=== PATIENT | female | born 1965 | race Caucasian/White ===

== ENCOUNTER 2018-01-04 16:03 | Inpatient (IN) ==
[2018-01-04 16:37] LABS: ABG Base Excess -26.1 mmol/L (-2-2); ABG PCO2 21 mmHg (38-42); ABG PO2 275 mmHg (61-120)
[2018-01-04] MEDS ORDERED: Piperacil/Tazo 3.375 GM Premix 50 ML IV.SIG ONE (16:45)
[2018-01-04] MEDS ORDERED: Potassium Chlor 20 mEq Premix 20 MEQ/100 ML PIGGYBACK IV.SIG PRN ×7 (16:58→17:28)
[2018-01-04] MEDS ORDERED: Magnesium Sulfate Inj 4 GM in Sodium Chlor 0.9% Inj 92 ML IV.SIG PRN (16:58)
[2018-01-04] MEDS ORDERED: Potassium Chlor 40 mEq Premix 40 MEQ/100 ML PIGGYBACK IV.SIG PRN ×2 (16:58)
[2018-01-04] MEDS ORDERED: Potassium Phosphate 500 MG Soluble Tablet PO PRN ×2 (16:58)
[2018-01-04] MEDS ORDERED: Magnesium Oxide 400 MG Tablet PO PRN (16:58)
[2018-01-04] MEDS ORDERED: Potassium Phosphate Inj 30 MMOL in Sodium Chlor 0.9% Inj 250 ML IV.SIG PRN (16:58)
[2018-01-04] MEDS ORDERED: Potassium Chloride 25 MEQ Effervescent Tablet PO PRN (16:58)
[2018-01-04] MEDS ORDERED: Magnesium Sulfate Inj 2 GM in Sodium Chlor 0.9% Inj 96 ML IV.SIG PRN (16:58)
[2018-01-04] MEDS ORDERED: Sodium Phosphate Inj 30 MMOL in Sodium Chlor 0.9% Inj 250 ML IV.SIG PRN (16:58)
[2018-01-04] MEDS ORDERED: Norepinephrine Inj 4 MG/4 ML Ampul ONE (17:13)
--- NOTE | 2018-01-04 17:17 | P.HPCC ---
History of Present Illness Service: Critical Care Medicine Primary Care Physician: UNKNOWN Chief Complaint: unresponsive History of Present Illness: This is a 52yF with a completely unknown past medical history who was found by EMS unresponsive in her home. per report, her friends called EMS to check on her. she was intubated in the field with 6.5 ett. she arrives to the ER hypotensive in shock. abg demonstrates pH 6.9/21/275/-26. wbc 30, hct 50, plt 253, 87% neutrophil. sodium 129, potassium 5.3, co2 5.9, AG 34, cr 4.25, glucose 1191. lactate 6.2, ammonia 70. Because nothing was known about the patient and she was in profound shock, we went emergently to CT: CT brain without acute abnormality. CT chest demonstrates patchy infiltrates concerning for infectious etiology. CT abd/pelvis without acute abnormality. she is taken to ICU in critical condition, unresponsive. no additional information is available. ROS unobtainable. Inpatient Certification: I certify that the inpatient services were ordered in accordance with Medicare regulations governing the order. This includes certification that hospital inpatient services are reasonable and necessary and in the case of services not specified as inpatient-only under 42 CFR 419.22(n), that they are appropriately provided as inpatient services in accordance to with the 2-midnight benchmark under 43 CFR 412.3(e) Estimated Total Length of Stay (Days): 7 Plans for Post Hospital Care: Not yet determined Review of Systems unobtainable due to endotracheal tube, unobtainable due to mental condition, unobtainable due to mental status PMFSH - History History Provided By: Director Women / EMT - Medical / Surgical Hx Neg / Unobtainable Medical Problems Denied: Unable to Obtain Surgical History: Unable to Obtain - Medical History Medical History: Medical History (Last Reviewed 01/04/18 @ 17:37 by Hannah Israel MD) Diabetes - Tobacco History Smoking Status: Unknown if ever smoked - Alcohol History How Often Do You Have a Drink Containing Alcohol: Unable to Obtain - Substance Use History Substance History: Unable to Obtain - Travel History Recent Travel in the [place] Within the Last 8 Weeks: No Recent Travel Out of the Country Within the Last 8 Weeks: No - Immunization History Tetanus Immunization: Unable to Assess Hx Influenza Vaccine This Season: Unable to Assess Medications and Allergies Active Medications: Active Medications Albuterol (Duoneb Neb (Prn)) 1 ampul NEB Q2HR NEB PRN PRN Reason: WHEEZING Albuterol (Duoneb Neb (Prn)) 1 ampul NEB Q6HR NEB MATTEO Chlorhexidine Gluconate (Peridex 0.12% Oral Kit) 15 ml OROPHARYNG BID@0800, 2000 MATTEO Chlorhexidine Gluconate (Chlorhexidine 2% Cloth) 3 pack TOPICAL DAILY@0400 MATTEO Stop: 01/10/18 03:59 Chlorhexidine Gluconate (Chlorhexidine 2% Cloth) 3 pack TOPICAL DAILY@0400 PRN PRN Reason: Extra cloth needed Stop: 01/10/18 03:59 Famotidine (Pepcid Pf Inj) 20 mg IV.PUSH Q12HR MATTEO Piperacillin/Tazobactam/Dextrose (Zosyn 3.375 Gm Premix) 50 mls @ 100 mls/hr IV.SIG ONCE ONE Stop: 01/04/18 17:14 Magnesium Sulfate Inj 4 gm/ (Sodium Chloride) 100 mls @ 50 mls/hr IV.SIG UNSCH PRN PRN Reason: For Magnesium 0.9 - 1.1 mg/dL Potassium Chloride (Kcl 40 Meq Premix Inj) 40 meq in 100 mls @ 25 mls/hr IV.SIG Q2H PRN PRN Reason: For Potassium 2.8 - 3.2 mEq/L Potassium Chloride (Kcl 40 Meq Premix Inj) 40 meq in 100 mls @ 25 mls/hr IV.SIG UNSCH PRN PRN Reason: For Potassium 3.3 - 3.5 mEq/L Potassium Chloride (Kcl 20 Meq Premix Inj) 20 meq in 100 mls @ 50 mls/hr IV.SIG Q2H PRN PRN Reason: For Potassium 2.8 - 3.2 mEq/L Potassium Phosphate 30 mmol/ (Sodium Chloride) 260 mls @ 42 mls/hr IV.SIG UNSCH PRN PRN Reason: SEE LABEL COMMENTS Magnesium Sulfate Inj 2 gm/ (Sodium Chloride) 100 mls @ 50 mls/hr IV.SIG UNSCH PRN PRN Reason: For Magnesium 1.2 - 1.6 mg/dL Potassium Chloride (Kcl 20 Meq Premix Inj) 20 meq in 100 mls @ 50 mls/hr IV.SIG Q2H PRN PRN Reason: For Potassium 3.3 - 3.5 mEq/L Sodium Phosphate 30 mmol/ (Sodium Chloride) 260 mls @ 42 mls/hr IV.SIG UNSCH PRN PRN Reason: For Phosphorus < 2.5 mg/dL Magnesium Oxide (Mag-Ox) 800 mg PO UNSCH PRN PRN Reason: For Magnesium 1.2 - 1.6 mg/dL Ondansetron HCl (Zofran Inj) 4 mg IV.PUSH Q6H PRN PRN Reason: NAUSEA OR VOMITING Potassium Bicarb/Potassium Chloride (K-Lyte Cl Eff) 50 meq PO UNSCH PRN PRN Reason: For Potassium 3.3 - 3.5 mEq/L Potassium Phosphate (K-Phos Original) 2,000 mg PO Q4H PRN PRN Reason: Phosphorus Less Than 2.5 mg/dL Potassium Phosphate (K-Phos Original) 2,000 mg PO UNSCH PRN PRN Reason: SEE LABEL COMMENTS Sodium Chloride (Ns Flush) 2 ml IV.FLUSH PRN PRN PRN Reason: FLUSH AFTER USING IV ACCESS Sodium Chloride (Ns Flush) 2 ml IV.FLUSH BID MATTEO Sodium Chloride (Ns Flush) 2 ml IV.FLUSH PRN PRN PRN Reason: FLUSH AFTER USING IV ACCESS Allergies Allergy/AdvReac Type Severity Reaction Status Date / Time No Known Allergies Allergy Unverified 01/04/18 16:11 Home Medications Medication Instructions Recorded Confirmed Type Unable to Obtain Home Meds 01/04/18 01/04/18 History Results - Labs CBC & Chem 7: 01/04/18 16:20 01/04/18 16:20 Exam Vital signs: Vital Signs 01/04/18 16:18 01/04/18 16:26 01/04/18 16:43 Temperature 37.1 C Pulse Rate 111 H 106 H 115 H Respiratory Rate 34 H 32 H 45 H Blood Pressure 78/48 L 97/54 L 97/40 L Pulse Oximetry 96 92 L 01/04/18 16:47 Temperature Pulse Rate 113 H Respiratory Rate 45 H Blood Pressure 95/47 L Pulse Oximetry Intake & Output 01/03/18 01/04/18 01/04/18 18:59 06:59 18:59 Weight 104.326 kg Narrative: gen: middle-aged appearing female, lying in bed, intubated, unresponsive. heent: pupils 3mm, equal, reactive. nc. at. mucous membranes dry. neck: no jvd. trachea midline. chest: intubated with 6.5 ett. equal chest rise. prvc. full vent support. fio2 100%. peep 5. cv: tachycardic rate, regular rhythm. sinus. hypotensive on norepinephrine abd: soft, obese, nontender, nondistended. no guarding. extr: cool to the touch. poor cap refill. distal pulses 1+. neuro: RASS -5. GCS 5. does move all extremities spontaneously but does not withdraw to pain or follow commands. Septic Shock Reassessment Septic shock perfusion: reassessment completed Caprini VTE Risk Assessment Caprini VTE Risk Assessment: Moderate/High Risk (score >= 2) Caprini Risk Assessment Model: Point Value = 1 Point Value = 2 Point Value = 3 Point Value = 5 Age 41-60 Minor surgery BMI > 25 kg/m2 Swollen legs Varicose veins or History of unexplained or recurrent spontaneous Oral contraceptives or hormone replacement Sepsis (< 1 month) Serious lung disease, including pneumonia (< 1 month) Abnormal pulmonary function Acute myocardial infarction Congestive heart failure (< 1 month) History of inflammatory bowel disease Medical patient at bed rest Age 61-74 Arthroscopic surgery Major open surgery (> 45 min) Laparoscopic surgery (> 45 min) Malignancy Confined to bed (> 72 hours) Immobilizing plaster cast Central venous access Age >= 75 History of VTE Family history of VTE Factor V Leiden Prothrombin [id number] Lupus anticoagulant Anticardiolipin antibodies Elevated serum homocysteine Heparin-induced thrombocytopenia Other congenital or acquired thrombophilia Stroke (< 1 month) Elective arthroplasty Hip, pelvis, or leg fracture Acute spinal cord injury (< 1 month) Prophylaxis Regimen: Total Risk Factor Score Risk Level Prophylaxis Regimen 0-1 Low Early ambulation 2 Moderate Order ONE of the following: *Sequential Compression Device (SCD) *Heparin 5000 units SQ BID 3-4 Higher Order ONE of the following medications: *Heparin 5000 units SQ TID *Enoxaparin/Lovenox 40 mg SQ daily (WT < 150 kg, CrCl > 30 mL/min) *Enoxaparin/Lovenox 30 mg SQ daily (WT < 150 kg, CrCl > 10-29 mL/min) *Enoxaparin/Lovenox 30 mg SQ BID (WT < 150 kg, CrCl > 30 mL/min) AND/OR *Sequential Compression Device (SCD) 5 or more Highest Order ONE of the following medications: *Heparin 5000 units SQ TID (Preferred with Epidurals) *Enoxaparin/Lovenox 40 mg SQ daily (WT < 150 kg, CrCl > 30 mL/min) *Enoxaparin/Lovenox 30 mg SQ daily (WT < 150 kg, CrCl > 10-29 mL/min) *Enoxaparin/Lovenox 30 mg SQ BID (WT < 150 kg, CrCl > 30 mL/min) AND *Sequential Compression Device (SCD) Assessment and Plan - Assessment and Plan Plan: Assessment: 52yF with unknown past medical history presents in multiorgan failure and profound shock and acidosis. critically ill. Most likely constellation of symptoms are consistent with severe DKA in extremis and shock combined with a septic shock from most likely pulmonary etiology. Plan by systems: Neuro: Acute metabolic encephalopathy - frequent neuro checks - propofol, fentanyl for goal RASS -2. - avoid long-acting sedatives Resp: Acute hypoxic and hypercarbic respiratory failure Community Acquired pneumonia - vent bundle - hob elevated - no weaning of mechanical ventilation while in shock - wean fio2 for goal spo2 > 90% - no SBT today CV: Septic Shock Hypovolemic shock - s/p 6L crystalloid ivf - levophed, vasopressin for goal map > 65 mmHg Renal: Acute kidney injury - likely secondary to volume depletion and shock - ivf - daily bmp - allen - q1h uop FEN/GI: Lactic Acidosis Severe anion-gap metabolic acidosis Acute intravascular volume depletion Obesity Hyperkalemia total body potassium depletion Pseudohyponatremia secondary to hyperglycemia - NPO while in shock - ICU electrolyte protocol - aggressive potassium replacement - trend lactates - ivf - frequent serial labs - sodium secondary to hyperglycemia, trend. Heme/ID: Community Acquired Pneumonia Septic Shock - vancomycin with pharmacy dosing - zosyn - azithromycin - sarabia culture - daily cbc Endo: Diabetic Ketoacidosis - dka protocol insulin drip - q1h accuchecks Prophylaxis: SQH pepcid SCDs Lines: - 01/04 left IJ TLC - 01/04 right radial art line - allen Dispo: - admit to ICU. critically ill in extremis. Critical care time: 96 minutes, exclusive of separately billable procedures. Procedures - Arterial Line Time out performed: Yes Size (Gauge): 20 Technique used: direct puncture technique Post-Procedure: line sutured into place, dry sterile dressing placed Patient tolerated procedure: no complications Complications: none Site: right, radial
[2018-01-04] MEDS ORDERED: Sodium Bicarbonate 8.4% Inj 50 MEQ/50 ML Syringe IV.PUSH ONE (17:18)
[2018-01-04] MEDS ORDERED: Vancomycin Consult Pharmacy OTHER PRN (17:20)
[2018-01-04 17:22] LABS: Baso # (Auto) 0.1 th/mm3 (0.0-0.2); Baso % (Auto) 0.2 % (0.0-2.0); Eos % (Auto) 0.1 % (0.0-4.0); Hematocrit 50.8 % (35.0-46.0); Lymph # (Auto) 1.5 th/mm3 (1.0-4.8); Lymph % (Auto) 5.1 % (9.0-44.0); Mean Corpuscular Hemoglobin 29.1 pg (27.0-34.0); Mean Corpuscular Volume 105.7 fL (80.0-100.0); Mean Platelet Volume 14.2 fL (7.0-11.0); Mono % (Auto) 6.7 % (0.0-8.0); Neut # (Auto) 26.3 th/mm3 (1.8-7.7); Neut % (Auto) 87.9 % (16.0-70.0); Platelet Count 253 th/mm3 (150-450); Red Blood Count 4.81 mil/mm3 (4.00-5.30); Red Cell Distribution Width 15.2 % (11.6-17.2)
[2018-01-04 17:24] LABS: Mean Corpuscular HGB Conc 27.6 % (32.0-36.0)
[2018-01-04] MEDS ORDERED: Sodium Phosphate Inj 15 MMOL in Sodium Chlor 0.9% Inj 100 ML IV.SIG PRN (17:28)
[2018-01-04 17:33] LABS: Activated Partial Thrombo Time 29.7 sec (24.3-30.1)
[2018-01-04 17:39] LABS: Amphetamine Screen,Urine Neg (Neg); Barbiturate Screen,Urine Neg (Neg); Cannabinoid Screen,Urine Neg (Neg); Cocaine Screen,Urine Neg (Neg)
[2018-01-04 17:41] LABS: Bilirubin,Urine Negative (Negative); Clarity,Urine Clear (Clear); Color,Urine Yellow (Yellw/Straw); Glucose,Urine (UA) 500 or Greater mg/dL (Negative); Leukocyte Esterase,Urine Negative (Negative); Nitrite,Urine Negative (Negative); Specific Gravity,Urine 1.017 (1.002-1.035); Squamous Epithelial Cell,Urine <1 /hpf (0-5)
[2018-01-04] MEDS ORDERED: Midazolam Inj 5 MG/ML 1 ML Vial ONE ×3 (17:42→18:35)
--- NOTE | 2018-01-04 17:42 | ED ---
HPI General Chief Complaint: Altered Mental Status Stated Complaint: diabetic Time Seen by Provider: 01/04/18 16:10 Source: EMS Mode of arrival: EMS Limitations: altered mental status History of Present Illness HPI narrative: 52-year-old female patient presents to the ER today brought in by EMS, apparently he was not heard from and they had done a well check on her, found her unresponsive on the ground, respiratory rates in the 40s, pulse ox in the 70s, and intubated her for airway protection. Blood sugars reading high. They were not able to get any further history. Related Data Allergies Allergy/AdvReac Type Severity Reaction Status Date / Time No Known Allergies Allergy Unverified 01/04/18 16:11 Review of Systems ROS Unobtainable ROS Unobtainable: unobtainable due to endotracheal tube PMFSH Medical History Medical History Diabetes (Acute) Social History Social History Substance History: Unable to Obtain Smoking Status: Unknown if ever smoked How Often Do You Have a Drink Containing Alcohol: Unable to Obtain Recent Travel in [facility] within the Last 8 Weeks: No Recent Out of Country Travel within the Last 8 Weeks: No Immunization History Tetanus Immunization: Unable to Assess Hx Influenza Vaccine This Season: Unable to Assess Exam Narrative Exam Narrative: GENERAL: Well-developed middle-age female patient currently intubated, unresponsive to painful stimuli, obtunded. SKIN: Focused skin assessment warm/diaphoretic. HEAD: Atraumatic. Normocephalic. EYES: Pupils equal and round. No scleral icterus. No injection or drainage. ENT: No nasal bleeding or discharge. Mucous membranes pink and moist. NECK: Trachea midline. No JVD. CARDIOVASCULAR: Regular rate and rhythm. No murmur appreciated. RESPIRATORY: Breath sounds equal bilaterally. Intubated. Tachypnea. GASTROINTESTINAL: Abdomen soft, non-tender, nondistended. Hepatic and splenic margins not palpable. MUSCULOSKELETAL: No obvious deformities. No clubbing. No cyanosis. No edema. NEUROLOGICAL: Obtunded, unresponsive to painful stimuli. PSYCHIATRIC: Unable to assess, obtunded, intubated Course Initial Documented Vital Signs Pulse Rate 111 H 01/04/18 16:18 Respiratory Rate 34 H 01/04/18 16:18 Blood Pressure 78/48 L 01/04/18 16:18 Pulse Oximetry 96 01/04/18 16:18 Last Documented Vital Signs Temperature 98.7 F 01/04/18 16:43 Pulse Rate 113 H 01/04/18 16:47 Respiratory Rate 45 H 01/04/18 16:47 Blood Pressure 95/47 L 01/04/18 16:47 Pulse Oximetry 92 L 01/04/18 16:26 Medical Decision Making MDM Narrative Medical decision making narrative: Patient had been intubated by EMS, blood sugars reading high, initial exam shows good breath sounds bilaterally, no breath sounds over the stomach, ET tube appears to be in place. Ultrasound mental status workup initiated in the ER. She was hypotensive and to boluses of normal saline have been given in the ER. Her initial ABG shows significant metabolic metabolic acidosis with pH of 6.9. To as a bicarb were given in the ER. She is mildly febrile and at this point, IV antibiotics were initiated after blood cultures are drawn. Patient is in critical condition and case was discussed with Dr. Fisher of intensive care unit service for admission. Aggregate critical care time was 35 minutes. Time to perform other separately billable procedures was not included in the critical care time. My time did not include minutes spent treating any other patients simultaneously or on activities that did not directly contribute to the patient's treatment. The services I provided to this patient were to treat and/or prevent clinically significant deterioration that could result in: Cardiopulmonary arrest, septic shock, I provided critical care services requiring my management, as noted below: Chart data review, documentation time, medication orders and management, vital sign assessments/reviewing monitor data, ordering and reviewing lab tests, ordering and interpreting/reviewing x-rays and diagnostic studies, care of the patient and discussion of the patient with the admitting physicians. Medical Screen Exam Complete: Yes Emergency Medical Condition: Yes Differential Diagnosis Differential Diagnosis: sepsis versus pneumonia versus DKA versus ICH versus dehydration versus PE Lab Data Lab results reviewed: Yes I reviewed the patient's lab results. Result diagrams: 01/04/18 16:20 01/04/18 16:20 POC Results POC Urine Results Negative Lab Results 01/04/18 01/04/18 01/04/18 Range/Units 16:20 16:20 16:26 WBC 30.0 H (4.0-11.0) th/mm3 RBC 4.81 (4.00-5.30) mil/mm3 Hgb 14.0 (11.6-15.3) gm/dL Hct 50.8 H (35.0-46.0) % MCV 105.7 H (80.0-100.0) fL MCH 29.1 (27.0-34.0) pg MCHC 27.6 L (32.0-36.0) % RDW 15.2 (11.6-17.2) % Plt Count 253 (150-450) th/mm3 MPV 14.2 H (7.0-11.0) fL Prelim Diff (Auto) Slide review pending Neut % (Auto) 87.9 H (16.0-70.0) % Lymph % (Auto) 5.1 L (9.0-44.0) % [place] % (Auto) 6.7 (0.0-8.0) % Eos % (Auto) 0.1 (0.0-4.0) % Baso % (Auto) 0.2 (0.0-2.0) % Neut # (Auto) 26.3 H (1.8-7.7) th/mm3 Lymph # (Auto) 1.5 (1.0-4.8) th/mm3 [place] # (Auto) 2.0 H (0.0-0.9) th/mm3 Eos # (Auto) 0.0 (0.0-0.4) th/mm3 Baso # (Auto) 0.1 (0.0-0.2) th/mm3 Differential Comment . PT 10.0 (9.8-11.6) sec INR 1.0 Ratio APTT 29.7 (24.3-30.1) sec Fibrinogen 432 H (227-377) mg/dL Puncture Site Patient Temperature O2 Saturation (90-100) % ABG pH (7.380-7.420) ABG pCO2 (38-42) mmHg ABG pO2 (61-120) mmHg ABG HCO3 (22-26) mmol/L ABG O2 Content (12.0-20.0) Vol % ABG Base Excess (-2-2) mmol/L ABG Methemoglobin (0-2) % Omer Test Hemoglobin (12.0-16.0) G/DL Carboxyhemoglobin (0-4) % O2 Delivery Device Vent Setting Inspired O2 % Critical Value Lactic Acid 6.2 H* (0.4-2.0) mmol/L Ammonia (11-32) mcmol/L 01/04/18 01/04/18 Range/Units 16:26 16:30 WBC (4.0-11.0) th/mm3 RBC (4.00-5.30) mil/mm3 Hgb (11.6-15.3) gm/dL Hct (35.0-46.0) % MCV (80.0-100.0) fL MCH (27.0-34.0) pg MCHC (32.0-36.0) % RDW (11.6-17.2) % Plt Count (150-450) th/mm3 MPV (7.0-11.0) fL Prelim Diff (Auto) Neut % (Auto) (16.0-70.0) % Lymph % (Auto) (9.0-44.0) % [place] % (Auto) (0.0-8.0) % Eos % (Auto) (0.0-4.0) % Baso % (Auto) (0.0-2.0) % Neut # (Auto) (1.8-7.7) th/mm3 Lymph # (Auto) (1.0-4.8) th/mm3 [place] # (Auto) (0.0-0.9) th/mm3 Eos # (Auto) (0.0-0.4) th/mm3 Baso # (Auto) (0.0-0.2) th/mm3 Differential Comment PT (9.8-11.6) sec INR Ratio APTT (24.3-30.1) sec Fibrinogen (227-377) mg/dL Puncture Site Right radial Patient Temperature 98.6 O2 Saturation 97 (90-100) % ABG pH 6.90 L* (7.380-7.420) ABG pCO2 21 L* (38-42) mmHg ABG pO2 275 H (61-120) mmHg ABG HCO3 4 L* (22-26) mmol/L ABG O2 Content 16.6 (12.0-20.0) Vol % ABG Base Excess -26.1 L (-2-2) mmol/L ABG Methemoglobin 0.9 (0-2) % Omer Test Present Hemoglobin 11.7 L (12.0-16.0) G/DL Carboxyhemoglobin 1.0 (0-4) % O2 Delivery Device Ventilator Vent Setting Vac/16/550/+5/.60% Inspired O2 60 % Critical Value Yes Lactic Acid (0.4-2.0) mmol/L Ammonia 70 H (11-32) mcmol/L Discharge Plan Discharge Details Anticipated Discharge Date: 01/04/18 Physicians Team ED Provider: Hannah Israel Primary Care Provider: UNKNOWN, Attending Provider: Guille Vázquez Discharge Interventions Interventions: Vital Signs Last Done: 01/04/18 16:47 Status ED Status: Admitted Patient
--- NOTE | 2018-01-04 17:45 | CT ---
EXAM DATE: 01/04/2018 5:42 PM EDT AGE/SEX: 52 years / Female INDICATIONS: Altered mental status. CLINICAL DATA: This is the patient's initial encounter. Patient reports that signs and symptoms have been present for 1 day and indicates a pain score of Nonresponsive. MEDICAL/SURGICAL HISTORY: Non-responsive. Non-responsive. RADIATION DOSE: 65.48 CTDI (mGy) ; Patient motion COMPARISON: No prior exams available for comparison. TECHNIQUE: CT of the head without contrast. Using automated exposure control and adjustment of the mA and/or kV according to patient size, radiation dose was kept as low as reasonably achievable to ob tain optimal diagnostic quality images. DICOM format image data is available electronically for revi ew and comparison. FINDINGS: The study is degraded by artifact from overlying foreign objects. Grossly, the ventricles are symmetr ic and normal. No abnormal extra-axial fluid accumulation, mass or hemorrhage is identified. There is nothing to suggest acute infarction. The calvarium is intact. CONCLUSION: Technically degraded exam grossly negative for acute intracranial process. . Electronically signed by: Demetri Domingo MD 01/04/2018 5:44 PM EDT
[2018-01-04 17:48] LABS: Opiate Screen,Urine Neg (Neg)
[2018-01-04] MEDS ORDERED: Midazolam Inj 5 MG/ML 1 ML Vial IV.PUSH ONE (17:54)
--- NOTE | 2018-01-04 17:56 | CT ---
EXAM DATE: 01/04/2018 5:46 PM EDT AGE/SEX: 52 years / Female INDICATIONS: Abdominal pain. Patient found unresponsive. CLINICAL DATA: This is the patient's initial encounter. Patient reports that signs and symptoms have been present for 1 day and indicates a pain score of Nonresponsive. MEDICAL/SURGICAL HISTORY: Non-responsive. Non-responsive. ORAL CONTRAST: No oral contrast ingested. RADIATION DOSE: 19.32 CTDI (mGy) ; Combined studies COMPARISON: No prior exams available for comparison. TECHNIQUE: Multiple contiguous axial images were obtained through the abdomen and pelvis following b olus infusion of 100 ml Omnipaque 350 (iohexol) nonionic water-soluble contrast as a cumulative dos e for multiple exams. No oral contrast ingested. Using automated exposure control and adjustment of the mA and/or kV according to patient size, radiation dose was kept as low as reasonably achievable t o obtain optimal diagnostic quality images. DICOM format image data is available electronically for review and comparison. FINDINGS: Abdomen CT: The spleen, pancreas, kidneys, adrenals are unremarkable. The liver is diffusely fatty without focal lesions for technique. NG tube is present with tip in the stomach. There is no evidence for any appreciable pathological adenopathy, free fluid, or bowel o bstruction. Pelvic CT: There is no evidence for mass, abscess formation, or any significant adenopathy within the pelvis. S mall almost 1 cm area of sclerosis in right iliac bone anteriorly probably a small bone island benign in appearance. There is moderate amount of stool in the colon. CONCLUSION: Fatty liver. Electronically signed by: Bernadette Pace MD 01/04/2018 5:55 PM EDT
--- NOTE | 2018-01-04 17:58 | CT ---
EXAM DATE: 01/04/2018 5:55 PM EDT AGE/SEX: 52 years / Female INDICATIONS: Chest pain. Patient found unresponsive. CLINICAL DATA: This is the patient's initial encounter. Patient reports that signs and symptoms have been present for 1 day and indicates a pain score of Nonresponsive. MEDICAL/SURGICAL HISTORY: Non-responsive. Non-responsive. RADIATION DOSE: 19.35 CTDI (mGy) ; Combined studies COMPARISON: No prior exams available for comparison. TECHNIQUE: Multiple contiguous axial images were obtained through the chest during bolus infusion of 100 ml Omnipaque 350 (iohexol) nonionic water-soluble contrast as a cumulative dose for multiple ex ams. Images were obtained in suspended respiration using multiple row detector helical technique. Using automated exposure control and adjustment of the mA and/or kV according to patient size, radiat ion dose was kept as low as reasonably achievable to obtain optimal diagnostic quality images. DICOM format image data is available electronically for review and comparison. FINDINGS: Hazy and patchy parenchymal infiltrate is seen in left upper lobe and left lower lobe and to a lesser degree right lung laterally. There is no pleural effusion. There is no pleural effusion. No appreci able pathological adenopathy is seen within the mediastinum. The liver is diffusely fatty without fo larry lesions for technique. CONCLUSION: Bilateral parenchymal infiltrates most likely inflammatory possibly pneumonia. Electronically signed by: Bernadette Pace MD 01/04/2018 5:57 PM EDT
[2018-01-04 18:03] LABS: Eosinophils 1 % (0-4); Lymphocytes 6 % (9-44); Monocytes 7 % (0-8)
[2018-01-04 18:04] LABS: Ovalocytes 1+; Platelet Estimate Normal (Normal); Platelet Morphology Normal (Normal)
[2018-01-04 18:14] LABS: Alanine Aminotransferase 23 U/L (10-53); Albumin 3.7 g/dL (3.4-5.0); Alkaline Phosphatase 97 U/L (45-117); Anion Gap 34 meq/L (5-15); Aspartate Aminotransferase 20 U/L (15-37); Blood Urea Nitrogen 48 mg/dL (7-18); Calcium 9.1 mg/dL (8.5-10.1); Carbon Dioxide 5.9 meq/L (21.0-32.0); Chloride 89 meq/L (98-107); Glomerular Filtration Rate 11 mL/min (>89); Potassium 5.3 meq/L (3.5-5.1); Sodium 129 meq/L (136-145); Total Protein 7.4 g/dL (6.4-8.2); Troponin I 0.03 ng/mL (0.02-0.05)
[2018-01-04 18:16] LABS: Glucose,Random 1191 mg/dL (74-106)
[2018-01-04] MEDS: Insulin Regular (For Infusion) 100 UNIT in Sodium Chlor 0.9% Inj 99 ML IV.CONT PRN (18:30)
[2018-01-04 18:31] LABS: ABG Base Excess -20.2 mmol/L (-2-2); ABG PCO2 26 mmHg (38-42); ABG PO2 554 mmHG (61-120)
[2018-01-04] MEDS: Sod Chloride 0.9% Inj 1,000 ML IV.CONT SCH ×2 (18:50→23:25)
--- NOTE | 2018-01-04 18:50 | XR ---
EXAM DATE: 01/04/2018 6:35 PM EDT AGE/SEX: 52 years / Female INDICATIONS: Central line placement. CLINICAL DATA: This is the patient's initial encounter. Patient reports that signs and symptoms have been present for 1 day and indicates a pain score of Nonresponsive. MEDICAL/SURGICAL HISTORY: Non-responsive. Non-responsive. COMPARISON: No prior exams available for comparison. FINDINGS: ET tube tip 2.8 cm above the colin. Left internal jugular catheter tip projects over the mid superio r vena cava. Gastric tube tip and side-port project within the stomach. No evidence of pneumothorax. There is some indistinctness of the bronchopulmonary markings in the left lung without focal areas of infiltrate. Both hemidiaphragms well delineated. The heart is normal size. CONCLUSION: Left IJ catheter in good position. No evidence of pneumothorax. Electronically signed by: Bony Navarro MD 01/04/2018 6:49 PM EDT
[2018-01-04] MEDS ORDERED: Piperacil/Tazo 2.25 GM Premix 50 ML IV.SIG SCH (19:00)
[2018-01-04] MEDS: fentaNYL 10 mcg/mL Premix Drip 2,500 MCG/250 ML BAG IV.SIG PRN (19:08)
[2018-01-04 19:35] LABS: Calcium 7.3 mg/dL (8.5-10.1); Carbon Dioxide 8.1 meq/L (21.0-32.0); Potassium 3.5 meq/L (3.5-5.1)
[2018-01-04 19:36] LABS: Magnesium 2.4 mg/dL (1.5-2.5)
[2018-01-04 19:46] LABS: Beta Hydroxybutyric Acid 12.5 mmol/L (0.00-0.39)
[2018-01-04 19:50] LABS: Total Protein 5.4 g/dL (6.4-8.2)
[2018-01-04] MEDS ORDERED: Vancomycin Inj 2,000 MG in Sodium Chlor 0.9% Inj 500 ML IV.SIG ONE (20:00)
--- NOTE | 2018-01-04 20:28 | P.PCN ---
Date of procedure: 01/04/18 Procedure: Central Line Procedure Note Diagnosis: Circulatory shock, acute hypoxic respiratory failure, DKA, severe acidosis Indications: Pressors, frequent blood draws Consent: Not obtained since the procedure was emergent and there was no family present at bedside Anesthesia: Midazolam Description of the Procedure: The patient was placed in the supine, mild- Trendelenburg position. The area was prepped and draped sterilely. A 19g needle was inserted under negative pressure aspiration and dark venous blood was obtained. A guidewire was inserted easily without resistance. A small incision was made using a #11 blade. Using a modified Seldinger technique, the dilator and the central venous catheter were advanced over the guidewire without resistance. All ports were aspirated and flushed, and had brisk blood return. The line was secured at 17 cm at the skin using 2-0 silk interrupted sutures ( patient was diaphoretic so the line needed to be sutured). A Biopatch and Transparent sterile dressing were applied. There were no immediate complications noted. There was minimal EBL. The patient tolerated the procedure well. Ultrasound Guidance: Ultrasound guidance was used to identify the left internal jugular vein. The vascular anatomy was normal. The vessel was cannulated under direct, real-time ultrasound visualization. After placement of the guidewire, confirmation of the guidewire in the lumen of the vessel was made using ultrasound visualization, before dilation of the tract. A Chest x-ray has been ordered. Central line is in good position, no pneumothorax identified. I personally performed the procedure.
[2018-01-04 20:36] LABS: Hepatitis A IgM Antibody Nonreactive (Nonreactive); Hepatitits B Surface Antigen Nonreactive (Nonreactive)
[2018-01-04] MEDS: Azithromycin Inj 500 MG in Sodium Chlor 0.9% Inj 250 ML IV.SIG SCH (20:44)
[2018-01-04] MEDS: Famotidine PF Inj 20 MG/2 ML Vial IV.PUSH SCH (20:45)
[2018-01-04] MEDS: Chlorhexidine 0.12% Oral Kit 15 ML UDC OROPHARYNG SCH (20:46)
[2018-01-04] MEDS: Dextrose 5%/NaCl 0.9% Inj 1,000 ML IV.CONT SCH ×2 (21:27→23:52)
[2018-01-04] MEDS: Heparin - SQ 10,000 UNITS/ML Vial SQ SCH (23:26)
[2018-01-05] MEDS ORDERED: Phenylephrine Inj 160 MG in Sodium Chlor 0.9% Inj 484 ML IV.CONT PRN (00:11)
[2018-01-05 00:37] LABS: VBG Base Excess -12.2 mmol/L (-2-2); VBG Blood Gas Oxygen Content 14.6 Vol % (9.0-17.0); VBG PCO2 33 mmHG (44-48); VBG PH 7.24 (7.360-7.400); VBG PO2 56 mmHG (35-40)
[2018-01-05] MEDS: Piperacil/Tazo 2.25 GM Premix 50 ML IV.SIG SCH ×5 (00:37→22:43)
[2018-01-05] MEDS: Oral Hygiene Kit OROPHARYNG SCH ×4 (00:37→16:23)
[2018-01-05 01:00] LABS: Carbon Dioxide 15.4 meq/L (21.0-32.0); Magnesium 2.2 mg/dL (1.5-2.5); Phosphorus 0.8 mg/dL (2.5-4.9)
[2018-01-05 01:02] LABS: Potassium 2.4 meq/L (3.5-5.1)
[2018-01-05 01:13] LABS: Total Protein 5.5 g/dL (6.4-8.2)
[2018-01-05] MEDS: Potassium Chlor 40 mEq Premix 40 MEQ/100 ML PIGGYBACK IV.SIG PRN ×4 (01:20→18:45)
[2018-01-05] MEDS: Insulin Regular (For Infusion) 100 UNIT in Sodium Chlor 0.9% Inj 99 ML IV.CONT PRN ×2 (02:31→18:20)
[2018-01-05 03:36] LABS: Albumin 2.8 g/dL (3.4-5.0); Carbon Dioxide 17.4 meq/L (21.0-32.0); Magnesium 2.1 mg/dL (1.5-2.5); Phosphorus 0.6 mg/dL (2.5-4.9); Total Protein 5.5 g/dL (6.4-8.2)
[2018-01-05 03:50] LABS: Potassium 2.6 meq/L (3.5-5.1)
[2018-01-05] MEDS ORDERED: Chlorhexidine Gluconate 2% 1 Pack (2 Cloths) TOPICAL PRN ×2 (04:00)
[2018-01-05] MEDS ORDERED: Chlorhexidine Gluconate 2% 1 Pack (2 Cloths) TOPICAL SCH (04:00)
[2018-01-05] MEDS: Sod Chloride 0.9% Inj 1,000 ML IV.CONT SCH ×5 (04:10→19:56)
[2018-01-05] MEDS: Chlorhexidine Gluconate 2% 1 Pack (2 Cloths) TOPICAL SCH (04:10)
[2018-01-05] MEDS: Dextrose 5%/NaCl 0.9% Inj 1,000 ML IV.CONT SCH ×4 (04:10→21:23)
[2018-01-05] MEDS ORDERED: Pharmacy Ordered Lab Info OTHER SCH (06:00)
[2018-01-05] MEDS: Heparin - SQ 10,000 UNITS/ML Vial SQ SCH (06:02)
[2018-01-05 06:58] LABS: Activated Partial Thrombo Time 24.4 sec (24.3-30.1); INR 1.1 Ratio; Prothrombin Time 10.8 sec (9.8-11.6)
[2018-01-05] MEDS: Famotidine PF Inj 20 MG/2 ML Vial IV.PUSH SCH ×2 (08:10→21:23)
[2018-01-05] MEDS: fentaNYL 10 mcg/mL Premix Drip 2,500 MCG/250 ML BAG IV.SIG PRN ×2 (08:11→18:15)
[2018-01-05] MEDS: Chlorhexidine 0.12% Oral Kit 15 ML UDC OROPHARYNG SCH ×2 (08:11→21:23)
[2018-01-05] MEDS ORDERED: Iohexol 350 MG/ML 50 ML Vial (for Cath Lab) IVCONTRAST ONE (10:02)
[2018-01-05] MEDS: Vasopressin Inj 40 UNIT in Dextrose 5% in Water Inj 98 ML IV.CONT PRN ×2 (10:06)
[2018-01-05] MEDS: Propofol 1000 mg/100 ml Inj 1,000 MG/100 ML BOTTLE IV.CONT PRN ×2 (10:34→16:21)
[2018-01-05] MEDS ORDERED: fentaNYL Citrate Inj 100 MCG/2 ML Ampul ONE (12:25)
[2018-01-05 12:53] LABS: Albumin 2.7 g/dL (3.4-5.0); Beta Hydroxybutyric Acid 2.37 mmol/L (0.00-0.39); Carbon Dioxide 18.9 meq/L (21.0-32.0); Magnesium 1.7 mg/dL (1.5-2.5); Phosphorus 0.5 mg/dL (2.5-4.9); Total Protein 5.1 g/dL (6.4-8.2)
[2018-01-05 12:56] LABS: Potassium 2.7 meq/L (3.5-5.1)
--- NOTE | 2018-01-05 13:04 | ECG ---
Date Performed: 01/04/2018 Time Performed: 16:55:32 PTAGE: 52 years EKG: Rhythm is likely SINUS TACHYCARDIA though there is baseline artifact and P waves are diffic ult to appreciate MODERATE ST DEPRESSION Recommend repeat study. There do appear to be some ischemic ST changes, particularly in the anterolateral leads. ABNORMAL ECG NO PREVIOUS TRACING FOR COMPARISON DOCTOR: Tobias Vanegas Interpretating Date/Time 01/05/2018 13:03:08
--- NOTE | 2018-01-05 13:06 | ECG ---
Date Performed: 01/05/2018 Time Performed: 06:13:44 PTAGE: 52 years EKG: CONSIDER ACUTE ST ELEVATION PR Sinus rhythm . Inferior ST elevation, CONSIDER ACUTE INFARCT Low QRS voltages in precordial leads There are fairly diffuse ST elevations. They are most prominent inferiorly but seen in other leads as well. Suspect p ericarditis as most likely diagnosis, though clinical correlation is required. Since previous tracing , no significant change noted Abnormal ECG PREVIOUS TRACING : 01/05/2018 04.44 DOCTOR: Tobias Vanegas Interpretating Date/Time 01/05/2018 13:04:59
--- NOTE | 2018-01-05 13:06 | ECG ---
Date Performed: 01/05/2018 Time Performed: 04:44:10 PTAGE: 52 years EKG: CONSIDER ACUTE ST ELEVATION AR Sinus rhythm with PAC(s). Inferior ST elevation, CONSIDER ACUTE INFARCT Low QRS voltages in precordial leads Comp ared to previous tracing the baseline artifact has resolved. There are fairly diffuse ST elevations. They are most prominent inferiorly but seen in other leads as well. Suspect pericarditis as most like ly diagnosis, though clinical correlation is required. Abnormal ECG PREVIOUS TRACING : 01/04/2018 16.55 DOCTOR: Tobias Vanegas Interpretating Date/Time 01/05/2018 13:04:33
[2018-01-05] MEDS ORDERED: Heparin Drip 25,000 UNIT/250 ML BAG IV.CONT PRN (13:12)
[2018-01-05] MEDS ORDERED: Aspirin 300 MG Supp RECTAL STA (14:14)
--- NOTE | 2018-01-05 14:20 | P.PNCC ---
Subjective Subjective Remarks/Hospital Course: Hospital Course: This is a 52yF with a completely unknown past medical history who was found by EMS unresponsive in her home. per report, her friends called EMS to check on her. she was intubated in the field with 6.5 ett. she arrives to the ER hypotensive in shock. abg demonstrates pH 6.9/21/275/-26. wbc 30, hct 50, plt 253, 87% neutrophil. sodium 129, potassium 5.3, co2 5.9, AG 34, cr 4.25, glucose 1191. lactate 6.2, ammonia 70. Because nothing was known about the patient and she was in profound shock, we went emergently to CT: CT brain without acute abnormality. CT chest demonstrates patchy infiltrates concerning for infectious etiology. CT abd/pelvis without acute abnormality. she is taken to ICU in critical condition, unresponsive. no additional information is available. ROS unobtainable. Subjective: 01/05: now on 3 vasopressors. glycemic control improving. remains encephalopathic. remains in shock. now with inferior ST elevations and rising troponins. given that she is unresponsive, unclear if she has any symptoms of ACS. Certainly given clinical course most likely Type II NSTEMI secondary to demand ischemia from shock, but unable to say with certainty that this is not Type I NSTEMI or STEMI given inferior ST elevations (there are diffuse areas of other ST elevations in other leads, which would argue against single vascular territory ischemia). cultures NGTD. Talked with family: she has poorly controlled diabetes and a strong psychiatric history (although family did not know specific diagnoses). Objective Vital Signs / I&O: Vital Signs 01/04/18 16:15 01/04/18 16:18 01/04/18 16:26 Temperature Pulse Rate 111 H 106 H Respiratory Rate 16 34 H 32 H Blood Pressure 78/48 L 97/54 L Pulse Oximetry 100 96 92 L 01/04/18 16:43 01/04/18 16:47 01/04/18 17:43 Temperature 37.1 C Pulse Rate 115 H 113 H 102 H Respiratory Rate 45 H 45 H 41 H Blood Pressure 97/40 L 95/47 L 115/58 L Pulse Oximetry 94 L 01/04/18 17:47 01/04/18 19:00 01/04/18 20:00 Temperature 37.5 C Pulse Rate 117 H 108 H Respiratory Rate 34 H 27 H 26 H Blood Pressure 107/53 L 104/44 L Pulse Oximetry 95 91 L 100 01/04/18 21:00 01/04/18 22:00 01/04/18 22:14 Temperature Pulse Rate 104 H 104 H Respiratory Rate 25 H 26 H 25 H Blood Pressure 107/46 L 103/47 L Pulse Oximetry 99 98 97 01/04/18 23:00 01/05/18 00:00 01/05/18 01:00 Temperature Pulse Rate 103 H 84 70 Respiratory Rate 28 H 24 24 Blood Pressure 111/52 L 102/50 L 91/48 L Pulse Oximetry 99 99 92 L 01/05/18 01:05 01/05/18 02:00 01/05/18 03:00 Temperature Pulse Rate 81 84 Respiratory Rate 24 24 24 Blood Pressure 115/57 L 104/52 L Pulse Oximetry 97 97 91 L 01/05/18 03:59 01/05/18 04:00 01/05/18 05:00 Temperature 36.4 C Pulse Rate 82 82 80 Respiratory Rate 24 24 24 Blood Pressure 101/52 L 97/57 L Pulse Oximetry 98 99 99 01/05/18 06:00 01/05/18 07:00 01/05/18 07:38 Temperature Pulse Rate 81 81 Respiratory Rate 24 24 24 Blood Pressure 102/53 L 92/49 L Pulse Oximetry 100 01/05/18 08:00 01/05/18 09:00 01/05/18 10:00 Temperature 37.2 C Pulse Rate 86 91 H 82 Respiratory Rate 24 24 24 Blood Pressure 99/55 L 115/54 L 107/66 Pulse Oximetry 94 L 90 L 94 L 01/05/18 11:00 01/05/18 11:01 01/05/18 12:00 Temperature 37.6 C H Pulse Rate 87 85 87 Respiratory Rate 24 24 24 Blood Pressure 101/57 L 75/58 L Pulse Oximetry 95 100 97 Intake & Output 01/04/18 01/05/18 01/05/18 18:59 06:59 18:59 Intake Total 4970 / 4970 300 / 300 Output Total 1949 / 1949 400 / 400 Balance 3020 / 3020 -100 / -100 Weight 104.326 kg Intake: IV 4970 / 4970 300 / 300 NovoLIN R (IV Infusion) 100 100 / 100 UNIT In NS Inj 99 ML @ 10 UNITS /HR 10 mls/hr IV.CONT TITRATE PRN Rx#:[id number] NS Inj 1,000 ML @ 250 mls/hr IV 3000 / 3000 .CONT .Q4H MATTEO Rx#:[id number] Azithromycin Inj 500 MG In NS 250 / 250 Inj 250 ML @ 250 mls/hr IV.SIG Q24H MATTEO Rx#:[id number] Levophed-Dextrose 4 mg/250 ml 750 / 750 Drip 4 mg In 250 ml @ 2 MCG/MIN 7.5 mls/hr IV.SIG TITRATE PRN Rx#:[id number] Zosyn 2.25 GM Premix 50 ML @ 100 / 100 100 mls/hr IV.SIG Q6H MATTEO Rx#: [id number] Zosyn 3.375 GM Premix 50 ML @ 100 / 100 100 mls/hr IV.SIG ONCE ONE Rx#: [id number] KCl 40 mEq Premix Inj 40 meq In 150 / 150 50 / 50 100 ml @ 100 mls/hr IV.SIG Q1H PRN Rx#:[id number] Vancomycin Inj 2,000 MG In NS 520 / 520 Inj 500 ML @ 250 mls/hr IV.SIG ONCE ONE Rx#:[id number] fentaNYL 10 mcg/mL Premix Drip 250 / 250 2,500 mcg In 250 ml @ 50 MCG/HR 5 mls/hr IV.SIG TITRATE PRN Rx #:[id number] Output: Urine Amount (Catheter) 1575 / 1575 400 / 400 Indwelling Urethral Catheter 1575 / 1575 400 / 400 Gastric Drainage 375 / 375 Right Nare Nasogastric Tube 375 / 375 Result Diagrams: 01/04/18 16:20 01/05/18 11:00 Objective Remarks: gen: middle-aged appearing female, lying in bed, intubated, unresponsive. heent: pupils 3mm, equal, reactive. nc. at. mucous membranes moist. neck: no jvd. trachea midline. chest: intubated with 6.5 ett. equal chest rise. prvc. full vent support. fio2 60%. peep 8. cv: tachycardic rate, regular rhythm. sinus. hypotensive on norepinephrine, vasopressin, phenylephrine abd: soft, obese, nontender, nondistended. no guarding. extr: cool to the touch. poor cap refill. distal pulses 1+. neuro: RASS -3. GCS 6. moves all extremities spontaneously. does not follow commands. Assessment and Plan - Assessment and Plan Plan: Assessment: 52yF with history of poorly controlled diabetes presents in multiorgan failure and profound shock and diabetic ketoacidosis. critically ill. worse today than yesterday. coronary ischemia is new. shock persists. Plan by systems: Neuro: Acute metabolic encephalopathy - frequent neuro checks - propofol, fentanyl for goal RASS -2. - avoid long-acting sedatives Resp: Acute hypoxic and hypercarbic respiratory failure Community Acquired pneumonia - vent bundle - hob elevated - no weaning of mechanical ventilation while in shock - wean fio2 for goal spo2 > 90% - no SBT today CV: Septic Shock- persistent, worsening Hypovolemic shock- resolving Acute coronary ischemia: unclear if Type I vs. Type II Possible ST elevation myocardial infarction Elevated troponin - s/p 6L crystalloid ivf - levophed, vasopressin, phenylephrine for goal map > 65 mmHg - trend trops - EKG with inferior ST elevations - 2d echo without regional wall motion abnormalities 01/05 - cardiology consulted: Dr. Alvarado - in the setting of coronary ischemia, would avoid epinephrine and other inotropes if possible. Renal: Acute kidney injury - likely secondary to volume depletion and shock - ivf - daily bmp - allen - q1h uop FEN/GI: Lactic Acidosis Severe anion-gap metabolic acidosis Acute intravascular volume depletion- resolving. Obesity Hypokalemia Pseudohyponatremia secondary to hyperglycemia- resolved Hypernatremia - NPO while in shock - ICU electrolyte protocol - aggressive potassium replacement - trend lactates - ivf - frequent serial labs - start enteral free water 300mL po q4h Heme/ID: Community Acquired Pneumonia Septic Shock - vancomycin with pharmacy dosing - zosyn - azithromycin - cultures 01/04 NGTD - daily cbc Endo: Diabetic Ketoacidosis - dka protocol insulin drip - q1h accuchecks Prophylaxis: SQH pepcid SCDs Lines: - 01/04 left IJ TLC - 01/04 right radial art line - allen Dispo: - remain in ICU. critically ill in extremis. Critical care time: 63 minutes, exclusive of separately billable procedures. Procedures - Arterial Line Size (Gauge): 20
--- NOTE | 2018-01-05 14:46 | MB ---
cc: Tobias Vanegas MD DATE: 01/05/2018 REASON FOR CONSULTATION: Elevated troponin, abnormal EKG. HISTORY OF PRESENT ILLNESS: The patient is a 52-year-old woman who has a history of diabetes, who apparently was found unresponsive by her father and apparently had been unresponsive for about 24 hours, per the patient's daughter who is at bedside. The history is somewhat unclear. The patient's daughter is unclear exactly of what had been going on health-gutierrez with her mother. However, once unresponsive, the patient was brought to the emergency department and found to be in severe diabetic ketoacidosis, was intubated and has required 3 pressors to maintain a reasonable blood pressure. Part of her workup included an EKG which showed fairly diffuse ST elevations, though worse inferiorly as well as abnormal troponins. The patient's daughter denies any knowledge of any coronary disease for the patient. PAST MEDICAL HISTORY: Diabetes. No coronary artery disease per the patient's daughter. CURRENT MEDICATIONS: 1. Albuterol. 2. Pepcid. 3. Heparin drip. 4. Levophed 5 Vancomycin. 6. Zosyn. 7. Diprivan. 8. Marcellus-Synephrine. 9. Vasopressin. ALLERGIES: NO KNOWN DRUG ALLERGIES. PHYSICAL EXAMINATION: VITAL SIGNS: Temperature 99.7, pulse 87, blood pressure 75/88. GENERAL: Intubated obese woman. NECK: No JVD. LUNGS: Ventilator sounds appreciated. CARDIOVASCULAR: Regular rate and rhythm. No significant murmur appreciated. ABDOMEN: Benign. EXTREMITIES: No edema. LABORATORY DATA: White count 30, hematocrit 50.8, platelets 253. Sodium 152, potassium 2.7, chloride 121, bicarbonate 18.3, BUN 33, creatinine 1.86. Troponin 2.29. Initial pH was 6.9 up to 7.1. DIAGNOSTIC DATA: Serial EKGs have shown diffuse ST elevations that are worse inferiorly without any reciprocal changes. IMPRESSION: Abnormal EKG and troponin. I think the most likely scenario is an abnormal troponin due to her multiple metabolic abnormalities, perhaps with some pericarditis; however, I certainly cannot entirely exclude acute myocardial infarction. 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 She is on 3 pressors and still is maintaining only a borderline blood pressure. An echocardiogram has just been obtained, which I will use to get a sense of LV function, and perhaps if there is any specific regional wall motion abnormality, we might be more aggressive with heart catheterization, but again, given her diffuse EKG changes, I suspect we will find more of a global LV dysfunction. Aside from her current medical therapy and supportive care, I do not have any specific recommendations. Unfortunately, her prognosis does appear to be quite poor. Further recommendations based on the above. Thank you again for the opportunity to participate in this patient's care. MD STEPHANIE López/alvaro , 02:17 PM , 02:24 PM
--- NOTE | 2018-01-05 16:37 | ECHRPT ---
Indication: Chest Pain CONCLUSIONS The left ventricular systolic function is mildly reduced with an estimated ejection fraction in the range of 45- 50%. Mild global hypokinesis though TDS. Wall thickness is normal. Normal left ventricular size. Mitral annular calcification is present. Mild mitral valve regurgitation. Aortic valve sclerosis is present. There is mild tricuspid valve regurgitation. The estimated pulmonary arterial pressure is 27.8 mmHg. The pulmonary valve is not well visualized. BP: / HR: Rhythm: MEASUREMENTS (Male / Female) Normal Values Technical Quality:Technically difficult study 2D ECHO LV Diastolic Diameter PLAX 3.9 cm 4.2 - 5.9 / 3.9 - 5.3 cm LV Systolic Diameter PLAX 3.1 cm IVS Diastolic Thickness 0.8 cm 0.6 - 1.0 / 0.6 - 0.9 cm LVPW Diastolic Thickness 0.8 cm 0.6 - 1.0 / 0.6 - 0.9 cm LV Relative Wall Thickness 0.4 RV Internal Dim ED PLAX 2.7 cm LVOT Diameter 1.9 cm LA Systolic Diameter LX 3.0 cm 3.0 - 4.0 / 2.7 - 3.8 cm M-MODE Aortic Root Diameter MM 2.7 cm LA Systolic Diameter MM 3.1 cm LA Ao Ratio MM 1.1 AV Cusp Separation MM 1.9 cm DOPPLER AV Peak Velocity 143.0 cm/s AV Peak Gradient 8.2 mmHg LVOT Peak Velocity 114.0 cm/s LVOT Peak Gradient 5.2 mmHg AV Area Cont Eq pk 2.3 cm MV Area PHT 3.4 cm Mitral E Point Velocity 59.4 cm/s Mitral A Point Velocity 50.5 cm/s Mitral E to A Ratio 1.2 LV E' Lateral Velocity 11.3 cm/s Mitral E to LV E' Lateral Ratio 5.3 LV E' Septal Velocity 9.1 cm/s Mitral E to LV E' Septal Ratio 6.5 TR Peak Velocity 211.0 cm/s TR Peak Gradient 17.8 mmHg Right Atrial Pressure 10.0 mmHg Pulmonary Artery Systolic Pressu 27.8 mmHg Right Ventricular Systolic Press 27.8 mmHg FINDINGS LEFT VENTRICLE The left ventricular systolic function is mildly reduced with an estimated ejection fraction in the range of 45- 50%. Wall thickness is normal. Normal left ventricular size. RIGHT VENTRICLE Normal right ventricular size and systolic function. LEFT ATRIUM The left atrial size is normal. RIGHT ATRIUM The right atrial size is normal. ATRIAL SEPTUM Normal atrial septal thickness without atrial level shunting by limited color doppler interrogation. AORTA The aortic root and proximal ascending aorta are normal in size on limited imaging. MITRAL VALVE Mitral annular calcification is present. Mild mitral valve regurgitation. AORTIC VALVE Trileaflet aortic valve. Aortic valve sclerosis is present. TRICUSPID VALVE Structurally normal tricuspid valve. There is mild tricuspid valve regurgitation. The estimated pulmonary arterial pressure is 27.8 mmHg. PULMONARY VALVE The pulmonary valve is not well visualized. VESSELS The inferior vena cava is normal in size. PERICARDIUM No pericardial effusion. Tobias Vanegas MD (Electronically Signed) Final Date:05 January 2018 16:36
[2018-01-05 18:27] LABS: Baso % (Auto) 0.2 % (0.0-2.0); Hematocrit 34.4 % (35.0-46.0); Hemoglobin 11.4 gm/dL (11.6-15.3); Lymph # (Auto) 1.4 th/mm3 (1.0-4.8); Lymph % (Auto) 7.7 % (9.0-44.0); Mean Corpuscular HGB Conc 33.1 % (32.0-36.0); Mean Corpuscular Hemoglobin 28.6 pg (27.0-34.0); Mean Corpuscular Volume 86.4 fL (80.0-100.0); Mean Platelet Volume 12.1 fL (7.0-11.0); Mono # (Auto) 0.6 th/mm3 (0.0-0.9); Mono % (Auto) 3.4 % (0.0-8.0); Neut # (Auto) 16.4 th/mm3 (1.8-7.7); Neut % (Auto) 88.7 % (16.0-70.0); Platelet Count 121 th/mm3 (150-450); Red Blood Count 3.98 mil/mm3 (4.00-5.30); Red Cell Distribution Width 12.8 % (11.6-17.2); White Blood Count 18.5 th/mm3 (4.0-11.0)
[2018-01-05] MEDS: Azithromycin Inj 500 MG in Sodium Chlor 0.9% Inj 250 ML IV.SIG SCH (21:15)
[2018-01-05 21:21] LABS: Albumin 2.5 g/dL (3.4-5.0); Beta Hydroxybutyric Acid 0.12 mmol/L (0.00-0.39); Calcium 7.1 mg/dL (8.5-10.1); Magnesium 1.7 mg/dL (1.5-2.5); Phosphorus 0.3 mg/dL (2.5-4.9); Potassium 3.3 meq/L (3.5-5.1); Total Protein 5.1 g/dL (6.4-8.2)
[2018-01-05] MEDS ORDERED: Potassium Phos/Sodium Phos 250 MG Tablet PO ONE ×2 (22:54→23:15)
[2018-01-05] MEDS ORDERED: Heparin/NS PF Inj 1,500 ML ONE (23:22)
[2018-01-05 23:28] LABS: Baso % (Auto) 0.2 % (0.0-2.0); Eos % (Auto) 0.2 % (0.0-4.0); Hematocrit 34.2 % (35.0-46.0); Lymph # (Auto) 1.8 th/mm3 (1.0-4.8); Lymph % (Auto) 11.5 % (9.0-44.0); Mean Corpuscular HGB Conc 32.2 % (32.0-36.0); Mean Corpuscular Hemoglobin 28.6 pg (27.0-34.0); Mean Corpuscular Volume 88.7 fL (80.0-100.0); Mean Platelet Volume 12.6 fL (7.0-11.0); Mono # (Auto) 0.5 th/mm3 (0.0-0.9); Mono % (Auto) 3.3 % (0.0-8.0); Neut # (Auto) 13.2 th/mm3 (1.8-7.7); Neut % (Auto) 84.8 % (16.0-70.0); Platelet Count 82 th/mm3 (150-450); Red Blood Count 3.86 mil/mm3 (4.00-5.30); Red Cell Distribution Width 13.6 % (11.6-17.2); White Blood Count 15.5 th/mm3 (4.0-11.0)
[2018-01-05 23:40] LABS: Activated Partial Thrombo Time 56.3 sec (24.3-30.1); INR 1.1 Ratio; Prothrombin Time 11.3 sec (9.8-11.6)
[2018-01-05 23:59] LABS: Acanthocytes Occ
[2018-01-06] MEDS ORDERED: Lidocaine 1% Inj 50 ML Vial INFILTRATN PRN (00:17)
[2018-01-06] MEDS ORDERED: Atropine Inj 1 MG/ML Vial IV.PUSH PRN (00:17)
--- NOTE | 2018-01-06 00:39 | CATHPROC ---
Syn[employer] Digital HIS Report Study Information Study Number Admission Scheduled Start Study Start [id number] Jan 04 2018 4:56PM 01/05/2018 Jan 05 2018 11:26PM [place] [facility] Cardiac Catheterization Admit Source Facility Department Other [facility] - [facility] [employer] [facility] Physician and Clinical Staff Initial Baron Cormier Food Operations Manager Jerrica Rollins,RN Food Operations Manager Magdiel RODRIGUEZ, Antoni Recorder Augusta Trevino ,RT(R) Scrub Lory Cheung,RT(R) Procedures Performed Procedure Location (Site) Vessel Name Coronary Angiograms LCA Left Coronary Coronary Angiograms RCA Right Coronary L Heart Cath LV Gram-hand inj. LV LV Ventricle Equipment Time Dope Heater Description Size Mfg Part Number Used/Scraped TRANSDUCER, TRUWAVE [id number] 23:28 [employer] * Used W/JOECOCK *[id number] 00:06 [employer] [place] VASCADE, FR6 CLOSURE SYSTEM FR 6\7 Used *[id number] [id number] *[id number] 534-620T *[id number] 534-650S *[id number] 23:28 [employer]IV[employer] BLANKET,WARM AIR CCL * Used *[id number] 23:28 LIVELENZ PACK, CCL CUSTOM * Used *[id number] 23:28 [employer] PACER PEN, SKIN DUAL W/ RULER * Used *[id number] 23:28 Fibroblast SHEATH, FR6.5 PRELUDE 11CM FR 6.5 038ACT Used *[id number] 23:28 Fibroblast WIRE, 3MMJ .035 180CM 180CM Used *[id number] 23:28 NAMIC MANIFOLD, 4 PORT * Used *[id number] 23:28 NYCOMED OMNIPAQUE, 350 MG, 150ML 150ML [id number] Used History: Allergies Allergy Reaction No Known Allergies History: Risk Factors Previous FL No Prior Valve Prior PCI Prior CABG Surgery No No No Diabetes Yes History: Stress Tests Stress or Imaging Studies Performed No Labs Hgb (g/dl) Hct (%) WBC (l/cumm) Platelets (thousands) 11.60-17.00 35.00-51.00 4.00-11.00 150.00-450.00 14.0 50 30 253 Glucose (mg/dl) BUN (mg/dl) Creatinine (mg/dl) BUN:Creatinine (1:x) 74.00-106.00 7.00-18.00 0.50-1.30 10.00-20.00 578 39 2.7 14.4 CPK-MB (ng/ML) 0.50-3.60 Not Drawn Medication Medication Total Dose (Bolus/Oral) Medication Total Dosage/Unit 1% XYLOCAINE 15 mL FENTANYL 250 mcg/hr PROPOFOL 15 mcg/kg/min Medications (Bolus/Oral) Medication Time Given Dosage/Unit Administered By Reason PROPOFOL 01/05/2018 11:52:40 PM 15 mcg/kg/min Patient arrived on 15 mcg/kg/min PROPOFOL in Left Antecubital via Peripheral IV. Pump/Drip Flow = 0 m l/hr using [Solution Name]. FENTANYL 01/05/2018 11:52:41 PM 250 mcg/hr Patient arrived on 250 mcg/hr FENTANYL via Peripheral IV. Pump/Drip Flow = 0 ml/hr using [Solution Na me]. 1% XYLOCAINE 01/06/2018 12:00:27 AM 15 mL Baron Baird 15 mL 1% XYLOCAINE given in lab by Baron Baird in Right Groin via Subcutaneous. Ordered by Quan Baird enn. Medication (Drip) Medication Time Given Dosage/Unit Concentration/Unit Diluent (ml) Solution HEPARIN DRIP 01/06/2018 12:01:05 AM 1000 units/hr 21201 units 250 D5W Patient arrived on 1000 units/hr HEPARIN DRIP via Peripheral IV. Pump/Drip Flow = 10 ml/hr [place] D5[place] [address] units in 250 ml. INSULIN (HUMAN) 01/05/2018 11:52:43 PM 8.9 units Patient arrived on 8.9 units INSULIN (HUMAN). LEVOPHED 01/05/2018 11:52:42 PM 4 mcg/min 4 mg 250 D5W Patient arrived on 4 mcg/min LEVOPHED via Central IV. Pump/Drip Flow = 15 ml/hr using D5W with a conc entration of 4 mg in 250 ml. FEDERICO-SYNEPHRINE 01/06/2018 12:00:36 AM 60 mcg/min 10 mg 250 D5W Patient arrived on 60 mcg/min FEDERICO-SYNEPHRINE via Peripheral IV. Pump/Drip Flow = 90 ml/hr using D5W w ith a concentration of 10 mg in 250 ml. Vasopressin 01/05/2018 11:52:42 PM 0.04 units/min 200 units 500 D5W Patient arrived on 0.04 units/min Vasopressin. Pump/Drip Flow = 6 ml/hr using D5W with a concentratio n of 200 units in 500 ml. Initial Case Assessment Cardiovascular HR Rhythm NIBP 59 stemi 171/79 Edema Present Skin color Skin None Normal Warm Dry Circulatory - Right Pulses Dorsalis Pedis Femoral d 1 Scale (0,1,2,3,4,d) Circulatory - Left Pulses Dorsalis Pedis Femoral 1 1 Scale (0,1,2,3,4,d) Neurological State Oriented to time-place- Alert Moves all extremities person Respiration - General Respiration Rate SpO2 (%) (B/min) 23 100 Final Case Assessment Cardiovascular HR Rhythm NIBP 59 stemi 171/79 Edema Present Skin color Skin None Normal Warm Dry Circulatory - Right Pulses Dorsalis Pedis Femoral d 1 Scale (0,1,2,3,4,d) Circulatory - Left Pulses Dorsalis Pedis Femoral 1 1 Scale (0,1,2,3,4,d) Neurological State Oriented to time-place- Alert Moves all extremities person Respiration - General Respiration Rate SpO2 (%) (B/min) 23 100 Chronological Log Time Study Chronological Log 23:38:32 Patient arrived via Bed. 23:38:33 Patient Name, D.O.B, / Armband Verified By R.N. 23:38:36 Consent signed by the physician and the patient and verified by the [employer] staff. 23:38:49 Skin Breakdown- none 23:38:50 Patient Warmer Placed on the Table. 23:38:51 Disposable Defibrillator Pads Placed On Patient. 23:38:52 Disha Prominences Protected 23:38:53 A # 20 IV was noted in the Antecubital (left). Grade = 0 Vitals capture started with the following parameters, Patient=Adult, Interval=5 min, Initial Pr mxnume=041 mmHg, 23:47:07 Deflation Rate=5 mmHg, Cuff placed on Left Arm 23:47:11 A # 20 IV was noted in the Antecubital (right). Grade = 0 23:47:13 A # 20 IV was noted in the Wrist (left). Grade = 0 23:47:14 A # ~SIZE~ IV was noted in the Subclav. Vein (Lft. Grade = ~GRADE~ 23:47:34 HR=94 bpm, NIBP=83/54 mmhg, Resp=7 B/min 23:50:41 Pressure channel 2 zeroed. Patient arrived on 15 mcg/kg/min PROPOFOL in Left Antecubital via Peripheral IV. Pump/Drip Flow = 0 ml/hr using 23:52:40 [Solution Name]. 23:52:41 Patient arrived on 250 mcg/hr FENTANYL via Peripheral IV. Pump/Drip Flow = 0 ml/hr using [S olution Name]. Patient arrived on 0.04 units/min Vasopressin. Pump/Drip Flow = 6 ml/hr using D5W with a concen tration of 200 units 23:52:42 in 500 ml. Patient arrived on 4 mcg/min LEVOPHED via Central IV. Pump/Drip Flow = 15 ml/hr using D5W with a concentration of 23:52:42 4 mg in 250 ml. 23:52:43 Patient arrived on 8.9 units INSULIN (HUMAN). 23:52:45 History and physical on the chart or being dictated. Assessment: Initial Case, HR=59 BPM, Rhythm=stemi, OIDH=498/79 mmhg, Edema=None, Color=Normal, Skin = Warm, Dry Right Pulses: Ketan Ped=d, Femoral=1 23:52:46 Left Pulses: Ketan Ped=1, Femoral=1 Neurological: State=Alert, Ox3, VAZQUEZ Respiration: Resp=23 B/min, JaA8=194 % 23:53:18 HR=82 bpm, IMLE=170/79 mmhg, XmY7=079.0 %, Resp=23 B/min 23:53:49 Bilateral groins prepped with 2% chlorhexidine, and draped after a 3 minute waiting time. 23:57:13 MD paged 23:57:30 MD arrived. 23:57:34 Pressure channel 1 zeroed. 23:57:45 HR=73 bpm, NIBP=85/58 mmhg, LsB4=127.0 %, Resp=22 B/min 23:57:51 Reference ECG taken Time Out. Correct patient, correct procedure, correct physician, labs, allergies, and equipment verified with microbiology lab manager 23:59:42 team present. Fire risk assesment completed (see hard stop sheet for coding). Time Out Conc urred by and individual staff in procedure. 0:00:25 Case Start 0:00:27 15 mL 1% XYLOCAINE given in lab by Baron Baird in Right Groin via Subcutaneous. Ordered by Baron Baird. Patient arrived on 60 mcg/min FEDERICO-SYNEPHRINE via Peripheral IV. Pump/Drip Flow = 90 ml/hr using D5W with a 0:00:36 concentration of 10 mg in 250 ml. Patient arrived on 1000 units/hr HEPARIN DRIP via Peripheral IV. Pump/Drip Flow = 10 ml/hr usin g D5W with a 0:01:[place] [address] units in 250 ml. 0:01:51 Access site was Right Femoral Artery. 0:02:01 A SHEATH, FR6.5 PRELUDE 11CM FR 6.5 was advanced into the Fem Art (right) using the Percutan eous technique. A JL 4.0 INFINITI CATHETER FR 6 was advanced over a wire. OMNIPAQUE, 350 MG, 150ML 150ML was us ed for 0:02:23 injections. 0:02:38 HR=72 bpm, NIBP=86/54 mmhg, QgJ9=380.0 %, Resp=22 B/min 0:04:01 The LCA was injected and visualized at various angles. OMNIPAQUE, 350 MG, 150ML 150ML used. After removing the current catheter a 3DRC INFINITI CATHETER FR 6 was advanced over a WIRE, 3MM J .035 180CM 0:04:12 180CM. 0:04:49 The RCA was injected and visualized at various angles. OMNIPAQUE, 350 MG, 150ML 150ML used. After removing the current catheter a PIGTAIL STR INFINITI CATHETER FR 6 was advanced over a WI RE, 3MMJ .035 0:05:27 180CM 180CM. Recorded Pressure: LV, HR=71, Condition=Condition 1 0:05:55 (Left Ventricle) LV 85/10/18 0:06:06 The LV was manually injected with 10 cc's and visualized. OMNIPAQUE, 350 MG, 150ML 150ML use d. Recorded Pressure: LV, Ao, HR=73, Condition=Condition 1 0:06:20 (Left Ventricle) LV 87/12/17, (Aorta) Ao 95/53/71 0:06:54 Catheter was removed 0:07:18 An injection in the Fem Art (right) was made through the SHEATH, FR6.5 PRELUDE 11CM FR 6.5. 0:07:35 Activated Clotting Time Drawn 0:07:37 HR=73 bpm, NIBP=93/63 mmhg, WqA3=539.0 %, Resp=22 B/min 0:07:53 Case End (Physician broke scrub) Assessment: Final Case, HR=59 BPM, Rhythm=stemi, LUNB=903/79 mmhg, Edema=None, Color=Normal, S kin = Warm, Dry Right Pulses: Ketan Ped=d, Femoral=1 0:10:09 Left Pulses: Ketan Ped=1, Femoral=1 Neurological: State=Alert, Ox3, VAZQUEZ Respiration: Resp=23 B/min, WrD7=056 % 0:10:27 Catheter(s) removed without difficulty 0:10:37 No case complications noted. 0:10:37 Cine recording checked. 0:10:38 Bedside Report will be given. 0:10:44 A Left Heart Cath was performed. 0:12:42 HR=72 bpm, NIBP=88/46 mmhg, ZvR4=233.0 %, Resp=22 B/min 0:13:01 ACT (Normal Range 90-180) = 202 0:14:19 In the Fem Art (right) the SHEATH, FR6.5 PRELUDE 11CM FR 6.[address] by Lory Cook RT(R). 0:14:23 Sterile dressing applied to site 0:23:55 Patient moved to stretcher End Study - Contrast Media Used In Study Contrast Total Opened (mL) Total Used (mL) Total Wasted (mL) Omnipaque 35 35 0 End Study - Maximum Contrast Load Max Contrast Load (mL) 193.6 End Study - Radiation Exposure Fluoro Time (minutes) 1.0 End Study - Patient Disposition Complications Transferred To Interventional Outcome No Critical Care Bed No attempt made
[2018-01-06] MEDS: Sod Chloride 0.9% Inj 1,000 ML IV.CONT SCH ×3 (01:02→05:40)
[2018-01-06] MEDS: Dextrose 5%/NaCl 0.9% Inj 1,000 ML IV.CONT SCH ×2 (01:10→05:23)
[2018-01-06] MEDS: Oral Hygiene Kit OROPHARYNG SCH ×4 (01:11→16:26)
[2018-01-06] MEDS: Propofol 1000 mg/100 ml Inj 1,000 MG/100 ML BOTTLE IV.CONT PRN ×2 (03:33→13:46)
[2018-01-06] MEDS: Vasopressin Inj 40 UNIT in Dextrose 5% in Water Inj 98 ML IV.CONT PRN ×2 (03:33)
[2018-01-06 04:03] LABS: Activated Partial Thrombo Time 23.9 sec (24.3-30.1); INR 1.1 Ratio; Prothrombin Time 10.7 sec (9.8-11.6)
[2018-01-06 04:05] LABS: Hemoglobin 10.7 gm/dL (11.6-15.3); Mean Corpuscular HGB Conc 32.6 % (32.0-36.0); Mean Corpuscular Hemoglobin 28.8 pg (27.0-34.0); Mean Corpuscular Volume 88.3 fL (80.0-100.0); Mean Platelet Volume 12.7 fL (7.0-11.0); Platelet Count 94 th/mm3 (150-450); Red Blood Count 3.73 mil/mm3 (4.00-5.30); Red Cell Distribution Width 13.7 % (11.6-17.2); White Blood Count 14.9 th/mm3 (4.0-11.0)
[2018-01-06] MEDS: fentaNYL 10 mcg/mL Premix Drip 2,500 MCG/250 ML BAG IV.SIG PRN ×2 (04:17→14:56)
[2018-01-06 04:53] LABS: Albumin 2.2 g/dL (3.4-5.0); Calcium 6.7 mg/dL (8.5-10.1); Carbon Dioxide 15.1 meq/L (21.0-32.0); Magnesium 1.7 mg/dL (1.5-2.5); Phosphorus 0.5 mg/dL (2.5-4.9); Potassium 3.3 meq/L (3.5-5.1)
[2018-01-06] MEDS: Piperacil/Tazo 2.25 GM Premix 50 ML IV.SIG SCH ×2 (05:21→10:56)
[2018-01-06] MEDS: Chlorhexidine Gluconate 2% 1 Pack (2 Cloths) TOPICAL SCH (05:23)
[2018-01-06 05:28] LABS: Total Protein 4.7 g/dL (6.4-8.2)
[2018-01-06] MEDS: Potassium Chlor 40 mEq Premix 40 MEQ/100 ML PIGGYBACK IV.SIG PRN (05:39)
[2018-01-06 06:40] LABS: Vancomycin,Random 7.4 Comment
[2018-01-06] MEDS: Aspirin 325 MG Tablet PO SCH (08:20)
[2018-01-06] MEDS: Famotidine PF Inj 20 MG/2 ML Vial IV.PUSH SCH ×2 (08:20→21:45)
--- NOTE | 2018-01-06 08:26 | MA ---
cc: Baron Baird MD DATE: 01/05/2018 PROCEDURE: Left heart catheterization, selective coronary angiography, left ventriculography. PROCEDURE NOTES: The patient was brought to the cardiac catheterization laboratory in a fasting state after informed consent was obtained. The right groin was prepped and draped as per policy and anesthetized with 1% lidocaine. Arterial access was obtained via the right femoral artery and a 6-Palauan sheath placed. Coronary arteriography was performed using 6-Palauan Alex left 4.0 and right progressive catheters. Left ventriculography was done using a standard 6-Palauan pigtail. There were no apparent immediate complications. Manual pressure was applied to achieve good hemostasis after removal of the sheath. HEMODYNAMIC DATA: Left ventricle 87 with an end diastolic pressure of 17, aorta 95/53 with a mean of 71. There was no significant transvalvular aortic gradient on pullback of the pigtail catheter. CORONARY ARTERIOGRAPHY: The left main is normal. The left anterior descending is a medium-sized vessel giving rise to a medium-sized diagonal. No disease is seen in the LAD system. The left circumflex is a medium-sized vessel giving rise to a small obtuse marginal. No disease is seen in the left circumflex system. The right coronary artery is a medium-sized dominant vessel with no disease. LEFT VENTRICULOGRAPHY: Contrast injection of the left ventricle reveals mild global hypokinesis. Ejection fraction is estimated at 45%. CONCLUSIONS: 1. Angiographically normal coronary arteries. 2. Mild left ventricular systolic dysfunction with estimated ejection fraction of 45%. Baron Baird MD G[facility]/rw , 12:11 AM , 12:15 AM LOULOU
--- NOTE | 2018-01-06 08:41 | P.PN ---
Subjective Interval history: No clinical change, s/p cath showing normal coronaries; pressors being weaned down Physical Exam Vital signs: Vital Signs 01/05/18 09:00 01/05/18 10:00 01/05/18 11:00 Temperature Pulse Rate 91 H 82 87 Respiratory Rate 24 24 24 Blood Pressure 115/54 L 107/66 101/57 L Pulse Oximetry 90 L 94 L 95 01/05/18 11:01 01/05/18 12:00 01/05/18 13:00 Temperature 99.7 F H Pulse Rate 85 87 74 Respiratory Rate 24 24 24 Blood Pressure 75/58 L 82/69 L Pulse Oximetry 100 97 97 01/05/18 14:00 01/05/18 14:47 01/05/18 15:00 Temperature Pulse Rate 70 68 Respiratory Rate 24 24 24 Blood Pressure 89/72 L 99/84 L Pulse Oximetry 96 95 96 01/05/18 15:44 01/05/18 16:00 01/05/18 17:00 Temperature 99.5 F Pulse Rate 67 72 79 Respiratory Rate 24 24 24 Blood Pressure 105/88 95/80 L Pulse Oximetry 94 L 98 01/05/18 18:00 01/05/18 18:14 01/05/18 19:00 Temperature Pulse Rate 76 79 Respiratory Rate 24 24 24 Blood Pressure 94/82 L Pulse Oximetry 99 98 98 01/05/18 19:37 01/05/18 20:00 01/05/18 21:00 Temperature 97.6 F Pulse Rate 72 74 73 Respiratory Rate 24 24 24 Blood Pressure 88/60 L Pulse Oximetry 97 97 99 01/05/18 22:00 01/05/18 23:02 01/05/18 23:35 Temperature Pulse Rate 75 76 Respiratory Rate 24 24 Blood Pressure Pulse Oximetry 99 97 100 01/06/18 00:00 01/06/18 00:23 01/06/18 00:45 Temperature Pulse Rate 72 71 74 Respiratory Rate 23 24 Blood Pressure 91/58 L 88/57 L 87/58 L Pulse Oximetry 01/06/18 00:52 01/06/18 01:00 01/06/18 01:30 Temperature Pulse Rate 84 70 Respiratory Rate 24 24 24 Blood Pressure 103/61 93/57 L Pulse Oximetry 95 95 99 01/06/18 02:00 01/06/18 03:00 01/06/18 03:55 Temperature Pulse Rate 68 72 78 Respiratory Rate 24 24 24 Blood Pressure 95/62 L 101/68 Pulse Oximetry 98 96 98 01/06/18 04:00 01/06/18 04:45 01/06/18 05:00 Temperature 98.3 F Pulse Rate 76 76 77 Respiratory Rate 24 24 24 Blood Pressure 101/73 113/81 101/74 Pulse Oximetry 98 100 98 01/06/18 06:00 01/06/18 07:26 Temperature Pulse Rate 87 Respiratory Rate 24 24 Blood Pressure 115/72 Pulse Oximetry 95 99 Intake & Output 01/05/18 01/06/18 01/06/18 18:59 06:59 18:59 Intake Total 1550 / 1550 5500 / 5500 Output Total 635 / 635 1190 / 1190 Balance 915 / 915 4310 / 4310 Intake: IV 1550 / 1550 4900 / 4900 D5W/Normal Saline Inj 1,000 ML 1000 / 1000 3000 / 3000 @ 200 mls/hr IV.CONT .Q5H AMTTEO Rx#:[id number] Diprivan 1000 mg/100 ml Inj 1, 100 / 100 100 / 100 000 mg In 100 ml @ 5 MCG/KG/MIN 3.13 mls/hr IV.CONT TITRATE PRN Rx#:[id number] NS Inj 1,000 ML @ 250 mls/hr IV 1000 / 1000 .CONT .Q4H MATTEO Rx#:[id number] Pitressin Inj 40 UNIT In D5W 100 / 100 Inj 98 ML @ 0.01 UNITS/MIN 1.5 mls/hr IV.CONT TITRATE PRN Rx#: [id number] Azithromycin Inj 500 MG In NS 250 / 250 Inj 250 ML @ 250 mls/hr IV.SIG Q24H MATTEO Rx#:[id number] Zosyn 2.25 GM Premix 50 ML @ 100 / 100 100 / 100 100 mls/hr IV.SIG Q6H [facility]O Rx#: [id number] KCl 40 mEq Premix Inj 40 meq In 100 / 100 100 / 100 100 ml @ 100 mls/hr IV.SIG Q1H PRN Rx#:[id number] fentaNYL 10 mcg/mL Premix Drip 250 / 250 250 / 250 2,500 mcg In 250 ml @ 50 MCG/HR 5 mls/hr IV.SIG TITRATE PRN Rx #:[id number] Water Bolus Amount 600 / 600 Output: Urine Amount (Catheter) 635 / 635 665 / 665 Indwelling Urethral Catheter 635 / 635 665 / 665 Gastric Drainage 525 / 525 Right Nare Nasogastric Tube 525 / 525 - Constitutional Comments: intubated/sedated - Routine Respiratory Exam Present: CTA bilaterally - Routine Cardiovascular Exam Absent: murmur - Routine Abdominal Exam Present: soft - Routine Extremities Exam Absent: edema - Routine Neurological Exam Absent: alert - Urinary Catheter Management Indwelling Urethral Catheter Cath placed during this visit: yes Reason for continuing: Hourly intake/output Insertion date: 01/04/18 Insertion time: 16:29 Results - Labs CBC & Chem 7: 01/06/18 03:30 01/06/18 03:30 Laboratory Results - last 24 hr 01/05/18 01/05/18 01/05/18 02:00 08:39 09:00 CBC w Diff WBC Corrected WBC RBC Hgb POC Hgb (Calc) Hct POC Hct MCV MCH MCHC RDW Plt Count MPV Prelim Diff (Auto) Immature Gran % (Auto) Neut % (Auto) Lymph % (Auto) [place] % (Auto) Eos % (Auto) Baso % (Auto) Immature Gran # (Auto) Neut # (Auto) Lymph # (Auto) [place] # (Auto) Eos # (Auto) Baso # (Auto) WBC Differential Diff Scan Seg Neuts % (Manual) Band Neuts % (Manual) Lymphocytes % (Manual) Atypical Lymphs % (Man) Monocytes % (Manual) Eosinophils % (Manual) Basophils % (Manual) Metamyelocytes % (Man) Myelocytes % (Man) Promyelocytes % (Man) Blast Cells % (Manual) Plasma Cell % (Manual) Other Cells % Abs Neuts (Manual) Nucleated RBCs/100 WBC Differential Comment Hypersegmented Neuts Smudge Cells Toxic Granulation Toxic Vacuolation Dohle Bodies Platelet Estimate Platelet Morphology RBC Morphology Dimorphic RBCs Polychromasia Basophilic Stippling Spherocytes Pappenheimer Bodies Sickle Cells Target Cells Tear Drop Cells Ovalocytes Stomatocytes Helmet Cells [place] Bodies Efrem Cells Acanthocytes (Spur) Rouleaux Keratocytes Hematology Comments PT INR APTT POC Sodium Sodium POC Potassium Potassium POC Chloride Chloride Carbon Dioxide Anion Gap POC BUN BUN Creatinine POC Creatinine Estimated GFR POC Glucose 264 H 211 H Random Glucose Calcium Prot Corrected Calcium Phosphorus Magnesium Total Bilirubin AST ALT Alkaline Phosphatase Troponin I 0.83 H* D Total Protein Albumin Beta-Hydroxybutyric Acd Random Vancomycin Blood Type Blood Type Recheck Antibody Screen 01/05/18 01/05/18 01/05/18 09:40 10:57 11:00 CBC w Diff WBC Corrected WBC RBC Hgb POC Hgb (Calc) Hct POC Hct MCV MCH MCHC RDW Plt Count MPV Prelim Diff (Auto) Immature Gran % (Auto) Neut % (Auto) Lymph % (Auto) [place] % (Auto) Eos % (Auto) Baso % (Auto) Immature Gran # (Auto) Neut # (Auto) Lymph # (Auto) [place] # (Auto) Eos # (Auto) Baso # (Auto) WBC Differential Diff Scan Seg Neuts % (Manual) Band Neuts % (Manual) Lymphocytes % (Manual) Atypical Lymphs % (Man) Monocytes % (Manual) Eosinophils % (Manual) Basophils % (Manual) Metamyelocytes % (Man) Myelocytes % (Man) Promyelocytes % (Man) Blast Cells % (Manual) Plasma Cell % (Manual) Other Cells % Abs Neuts (Manual) Nucleated RBCs/100 WBC Differential Comment Hypersegmented Neuts Smudge Cells Toxic Granulation Toxic Vacuolation Dohle Bodies Platelet Estimate Platelet Morphology RBC Morphology Dimorphic RBCs Polychromasia Basophilic Stippling Spherocytes Pappenheimer Bodies Sickle Cells Target Cells Tear Drop Cells Ovalocytes Stomatocytes Helmet Cells [place] Bodies Efrem Cells Acanthocytes (Spur) Rouleaux Keratocytes Hematology Comments PT INR APTT POC Sodium Sodium 152 H POC Potassium Potassium 2.7 L* POC Chloride Chloride 121 H Carbon Dioxide 18.9 L Anion Gap 12 POC BUN BUN 33 H Creatinine 1.86 H POC Creatinine Estimated GFR 29 L POC Glucose 236 H 262 H Random Glucose 257 H D Calcium 7.0 L* Prot Corrected Calcium 8.1 L Phosphorus 0.5 L Magnesium 1.7 Total Bilirubin 0.3 AST 114 H ALT 81 H Alkaline Phosphatase 59 Troponin I Total Protein 5.1 L Albumin 2.7 L Beta-Hydroxybutyric Acd 2.37 H D Random Vancomycin Blood Type Blood Type Recheck Antibody Screen 01/05/18 01/05/18 01/05/18 11:00 11:54 12:51 CBC w Diff WBC Corrected WBC RBC Hgb POC Hgb (Calc) Hct POC Hct MCV MCH MCHC RDW Plt Count MPV Prelim Diff (Auto) Immature Gran % (Auto) Neut % (Auto) Lymph % (Auto) [place] % (Auto) Eos % (Auto) Baso % (Auto) Immature Gran # (Auto) Neut # (Auto) Lymph # (Auto) [place] # (Auto) Eos # (Auto) Baso # (Auto) WBC Differential Diff Scan Seg Neuts % (Manual) Band Neuts % (Manual) Lymphocytes % (Manual) Atypical Lymphs % (Man) Monocytes % (Manual) Eosinophils % (Manual) Basophils % (Manual) Metamyelocytes % (Man) Myelocytes % (Man) Promyelocytes % (Man) Blast Cells % (Manual) Plasma Cell % (Manual) Other Cells % Abs Neuts (Manual) Nucleated RBCs/100 WBC Differential Comment Hypersegmented Neuts Smudge Cells Toxic Granulation Toxic Vacuolation Dohle Bodies Platelet Estimate Platelet Morphology RBC Morphology Dimorphic RBCs Polychromasia Basophilic Stippling Spherocytes Pappenheimer Bodies Sickle Cells Target Cells Tear Drop Cells Ovalocytes Stomatocytes Helmet Cells [place] Bodies [place] Cells Acanthocytes (Spur) Rouleaux Keratocytes Hematology Comments PT INR APTT POC Sodium Sodium POC Potassium Potassium POC Chloride Chloride Carbon Dioxide Anion Gap POC BUN BUN Creatinine POC Creatinine Estimated GFR POC Glucose 251 H 191 H Random Glucose Calcium Prot Corrected Calcium Phosphorus Magnesium Total Bilirubin AST ALT Alkaline Phosphatase Troponin I 2.29 H* D Total Protein Albumin Beta-Hydroxybutyric Acd Random Vancomycin Blood Type Blood Type Recheck Antibody Screen 01/05/18 01/05/18 01/05/18 13:53 15:02 16:16 CBC w Diff WBC Corrected WBC RBC Hgb POC Hgb (Calc) Hct POC Hct MCV MCH MCHC RDW Plt Count MPV Prelim Diff (Auto) Immature Gran % (Auto) Neut % (Auto) Lymph % (Auto) [place] % (Auto) Eos % (Auto) Baso % (Auto) Immature Gran # (Auto) Neut # (Auto) Lymph # (Auto) [place] # (Auto) Eos # (Auto) Baso # (Auto) WBC Differential Diff Scan Seg Neuts % (Manual) Band Neuts % (Manual) Lymphocytes % (Manual) Atypical Lymphs % (Man) Monocytes % (Manual) Eosinophils % (Manual) Basophils % (Manual) Metamyelocytes % (Man) Myelocytes % (Man) Promyelocytes % (Man) Blast Cells % (Manual) Plasma Cell % (Manual) Other Cells % Abs Neuts (Manual) Nucleated RBCs/100 WBC Differential Comment Hypersegmented Neuts Smudge Cells Toxic Granulation Toxic Vacuolation Dohle Bodies Platelet Estimate Platelet Morphology RBC Morphology Dimorphic RBCs Polychromasia Basophilic Stippling Spherocytes Pappenheimer Bodies Sickle Cells Target Cells Tear Drop Cells Ovalocytes Stomatocytes Helmet Cells [place] Bodies Efrem Cells Acanthocytes (Spur) Rouleaux Keratocytes Hematology Comments PT INR APTT POC Sodium Sodium POC Potassium Potassium POC Chloride Chloride Carbon Dioxide Anion Gap POC BUN BUN Creatinine POC Creatinine Estimated GFR POC Glucose 177 H 205 H 170 H Random Glucose Calcium Prot Corrected Calcium Phosphorus Magnesium Total Bilirubin AST ALT Alkaline Phosphatase Troponin I Total Protein Albumin Beta-Hydroxybutyric Acd Random Vancomycin Blood Type Blood Type Recheck Antibody Screen 01/05/18 01/05/18 01/05/18 16:50 17:09 18:00 CBC w Diff Cancelled WBC Cancelled 18.5 H Corrected WBC Cancelled RBC Cancelled 3.98 L Hgb Cancelled 11.4 L D POC Hgb (Calc) Hct Cancelled 34.4 L POC Hct MCV Cancelled 86.4 D MCH Cancelled 28.6 MCHC Cancelled 33.1 RDW Cancelled 12.8 Plt Count Cancelled 121 L D MPV Cancelled 12.1 H Prelim Diff (Auto) Cancelled Immature Gran % (Auto) Cancelled Neut % (Auto) Cancelled 88.7 H Lymph % (Auto) Cancelled 7.7 L [place] % (Auto) Cancelled 3.4 Eos % (Auto) Cancelled 0.0 Baso % (Auto) Cancelled 0.2 Immature Gran # (Auto) Cancelled Neut # (Auto) Cancelled 16.4 H Lymph # (Auto) Cancelled 1.4 [place] # (Auto) Cancelled 0.6 Eos # (Auto) Cancelled 0.0 Baso # (Auto) Cancelled 0.0 WBC Differential Cancelled . Diff Scan Cancelled Seg Neuts % (Manual) Cancelled Band Neuts % (Manual) Cancelled Lymphocytes % (Manual) Cancelled Atypical Lymphs % (Man) Cancelled Monocytes % (Manual) Cancelled Eosinophils % (Manual) Cancelled Basophils % (Manual) Cancelled Metamyelocytes % (Man) Cancelled Myelocytes % (Man) Cancelled Promyelocytes % (Man) Cancelled Blast Cells % (Manual) Cancelled Plasma Cell % (Manual) Cancelled Other Cells % Cancelled Abs Neuts (Manual) Cancelled Nucleated RBCs/100 WBC Cancelled Differential Comment Cancelled Auto diff final Hypersegmented Neuts Cancelled Smudge Cells Cancelled Toxic Granulation Cancelled Toxic Vacuolation Cancelled Dohle Bodies Cancelled Platelet Estimate Cancelled Platelet Morphology Cancelled RBC Morphology Cancelled Dimorphic RBCs Cancelled Polychromasia Cancelled Basophilic Stippling Cancelled Spherocytes Cancelled Pappenheimer Bodies Cancelled Sickle Cells Cancelled Target Cells Cancelled Tear Drop Cells Cancelled Ovalocytes Cancelled Stomatocytes Cancelled Helmet Cells Cancelled [place] Bodies Cancelled [place] Cells Cancelled Acanthocytes (Spur) Cancelled Rouleaux Cancelled Keratocytes Cancelled Hematology Comments Cancelled PT INR APTT POC Sodium Sodium POC Potassium Potassium POC Chloride Chloride Carbon Dioxide Anion Gap POC BUN BUN Creatinine POC Creatinine Estimated GFR POC Glucose 182 H Random Glucose Calcium Prot Corrected Calcium Phosphorus Magnesium Total Bilirubin AST ALT Alkaline Phosphatase Troponin I Total Protein Albumin Beta-Hydroxybutyric Acd Random Vancomycin Blood Type Blood Type Recheck Antibody Screen 01/05/18 01/05/18 01/05/18 18:01 19:15 19:15 CBC w Diff WBC Corrected WBC RBC Hgb POC Hgb (Calc) Hct POC Hct MCV MCH MCHC RDW Plt Count MPV Prelim Diff (Auto) Immature Gran % (Auto) Neut % (Auto) Lymph % (Auto) [place] % (Auto) Eos % (Auto) Baso % (Auto) Immature Gran # (Auto) Neut # (Auto) Lymph # (Auto) [place] # (Auto) Eos # (Auto) Baso # (Auto) WBC Differential Diff Scan Seg Neuts % (Manual) Band Neuts % (Manual) Lymphocytes % (Manual) Atypical Lymphs % (Man) Monocytes % (Manual) Eosinophils % (Manual) Basophils % (Manual) Metamyelocytes % (Man) Myelocytes % (Man) Promyelocytes % (Man) Blast Cells % (Manual) Plasma Cell % (Manual) Other Cells % Abs Neuts (Manual) Nucleated RBCs/100 WBC Differential Comment Hypersegmented Neuts Smudge Cells Toxic Granulation Toxic Vacuolation Dohle Bodies Platelet Estimate Platelet Morphology RBC Morphology Dimorphic RBCs Polychromasia Basophilic Stippling Spherocytes Pappenheimer Bodies Sickle Cells Target Cells Tear Drop Cells Ovalocytes Stomatocytes Helmet Cells [place] Bodies [place] Cells Acanthocytes (Spur) Rouleaux Keratocytes Hematology Comments PT INR APTT POC Sodium Sodium 153 H POC Potassium Potassium 3.3 L POC Chloride Chloride 124 H Carbon Dioxide 18.0 L Anion Gap 11 POC BUN BUN 28 H Creatinine 1.48 H POC Creatinine Estimated GFR 37 L POC Glucose 179 H Random Glucose 187 H Calcium 7.1 L* Prot Corrected Calcium 8.2 L Phosphorus 0.3 L Magnesium 1.7 Total Bilirubin 0.2 AST 160 H ALT 112 H Alkaline Phosphatase 56 Troponin I 18.10 H* D Total Protein 5.1 L Albumin 2.5 L Beta-Hydroxybutyric Acd 0.12 D Random Vancomycin Blood Type Blood Type Recheck Antibody Screen 01/05/18 01/05/18 01/05/18 19:34 20:00 21:06 CBC w Diff WBC Corrected WBC RBC Hgb POC Hgb (Calc) Hct POC Hct MCV MCH MCHC RDW Plt Count MPV Prelim Diff (Auto) Immature Gran % (Auto) Neut % (Auto) Lymph % (Auto) [place] % (Auto) Eos % (Auto) Baso % (Auto) Immature Gran # (Auto) Neut # (Auto) Lymph # (Auto) [place] # (Auto) Eos # (Auto) Baso # (Auto) WBC Differential Diff Scan Seg Neuts % (Manual) Band Neuts % (Manual) Lymphocytes % (Manual) Atypical Lymphs % (Man) Monocytes % (Manual) Eosinophils % (Manual) Basophils % (Manual) Metamyelocytes % (Man) Myelocytes % (Man) Promyelocytes % (Man) Blast Cells % (Manual) Plasma Cell % (Manual) Other Cells % Abs Neuts (Manual) Nucleated RBCs/100 WBC Differential Comment Hypersegmented Neuts Smudge Cells Toxic Granulation Toxic Vacuolation Dohle Bodies Platelet Estimate Platelet Morphology RBC Morphology Dimorphic RBCs Polychromasia Basophilic Stippling Spherocytes Pappenheimer Bodies Sickle Cells Target Cells Tear Drop Cells Ovalocytes Stomatocytes Helmet Cells [place] Bodies [place] Cells Acanthocytes (Spur) Rouleaux Keratocytes Hematology Comments PT INR APTT 50.0 H D POC Sodium Sodium POC Potassium Potassium POC Chloride Chloride Carbon Dioxide Anion Gap POC BUN BUN Creatinine POC Creatinine Estimated GFR POC Glucose 228 H 190 H Random Glucose Calcium Prot Corrected Calcium Phosphorus Magnesium Total Bilirubin AST ALT Alkaline Phosphatase Troponin I Total Protein Albumin Beta-Hydroxybutyric Acd Random Vancomycin Blood Type Blood Type Recheck Antibody Screen 01/05/18 01/05/18 01/05/18 22:05 22:30 22:30 CBC w Diff WBC 15.5 H Corrected WBC RBC 3.86 L Hgb 11.0 L POC Hgb (Calc) Hct 34.2 L POC Hct MCV 88.7 MCH 28.6 MCHC 32.2 RDW 13.6 Plt Count 82 L D MPV 12.6 H Prelim Diff (Auto) Slide review pending Immature Gran % (Auto) Neut % (Auto) 84.8 H Lymph % (Auto) 11.5 [place] % (Auto) 3.3 Eos % (Auto) 0.2 Baso % (Auto) 0.2 Immature Gran # (Auto) Neut # (Auto) 13.2 H Lymph # (Auto) 1.8 [place] # (Auto) 0.5 Eos # (Auto) 0.0 Baso # (Auto) 0.0 WBC Differential . Diff Scan Auto diff confirmed Seg Neuts % (Manual) Band Neuts % (Manual) Lymphocytes % (Manual) Atypical Lymphs % (Man) Monocytes % (Manual) Eosinophils % (Manual) Basophils % (Manual) Metamyelocytes % (Man) Myelocytes % (Man) Promyelocytes % (Man) Blast Cells % (Manual) Plasma Cell % (Manual) Other Cells % Abs Neuts (Manual) Nucleated RBCs/100 WBC Differential Comment . Hypersegmented Neuts Smudge Cells Toxic Granulation Toxic Vacuolation Dohle Bodies Platelet Estimate Low L Platelet Morphology Enlarged H RBC Morphology Dimorphic RBCs Polychromasia Basophilic Stippling Spherocytes Pappenheimer Bodies Sickle Cells Target Cells Tear Drop Cells Ovalocytes Stomatocytes Helmet Cells [place] Bodies [place] Cells Acanthocytes (Spur) Occ H Rouleaux Keratocytes Occ H Hematology Comments PT 11.3 INR 1.1 APTT 56.3 H POC Sodium Sodium POC Potassium Potassium POC Chloride Chloride Carbon Dioxide Anion Gap POC BUN BUN Creatinine POC Creatinine Estimated GFR POC Glucose 291 H Random Glucose Calcium Prot Corrected Calcium Phosphorus Magnesium Total Bilirubin AST ALT Alkaline Phosphatase Troponin I Total Protein Albumin Beta-Hydroxybutyric Acd Random Vancomycin Blood Type Blood Type Recheck Antibody Screen 01/05/18 01/05/18 01/05/18 22:30 23:00 23:48 CBC w Diff WBC Corrected WBC RBC Hgb POC Hgb (Calc) 10.2 L Hct POC Hct 30.0 L MCV MCH MCHC RDW Plt Count MPV Prelim Diff (Auto) Immature Gran % (Auto) Neut % (Auto) Lymph % (Auto) [place] % (Auto) Eos % (Auto) Baso % (Auto) Immature Gran # (Auto) Neut # (Auto) Lymph # (Auto) [place] # (Auto) Eos # (Auto) Baso # (Auto) WBC Differential Diff Scan Seg Neuts % (Manual) Band Neuts % (Manual) Lymphocytes % (Manual) Atypical Lymphs % (Man) Monocytes % (Manual) Eosinophils % (Manual) Basophils % (Manual) Metamyelocytes % (Man) Myelocytes % (Man) Promyelocytes % (Man) Blast Cells % (Manual) Plasma Cell % (Manual) Other Cells % Abs Neuts (Manual) Nucleated RBCs/100 WBC Differential Comment Hypersegmented Neuts Smudge Cells Toxic Granulation Toxic Vacuolation Dohle Bodies Platelet Estimate Platelet Morphology RBC Morphology Dimorphic RBCs Polychromasia Basophilic Stippling Spherocytes Pappenheimer Bodies Sickle Cells Target Cells Tear Drop Cells Ovalocytes Stomatocytes Helmet Cells [place] Bodies [place] Cells Acanthocytes (Spur) Rouleaux Keratocytes Hematology Comments PT INR APTT POC Sodium 149 H Sodium POC Potassium 3.1 L Potassium POC Chloride 121 H Chloride Carbon Dioxide Anion Gap POC BUN 22 H BUN Creatinine POC Creatinine 0.9 Estimated GFR POC Glucose 282 H 309 H Random Glucose Calcium Prot Corrected Calcium Phosphorus Magnesium Total Bilirubin AST ALT Alkaline Phosphatase Troponin I Total Protein Albumin Beta-Hydroxybutyric Acd Random Vancomycin Blood Type O Positive Blood Type Recheck Required Antibody Screen Negative 01/06/18 01/06/18 01/06/18 01:24 02:14 03:26 CBC w Diff WBC Corrected WBC RBC Hgb POC Hgb (Calc) Hct POC Hct MCV MCH MCHC RDW Plt Count MPV Prelim Diff (Auto) Immature Gran % (Auto) Neut % (Auto) Lymph % (Auto) [place] % (Auto) Eos % (Auto) Baso % (Auto) Immature Gran # (Auto) Neut # (Auto) Lymph # (Auto) [place] # (Auto) Eos # (Auto) Baso # (Auto) WBC Differential Diff Scan Seg Neuts % (Manual) Band Neuts % (Manual) Lymphocytes % (Manual) Atypical Lymphs % (Man) Monocytes % (Manual) Eosinophils % (Manual) Basophils % (Manual) Metamyelocytes % (Man) Myelocytes % (Man) Promyelocytes % (Man) Blast Cells % (Manual) Plasma Cell % (Manual) Other Cells % Abs Neuts (Manual) Nucleated RBCs/100 WBC Differential Comment Hypersegmented Neuts Smudge Cells Toxic Granulation Toxic Vacuolation Dohle Bodies Platelet Estimate Platelet Morphology RBC Morphology Dimorphic RBCs Polychromasia Basophilic Stippling Spherocytes Pappenheimer Bodies Sickle Cells Target Cells Tear Drop Cells Ovalocytes Stomatocytes Helmet Cells [place] Bodies [place] Cells Acanthocytes (Spur) Rouleaux Keratocytes Hematology Comments PT INR APTT POC Sodium Sodium POC Potassium Potassium POC Chloride Chloride Carbon Dioxide Anion Gap POC BUN BUN Creatinine POC Creatinine Estimated GFR POC Glucose 230 H 198 H 153 H Random Glucose Calcium Prot Corrected Calcium Phosphorus Magnesium Total Bilirubin AST ALT Alkaline Phosphatase Troponin I Total Protein Albumin Beta-Hydroxybutyric Acd Random Vancomycin Blood Type Blood Type Recheck Antibody Screen 01/06/18 01/06/18 01/06/18 03:30 03:30 03:30 CBC w Diff WBC 14.9 H Corrected WBC RBC 3.73 L Hgb 10.7 L POC Hgb (Calc) Hct 33.0 L POC Hct MCV 88.3 MCH 28.8 MCHC 32.6 RDW 13.7 Plt Count 94 L MPV 12.7 H Prelim Diff (Auto) Immature Gran % (Auto) Neut % (Auto) Lymph % (Auto) [place] % (Auto) Eos % (Auto) Baso % (Auto) Immature Gran # (Auto) Neut # (Auto) Lymph # (Auto) [place] # (Auto) Eos # (Auto) Baso # (Auto) WBC Differential Diff Scan Seg Neuts % (Manual) Band Neuts % (Manual) Lymphocytes % (Manual) Atypical Lymphs % (Man) Monocytes % (Manual) Eosinophils % (Manual) Basophils % (Manual) Metamyelocytes % (Man) Myelocytes % (Man) Promyelocytes % (Man) Blast Cells % (Manual) Plasma Cell % (Manual) Other Cells % Abs Neuts (Manual) Nucleated RBCs/100 WBC Differential Comment Hypersegmented Neuts Smudge Cells Toxic Granulation Toxic Vacuolation Dohle Bodies Platelet Estimate Platelet Morphology RBC Morphology Dimorphic RBCs Polychromasia Basophilic Stippling Spherocytes Pappenheimer Bodies Sickle Cells Target Cells Tear Drop Cells Ovalocytes Stomatocytes Helmet Cells [place] Bodies [place] Cells Acanthocytes (Spur) Rouleaux Keratocytes Hematology Comments PT 10.7 INR 1.1 APTT 23.9 L D POC Sodium Sodium 155 H POC Potassium Potassium 3.3 L POC Chloride Chloride 126 H Carbon Dioxide 15.1 L Anion Gap 14 POC BUN BUN 21 H Creatinine 1.12 H POC Creatinine Estimated GFR 51 L POC Glucose Random Glucose 162 H Calcium 6.7 L* Prot Corrected Calcium 7.9 L Phosphorus 0.5 L Magnesium 1.7 Total Bilirubin 0.2 AST 205 H ALT 150 H Alkaline Phosphatase 58 Troponin I 24.00 H* D Total Protein 4.7 L Albumin 2.2 L Beta-Hydroxybutyric Acd Random Vancomycin 7.4 Blood Type Blood Type Recheck Antibody Screen 01/06/18 01/06/18 01/06/18 03:30 03:56 05:10 CBC w Diff WBC Corrected WBC RBC Hgb POC Hgb (Calc) Hct POC Hct MCV MCH MCHC RDW Plt Count MPV Prelim Diff (Auto) Immature Gran % (Auto) Neut % (Auto) Lymph % (Auto) [place] % (Auto) Eos % (Auto) Baso % (Auto) Immature Gran # (Auto) Neut # (Auto) Lymph # (Auto) [place] # (Auto) Eos # (Auto) Baso # (Auto) WBC Differential Diff Scan Seg Neuts % (Manual) Band Neuts % (Manual) Lymphocytes % (Manual) Atypical Lymphs % (Man) Monocytes % (Manual) Eosinophils % (Manual) Basophils % (Manual) Metamyelocytes % (Man) Myelocytes % (Man) Promyelocytes % (Man) Blast Cells % (Manual) Plasma Cell % (Manual) Other Cells % Abs Neuts (Manual) Nucleated RBCs/100 WBC Differential Comment Hypersegmented Neuts Smudge Cells Toxic Granulation Toxic Vacuolation Dohle Bodies Platelet Estimate Platelet Morphology RBC Morphology Dimorphic RBCs Polychromasia Basophilic Stippling Spherocytes Pappenheimer Bodies Sickle Cells Target Cells Tear Drop Cells Ovalocytes Stomatocytes Helmet Cells [place] Bodies Efrem Cells Acanthocytes (Spur) Rouleaux Keratocytes Hematology Comments PT INR APTT POC Sodium Sodium POC Potassium Potassium POC Chloride Chloride Carbon Dioxide Anion Gap POC BUN BUN Creatinine POC Creatinine Estimated GFR POC Glucose 208 H 170 H Random Glucose Calcium Prot Corrected Calcium Phosphorus Magnesium Total Bilirubin AST ALT Alkaline Phosphatase Troponin I Total Protein Albumin Beta-Hydroxybutyric Acd 0.08 Random Vancomycin Blood Type Blood Type Recheck Antibody Screen 01/06/18 01/06/18 01/06/18 06:07 07:18 08:13 CBC w Diff WBC Corrected WBC RBC Hgb POC Hgb (Calc) Hct POC Hct MCV MCH MCHC RDW Plt Count MPV Prelim Diff (Auto) Immature Gran % (Auto) Neut % (Auto) Lymph % (Auto) [place] % (Auto) Eos % (Auto) Baso % (Auto) Immature Gran # (Auto) Neut # (Auto) Lymph # (Auto) [place] # (Auto) Eos # (Auto) Baso # (Auto) WBC Differential Diff Scan Seg Neuts % (Manual) Band Neuts % (Manual) Lymphocytes % (Manual) Atypical Lymphs % (Man) Monocytes % (Manual) Eosinophils % (Manual) Basophils % (Manual) Metamyelocytes % (Man) Myelocytes % (Man) Promyelocytes % (Man) Blast Cells % (Manual) Plasma Cell % (Manual) Other Cells % Abs Neuts (Manual) Nucleated RBCs/100 WBC Differential Comment Hypersegmented Neuts Smudge Cells Toxic Granulation Toxic Vacuolation Dohle Bodies Platelet Estimate Platelet Morphology RBC Morphology Dimorphic RBCs Polychromasia Basophilic Stippling Spherocytes Pappenheimer Bodies Sickle Cells Target Cells Tear Drop Cells Ovalocytes Stomatocytes Helmet Cells Ocasio-Amidon Bodies Efrem Cells Acanthocytes (Spur) Rouleaux Keratocytes Hematology Comments PT INR APTT POC Sodium Sodium POC Potassium Potassium POC Chloride Chloride Carbon Dioxide Anion Gap POC BUN BUN Creatinine POC Creatinine Estimated GFR POC Glucose 128 H 109 135 H Random Glucose Calcium Prot Corrected Calcium Phosphorus Magnesium Total Bilirubin AST ALT Alkaline Phosphatase Troponin I Total Protein Albumin Beta-Hydroxybutyric Acd Random Vancomycin Blood Type Blood Type Recheck Antibody Screen Microbiology 01/06/18 05:30 Nasal Wash Influenza Types A,B Antigen - Final Negative for FLU A and B antigen Infection due to influenza A or B cannot be ruled out since the antigen present in the sample may be below the detection limit of the test. 01/04/18 18:00 Blood - Line Aerobic Blood Culture - Preliminary No growth in 1 day 01/04/18 18:00 Blood - Line Anaerobic Blood Culture - Preliminary No growth in 1 day 01/04/18 16:20 Blood - Peripheral Aerobic Blood Culture - Preliminary No growth in 1 day 01/04/18 16:20 Blood - Peripheral Anaerobic Blood Culture - Preliminary No growth in 1 day 01/04/18 16:26 Blood - Peripheral Aerobic Blood Culture - Preliminary No growth in 1 day 01/04/18 16:26 Blood - Peripheral Anaerobic Blood Culture - Preliminary No growth in 1 day 01/05/18 01:20 Urine - Catheterized Urine Streptococcus pneumoniae Antigen ( M - Final Presumptive negative for streptococcus pneumoniae antigen, suggesting no current or recent infection. Infection due to Streptococcus pneumoniae cannot be ruled out since the antigen present in the sample may be below the detection limit of the test. 01/05/18 01:20 Urine - Catheterized Urine Legionella Antigen - Final Presumptive negative for Legionella pneumophila serogroup 1 antigen in urine, suggesting no recent or recurrent infection. Infection due to Legionella cannot be ruled out since other serogroups and species may cause disease, antigen may not be present in urine in early infection, and the level of antigen present in the urine may be below the detection limit of the test. Assessment and Plan - Plan Abnl ekg/elev trop; now s/p cath showing normal coronaries, LVEF ~45%, likely myocarditis given diffuse EKG changes. Pressors coming down Insulin ggt off for now Cardiac issues reasonably stable for now, reasonable LVEF, no additional recommendations beyond continued supportive care. Will sign off but be available as needed, please call with questions. Procedures - Arterial Line Size (Gauge): 20
[2018-01-06] MEDS: Chlorhexidine 0.12% Oral Kit 15 ML UDC OROPHARYNG SCH ×2 (10:07→21:45)
[2018-01-06] MEDS: Vancomycin Inj 2,000 MG in Sodium Chlor 0.9% Inj 500 ML IV.SIG SCH (12:16)
--- NOTE | 2018-01-06 13:31 | ECG ---
Date Performed: 01/05/2018 Time Performed: 12:20:11 PTAGE: 52 years EKG: Sinus rhythm LOW QRS VOLTAGE IN PRECORDIAL LEADS ST ELEVATION, CONSIDER INFERIOR INJURY Likely Myocarditis due to diffuse ST elevation Patient has now had a cardiac catherization showing normal coronary ateries. PREVIOUS TRACING : 01/05/2018 06.13 DOCTOR: Tobias Vanegas Interpretating Date/Time 01/06/2018 13:30:40
--- NOTE | 2018-01-06 13:33 | ECG ---
Date Performed: 01/05/2018 Time Performed: 18:35:32 PTAGE: 52 years EKG: Sinus rhythm . Extensive ST elevation Low QRS voltages in precordial leads Likely Myocarditis due to diffuse ST el evation Patient has now had a cardiac catherization showing normal coronary ateries. Abnormal ECG PREVIOUS TRACING : 01/05/2018 12.20 Compared to previous tracing, ST elevations are more promin ent however Patient has now had a cardiac catherization showing normal coronary ateries. DOCTOR: Tobias Vanegas Interpretating Date/Time 01/06/2018 13:32:14
--- NOTE | 2018-01-06 13:35 | ECG ---
Date Performed: 01/05/2018 Time Performed: 21:51:46 PTAGE: 52 years EKG: Sinus rhythm . Poor R wave progression - probable normal variant Anterolateral ST elevation, Generalized low QRS v oltages Likely Myocarditis due to diffuse ST elevation Patient has now had a cardiac catherization sh owing normal coronary ateries. Abnormal ECG PREVIOUS TRACING : 01/05/2018 18.35 Compared to previous tracing, ST elevations have improved DOCTOR: Tobias Vanegas Interpretating Date/Time 01/06/2018 13:33:44
--- NOTE | 2018-01-06 15:46 | P.DIET ---
Nutritional Evaluation Type of nutrition evaluation: initial Nutrition consult regarding: Tube Feeding Objective - Diagnosis Metabolic Acidosis, Intubated - Objective [place] body weight: 64 kg % IBW: 164 Body Weight Used for Calculations: IBW Energy Needs - Lower Range (kCal/kg): 25 Energy Needs - Upper Range (kCal/kg): 30 Lower Limit kCal/kg (kCals): 1,590 Upper Limit kCal/kg (kCals): 1,908 Lower Limit Protein Factor (Grams per Kg): 1.2 Upper Limit Protein Factor (Grams per Kg): 1.5 Lower Protein Needs (Protein): 76 Upper Protein Needs (Protein): 96 Dietitian Reviewed in Medical Record: Curent medications, Intake & Output, Labs , Medical history, Tube feeding Diet Order: TF only Objective Comments: PMH: DM, otherwise unknown Meds include: Propofol, Fentanyl, Insulin IV Labs include: Na 155, K+ 3.3, C4 1.12, Glu 162, Ca 6.7, Cor Ca 7.9, elevated LFT 's, Troponin I 24.00, Ammonia 70 (01/04), POC Glucose 189, 171, 145 Assessment Assessment: Pt at nutritional risk r/t current clinical status. Pt found unresponsive by friends, now intubated/sedated on propofol and fentanyl. Past medical history unknown except for DM. Pt's nutritional needs as assessed above. TF Glucerna 1.5 with goal rate of 60 per MD. To best meet pt's nutritional needs, recommend a goal rate of 50 ml/hr to provide 1800kcals, 99 gms protein and 911mls free water. Elevated ammonia noted, will monitor. Renal function improving. Reviewed cardiac cath report. Will monitor TF tolerance, clinical course. Recommendations: TF Glucerna 1.5 with goal rate 50 ml/hr Dietitian to Monitor: Lab values, Intake & Output, Tube feeding tolerance, Weight change, Medical course
[2018-01-06] MEDS: Piperacil/Tazo 3.375 GM Premix 50 ML IV.SIG SCH ×2 (16:29→22:16)
--- NOTE | 2018-01-06 17:31 | P.PNCC ---
Subjective Subjective Remarks/Hospital Course: Hospital Course: This is a 52yF with a completely unknown past medical history who was found by EMS unresponsive in her home. per report, her friends called EMS to check on her. she was intubated in the field with 6.5 ett. she arrives to the ER hypotensive in shock. abg demonstrates pH 6.9/21/275/-26. wbc 30, hct 50, plt 253, 87% neutrophil. sodium 129, potassium 5.3, co2 5.9, AG 34, cr 4.25, glucose 1191. lactate 6.2, ammonia 70. Because nothing was known about the patient and she was in profound shock, we went emergently to CT: CT brain without acute abnormality. CT chest demonstrates patchy infiltrates concerning for infectious etiology. CT abd/pelvis without acute abnormality. she is taken to ICU in critical condition, unresponsive. no additional information is available. ROS unobtainable. Subjective: 01/05: now on 3 vasopressors. glycemic control improving. remains encephalopathic. remains in shock. now with inferior ST elevations and rising troponins. given that she is unresponsive, unclear if she has any symptoms of ACS. Certainly given clinical course most likely Type II NSTEMI secondary to demand ischemia from shock, but unable to say with certainty that this is not Type I NSTEMI or STEMI given inferior ST elevations (there are diffuse areas of other ST elevations in other leads, which would argue against single vascular territory ischemia). cultures NGTD. Talked with family: she has poorly controlled diabetes and a strong psychiatric history (although family did not know specific diagnoses). 01/06: developed what appeared to be inferior STEMI over the course of yesterday afternoon into evening. troponins [place] and continue to rise. 2d echo, however, without any wall motion abnormalities and ST elevations are somewhat diffuse. taken to section laborer overnight and [facility] with clean coronaries. today remains on vasopressors. encephalopathy persists. acidosis persists and becoming quite hyperchloremic. cultures are NGTD. organ dysfunction persists. Objective Vital Signs / I&O: Vital Signs 01/05/18 18:00 01/05/18 18:14 01/05/18 19:00 Temperature Pulse Rate 76 79 Respiratory Rate 24 24 24 Blood Pressure 94/82 L Pulse Oximetry 99 98 98 01/05/18 19:37 01/05/18 20:00 01/05/18 21:00 Temperature 36.4 C Pulse Rate 72 74 73 Respiratory Rate 24 24 24 Blood Pressure 88/60 L Pulse Oximetry 97 97 99 01/05/18 22:00 01/05/18 23:02 01/05/18 23:35 Temperature Pulse Rate 75 76 Respiratory Rate 24 24 Blood Pressure Pulse Oximetry 99 97 100 01/06/18 00:00 01/06/18 00:23 01/06/18 00:45 Temperature Pulse Rate 72 71 74 Respiratory Rate 23 24 Blood Pressure 91/58 L 88/57 L 87/58 L Pulse Oximetry 01/06/18 00:52 01/06/18 01:00 01/06/18 01:30 Temperature Pulse Rate 84 70 Respiratory Rate 24 24 24 Blood Pressure 103/61 93/57 L Pulse Oximetry 95 95 99 01/06/18 02:00 01/06/18 03:00 01/06/18 03:55 Temperature Pulse Rate 68 72 78 Respiratory Rate 24 24 24 Blood Pressure 95/62 L 101/68 Pulse Oximetry 98 96 98 01/06/18 04:00 01/06/18 04:45 01/06/18 05:00 Temperature 36.8 C Pulse Rate 76 76 77 Respiratory Rate 24 24 24 Blood Pressure 101/73 113/81 101/74 Pulse Oximetry 98 100 98 01/06/18 06:00 01/06/18 07:00 01/06/18 07:26 Temperature Pulse Rate 87 86 Respiratory Rate 24 24 24 Blood Pressure 115/72 88/80 L Pulse Oximetry 95 100 99 01/06/18 08:00 01/06/18 09:00 01/06/18 10:00 Temperature 36.8 C Pulse Rate 78 85 85 Respiratory Rate 24 24 24 Blood Pressure 96/92 H 88/83 L 96/82 L Pulse Oximetry 100 100 100 01/06/18 11:00 01/06/18 11:30 01/06/18 12:00 Temperature 36.6 C Pulse Rate 83 78 Respiratory Rate 24 24 24 Blood Pressure 101/72 73/52 L Pulse Oximetry 97 98 99 01/06/18 13:00 01/06/18 14:00 01/06/18 15:00 Temperature Pulse Rate 78 88 85 Respiratory Rate 24 24 24 Blood Pressure 81/60 L 89/61 L 80/59 L Pulse Oximetry 97 96 97 01/06/18 15:27 01/06/18 16:03 Temperature Pulse Rate 86 Respiratory Rate 24 24 Blood Pressure Pulse Oximetry 95 Intake & Output 01/05/18 01/06/18 01/06/18 18:59 06:59 18:59 Intake Total 1550 / 1550 5500 / 5500 350 / 350 Output Total 635 / 635 1190 / 1190 385 / 385 Balance 915 / 915 4310 / 4310 -35 / -35 Intake: IV 1550 / 1550 4900 / 4900 350 / 350 D5W/Normal Saline Inj 1,000 ML 1000 / 1000 3000 / 3000 @ 200 mls/hr IV.CONT .Q5H MATTEO Rx#:[id number] Diprivan 1000 mg/100 ml Inj 1, 100 / 100 100 / 100 100 / 100 000 mg In 100 ml @ 5 MCG/KG/MIN 3.13 mls/hr IV.CONT TITRATE PRN Rx#:[id number] NS Inj 1,000 ML @ 250 mls/hr IV 1000 / 1000 .CONT .Q4H MATTEO Rx#:[id number] Pitressin Inj 40 UNIT In D5W 100 / 100 Inj 98 ML @ 0.01 UNITS/MIN 1.5 mls/hr IV.CONT TITRATE PRN Rx#: [id number] Azithromycin Inj 500 MG In NS 250 / 250 Inj 250 ML @ 250 mls/hr IV.SIG Q24H MATTEO Rx#:[id number] Zosyn 2.25 GM Premix 50 ML @ 100 / 100 100 / 100 100 mls/hr IV.SIG Q6H MATTEO Rx#: [id number] KCl 40 mEq Premix Inj 40 meq In 100 / 100 100 / 100 100 ml @ 100 mls/hr IV.SIG Q1H PRN Rx#:[id number] fentaNYL 10 mcg/mL Premix Drip 250 / 250 250 / 250 250 / 250 2,500 mcg In 250 ml @ 50 MCG/HR 5 mls/hr IV.SIG TITRATE PRN Rx #:[id number] Water Bolus Amount 600 / 600 Output: Urine Amount (Catheter) 635 / 635 665 / 665 385 / 385 Indwelling Urethral Catheter 635 / 635 665 / 665 385 / 385 Gastric Drainage 525 / 525 Right Nare Nasogastric Tube 525 / 525 Result Diagrams: 01/06/18 03:30 01/06/18 03:30 Objective Remarks: gen: middle-aged appearing female, lying in bed, intubated, unresponsive. heent: pupils 3mm, equal, reactive. nc. at. mucous membranes moist. neck: no jvd. trachea midline. chest: intubated with 6.5 ett. equal chest rise. prvc. full vent support. fio2 50%. peep 8. cv: tachycardic rate, regular rhythm. sinus. hypotensive on norepinephrine, vasopressin abd: soft, obese, nontender, nondistended. no guarding. extr: cool to the touch. poor cap refill. distal pulses 1+. neuro: RASS -3. GCS 7. moves all extremities spontaneously. does not follow commands. Assessment and Plan - Assessment and Plan Plan: Assessment: 52yF with history of poorly controlled diabetes presents in multiorgan failure and profound shock and diabetic ketoacidosis. critically ill. no improvements in last 24h. off pathway. coronary ischemia, acidosis, and respiratory failure persist despite aggressive therapy. Plan by systems: Neuro: Acute metabolic encephalopathy - frequent neuro checks - propofol, fentanyl for goal RASS -2. - add precedex to assist with weaning sedation. - avoid long-acting sedatives Resp: Acute hypoxic and hypercarbic respiratory failure Community Acquired pneumonia - vent bundle - hob elevated - as hypoxia improves, will start to wean PEEP. - wean fio2 for goal spo2 > 90% - could consider starting SBT today if mental status improves. CV: Septic Shock- persistent Hypovolemic shock- resolved Acute coronary ischemia: unclear if Type I vs. Type II ST elevation myocardial infarction Elevated troponin - levophed, vasopressin for goal map > 65 mmHg - trend trops - EKG with inferior ST elevations - 2d echo without regional wall motion abnormalities 01/05 - section laborer 01/05 overnight with clean coronaries - cardiology consulted: Dr. Alvarado/Brie - in the setting of coronary ischemia, would avoid epinephrine and other inotropes if possible. Renal: Acute kidney injury - likely secondary to volume depletion and shock - ivf - daily bmp - allen - q1h uop FEN/GI: Lactic Acidosis- resolved Severe anion-gap metabolic acidosis- persistent Acute intravascular volume depletion- resolving. Obesity Hypokalemia Pseudohyponatremia secondary to hyperglycemia- resolved Hypernatremia Hyperchloremia - start tube feeds, nutrition consult - ICU electrolyte protocol - aggressive potassium replacement - trend lactates - change mivf to Sodium acetate 80meq with 40meq of KCl to mitigate hyperchloremia/hypernatremia and non-gap component of acidosis. - frequent serial labs - continue enteral free water 300mL po q4h Heme/ID: Community Acquired Pneumonia Septic Shock - vancomycin with pharmacy dosing - zosyn - azithromycin - cultures 01/04 NGTD - daily cbc - diffuse ST elevations are concerning for pericarditis, but viral panel negative for common pathogens known to cause infectious pericarditis. Endo: Diabetic Ketoacidosis - dka protocol insulin drip - q1h accuchecks Prophylaxis: SQH pepcid SCDs Lines: - 01/04 left IJ TLC - 01/04 right radial art line - allen Dispo: - remain in ICU. critically ill. minimal improvements. Critical care time: 37 minutes, exclusive of separately billable procedures. active management included agitation, hypoxia, coronary ischemia, acidosis, and electrolyte abnormalities. Procedures - Arterial Line Size (Gauge): 20
[2018-01-06] MEDS: SODIUM ACETATE IV.CONT SCH ×3 (18:36)
[2018-01-06] MEDS: DEXTROSE 5% IV.CONT SCH ×3 (18:36)
[2018-01-06] MEDS: [UNRECOGNIZED DRUG - OTHER] IV.CONT SCH ×3 (18:36)
[2018-01-06] MEDS: POTASSIUM CHLORIDE IV.CONT SCH ×3 (18:36)
[2018-01-06] MEDS: Insulin Regular (For Infusion) 100 UNIT in Sodium Chlor 0.9% Inj 99 ML IV.CONT PRN (18:38)
[2018-01-06] MEDS: Azithromycin Inj 500 MG in Sodium Chlor 0.9% Inj 250 ML IV.SIG SCH (20:55)
[2018-01-06] MEDS: Heparin - SQ 10,000 UNITS/ML Vial SQ SCH (22:16)
[2018-01-07] MEDS: Potassium Chlor 40 mEq Premix 40 MEQ/100 ML PIGGYBACK IV.SIG PRN (00:16)
[2018-01-07] MEDS: Oral Hygiene Kit OROPHARYNG SCH ×4 (00:17→15:54)
[2018-01-07] MEDS: fentaNYL 10 mcg/mL Premix Drip 2,500 MCG/250 ML BAG IV.SIG PRN (00:45)
[2018-01-07] MEDS: Dexmedetomidine Inj 200 MCG in Sodium Chlor 0.9% Inj 48 ML IV.CONT PRN ×3 (01:49→17:06)
[2018-01-07] MEDS: Piperacil/Tazo 3.375 GM Premix 50 ML IV.SIG SCH ×3 (03:56→15:53)
[2018-01-07 05:13] LABS: Hematocrit 32.9 % (35.0-46.0); Hemoglobin 10.5 gm/dL (11.6-15.3); Mean Corpuscular Hemoglobin 28.4 pg (27.0-34.0); Mean Corpuscular Volume 88.9 fL (80.0-100.0); Mean Platelet Volume 12.1 fL (7.0-11.0); Platelet Count 82 th/mm3 (150-450); Red Blood Count 3.71 mil/mm3 (4.00-5.30); Red Cell Distribution Width 14.7 % (11.6-17.2); White Blood Count 13.8 th/mm3 (4.0-11.0)
[2018-01-07 05:24] LABS: Activated Partial Thrombo Time 26.3 sec (24.3-30.1); INR 1.1 Ratio; Prothrombin Time 10.8 sec (9.8-11.6)
[2018-01-07] MEDS ORDERED: FOSPHENYTOIN IV.SIG ONE (05:45)
[2018-01-07] MEDS ORDERED: SODIUM CHLOR IV.SIG ONE (05:45)
[2018-01-07 05:52] LABS: Calcium 7.2 mg/dL (8.5-10.1); Carbon Dioxide 20.3 meq/L (21.0-32.0); Magnesium 1.6 mg/dL (1.5-2.5); Phosphorus 1.3 mg/dL (2.5-4.9); Potassium 5.1 meq/L (3.5-5.1); Total Protein 4.7 g/dL (6.4-8.2)
[2018-01-07] MEDS: Chlorhexidine Gluconate 2% 1 Pack (2 Cloths) TOPICAL SCH (06:07)
--- NOTE | 2018-01-07 06:23 | CT ---
EXAM DATE: 01/07/2018 6:16 AM EDT AGE/SEX: 52 years / Female INDICATIONS: Change in neuro status. CLINICAL DATA: This is the patient's subsequent encounter. Patient reports that signs and symptoms h ave been present for 3 days and indicates a pain score of Nonresponsive. MEDICAL/SURGICAL HISTORY: Seizures. Diabetes. None. RADIATION DOSE: 56.35 CTDI (mGy) [place] [facility] [place]. . TECHNIQUE: CT of the head without contrast. Using automated exposure control and adjustment of the mA and/or kV according to patient size, radiation dose was kept as low as reasonably achievable to ob tain optimal diagnostic quality images. DICOM format image data is available electronically for revi ew and comparison. FINDINGS: Cerebrum: The ventricles are normal for age. No evidence of midline shift, mass lesion, hemorrhage or acute infarction. No extraaxial fluid collections are seen. Posterior Fossa: The cerebellum and brainstem are intact. The 4th ventricle is midline. The cerebe llopontine angle is unremarkable. Mucoperiosteal thickening has developed of the paranasal sinuses. P atient is intubated and there is a nasogastric tube. Extracranial: The visualized portion of the orbits is intact. Skull: The calvaria is intact. No evidence of skull fracture. CONCLUSION: 1. No acute intracranial abnormality. 2. Sinus disease developing. . Electronically signed by: Demetri Juarez MD 01/07/2018 6:22 AM EDT
[2018-01-07] MEDS: Heparin - SQ 10,000 UNITS/ML Vial SQ SCH ×3 (06:44→22:00)
[2018-01-07] MEDS: [UNRECOGNIZED DRUG - OTHER] IV.CONT SCH ×6 (07:20→20:22)
[2018-01-07] MEDS: SODIUM ACETATE IV.CONT SCH ×6 (07:20→20:22)
[2018-01-07] MEDS: DEXTROSE 5% IV.CONT SCH ×6 (07:20→20:22)
[2018-01-07] MEDS: POTASSIUM CHLORIDE IV.CONT SCH ×6 (07:20→20:22)
[2018-01-07] MEDS: Chlorhexidine 0.12% Oral Kit 15 ML UDC OROPHARYNG SCH ×2 (07:21→20:22)
[2018-01-07] MEDS: Famotidine PF Inj 20 MG/2 ML Vial IV.PUSH SCH ×2 (08:48→20:22)
[2018-01-07] MEDS: Aspirin 325 MG Tablet PO SCH (08:48)
--- NOTE | 2018-01-07 12:32 | MG ---
cc: Parviz Rodriguez MD, PhD TEST NUMBER: [id number] TECHNIQUE: A 17-channel EEG. DESCRIPTION: The background rhythm reveals generalized slowing in the delta frequency at 3-4 Hz. Amplitude is 20-30 microvolts. There are no lateralizing features seen. There are no epileptiform discharges present. Hyperventilation was not done. Photic was done with no significant driving response. INTERPRETATION: Abnormal study consistent with a severe encephalopathy. Parviz Rodriguez MD, PhD EMILY/alvaro , 12:13 PM , 12:17 PM
[2018-01-07] MEDS: Vancomycin Inj 2,000 MG in Sodium Chlor 0.9% Inj 500 ML IV.SIG SCH (13:14)
[2018-01-07] MEDS: Insulin Regular (For Infusion) 100 UNIT in Sodium Chlor 0.9% Inj 99 ML IV.CONT PRN ×2 (13:23→20:33)
[2018-01-07] MEDS ORDERED: Midazolam 50 MG/50 ML Inj 50 MG/50 ML BAG IV.CONT PRN (13:30)
--- NOTE | 2018-01-07 13:43 | P.PNCC ---
Subjective Subjective Remarks/Hospital Course: Hospital Course: This is a 52yF with a completely unknown past medical history who was found by EMS unresponsive in her home. per report, her friends called EMS to check on her. she was intubated in the field with 6.5 ett. she arrives to the ER hypotensive in shock. abg demonstrates pH 6.9/21/275/-26. wbc 30, hct 50, plt 253, 87% neutrophil. sodium 129, potassium 5.3, co2 5.9, AG 34, cr 4.25, glucose 1191. lactate 6.2, ammonia 70. Because nothing was known about the patient and she was in profound shock, we went emergently to CT: CT brain without acute abnormality. CT chest demonstrates patchy infiltrates concerning for infectious etiology. CT abd/pelvis without acute abnormality. she is taken to ICU in critical condition, unresponsive. no additional information is available. ROS unobtainable. Subjective: 01/05: now on 3 vasopressors. glycemic control improving. remains encephalopathic. remains in shock. now with inferior ST elevations and rising troponins. given that she is unresponsive, unclear if she has any symptoms of ACS. Certainly given clinical course most likely Type II NSTEMI secondary to demand ischemia from shock, but unable to say with certainty that this is not Type I NSTEMI or STEMI given inferior ST elevations (there are diffuse areas of other ST elevations in other leads, which would argue against single vascular territory ischemia). cultures NGTD. Talked with family: she has poorly controlled diabetes and a strong psychiatric history (although family did not know specific diagnoses). 01/06: developed what appeared to be inferior STEMI over the course of yesterday afternoon into evening. troponins coleman and continue to rise. 2d echo, however, without any wall motion abnormalities and ST elevations are somewhat diffuse. taken to [facility] sinking overnight and [facility] with clean coronaries. today remains on vasopressors. encephalopathy persists. acidosis persists and becoming quite hyperchloremic. cultures are NGTD. organ dysfunction persists. 01/07: Remains critically ill on Levophed and vasopressin. Remains encephalopathic. EEG rules out seizures but showed severe encephalopathy. Cultures remain negative. Blood sugar in mid 300s despite DKA protocol Objective Vital Signs / I&O: Vital Signs 01/06/18 14:00 01/06/18 15:00 01/06/18 15:27 Temperature Pulse Rate 88 85 86 Respiratory Rate 24 24 24 Blood Pressure 89/61 L 80/59 L Pulse Oximetry 96 97 01/06/18 16:00 01/06/18 16:03 01/06/18 17:00 Temperature 98.6 F Pulse Rate 79 79 Respiratory Rate 24 24 24 Blood Pressure 98/70 L 108/73 Pulse Oximetry 95 95 99 01/06/18 18:00 01/06/18 19:15 01/06/18 20:00 Temperature 99.5 F Pulse Rate 78 78 Respiratory Rate 24 24 24 Blood Pressure 106/75 93/72 L Pulse Oximetry 99 95 98 01/06/18 20:47 01/06/18 21:00 01/06/18 22:00 Temperature Pulse Rate 78 88 86 Respiratory Rate 24 24 24 Blood Pressure 99/68 L 97/72 L Pulse Oximetry 97 97 01/06/18 22:15 01/06/18 23:00 01/07/18 00:00 Temperature Pulse Rate 88 70 Respiratory Rate 24 24 Blood Pressure 108/75 123/71 Pulse Oximetry 99 98 01/07/18 01:15 01/07/18 03:27 01/07/18 03:30 Temperature Pulse Rate 76 76 Respiratory Rate 24 24 24 Blood Pressure 95/69 L Pulse Oximetry 100 93 L 01/07/18 04:00 01/07/18 04:25 01/07/18 05:00 Temperature 99.4 F Pulse Rate 74 70 Respiratory Rate 24 24 24 Blood Pressure 88/60 L Pulse Oximetry 89 L 94 L 100 01/07/18 05:50 01/07/18 06:00 01/07/18 07:28 Temperature Pulse Rate 70 Respiratory Rate 19 24 Blood Pressure 101/62 Pulse Oximetry 100 100 99 01/07/18 08:00 01/07/18 09:00 01/07/18 12:00 Temperature Pulse Rate 75 74 Respiratory Rate 24 24 Blood Pressure Pulse Oximetry 97 Intake & Output 01/06/18 01/07/18 01/07/18 18:59 06:59 18:59 Intake Total 2156 / 2156 2361 / 2361 1810 / 1810 Output Total 530 / 530 795 / 795 630 / 630 Balance 1626 / 1626 1566 / 1566 1180 / 1180 Intake: IV 1170 / 1170 650 / 650 1210 / 1210 Precedex Inj 200 MCG In NS Inj 50 / 50 48 ML @ 0.2 MCG/KG/HR 5.21 mls/ hr IV.CONT TITRATE PRN Rx#: [id number] NovoLIN R (IV Infusion) 100 100 / 100 100 / 100 UNIT In NS Inj 99 ML @ 10 UNITS /HR 10 mls/hr IV.CONT TITRATE PRN Rx#:[id number] Diprivan 1000 mg/100 ml Inj 1, 100 / 100 000 mg In 100 ml @ 5 MCG/KG/MIN 3.13 mls/hr IV.CONT TITRATE PRN Rx#:[id number] Sodium Acetate Inj 80 MEQ KCl 1060 / 1060 Inj 40 MEQ In D5W Inj 1,000 ML @ 84 mls/hr IV.CONT .[id number] MATTEO Rx#:[id number] Levophed-Dextrose 4 mg/250 ml 250 / 250 Drip 4 mg In 250 ml @ 2 MCG/MIN 7.5 mls/hr IV.SIG TITRATE PRN Rx#:[id number] Zosyn 2.25 GM Premix 50 ML @ 50 / 50 100 mls/hr IV.SIG Q6H MATTEO Rx#: [id number] Zosyn 3.375 GM Premix 50 ML @ 50 / 50 100 / 100 50 / 50 100 mls/hr IV.SIG Q6H MATTEO Rx#: [id number] KCl 40 mEq Premix Inj 40 meq In 100 / 100 100 ml @ 100 mls/hr IV.SIG Q1H PRN Rx#:[id number] Vancomycin Inj 2,000 MG In NS 520 / 520 Inj 500 ML @ 250 mls/hr IV.SIG Q24H MATTEO Rx#:[id number] fentaNYL 10 mcg/mL Premix Drip 250 / 250 250 / 250 2,500 mcg In 250 ml @ 50 MCG/HR 5 mls/hr IV.SIG TITRATE PRN Rx #:[id number] Tube Feeding 86 / 86 211 / 211 0 / 0 Water Bolus Amount 900 / 900 1500 / 1500 600 / 600 Output: Urine Amount (Catheter) 505 / 505 695 / 695 430 / 430 Indwelling Urethral Catheter 505 / 505 695 / 695 430 / 430 Gastric Drainage 25 / 25 100 / 100 200 / 200 Right Nare Nasogastric Tube 25 / 25 100 / 100 200 / 200 Result Diagrams: 01/07/18 04:30 01/07/18 04:30 Objective Remarks: gen: middle-aged appearing female, lying in bed, intubated, unresponsive. heent: pupils 3mm, equal, reactive. nc. at. mucous membranes moist. bilateral eyelid fluttering noted. Upward gaze neck: no jvd. trachea midline. chest: intubated with 6.5 ett. equal chest rise. prvc. full vent support. fio2 50%. peep 8. cv: tachycardic rate, regular rhythm. sinus. hypotensive on norepinephrine, vasopressin abd: soft, obese, nontender, nondistended. no guarding. extr: cool to the touch. poor cap refill. distal pulses 1+. neuro: RASS -3. GCS 7. moves all extremities spontaneously. does not follow commands. Assessment and Plan - Assessment and Plan Plan: Assessment: 52yF with history of poorly controlled diabetes presents in multiorgan failure and profound shock and diabetic ketoacidosis, elevated troponin. critically ill. no improvements in last 48h. off pathway. coronary ischemia, acidosis, and respiratory failure persist despite aggressive therapy. Plan by systems: Neuro: Acute metabolic encephalopathy - frequent neuro checks - propofol, for goal RASS -2. Change to Versed due to hypotension - Add Seroquel 25 twice daily - add precedex to assist with weaning sedation, he tolerated hemodynamically Resp: Acute hypoxic and hypercarbic respiratory failure Community Acquired pneumonia - vent bundle - hob elevated - Mental status will not permit extubation - wean fio2 for goal spo2 > 90% - could consider starting SBT today if mental status improves. CV: Septic Shock- persistent Hypovolemic shock- resolved Acute coronary ischemia: unclear if Type I vs. Type II ST elevation myocardial infarction Elevated troponin - Levophed, vasopressin for goal map > 65 mmHg - trend trops. - EKG with inferior ST elevations - 2d echo without regional wall motion abnormalities 01/05 - [facility] 01/05 overnight with clean coronaries - cardiology: Dr. Alvarado/Brie Renal: Acute kidney injury - likely secondary to volume depletion and shock - ivf, daily bmp - allen, q1h uop FEN/GI: Lactic Acidosis- resolved Severe anion-gap metabolic acidosis- persistent Acute intravascular volume depletion- resolving. Obesity Hypokalemia Hypernatremia Hyperchloremia - Tube feeds with Glucerna, nutrition consult - ICU electrolyte protocol - aggressive potassium replacement - trend lactates - change mivf to Sodium acetate 80meq with 40meq of KCl to mitigate hyperchloremia/hypernatremia and non-gap component of acidosis. - frequent serial labs - continue enteral free water 300mL po q4h Heme/ID: Community Acquired Pneumonia Septic Shock - vancomycin with pharmacy dosing, zosyn, azithromycin - cultures 01/04 NGTD - daily cbc - diffuse ST elevations are concerning for pericarditis, but viral panel negative for common pathogens known to cause infectious pericarditis. Endo: Diabetic Ketoacidosis - dka protocol insulin drip - q1h accuchecks Prophylaxis: SQH pepcid SCDs Lines: - 01/04 left IJ TLC - 01/04 right radial art line-non functional, remove - allen Dispo: - remain in ICU. critically ill. minimal improvements. Critical care time: 35 minutes, exclusive of separately billable procedures. active management included agitation, hypoxia, coronary ischemia, acidosis, and electrolyte abnormalities. Code Status: Full Procedures - Arterial Line Size (Gauge): 20
[2018-01-07] MEDS: Vasopressin Inj 40 UNIT in Dextrose 5% in Water Inj 98 ML IV.CONT PRN ×2 (15:19)
[2018-01-07] MEDS: QUEtiapine 25 MG Tablet PO SCH ×2 (15:53→20:22)
[2018-01-07] MEDS: Azithromycin Inj 500 MG in Sodium Chlor 0.9% Inj 250 ML IV.SIG SCH (20:20)
[2018-01-07] MEDS ORDERED: Insulin Regular (For Infusion) 100 UNIT in Sodium Chlor 0.9% Inj 99 ML IV.CONT PRN (20:36)
[2018-01-07] MEDS ORDERED: Dextrose 50% in Water 50 ML Vial IV.PUSH PRN (20:36)
--- NOTE | 2018-01-08 00:16 | ECHRPT ---
EXAM DATE: 01/08/2018 12:05 AM EDT AGE/SEX: 52 years / Female INDICATIONS: No palpable pulses CLINICAL DATA: This is the patient's initial encounter. Patient reports that signs and symptoms have been present for 2 days and indicates a pain score of Nonresponsive. MEDICAL/SURGICAL HISTORY: . DIABETES, RESPIRATORY FAILURE, ST ELEVATION WI, ACUTE KIDNEY INJURY . UNKNOWN COMPARISON: No prior exams available for comparison. TECHNIQUE: Segmental examination of the upper extremities was performed. Pulsed-cuff waveform tracin gs and pressures were recorded. PRESSURES (mmHg): Upper Arm : RIGHT: 61, LEFT: 69 Lower Arm: RIGHT: 63, LEFT: 74 Digit 1 : RIGHT: RIGHT 0, LEFT: LEFT 58 FBI : RIGHT: 0.00, LEFT: 0.84 RIGHT: , LEFT: RIGHT: , LEFT: RIGHT: , LEFT: RIGHT: , LEFT: CONCLUSION: 1. No perceptible arterial pressure in the digits of the right hand consistent with distal occlusive disease. 2. Mildly decreased arterial pressure in the digits of the left hand consistent with nonocclusive di stal narrowing. 3. No significant disease at and proximal to either wrist. Electronically signed by: Demetri Juarez MD 01/08/2018 12:15 AM EDT
[2018-01-08] MEDS: Piperacil/Tazo 3.375 GM Premix 50 ML IV.SIG SCH ×5 (00:35→21:54)
[2018-01-08] MEDS: Oral Hygiene Kit OROPHARYNG SCH ×4 (00:36→17:37)
[2018-01-08] MEDS: Dexmedetomidine Inj 200 MCG in Sodium Chlor 0.9% Inj 48 ML IV.CONT PRN ×5 (01:03→21:55)
[2018-01-08] MEDS ORDERED: Dextrose 50% in Water 50 ML Vial IV.PUSH PRN (03:47)
[2018-01-08] MEDS: Vasopressin Inj 40 UNIT in Dextrose 5% in Water Inj 98 ML IV.CONT PRN ×4 (04:17→21:54)
[2018-01-08] MEDS: Sodium Chloride 23.4% Inj 77 MEQ in Dextrose 10% in Water Inj 1,000 ML IV.CONT SCH ×4 (04:18→15:32)
[2018-01-08] MEDS: Chlorhexidine Gluconate 2% 1 Pack (2 Cloths) TOPICAL SCH (04:18)
[2018-01-08] MEDS: Insulin NovoLOG Aspart Correctional Sugar Inj SQ SCH ×5 (04:18→20:17)
[2018-01-08] MEDS: Heparin - SQ 10,000 UNITS/ML Vial SQ SCH ×3 (05:40→22:15)
[2018-01-08 08:19] LABS: Hematocrit 28.8 % (35.0-46.0); Hemoglobin 9.4 gm/dL (11.6-15.3); Mean Corpuscular HGB Conc 32.7 % (32.0-36.0); Mean Corpuscular Hemoglobin 28.9 pg (27.0-34.0); Mean Corpuscular Volume 88.4 fL (80.0-100.0); Mean Platelet Volume 12.2 fL (7.0-11.0); Platelet Count 57 th/mm3 (150-450); Red Blood Count 3.26 mil/mm3 (4.00-5.30); Red Cell Distribution Width 14.6 % (11.6-17.2); White Blood Count 11.4 th/mm3 (4.0-11.0)
[2018-01-08 08:34] LABS: Activated Partial Thrombo Time 25.1 sec (24.3-30.1); INR 1.1 Ratio; Prothrombin Time 10.8 sec (9.8-11.6)
[2018-01-08 08:45] LABS: Albumin 1.8 g/dL (3.4-5.0); Calcium 7.2 mg/dL (8.5-10.1); Carbon Dioxide 22.7 meq/L (21.0-32.0); Magnesium 1.5 mg/dL (1.5-2.5); Potassium 3.5 meq/L (3.5-5.1)
[2018-01-08 08:52] LABS: Phosphorus 1.4 mg/dL (2.5-4.9); Total Protein 4.4 g/dL (6.4-8.2)
[2018-01-08] MEDS: Chlorhexidine 0.12% Oral Kit 15 ML UDC OROPHARYNG SCH ×2 (09:21→20:41)
[2018-01-08] MEDS: Dextrose 5%/NaCl 0.9% Inj 1,000 ML IV.CONT SCH (09:33)
[2018-01-08] MEDS: Sod Chloride 0.9% Inj 1,000 ML IV.CONT SCH (09:33)
[2018-01-08] MEDS: Famotidine PF Inj 20 MG/2 ML Vial IV.PUSH SCH ×2 (09:54→20:40)
[2018-01-08] MEDS: Aspirin 325 MG Tablet PO SCH (09:55)
[2018-01-08] MEDS: QUEtiapine 25 MG Tablet PO SCH ×2 (09:55→20:40)
--- NOTE | 2018-01-08 11:02 | P.PNCC ---
Subjective Subjective Remarks/Hospital Course: Hospital Course: This is a 52yF with a completely unknown past medical history who was found by EMS unresponsive in her home. per report, her friends called EMS to check on her. she was intubated in the field with 6.5 ett. she arrives to the ER hypotensive in shock. abg demonstrates pH 6.9/21/275/-26. wbc 30, hct 50, plt 253, 87% neutrophil. sodium 129, potassium 5.3, co2 5.9, AG 34, cr 4.25, glucose 1191. lactate 6.2, ammonia 70. Because nothing was known about the patient and she was in profound shock, we went emergently to CT: CT brain without acute abnormality. CT chest demonstrates patchy infiltrates concerning for infectious etiology. CT abd/pelvis without acute abnormality. she is taken to ICU in critical condition, unresponsive. no additional information is available. ROS unobtainable. Subjective: 01/05: now on 3 vasopressors. glycemic control improving. remains encephalopathic. remains in shock. now with inferior ST elevations and rising troponins. given that she is unresponsive, unclear if she has any symptoms of ACS. Certainly given clinical course most likely Type II NSTEMI secondary to demand ischemia from shock, but unable to say with certainty that this is not Type I NSTEMI or STEMI given inferior ST elevations (there are diffuse areas of other ST elevations in other leads, which would argue against single vascular territory ischemia). cultures NGTD. Talked with family: she has poorly controlled diabetes and a strong psychiatric history (although family did not know specific diagnoses). 01/06: developed what appeared to be inferior STEMI over the course of yesterday afternoon into evening. troponins coleman and continue to rise. 2d echo, however, without any wall motion abnormalities and ST elevations are somewhat diffuse. taken to clinical laboratory scientist overnight and [facility] with clean coronaries. today remains on vasopressors. encephalopathy persists. acidosis persists and becoming quite hyperchloremic. cultures are NGTD. organ dysfunction persists. 01/07: Remains critically ill on Levophed and vasopressin. Remains encephalopathic. EEG rules out seizures but showed severe encephalopathy. Cultures remain negative. Blood sugar in mid 300s despite DKA protocol 01/08: Remains critically ill, remains on vasopressin. Due to poor control of blood sugar algorithm 3 non-DKA protocol was used yesterday but patient became hypoglycemic. Currently on D10 receiving only sliding scale coverage. Right radial pulse was not felt yesterday arterial Doppler was ordered which showed no perceptible arterial pressure in the digits of the right hand consistent with distal occlusive disease. Today weak radial pulses palpable good capillary refill. Discussed with Dr. Florez will attempt weaning process as tolerated. Also wean Versed after starting Precedex Objective Vital Signs / I&O: Vital Signs 01/07/18 11:00 01/07/18 12:00 01/07/18 13:00 Temperature 99.8 F H Pulse Rate 66 69 65 Respiratory Rate 24 24 24 Blood Pressure 95/66 L 93/69 L 105/74 Pulse Oximetry 96 98 97 01/07/18 14:00 01/07/18 15:00 01/07/18 16:00 Temperature Pulse Rate 77 67 69 Respiratory Rate 24 24 24 Blood Pressure 119/81 100/69 91/55 L Pulse Oximetry 94 L 100 96 01/07/18 17:00 01/07/18 17:08 01/07/18 18:00 Temperature 99.8 F H Pulse Rate 93 H 83 Respiratory Rate 24 24 24 Blood Pressure 124/74 119/81 Pulse Oximetry 95 96 100 01/07/18 19:00 01/07/18 19:53 01/07/18 20:00 Temperature 98.7 F 98.4 F Pulse Rate 72 69 69 Respiratory Rate 24 24 24 Blood Pressure 76/58 L 76/57 L Pulse Oximetry 87 L 96 100 01/07/18 21:00 01/07/18 22:00 01/07/18 23:00 Temperature Pulse Rate 61 60 68 Respiratory Rate 24 24 24 Blood Pressure 82/58 L 82/59 L 78/59 L Pulse Oximetry 99 98 97 01/08/18 00:00 01/08/18 01:00 01/08/18 01:36 Temperature Pulse Rate 68 65 Respiratory Rate 24 24 24 Blood Pressure 79/56 L Pulse Oximetry 97 97 98 01/08/18 02:00 01/08/18 03:00 01/08/18 03:16 Temperature Pulse Rate 63 68 68 Respiratory Rate 24 25 H 24 Blood Pressure 85/63 L 88/71 L 70/47 L Pulse Oximetry 98 98 95 01/08/18 03:33 01/08/18 04:00 01/08/18 04:08 Temperature Pulse Rate 60 62 Respiratory Rate 24 24 24 Blood Pressure 102/73 Pulse Oximetry 98 98 01/08/18 05:00 01/08/18 06:00 01/08/18 06:30 Temperature Pulse Rate 61 58 L 56 L Respiratory Rate 24 24 24 Blood Pressure 93/64 L 93/68 L 98/69 L Pulse Oximetry 98 98 98 01/08/18 06:45 01/08/18 07:00 01/08/18 07:15 Temperature Pulse Rate 56 L 55 L 55 L Respiratory Rate 24 24 24 Blood Pressure 92/67 L 82/58 L 82/54 L Pulse Oximetry 99 98 99 01/08/18 07:31 01/08/18 07:48 01/08/18 07:52 Temperature Pulse Rate 55 L 71 76 Respiratory Rate 24 24 24 Blood Pressure 79/56 L 110/79 116/88 Pulse Oximetry 99 100 100 01/08/18 08:00 01/08/18 08:15 01/08/18 08:30 Temperature 96.7 F L Pulse Rate 66 59 L 56 L Respiratory Rate 24 24 24 Blood Pressure 114/82 102/71 93/65 L Pulse Oximetry 100 99 98 01/08/18 08:31 01/08/18 08:45 01/08/18 09:00 Temperature Pulse Rate 56 L 56 L 58 L Respiratory Rate 24 24 24 Blood Pressure 96/66 L 97/68 L Pulse Oximetry 99 98 01/08/18 09:19 01/08/18 09:30 01/08/18 09:45 Temperature Pulse Rate 58 L 57 L 56 L Respiratory Rate 24 24 24 Blood Pressure 118/65 99/66 L 99/70 L Pulse Oximetry 98 98 98 01/08/18 10:00 01/08/18 10:15 01/08/18 10:30 Temperature Pulse Rate 56 L 55 L 55 L Respiratory Rate 24 24 24 Blood Pressure 99/67 L 93/64 L 94/68 L Pulse Oximetry 98 98 98 Intake & Output 01/07/18 01/08/18 01/08/18 18:59 06:59 18:59 Intake Total 2768 / 2768 1760 / 1760 4306 / 4306 Output Total 930 / 930 375 / 375 130 / 130 Balance 1838 / 1838 1385 / 1385 4176 / 4176 Intake: IV 2158 / 2158 1610 / 1610 4006 / 4006 Precedex Inj 200 MCG In NS Inj 48 / 48 50 / 50 48 ML @ 0.2 MCG/KG/HR 5.21 mls/ hr IV.CONT TITRATE PRN Rx#: [id number] NovoLIN R (IV Infusion) 100 100 / 100 100 / 100 UNIT In NS Inj 99 ML @ 10 UNITS /HR 10 mls/hr IV.CONT TITRATE PRN Rx#:[id number] Sodium Acetate Inj 80 MEQ KCl 1060 / 1060 1060 / 1060 1060 / 1060 Inj 40 MEQ In D5W Inj 1,000 ML @ 84 mls/hr IV.CONT .[id number] MATTEO Rx#:[id number] Pitressin Inj 40 UNIT In D5W 100 / 100 100 / 100 Inj 98 ML @ 0.01 UNITS/MIN 1.5 mls/hr IV.CONT TITRATE PRN Rx#: [id number] Azithromycin Inj 500 MG In NS 250 / 250 Inj 250 ML @ 250 mls/hr IV.SIG Q24H MATTEO Rx#:[id number] Levophed-Dextrose 4 mg/250 ml 100 / 100 Drip 4 mg In 250 ml @ 2 MCG/MIN 7.5 mls/hr IV.SIG TITRATE PRN Rx#:[id number] Zosyn 3.375 GM Premix 50 ML @ 100 / 100 50 / 50 100 / 100 100 mls/hr IV.SIG Q6H MATTEO Rx#: [id number] KCl 40 mEq Premix Inj 40 meq In 100 / 100 100 ml @ 50 mls/hr IV.SIG Q2H PRN Rx#:[id number] Sodium Phosphate Inj 15 MMOL In 105 / 105 NS Inj 100 ML @ 25 mls/hr IV. SIG UNSCH PRN Rx#:[id number] Vancomycin Inj 2,000 MG In NS 520 / 520 Inj 500 ML @ 250 mls/hr IV.SIG Q24H MATTEO Rx#:[id number] Tube Feeding 10 / 10 150 / 150 300 / 300 Water Bolus Amount 600 / 600 Output: Urine Amount (Catheter) 730 / 730 375 / 375 30 / 30 Indwelling Urethral Catheter 730 / 730 375 / 375 30 / 30 Gastric Drainage 200 / 200 100 / 100 Right Nare Nasogastric Tube 200 / 200 100 / 100 Other: Date of Last Bowel Movement 01/08/18 01/08/18 Result Diagrams: 01/08/18 05:30 01/08/18 05:30 Objective Remarks: gen: middle-aged appearing female, lying in bed, intubated, unresponsive. heent: pupils 3mm, equal, reactive. nc. at. mucous membranes moist. neck: no jvd. trachea midline. chest: intubated with 6.5 ett. equal chest rise. prvc. full vent support. fio2 40%. peep 8. cv: tachycardic rate, regular rhythm. sinus. hypotensive on vasopressin abd: soft, obese, nontender, nondistended. no guarding. extr: cool to the touch. poor cap refill. distal pulses 1+. neuro: RASS -3. GCS 7. moves all extremities spontaneously. does not follow commands. Assessment and Plan - Assessment and Plan Plan: Assessment: 52yF with history of poorly controlled diabetes presents in multiorgan failure and profound shock and diabetic ketoacidosis, elevated troponin. critically ill. no improvements in last 48h. off pathway. coronary ischemia, acidosis, and respiratory failure persist despite aggressive therapy. Plan by systems: Neuro: Acute metabolic encephalopathy - frequent neuro checks - Started on Precedex, wean to DC Versed - Added Seroquel 25 twice daily 01/07 -Daily sedation location -MRI if mentation not improved Resp: Acute hypoxic and hypercarbic respiratory failure Community Acquired pneumonia - vent bundle - hob elevated - Mental status will not permit extubation - wean fio2 for goal spo2 > 90% - Daily SBT CV: Septic Shock- persistent Hypovolemic shock- resolved Acute coronary ischemia: unclear if Type I vs. Type II ST elevation myocardial infarction Elevated troponin - Vasopressin for goal map > 65 mmHg. Off Levophed - trend trops. - EKG with inferior ST elevations - 2d echo without regional wall motion abnormalities 01/05 - clinical laboratory scientist 01/05 overnight with clean coronaries - cardiology: Dr. Alvarado/[facility] Renal: Acute kidney injury - likely secondary to volume depletion and shock - ivf, daily bmp - allen, FEN/GI: Lactic Acidosis- resolved Severe anion-gap metabolic acidosis- persistent Acute intravascular volume depletion- resolving. Obesity Hypokalemia Hypernatremia Hyperchloremia - Tube feeds with Glucerna, nutrition consult - ICU electrolyte protocol - aggressive potassium replacement - trend lactates - change mivf to Sodium acetate 80meq with 40meq of KCl to mitigate hyperchloremia/hypernatremia and non-gap component of acidosis. - frequent serial labs - continue enteral free water 300mL po q4h Heme/ID: Community Acquired Pneumonia Septic Shock - vancomycin with pharmacy dosing, zosyn, azithromycin - cultures 01/04 NGTD - daily cbc - diffuse ST elevations are concerning for pericarditis, but viral panel negative for common pathogens known to cause infectious pericarditis. Endo: Diabetic Ketoacidosis - dka protocol insulin drip-DCD yesterday 01/07/2018 -Currently on D10 due to hypoglycemia - q1h accuchecks Prophylaxis: SQH pepcid SCDs Lines: - 01/04 left IJ TLC - allen Dispo: - remain in ICU. critically ill. minimal improvements. Critical care time: 35 minutes, exclusive of separately billable procedures. active management included agitation, hypoxia, coronary ischemia, acidosis, and electrolyte abnormalities. Code Status: Full Code Procedures - Arterial Line Size (Gauge): 20
[2018-01-08] MEDS ORDERED: Pharmacy Ordered Lab Info OTHER ONE (11:45)
[2018-01-08] MEDS ORDERED: Dextrose 50% in Water Syringe 50 ML ONE (12:27)
[2018-01-08] MEDS: Vancomycin Inj 2,000 MG in Sodium Chlor 0.9% Inj 500 ML IV.SIG SCH (17:38)
[2018-01-08] MEDS: Azithromycin Inj 500 MG in Sodium Chlor 0.9% Inj 250 ML IV.SIG SCH (20:41)
[2018-01-09] MEDS ORDERED: Vancomycin Inj 1,250 MG in Sodium Chlor 0.9% Inj 250 ML IV.SIG SCH ×2
[2018-01-09] MEDS: Insulin NovoLOG Aspart Correctional Sugar Inj SQ SCH ×6 (00:11→23:00)
[2018-01-09] MEDS: Dexmedetomidine Inj 200 MCG in Sodium Chlor 0.9% Inj 48 ML IV.CONT PRN ×4 (00:28→08:29)
[2018-01-09] MEDS: Oral Hygiene Kit OROPHARYNG SCH ×4 (00:29→16:50)
[2018-01-09] MEDS ORDERED: Metoprolol Inj 5 MG/5 ML Vial IV.PUSH SCH (01:00)
[2018-01-09] MEDS: Piperacil/Tazo 3.375 GM Premix 50 ML IV.SIG SCH ×4 (03:01→22:44)
[2018-01-09] MEDS: Chlorhexidine Gluconate 2% 1 Pack (2 Cloths) TOPICAL SCH (03:01)
[2018-01-09] MEDS: Heparin - SQ 10,000 UNITS/ML Vial SQ SCH ×3 (05:26→22:43)
[2018-01-09] MEDS: Sodium Chloride 23.4% Inj 77 MEQ in Dextrose 10% in Water Inj 1,000 ML IV.CONT SCH ×2 (05:26)
[2018-01-09 06:44] LABS: Activated Partial Thrombo Time 23.8 sec (24.3-30.1); INR 1.1 Ratio; Prothrombin Time 10.8 sec (9.8-11.6)
[2018-01-09 07:03] LABS: Albumin 1.9 g/dL (3.4-5.0); Calcium 7.4 mg/dL (8.5-10.1); Carbon Dioxide 22.2 meq/L (21.0-32.0); Magnesium 1.8 mg/dL (1.5-2.5); Phosphorus 1.5 mg/dL (2.5-4.9); Potassium 3.9 meq/L (3.5-5.1); Total Protein 4.7 g/dL (6.4-8.2)
[2018-01-09] MEDS: Famotidine PF Inj 20 MG/2 ML Vial IV.PUSH SCH ×2 (08:27→22:43)
[2018-01-09] MEDS: Aspirin 325 MG Tablet PO SCH (08:29)
[2018-01-09] MEDS: QUEtiapine 25 MG Tablet PO SCH ×3 (08:29→22:42)
[2018-01-09] MEDS: Chlorhexidine 0.12% Oral Kit 15 ML UDC OROPHARYNG SCH ×2 (08:32→22:43)
--- NOTE | 2018-01-09 09:08 | XR ---
EXAM DATE: 01/09/2018 9:03 AM EDT AGE/SEX: 52 years / Female INDICATIONS: Respiratory failure. CLINICAL DATA: This is the patient's subsequent encounter. Patient reports that signs and symptoms h ave been present for 4 - 6 days and indicates a pain score of Nonresponsive. MEDICAL/SURGICAL HISTORY: . Diabetes. None. COMPARISON: [facility], CHEST 1V SINGLE AP, 01/04/2018. . FINDINGS: Endotracheal tube tip at the inferior margin the clavicles. Left jugular line tip overlies the expect ed location of the SVC. There are bilateral effusions and basilar airspace disease noted. Cardiomegal y is suspected. Enteric tube courses beneath the diaphragm, side port at the expected location of the EG junction. CONCLUSION: Bilateral effusions and basilar consolidation. Electronically signed by: Yunior Hsieh MD 01/09/2018 9:06 AM EDT
[2018-01-09 09:37] LABS: Hemoglobin 9.7 gm/dL (11.6-15.3); Mean Corpuscular HGB Conc 31.3 % (32.0-36.0); Mean Corpuscular Hemoglobin 28.5 pg (27.0-34.0); Mean Corpuscular Volume 90.9 fL (80.0-100.0); Mean Platelet Volume 12.2 fL (7.0-11.0); Red Blood Count 3.41 mil/mm3 (4.00-5.30); Red Cell Distribution Width 14.2 % (11.6-17.2); White Blood Count 9.2 th/mm3 (4.0-11.0)
[2018-01-09] MEDS ORDERED: QUEtiapine 25 MG Tablet PO SCH (09:45)
--- NOTE | 2018-01-09 10:07 | P.PNCC ---
Subjective Subjective Remarks/Hospital Course: Hospital Course: This is a 52yF with a completely unknown past medical history who was found by EMS unresponsive in her home. per report, her friends called EMS to check on her. she was intubated in the field with 6.5 ett. she arrives to the ER hypotensive in shock. abg demonstrates pH 6.9/21/275/-26. wbc 30, hct 50, plt 253, 87% neutrophil. sodium 129, potassium 5.3, co2 5.9, AG 34, cr 4.25, glucose 1191. lactate 6.2, ammonia 70. Because nothing was known about the patient and she was in profound shock, we went emergently to CT: CT brain without acute abnormality. CT chest demonstrates patchy infiltrates concerning for infectious etiology. CT abd/pelvis without acute abnormality. she is taken to ICU in critical condition, unresponsive. no additional information is available. ROS unobtainable. Subjective: 01/05: now on 3 vasopressors. glycemic control improving. remains encephalopathic. remains in shock. now with inferior ST elevations and rising troponins. given that she is unresponsive, unclear if she has any symptoms of ACS. Certainly given clinical course most likely Type II NSTEMI secondary to demand ischemia from shock, but unable to say with certainty that this is not Type I NSTEMI or STEMI given inferior ST elevations (there are diffuse areas of other ST elevations in other leads, which would argue against single vascular territory ischemia). cultures NGTD. Talked with family: she has poorly controlled diabetes and a strong psychiatric history (although family did not know specific diagnoses). 01/06: developed what appeared to be inferior STEMI over the course of yesterday afternoon into evening. troponins co[place] and continue to rise. 2d echo, however, without any wall motion abnormalities and ST elevations are somewhat diffuse. taken to orthodontic lab technician overnight and [facility] with clean coronaries. today remains on vasopressors. encephalopathy persists. acidosis persists and becoming quite hyperchloremic. cultures are NGTD. organ dysfunction persists. 01/07: Remains critically ill on Levophed and vasopressin. Remains encephalopathic. EEG rules out seizures but showed severe encephalopathy. Cultures remain negative. Blood sugar in mid 300s despite DKA protocol 01/08: Remains critically ill, remains on vasopressin. Due to poor control of blood sugar algorithm 3 non-DKA protocol was used yesterday but patient became hypoglycemic. Currently on D10 receiving only sliding scale coverage. Right radial pulse was not felt yesterday arterial Doppler was ordered which showed no perceptible arterial pressure in the digits of the right hand consistent with distal occlusive disease. Today weak radial pulses palpable good capillary refill. Discussed with Dr. Florez will attempt weaning process as tolerated. Also wean Versed after starting Precedex 01/09: Currently sedated with Precedex only but patient is tachypneic asynchronous with the vent. Intermittently follows commands on the right side. Had to sedated for vent synchrony. Chest x-ray shows bilateral effusions weight is up by 10 kg. I will start diuresis with 80 mg Lasix IV push 1 and 20 every 8 hours. Continue daily CPAP trials repeat sputum culture. Will DC vancomycin and azithromycin. Also I have increased Seroquel to 50 every 8 hours Objective Vital Signs / I&O: Vital Signs 01/08/18 09:45 01/08/18 10:00 01/08/18 10:15 Temperature Pulse Rate 56 L 56 L 55 L Respiratory Rate 24 24 24 Blood Pressure 99/70 L 99/67 L 93/64 L Pulse Oximetry 98 98 98 01/08/18 10:30 01/08/18 10:45 01/08/18 11:00 Temperature Pulse Rate 55 L 54 L 54 L Respiratory Rate 24 24 24 Blood Pressure 94/68 L 95/69 L 94/71 L Pulse Oximetry 98 98 97 01/08/18 11:15 01/08/18 11:30 01/08/18 11:45 Temperature Pulse Rate 53 L 53 L 53 L Respiratory Rate 24 24 24 Blood Pressure 93/69 L 96/68 L 93/67 L Pulse Oximetry 97 96 97 01/08/18 11:52 01/08/18 12:00 01/08/18 12:19 Temperature 97.6 F Pulse Rate 53 L 52 L Respiratory Rate 24 24 24 Blood Pressure 95/68 L 99/68 L Pulse Oximetry 98 97 98 01/08/18 12:30 01/08/18 12:45 01/08/18 13:00 Temperature Pulse Rate 53 L 51 L 51 L Respiratory Rate 24 24 24 Blood Pressure 100/71 110/74 105/75 Pulse Oximetry 99 99 99 01/08/18 13:15 01/08/18 13:30 01/08/18 13:45 Temperature Pulse Rate 51 L 51 L 52 L Respiratory Rate 24 24 24 Blood Pressure 100/73 99/72 L 98/71 L Pulse Oximetry 98 98 99 01/08/18 14:00 01/08/18 14:16 01/08/18 14:30 Temperature Pulse Rate 52 L 63 73 Respiratory Rate 24 24 25 H Blood Pressure 96/69 L 120/72 123/73 Pulse Oximetry 99 100 84 L 01/08/18 14:45 01/08/18 15:00 01/08/18 15:01 Temperature Pulse Rate 56 L 56 L 56 L Respiratory Rate 24 24 24 Blood Pressure 109/73 105/65 Pulse Oximetry 99 97 98 01/08/18 15:11 01/08/18 15:15 01/08/18 15:31 Temperature Pulse Rate 56 L 57 L 63 Respiratory Rate 24 24 24 Blood Pressure 95/66 L 95/71 L Pulse Oximetry 98 98 98 01/08/18 15:46 01/08/18 16:00 01/08/18 16:01 Temperature Pulse Rate 62 61 61 Respiratory Rate 24 24 24 Blood Pressure 117/75 108/75 Pulse Oximetry 98 96 96 01/08/18 16:15 01/08/18 16:30 01/08/18 16:46 Temperature 97.6 F Pulse Rate 60 59 L 71 Respiratory Rate 24 24 24 Blood Pressure 106/73 105/72 120/85 Pulse Oximetry 97 97 98 01/08/18 17:00 01/08/18 17:15 01/08/18 17:30 Temperature Pulse Rate 58 L 58 L 57 L Respiratory Rate 24 24 24 Blood Pressure 109/75 108/75 110/77 Pulse Oximetry 96 95 97 01/08/18 17:45 01/08/18 18:00 01/08/18 18:15 Temperature Pulse Rate 56 L 56 L 55 L Respiratory Rate 24 24 24 Blood Pressure 111/80 111/81 110/79 Pulse Oximetry 97 97 96 01/08/18 18:30 01/08/18 18:45 01/08/18 19:00 Temperature Pulse Rate 55 L 55 L 57 L Respiratory Rate 24 24 24 Blood Pressure 111/80 110/80 117/79 Pulse Oximetry 97 96 97 01/08/18 19:15 01/08/18 19:30 01/08/18 19:45 Temperature Pulse Rate 55 L 54 L 61 Respiratory Rate 24 24 24 Blood Pressure 112/78 110/78 141/76 H Pulse Oximetry 96 96 99 01/08/18 19:59 01/08/18 20:00 01/08/18 20:02 Temperature 98.6 F Pulse Rate 55 L 57 L Respiratory Rate 24 24 24 Blood Pressure 122/82 Pulse Oximetry 95 95 01/08/18 20:15 01/08/18 20:30 01/08/18 20:45 Temperature Pulse Rate 57 L 58 L 58 L Respiratory Rate 24 24 24 Blood Pressure 117/80 119/81 120/82 Pulse Oximetry 96 96 97 01/08/18 21:00 01/08/18 21:13 01/08/18 21:15 Temperature Pulse Rate 90 64 62 Respiratory Rate 36 H 24 24 Blood Pressure 122/83 113/77 Pulse Oximetry 72 L 96 96 01/08/18 21:30 01/08/18 21:45 01/08/18 22:00 Temperature Pulse Rate 63 79 60 Respiratory Rate 24 26 H 24 Blood Pressure 109/74 143/99 H Pulse Oximetry 96 98 96 01/08/18 22:01 01/08/18 22:15 01/08/18 22:30 Temperature Pulse Rate 60 61 60 Respiratory Rate 24 24 24 Blood Pressure 112/68 131/88 115/73 Pulse Oximetry 96 97 96 01/08/18 22:45 01/08/18 23:00 01/08/18 23:15 Temperature Pulse Rate 60 60 61 Respiratory Rate 24 24 24 Blood Pressure 110/70 109/67 99/61 L Pulse Oximetry 95 96 96 01/08/18 23:30 01/08/18 23:45 01/09/18 00:00 Temperature 97.9 F Pulse Rate 58 L 55 L 55 L Respiratory Rate 24 24 24 Blood Pressure 103/64 113/70 116/73 Pulse Oximetry 96 96 96 01/09/18 00:15 01/09/18 00:30 01/09/18 00:45 Temperature Pulse Rate 54 L 53 L 68 Respiratory Rate 24 24 25 H Blood Pressure 117/75 119/81 152/84 H Pulse Oximetry 95 96 98 01/09/18 01:00 01/09/18 01:15 01/09/18 01:30 Temperature Pulse Rate 54 L 55 L Respiratory Rate 24 24 24 Blood Pressure 137/80 132/76 Pulse Oximetry 96 96 97 01/09/18 01:36 01/09/18 02:00 01/09/18 02:09 Temperature Pulse Rate 61 54 L 59 L Respiratory Rate 24 24 24 Blood Pressure 120/80 118/80 Pulse Oximetry 99 99 98 01/09/18 03:00 01/09/18 03:30 01/09/18 03:37 Temperature Pulse Rate 48 L 53 L 54 L Respiratory Rate 24 24 24 Blood Pressure 125/81 111/72 Pulse Oximetry 99 100 01/09/18 04:00 01/09/18 04:30 01/09/18 05:00 Temperature Pulse Rate 50 L 49 L 50 L Respiratory Rate 24 24 24 Blood Pressure 118/74 122/76 119/77 Pulse Oximetry 98 99 99 01/09/18 05:30 01/09/18 06:00 01/09/18 07:00 Temperature Pulse Rate 50 L 50 L 65 Respiratory Rate 24 24 24 Blood Pressure 121/74 122/78 127/81 Pulse Oximetry 100 100 01/09/18 07:59 01/09/18 08:00 01/09/18 09:00 Temperature 98.9 F Pulse Rate 63 70 72 Respiratory Rate 24 24 24 Blood Pressure 176/98 H 97/58 L Pulse Oximetry 96 Intake & Output 01/08/18 01/09/18 01/09/18 18:59 06:59 18:59 Intake Total 6175.25 / 6175.25 1931.75 / 1931.75 50 / 50 Output Total 105 / 105 190 / 190 120 / 120 Balance 6070.25 / 6070.25 1741.75 / 1741.75 -70 / -70 Intake: IV 5275.25 / 5275.25 1931.75 / 1931.75 50 / 50 D50W Syringe 50 ML @ 0 mls/hr . 50 / 50 ROUTE .STK-MED ONE Rx#:[id number] Precedex Inj 200 MCG In NS Inj 100 / 100 200 / 200 50 / 50 48 ML @ 0.2 MCG/KG/HR 5.21 mls/ hr IV.CONT TITRATE PRN Rx#: [id number] Versed Inj 50 mg In 50 ml @ 2 50 / 50 MG/HR 2 mls/hr IV.CONT TITRATE PRN Rx#:[id number] Sodium Acetate Inj 80 MEQ KCl 1060 / 1060 Inj 40 MEQ In D5W Inj 1,000 ML @ 84 mls/hr IV.CONT .[id number] MATTEO Rx#:[id number] Sodium Chloride 23.4% Inj 77 1019.25 / 1019.25 1019.25 / 1019.25 MEQ In D10W Inj 1,000 ML @ 84 mls/hr IV.CONT .Q12H9M MATTEO Rx#: [id number] Pitressin Inj 40 UNIT In D5W 100 / 100 Inj 98 ML @ 0.01 UNITS/MIN 1.5 mls/hr IV.CONT TITRATE PRN Rx#: [id number] Azithromycin Inj 500 MG In NS 250 / 250 Inj 250 ML @ 250 mls/hr IV.SIG Q24H MATTEO Rx#:[id number] Levophed-Dextrose 4 mg/250 ml 0 / 0 Drip 4 mg In 250 ml @ 2 MCG/MIN 7.5 mls/hr IV.SIG TITRATE PRN Rx#:[id number] Zosyn 3.375 GM Premix 50 ML @ 150 / 150 100 / 100 100 mls/hr IV.SIG Q6H MATTEO Rx#: [id number] KCl 40 mEq Premix Inj 40 meq In 100 / 100 100 ml @ 50 mls/hr IV.SIG Q2H PRN Rx#:[id number] Sodium Phosphate Inj 15 MMOL In 105 / 105 NS Inj 100 ML @ 25 mls/hr IV. SIG UNSCH PRN Rx#:[id number] Vancomycin Inj 1,250 MG In NS 262.5 / 262.5 Inj 250 ML @ 250 mls/hr IV.SIG Q12H MATTEO Rx#:[id number] Tube Feeding 300 / 300 Water Bolus Amount 600 / 600 Output: Urine 190 / 190 120 / 120 Urine Amount (Catheter) 105 / 105 Indwelling Urethral Catheter 105 / 105 Other: Post Void Residual 20 Date of Last Bowel Movement 01/08/18 01/08/18 01/08/18 Result Diagrams: 01/08/18 05:30 01/09/18 05:07 Objective Remarks: Gen: middle-aged appearing female, lying in bed, intubated, tachypneic moving all 4 extremities. heent: pupils 3mm, equal, reactive. nc. at. mucous membranes moist. ET tube with thick white secretions neck: no jvd. trachea midline. chest: intubated with 6.5 ett. equal chest rise. prvc. Bilateral expiratory wheezing cv: tachycardic rate, regular rhythm. sinus. Now hypertensive with agitation abd: soft, obese, nontender, nondistended. no guarding. extr: cool to the touch. poor cap refill. distal pulses 1+ but weak. All pulses felt by Doppler neuro: Off all sedation. moves all extremities spontaneously, intermittently following commands on the right upper extremity. Otherwise restless Assessment and Plan - Assessment and Plan Plan: Assessment: 52yF with history of poorly controlled diabetes presents in multiorgan failure and profound shock and diabetic ketoacidosis, elevated troponin. critically ill. no improvements in last 48h. off pathway. coronary ischemia, acidosis, and respiratory failure persist despite aggressive therapy. Plan by systems: Neuro: Acute metabolic encephalopathy - frequent neuro checks - Started on Precedex, - Added Seroquel 25 twice daily 01/07, increase to 50 q8 -Daily sedation location -MRI if mentation not improved Resp: Acute hypoxic and hypercarbic respiratory failure Community Acquired pneumonia - vent bundle. - hob elevated - Mental status will not permit extubation, and tachypneic on CPAP - wean fio2 for goal spo2 > 90% - Daily SBT -Add Solu-Medrol 60 mg IV every 12 hours due to wheezing -Increase DuoNeb to every 4 hours and as needed CV: Septic Shock- persistent Now volume overloaded Acute coronary ischemia: unclear if Type I vs. Type II ST elevation myocardial infarction Elevated troponin - Vasopressin for goal map > 65 mmHg. Attempt wean to DC - Approximately 10 kg up in weight, start 80 mg IV Lasix 1 followed by 20 mg every 8 hours with potassium replacement - IV albumin 25 g every 12 for 3 days - trend trops. - EKG with inferior ST elevations - 2d echo without regional wall motion abnormalities 01/05 - orthodontic lab technician 01/05 overnight with clean coronaries - cardiology: Dr. Alvarado/[facility] Renal: Acute kidney injury - likely secondary to volume depletion and shock - dc IVF, daily bmp. Lasix as above - KARLO allen/GI: Lactic Acidosis- resolved Severe anion-gap metabolic acidosis-resolving Acute intravascular volume depletion- resolving. Obesity Hypokalemia Hypernatremia Hyperchloremia - Tube feeds with Glucerna, nutrition consult - ICU electrolyte protocol - aggressive potassium replacement -Discontinue all maintenance fluids - frequent serial labs - continue enteral free water 300mL po q4h Heme/ID: Community Acquired Pneumonia Septic Shock - DC vancomycin with pharmacy dosing, azithromycin. Continue zosyn, - cultures 01/04 NGTD. repeat sputum today - daily cbc - diffuse ST elevations are concerning for pericarditis, but viral panel negative for common pathogens known to cause infectious pericarditis. Endo: Diabetic Ketoacidosis - dka protocol insulin drip-DCD yesterday 01/07/2018 - DC all IVF, use SSI - q1h accuchecks Prophylaxis: SQH pepcid SCDs Lines: - 01/04 left IJ TLC - allen Dispo: - remain in ICU. critically ill. minimal improvements. Critical care time: 35 minutes, exclusive of separately billable procedures. active management included agitation, hypoxia, coronary ischemia, acidosis, and electrolyte abnormalities. Procedures - Arterial Line Size (Gauge): 20
[2018-01-09] MEDS: Dexmedetomidine Inj 1,000 MCG in Sodium Chlor 0.9% Inj 240 ML IV.CONT PRN ×3 (10:56→23:50)
[2018-01-09] MEDS ORDERED: QUEtiapine 25 MG Tablet PO ONE (12:00)
[2018-01-09] MEDS: MethylPREDNISolone Sod Succinate Inj 125 MG/2 ML Vial IV.PUSH SCH ×2 (12:07→22:43)
[2018-01-09] MEDS: Albumin Human 25% Inj 100 ML IV.SIG SCH ×2 (12:38→22:44)
[2018-01-09] MEDS ORDERED: Sod Phosphate/Sod Biphosphate (Adult) Enema 133 ML Bottle RECTAL ONE (19:00)
[2018-01-09] MEDS: Potassium Chloride 10 MEQ ER Capsule NG/OG SCH (22:42)
[2018-01-09] MEDS: Propofol 1000 mg/100 ml Inj 1,000 MG/100 ML BOTTLE IV.CONT PRN (23:49)
[2018-01-10] MEDS: Oral Hygiene Kit OROPHARYNG SCH ×4 (02:26→18:35)
[2018-01-10] MEDS: Insulin NovoLOG Aspart Correctional Sugar Inj SQ SCH ×6 (02:27→20:32)
[2018-01-10 05:11] LABS: Hemoglobin 9.4 gm/dL (11.6-15.3); Mean Corpuscular HGB Conc 33.7 % (32.0-36.0); Mean Corpuscular Hemoglobin 29.3 pg (27.0-34.0); Mean Platelet Volume 12.6 fL (7.0-11.0); Platelet Count 61 th/mm3 (150-450); Red Blood Count 3.22 mil/mm3 (4.00-5.30); Red Cell Distribution Width 13.3 % (11.6-17.2); White Blood Count 7.8 th/mm3 (4.0-11.0)
[2018-01-10] MEDS: QUEtiapine 25 MG Tablet PO SCH ×3 (05:19→21:20)
[2018-01-10] MEDS: Piperacil/Tazo 3.375 GM Premix 50 ML IV.SIG SCH ×4 (05:19→21:21)
[2018-01-10] MEDS: Heparin - SQ 10,000 UNITS/ML Vial SQ SCH ×3 (05:19→21:20)
[2018-01-10 05:21] LABS: Activated Partial Thrombo Time 23.6 sec (24.3-30.1); INR 1.1 Ratio
[2018-01-10 05:32] LABS: Alanine Aminotransferase 173 U/L (10-53); Albumin 2.9 g/dL (3.4-5.0); Alkaline Phosphatase 87 U/L (45-117); Anion Gap 12 meq/L (5-15); Aspartate Aminotransferase 35 U/L (15-37); Blood Urea Nitrogen 15 mg/dL (7-18); Carbon Dioxide 25.3 meq/L (21.0-32.0); Chloride 112 meq/L (98-107); Glomerular Filtration Rate 54 mL/min (>89); Glucose,Random 264 mg/dL (74-106); Magnesium 1.7 mg/dL (1.5-2.5); Phosphorus 4.7 mg/dL (2.5-4.9); Potassium 3.2 meq/L (3.5-5.1); Sodium 149 meq/L (136-145); Total Protein 5.4 g/dL (6.4-8.2)
[2018-01-10] MEDS: Dexmedetomidine Inj 1,000 MCG in Sodium Chlor 0.9% Inj 240 ML IV.CONT PRN ×2 (06:37→17:06)
[2018-01-10] MEDS: Propofol 1000 mg/100 ml Inj 1,000 MG/100 ML BOTTLE IV.CONT PRN (07:05)
[2018-01-10] MEDS: Potassium Chlor 20 mEq Premix 20 MEQ/100 ML PIGGYBACK IV.SIG PRN ×4 (07:05→14:24)
[2018-01-10] MEDS: Aspirin 325 MG Tablet PO SCH (08:45)
[2018-01-10] MEDS: MethylPREDNISolone Sod Succinate Inj 125 MG/2 ML Vial IV.PUSH SCH ×2 (08:46→20:28)
[2018-01-10] MEDS: Famotidine PF Inj 20 MG/2 ML Vial IV.PUSH SCH ×2 (08:46→20:49)
[2018-01-10] MEDS: Chlorhexidine 0.12% Oral Kit 15 ML UDC OROPHARYNG SCH ×2 (08:46→20:29)
--- NOTE | 2018-01-10 09:56 | XR ---
EXAM DATE: 01/10/2018 9:46 AM EDT AGE/SEX: 52 years / Female INDICATIONS: Respiratory disease CLINICAL DATA: This is the patient's initial encounter. Patient reports that signs and symptoms have been present for 3 days and indicates a pain score of Nonresponsive. MEDICAL/SURGICAL HISTORY: Seizures. diabetes None. [place] [facility] [place]. . FINDINGS: The support devices remain in place. There is no pneumothorax. There continue to be infiltrates in christy th lung bases along with small bilateral effusions. The overall appearance of the heart and lungs are stable compared to the prior examination. The bony structures are stable. CONCLUSION: No significant interval change compared to the prior examination. Electronically signed by: Epi Dixon MD 01/10/2018 9:54 AM EDT
[2018-01-10] MEDS ORDERED: Magnesium Citrate Liq 300 ML Bottle PO ONE (10:00)
[2018-01-10] MEDS: Potassium Chloride 10 MEQ ER Capsule NG/OG SCH ×2 (10:06→20:28)
[2018-01-10 10:21] LABS: ABG Base Excess -0.5 mmol/L (-2-2); ABG PCO2 36 mmHg (38-42); ABG PO2 119 mmHG (61-120)
[2018-01-10] MEDS: Albumin Human 25% Inj 100 ML IV.SIG SCH (10:54)
--- NOTE | 2018-01-10 11:22 | P.PNCC ---
Subjective Subjective Remarks/Hospital Course: Hospital Course: This is a 52yF with a completely unknown past medical history who was found by EMS unresponsive in her home. per report, her friends called EMS to check on her. she was intubated in the field with 6.5 ett. she arrives to the ER hypotensive in shock. abg demonstrates pH 6.9/21/275/-26. wbc 30, hct 50, plt 253, 87% neutrophil. sodium 129, potassium 5.3, co2 5.9, AG 34, cr 4.25, glucose 1191. lactate 6.2, ammonia 70. Because nothing was known about the patient and she was in profound shock, we went emergently to CT: CT brain without acute abnormality. CT chest demonstrates patchy infiltrates concerning for infectious etiology. CT abd/pelvis without acute abnormality. she is taken to ICU in critical condition, unresponsive. no additional information is available. ROS unobtainable. Subjective: 01/05: now on 3 vasopressors. glycemic control improving. remains encephalopathic. remains in shock. now with inferior ST elevations and rising troponins. given that she is unresponsive, unclear if she has any symptoms of ACS. Certainly given clinical course most likely Type II NSTEMI secondary to demand ischemia from shock, but unable to say with certainty that this is not Type I NSTEMI or STEMI given inferior ST elevations (there are diffuse areas of other ST elevations in other leads, which would argue against single vascular territory ischemia). cultures NGTD. Talked with family: she has poorly controlled diabetes and a strong psychiatric history (although family did not know specific diagnoses). 01/06: developed what appeared to be inferior STEMI over the course of yesterday afternoon into evening. troponins [place] and continue to rise. 2d echo, however, without any wall motion abnormalities and ST elevations are somewhat diffuse. taken to recyclable materials sorter overnight and [facility] with clean coronaries. today remains on vasopressors. encephalopathy persists. acidosis persists and becoming quite hyperchloremic. cultures are NGTD. organ dysfunction persists. 01/07: Remains critically ill on Levophed and vasopressin. Remains encephalopathic. EEG rules out seizures but showed severe encephalopathy. Cultures remain negative. Blood sugar in mid 300s despite DKA protocol 01/08: Remains critically ill, remains on vasopressin. Due to poor control of blood sugar algorithm 3 non-DKA protocol was used yesterday but patient became hypoglycemic. Currently on D10 receiving only sliding scale coverage. Right radial pulse was not felt yesterday arterial Doppler was ordered which showed no perceptible arterial pressure in the digits of the right hand consistent with distal occlusive disease. Today weak radial pulses palpable good capillary refill. Discussed with Dr. Florez will attempt weaning process as tolerated. Also wean Versed after starting Precedex 01/09: Currently sedated with Precedex only but patient is tachypneic asynchronous with the vent. Intermittently follows commands on the right side. Had to sedated for vent synchrony. Chest x-ray shows bilateral effusions weight is up by 10 kg. I will start diuresis with 80 mg Lasix IV push 1 and 20 every 8 hours. Continue daily CPAP trials repeat sputum culture. Will DC vancomycin and azithromycin. Also I have increased Seroquel to 50 every 8 hours 01/10: Remains on Precedex. Tachypneic on CPAP. CXR with basilar infiltrate effusion which is small. I am unclear at this time whether her agitation is secondary to a small size ET tube, patient also has extensive psych history. I will proceed with a trial extubation as the ABG shows good oxygenation and essentially minimal metabolic acidosis. However if she requires reintubation will proceed with MRI of the brain and further workup. Urine output more than 9 L since starting Lasix Objective Vital Signs / I&O: Vital Signs 01/09/18 12:00 01/09/18 12:19 01/09/18 13:00 Temperature 97.9 F Pulse Rate 69 60 67 Respiratory Rate 24 18 24 Blood Pressure 94/51 L 92/51 L Pulse Oximetry 99 99 98 01/09/18 14:00 01/09/18 14:15 01/09/18 14:30 Temperature Pulse Rate 59 L 66 67 Respiratory Rate 24 17 16 Blood Pressure 115/66 117/70 117/71 Pulse Oximetry 97 98 98 01/09/18 14:59 01/09/18 15:00 01/09/18 15:15 Temperature Pulse Rate 74 74 77 Respiratory Rate 25 H 25 H 24 Blood Pressure 127/76 117/69 120/60 Pulse Oximetry 97 96 97 01/09/18 15:30 01/09/18 15:45 01/09/18 16:00 Temperature 97.2 F L Pulse Rate 73 66 67 Respiratory Rate 24 24 24 Blood Pressure 123/64 126/70 126/73 Pulse Oximetry 97 98 99 01/09/18 16:06 01/09/18 16:15 01/09/18 16:30 Temperature Pulse Rate 67 64 81 Respiratory Rate 24 24 25 H Blood Pressure 130/73 141/78 H Pulse Oximetry 99 98 01/09/18 16:46 01/09/18 17:00 01/09/18 17:15 Temperature Pulse Rate 95 H 74 72 Respiratory Rate 31 H 24 24 Blood Pressure 115/67 100/63 103/64 Pulse Oximetry 01/09/18 17:30 01/09/18 17:45 01/09/18 18:00 Temperature Pulse Rate 70 70 71 Respiratory Rate 24 24 24 Blood Pressure 103/65 99/64 L 100/67 Pulse Oximetry 96 01/09/18 18:15 01/09/18 18:30 01/09/18 18:45 Temperature Pulse Rate 70 71 69 Respiratory Rate 24 24 24 Blood Pressure 97/64 L 97/64 L 97/57 L Pulse Oximetry 96 95 95 01/09/18 19:00 01/09/18 19:15 01/09/18 19:30 Temperature Pulse Rate 72 68 70 Respiratory Rate 24 24 24 Blood Pressure 105/63 101/60 105/64 Pulse Oximetry 95 95 95 01/09/18 19:45 01/09/18 20:00 01/09/18 20:06 Temperature Pulse Rate 66 96 H 85 Respiratory Rate 24 28 H 30 H Blood Pressure 98/63 L 139/78 Pulse Oximetry 94 L 95 96 01/09/18 20:07 01/09/18 20:15 01/09/18 20:30 Temperature Pulse Rate 87 69 72 Respiratory Rate 30 H 24 24 Blood Pressure 96/57 L 102/60 Pulse Oximetry 95 93 L 01/09/18 20:45 01/09/18 21:00 01/09/18 21:21 Temperature Pulse Rate 71 70 87 Respiratory Rate 24 24 30 H Blood Pressure 99/58 L 100/60 133/81 Pulse Oximetry 94 L 94 L 97 01/09/18 21:30 01/09/18 21:45 01/09/18 22:00 Temperature Pulse Rate 82 74 98 H Respiratory Rate 24 24 29 H Blood Pressure 115/67 113/69 Pulse Oximetry 94 L 89 L 91 L 01/09/18 22:01 01/09/18 22:15 01/09/18 22:30 Temperature Pulse Rate 96 H 73 107 H Respiratory Rate 29 H 24 39 H Blood Pressure 140/77 109/66 174/93 H Pulse Oximetry 94 L 87 L 78 L 01/09/18 22:46 01/09/18 23:00 01/09/18 23:17 Temperature Pulse Rate 77 76 Respiratory Rate 24 24 29 H Blood Pressure 96/54 L 90/54 L Pulse Oximetry 93 L 94 L 97 01/09/18 23:20 01/09/18 23:23 01/09/18 23:30 Temperature Pulse Rate 97 H 92 H 80 Respiratory Rate 28 H 32 H 23 Blood Pressure 141/90 H 100/59 L Pulse Oximetry 99 96 01/09/18 23:46 01/10/18 00:00 01/10/18 00:15 Temperature 98.3 F Pulse Rate 85 70 86 Respiratory Rate 25 H 24 24 Blood Pressure 116/75 94/56 L 124/75 Pulse Oximetry 98 98 97 01/10/18 00:33 01/10/18 00:45 01/10/18 01:00 Temperature Pulse Rate 91 H 74 75 Respiratory Rate 28 H 24 24 Blood Pressure 155/76 H 96/52 L 111/62 Pulse Oximetry 96 90 L 92 L 01/10/18 01:15 01/10/18 01:30 01/10/18 01:45 Temperature Pulse Rate 68 65 79 Respiratory Rate 24 24 24 Blood Pressure 110/62 108/64 118/67 Pulse Oximetry 91 L 92 L 92 L 01/10/18 02:00 01/10/18 02:15 01/10/18 02:30 Temperature Pulse Rate 66 64 63 Respiratory Rate 24 24 24 Blood Pressure 113/66 114/66 116/68 Pulse Oximetry 94 L 94 L 93 L 01/10/18 02:45 01/10/18 03:00 01/10/18 03:15 Temperature Pulse Rate 63 61 60 Respiratory Rate 24 24 24 Blood Pressure 116/68 120/60 114/63 Pulse Oximetry 94 L 93 L 93 L 01/10/18 03:30 01/10/18 03:40 01/10/18 03:45 Temperature Pulse Rate 59 L 60 Respiratory Rate 24 24 24 Blood Pressure 115/63 114/64 Pulse Oximetry 94 L 94 L 94 L 01/10/18 04:00 01/10/18 04:15 01/10/18 04:30 Temperature 97.9 F Pulse Rate 61 64 57 L Respiratory Rate 24 24 24 Blood Pressure 108/64 111/66 107/65 Pulse Oximetry 94 L 91 L 94 L 01/10/18 04:45 01/10/18 05:00 01/10/18 05:15 Temperature Pulse Rate 58 L 57 L 56 L Respiratory Rate 24 24 24 Blood Pressure 102/62 107/65 106/63 Pulse Oximetry 90 L 91 L 91 L 01/10/18 05:30 01/10/18 05:45 01/10/18 06:00 Temperature Pulse Rate 57 L 55 L 55 L Respiratory Rate 24 24 24 Blood Pressure 104/63 104/63 110/65 Pulse Oximetry 91 L 91 L 91 L 01/10/18 06:15 01/10/18 07:00 01/10/18 07:51 Temperature Pulse Rate 53 L 48 L Respiratory Rate 24 24 24 Blood Pressure 110/64 107/61 Pulse Oximetry 91 L 91 L 100 01/10/18 08:00 01/10/18 09:00 Temperature 97.5 F L Pulse Rate 97 H 87 Respiratory Rate 24 24 Blood Pressure 145/87 H 148/84 H Pulse Oximetry 99 95 Intake & Output 01/09/18 01/10/18 01/10/18 18:59 06:59 18:59 Intake Total 650 / 650 1769.25 / 1769.25 200 / 200 Output Total 7070 / 7070 2100 / 2100 650 / 650 Balance -6420 / -6420 -330.75 / -330.75 -450 / -450 Intake: IV 650 / 650 1769.25 / 1769.25 200 / 200 Precedex Inj 1,000 MCG In NS 300 / 300 550 / 550 Inj 240 ML @ 0.2 MCG/KG/HR 5.21 mls/hr IV.CONT TITRATE PRN Rx# :[id number] Diprivan 1000 mg/100 ml Inj 1, 100 / 100 000 mg In 100 ml @ 5 MCG/KG/MIN 3.13 mls/hr IV.CONT TITRATE PRN Rx#:[id number] Sodium Chloride 23.4% Inj 77 1019.25 / 1019.25 MEQ In D10W Inj 1,000 ML @ 84 mls/hr IV.CONT .Q12H9M [facility] Rx#: [id number] Flexbumin 25% Inj 100 ML @ 60 100 / 100 100 / 100 mls/hr IV.SIG Q12H [facility] Rx#: [id number] Levophed-Dextrose 4 mg/250 ml 150 / 150 Drip 4 mg In 250 ml @ 2 MCG/MIN 7.5 mls/hr IV.SIG TITRATE PRN Rx#:[id number] Zosyn 3.375 GM Premix 50 ML @ 100 / 100 100 / 100 100 mls/hr IV.SIG Q6H [facility] Rx#: [id number] KCl 20 mEq Premix Inj 20 meq In 100 / 100 100 ml @ 50 mls/hr IV.SIG Q2H PRN Rx#:[id number] Output: Urine 7070 / 7070 2100 / 2100 650 / 650 Other: Date of Last Bowel Movement 01/08/18 01/08/18 01/10/18 Result Diagrams: 01/10/18 04:42 01/10/18 04:42 Objective Remarks: Gen: middle-aged appearing female, lying in bed, intubated, tachypneic moving all 4 extremities. heent: pupils 3mm, equal, reactive. nc. at. mucous membranes moist. ET tube with moderate white secretions neck: no jvd. trachea midline. chest: intubated with 6.5 ett. equal chest rise. prvc. Bilateral expiratory wheezing is improved cv: tachycardic rate, regular rhythm. sinus. Hypertensive with agitation abd: soft, obese, nontender, nondistended. no guarding. extr: cool to the touch. poor cap refill. distal pulses 1+ but weak. All pulses felt by Doppler neuro: On Precedex for sedation. Moves all extremities spontaneously, intermittently following commands on upper extremity. Assessment and Plan - Assessment and Plan Plan: Assessment: 52yF with history of poorly controlled diabetes presents in multiorgan failure and profound shock and diabetic ketoacidosis, elevated troponin. critically ill. no improvements in last 48h. off pathway. coronary ischemia, acidosis, and respiratory failure persist despite aggressive therapy. Plan by systems: Neuro: Acute metabolic encephalopathy -Patient has extensive psych history, it is unclear to me whether that is playing a part in her agitation -Continue Precedex to facilitate ventilator weaning -Continue Seroquel 50 q8. Haldol as needed for breakthrough agitation -Daily sedation vacation -MRI if mentation not improved Resp: Acute hypoxic and hypercarbic respiratory failure Community Acquired pneumonia - vent bundle. - hob elevated -There is slight improvement in mentation and patient does tolerate CPAP at higher pressure support due to small ET tube - wean fio2 for goal spo2 > 90% - A trial of extubation with warranted as the ABG is well sedated with good oxygenation, and agitation may be related to ETT itself - Add Solu-Medrol 60 mg IV every 12 hours due to wheezing - DuoNeb to every 4 hours and as needed CV: Septic Shock- resolved Volume overload Acute coronary ischemia: unclear if Type I vs. Type II ST elevation myocardial infarction Elevated troponin - Vasopressin for goal map > 65 mmHg. Now off - Approximately 10 kg up in weight, currently on IV Lasix 20 mg q8, reduce to q12 - IV albumin 25 g every 12 for 3 days - trend trops. - EKG with inferior ST elevations - 2d echo without regional wall motion abnormalities 01/05. [facility] 01/05 overnight with clean coronaries - cardiology: Dr. Alvarado/[facility] Renal: Acute kidney injury - likely secondary to volume depletion and shock -- dc IVF, daily bmp. Lasix as above. [place] FEN/GI: Lactic Acidosis- resolved Severe anion-gap metabolic acidosis-resolved Acute intravascular volume depletion- resolved. Hypokalemia Hypernatremia Hyperchloremia - Tube feeds with Glucerna-hold for extubation - ICU electrolyte protocol - Aggressive potassium replacement - continue enteral free water 300mL po q4h Heme/ID: Community Acquired Pneumonia Septic Shock-resolved - Continue zosyn, DCd vancomycin, azithromycin. - cultures 01/04 NGTD. repeat sputum pending - daily cbc - diffuse ST elevations were concerning for pericarditis, but viral panel negative for common pathogens known to cause infectious pericarditis. Endo: Diabetic Ketoacidosis - dka protocol insulin drip-DCD 01/07/2018 - Use SSI - q1h accuchecks Prophylaxis: SQH pepcid SCDs Lines: - 01/04 left IJ TLC - tiffany Dispo: - remain in ICU. critically ill. minimal improvements. Level 3 Procedures - Arterial Line Size (Gauge): 20
[2018-01-10] MEDS ORDERED: Pharmacy Ordered Lab Info OTHER ONE (11:45)
[2018-01-10] MEDS: Haloperidol Inj 5 MG/ML Ampul IV.PUSH PRN (21:39)
[2018-01-11] MEDS: Albumin Human 25% Inj 100 ML IV.SIG SCH (00:24)
[2018-01-11] MEDS: Oral Hygiene Kit OROPHARYNG SCH ×5 (00:25→23:51)
[2018-01-11] MEDS: Acetaminophen 325 MG Tablet PO PRN (00:31)
[2018-01-11] MEDS: Insulin NovoLOG Aspart Correctional Sugar Inj SQ SCH ×7 (00:35→23:51)
[2018-01-11] MEDS: Dexmedetomidine Inj 1,000 MCG in Sodium Chlor 0.9% Inj 240 ML IV.CONT PRN ×4 (00:36→22:09)
[2018-01-11] MEDS: Haloperidol Inj 5 MG/ML Ampul IV.PUSH PRN (01:44)
[2018-01-11] MEDS: QUEtiapine 25 MG Tablet PO SCH (05:21)
[2018-01-11] MEDS: Piperacil/Tazo 3.375 GM Premix 50 ML IV.SIG SCH (05:21)
[2018-01-11] MEDS: Heparin - SQ 10,000 UNITS/ML Vial SQ SCH ×3 (05:22→21:48)
[2018-01-11 05:26] LABS: Hematocrit 26.8 % (35.0-46.0); Hemoglobin 8.7 gm/dL (11.6-15.3); Mean Corpuscular HGB Conc 32.6 % (32.0-36.0); Mean Corpuscular Hemoglobin 29.2 pg (27.0-34.0); Mean Corpuscular Volume 89.5 fL (80.0-100.0); Mean Platelet Volume 12.3 fL (7.0-11.0); Platelet Count 87 th/mm3 (150-450); Red Cell Distribution Width 13.3 % (11.6-17.2); White Blood Count 7.7 th/mm3 (4.0-11.0)
[2018-01-11 05:40] LABS: INR 1.1 Ratio; Prothrombin Time 11.3 sec (9.8-11.6)
[2018-01-11 06:03] LABS: Albumin 2.6 g/dL (3.4-5.0); Calcium 6.8 mg/dL (8.5-10.1); Carbon Dioxide 18.4 meq/L (21.0-32.0); Magnesium 1.9 mg/dL (1.5-2.5); Phosphorus 3.2 mg/dL (2.5-4.9); Total Protein 4.5 g/dL (6.4-8.2)
[2018-01-11 06:11] LABS: Potassium 2.9 meq/L (3.5-5.1)
[2018-01-11] MEDS: Potassium Chlor 40 mEq Premix 40 MEQ/100 ML PIGGYBACK IV.SIG PRN ×2 (06:18→11:00)
[2018-01-11] MEDS: Chlorhexidine 0.12% Oral Kit 15 ML UDC OROPHARYNG SCH ×2 (08:08→20:33)
[2018-01-11] MEDS: Famotidine PF Inj 20 MG/2 ML Vial IV.PUSH SCH ×2 (08:30→20:34)
[2018-01-11] MEDS: MethylPREDNISolone Sod Succinate Inj 125 MG/2 ML Vial IV.PUSH SCH ×2 (08:31→20:34)
[2018-01-11] MEDS: Potassium Chloride 10 MEQ ER Capsule NG/OG SCH ×2 (08:34→20:33)
[2018-01-11] MEDS: Aspirin 325 MG Tablet PO SCH (08:34)
--- NOTE | 2018-01-11 09:09 | P.PNCC ---
Subjective Subjective Remarks/Hospital Course: Hospital Course: This is a 52yF with a completely unknown past medical history who was found by EMS unresponsive in her home. per report, her friends called EMS to check on her. she was intubated in the field with 6.5 ett. she arrives to the ER hypotensive in shock. abg demonstrates pH 6.9/21/275/-26. wbc 30, hct 50, plt 253, 87% neutrophil. sodium 129, potassium 5.3, co2 5.9, AG 34, cr 4.25, glucose 1191. lactate 6.2, ammonia 70. Because nothing was known about the patient and she was in profound shock, we went emergently to CT: CT brain without acute abnormality. CT chest demonstrates patchy infiltrates concerning for infectious etiology. CT abd/pelvis without acute abnormality. she is taken to ICU in critical condition, unresponsive. no additional information is available. ROS unobtainable. Subjective: 01/05: now on 3 vasopressors. glycemic control improving. remains encephalopathic. remains in shock. now with inferior ST elevations and rising troponins. given that she is unresponsive, unclear if she has any symptoms of ACS. Certainly given clinical course most likely Type II NSTEMI secondary to demand ischemia from shock, but unable to say with certainty that this is not Type I NSTEMI or STEMI given inferior ST elevations (there are diffuse areas of other ST elevations in other leads, which would argue against single vascular territory ischemia). cultures NGTD. Talked with family: she has poorly controlled diabetes and a strong psychiatric history (although family did not know specific diagnoses). 01/06: developed what appeared to be inferior STEMI over the course of yesterday afternoon into evening. troponins co[place] and continue to rise. 2d echo, however, without any wall motion abnormalities and ST elevations are somewhat diffuse. 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 today remains on vasopressors. encephalopathy persists. acidosis persists and becoming quite hyperchloremic. cultures are NGTD. organ dysfunction persists. 01/07: Remains critically ill on Levophed and vasopressin. Remains encephalopathic. EEG rules out seizures but showed severe encephalopathy. Cultures remain negative. Blood sugar in mid 300s despite DKA protocol 01/08: Remains critically ill, remains on vasopressin. Due to poor control of blood sugar algorithm 3 non-DKA protocol was used yesterday but patient became hypoglycemic. Currently on D10 receiving only sliding scale coverage. Right radial pulse was not felt yesterday arterial Doppler was ordered which showed no perceptible arterial pressure in the digits of the right hand consistent with distal occlusive disease. Today weak radial pulses palpable good capillary refill. Discussed with Dr. Florez will attempt weaning process as tolerated. Also wean Versed after starting Precedex 01/09: Currently sedated with Precedex only but patient is tachypneic asynchronous with the vent. Intermittently follows commands on the right side. Had to sedated for vent synchrony. Chest x-ray shows bilateral effusions weight is up by 10 kg. I will start diuresis with 80 mg Lasix IV push 1 and 20 every 8 hours. Continue daily CPAP trials repeat sputum culture. Will DC vancomycin and azithromycin. Also I have increased Seroquel to 50 every 8 hours 01/10: Remains on Precedex. Tachypneic on CPAP. CXR with basilar infiltrate effusion which is small. I am unclear at this time whether her agitation is secondary to a small size ET tube, patient also has extensive psych history. I will proceed with a trial extubation as the ABG shows good oxygenation and essentially minimal metabolic acidosis. However if she requires reintubation will proceed with MRI of the brain and further workup. Urine output more than 9 L since starting Lasix. 01/11: She is hyper-reflexic with ankle clonus. Combined with other cognitive findings we need to consider serotonin syndrome. I am going to stop psych meds, check abg and CK's. Stick with ativan iv and wean off precedex. It's a long- shot but we need to sort out the cause of her profound encephalopathy. Recheck ammonia. Objective Vital Signs / I&O: Vital Signs 01/10/18 09:00 01/10/18 10:00 01/10/18 11:00 Temperature Pulse Rate 87 93 H 97 H Respiratory Rate 24 24 28 H Blood Pressure 148/84 H 137/86 134/83 Pulse Oximetry 95 98 95 01/10/18 11:15 01/10/18 11:30 01/10/18 11:45 Temperature Pulse Rate 78 104 H Respiratory Rate 26 H 39 H Blood Pressure 147/88 H 154/86 H Pulse Oximetry 98 01/10/18 12:00 01/10/18 12:25 01/10/18 12:30 Temperature 98.9 F Pulse Rate 100 H 102 H 96 H Respiratory Rate 36 H 39 H 42 H Blood Pressure 154/86 H 136/76 127/81 Pulse Oximetry 59 L 97 98 01/10/18 13:00 01/10/18 13:30 01/10/18 14:00 Temperature Pulse Rate 104 H 101 H 100 H Respiratory Rate 37 H 41 H 41 H Blood Pressure 124/84 132/78 142/78 H Pulse Oximetry 95 96 97 01/10/18 14:31 01/10/18 15:00 01/10/18 15:01 Temperature Pulse Rate 97 H 102 H 99 H Respiratory Rate 39 H 43 H 35 H Blood Pressure 142/98 H 152/69 H 152/69 H Pulse Oximetry 97 95 96 01/10/18 15:30 01/10/18 16:00 01/10/18 16:13 Temperature Pulse Rate 90 98 H 95 H Respiratory Rate 38 H 38 H 20 Blood Pressure 126/73 126/75 Pulse Oximetry 97 96 01/10/18 16:14 01/10/18 16:31 01/10/18 17:00 Temperature 100.9 F H Pulse Rate 100 H 102 H Respiratory Rate 43 H 45 H Blood Pressure 122/67 127/62 Pulse Oximetry 96 98 96 01/10/18 17:31 01/10/18 18:00 01/10/18 18:31 Temperature Pulse Rate 109 H 105 H 104 H Respiratory Rate 44 H 45 H 29 H Blood Pressure 139/72 126/63 122/69 Pulse Oximetry 92 L 92 L 91 L 01/10/18 19:00 01/10/18 19:30 01/10/18 19:46 Temperature Pulse Rate 96 H 84 105 H Respiratory Rate 41 H 37 H 22 Blood Pressure 107/62 110/65 Pulse Oximetry 93 L 93 L 01/10/18 20:00 01/10/18 20:30 01/10/18 21:00 Temperature 101.0 F H Pulse Rate 102 H 101 H 92 H Respiratory Rate 40 H 43 H 39 H Blood Pressure 125/58 L 121/66 Pulse Oximetry 93 L 92 L 93 L 01/10/18 21:01 01/10/18 21:31 01/10/18 22:00 Temperature Pulse Rate 96 H 101 H 99 H Respiratory Rate 36 H 45 H 46 H Blood Pressure 103/56 L 126/73 129/63 Pulse Oximetry 93 L 93 L 93 L 01/10/18 22:31 01/10/18 23:00 01/10/18 23:03 Temperature 99.5 F Pulse Rate 101 H 89 93 H Respiratory Rate 46 H 45 H 43 H Blood Pressure 118/74 135/66 Pulse Oximetry 92 L 92 L 92 L 01/10/18 23:33 01/10/18 23:39 01/11/18 00:00 Temperature Pulse Rate 82 81 86 Respiratory Rate 44 H 20 39 H Blood Pressure 113/63 Pulse Oximetry 92 L 91 L 01/11/18 00:41 01/11/18 01:00 01/11/18 02:00 Temperature Pulse Rate 83 82 79 Respiratory Rate 38 H 47 H 34 H Blood Pressure 121/70 124/63 Pulse Oximetry 92 L 93 L 95 01/11/18 02:04 01/11/18 03:00 01/11/18 03:01 Temperature Pulse Rate 74 79 76 Respiratory Rate 45 H 43 H 32 H Blood Pressure 115/58 L 111/62 Pulse Oximetry 95 94 L 95 01/11/18 04:00 01/11/18 05:00 01/11/18 06:00 Temperature 99.5 F Pulse Rate 73 78 71 Respiratory Rate 43 H 44 H 42 H Blood Pressure 116/68 121/66 122/71 Pulse Oximetry 96 95 96 01/11/18 07:51 Temperature Pulse Rate 88 Respiratory Rate 26 H Blood Pressure Pulse Oximetry 98 Intake & Output 01/10/18 01/11/18 01/11/18 18:59 06:59 18:59 Intake Total 840 / 840 50 / 50 50 / 50 Output Total 2560 / 2560 200 / 200 Balance -1720 / -1720 -150 / -150 50 / 50 Intake: IV 840 / 840 50 / 50 50 / 50 Precedex Inj 1,000 MCG In NS 240 / 240 Inj 240 ML @ 0.2 MCG/KG/HR 5.21 mls/hr IV.CONT TITRATE PRN Rx# :[id number] Diprivan 1000 mg/100 ml Inj 1, 100 / 100 000 mg In 100 ml @ 5 MCG/KG/MIN 3.13 mls/hr IV.CONT TITRATE PRN Rx#:[id number] Flexbumin 25% Inj 100 ML @ 60 100 / 100 mls/hr IV.SIG Q12H MATTEO Rx#: [id number] Zosyn 3.375 GM Premix 50 ML @ 100 / 100 50 / 50 50 / 50 100 mls/hr IV.SIG Q6H MATTEO Rx#: [id number] KCl 20 mEq Premix Inj 20 meq In 300 / 300 100 ml @ 50 mls/hr IV.SIG Q2H PRN Rx#:[id number] Output: Urine 2560 / 2560 200 / 200 Other: Date of Last Bowel Movement 01/10/18 01/10/18 Result Diagrams: 01/11/18 05:00 01/11/18 05:00 Objective Remarks: Gen: middle-aged appearing female, sitting up in bed. heent: pupils 2 mm, equal, reactive. nc. at. mucous membranes moist. neck: no jvd. trachea midline. airway widely patent. chest: comfortable pattern. equal chest rise. minimal wheezing. cv: tachycardic rate, regular rhythm. sinus. abd: soft, obese, nontender, nondistended. no guarding. bs active. extr: warm, well perfused. poor cap refill. distal pulses 1+ but weak. neuro: On Precedex for sedation. Moves all extremities spontaneously. DTRs patella 4+, bilateral ankle clonus. Just stares straight ahead. Assessment and Plan - Assessment and Plan Plan: Assessment: 52yF with history of poorly controlled diabetes presents in multiorgan failure and profound shock and diabetic ketoacidosis, elevated troponin. critically ill. no improvements in last 48h. off pathway. coronary ischemia, acidosis, and respiratory failure persist despite aggressive therapy. Plan by systems: Neuro: Acute metabolic encephalopathy -Patient has extensive psych history, it is unclear to me whether that is playing a part in her agitation -Continue Precedex to facilitate ventilator weaning -D/C Seroquel 50 q8. d/c Haldol as needed for breakthrough agitation -Daily sedation vacation -MRI if mentation not improved Resp: Acute hypoxic and hypercarbic respiratory failure Community Acquired pneumonia - vent bundle. - hob elevated -There is slight improvement in mentation and patient does tolerate CPAP at higher pressure support due to small ET tube - wean fio2 for goal spo2 > 90% - A trial of extubation with warranted as the ABG is well sedated with good oxygenation, and agitation may be related to ETT itself - Taper Solu-Medrol 60 mg IV every 12 hours due to wheezing - DuoNeb to every 4 hours and as needed CV: Septic Shock- resolved Volume overload Acute coronary ischemia: unclear if Type I vs. Type II ST elevation myocardial infarction Elevated troponin - Vasopressin for goal map > 65 mmHg. Now off - Approximately 10 kg up in weight, currently on IV Lasix 20 mg q8, reduce to q12, decrease again today. - IV albumin 25 g every 12 for 3 days - trend trops. - EKG with inferior ST elevations - 2d echo without regional wall motion abnormalities 01/05. 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 Alvarado/[facility] Renal: Acute kidney injury - likely secondary to volume depletion and shock -- dc IVF, daily bmp. Lasix as above. [place] FEN/GI: Lactic Acidosis- resolved Severe anion-gap metabolic acidosis-resolved Acute intravascular volume depletion- resolved. Hypokalemia Hypernatremia Hyperchloremia - Hold Tube feeds with Glucerna-hold for extubation - ICU electrolyte protocol - Aggressive potassium replacement - continue enteral free water 300mL po q4h - start iv fluid. Heme/ID: Community Acquired Pneumonia Septic Shock-resolved - d/c zosyn, DCd vancomycin, azithromycin. - cultures 01/04 NGTD. repeat sputum pending - daily cbc - diffuse ST elevations were concerning for pericarditis, but viral panel negative for common pathogens known to cause infectious pericarditis. Endo: Diabetic Ketoacidosis - dka protocol insulin drip-DCD 01/07/2018 - Use SSI - q1h accuchecks Prophylaxis: SQH pepcid SCDs Lines: - 01/04 left IJ TLC - tiffany Dispo: - remain in ICU. critically ill. minimal improvements. Overall impression: Encephalopathy, hyper-reflexia, multiple psych meds with recent changes. No fever or rigidity. Consider serotonin syndrome as possible cause. Procedures - Arterial Line Size (Gauge): 20
[2018-01-11 09:48] LABS: ABG Base Excess -0.3 mmol/L (-2-2); ABG PCO2 30 mmHg (38-42); ABG PO2 81 mmHG (61-120)
[2018-01-11 11:04] LABS: CKMB Percent 0.4 % (0.0-4.0); Creatine Kinase MB 2.6 ng/mL (0.5-3.6)
[2018-01-12] MEDS: Insulin NovoLOG Aspart Correctional Sugar Inj SQ SCH ×5 (04:40→21:02)
[2018-01-12] MEDS: Oral Hygiene Kit OROPHARYNG SCH ×3 (04:40→15:52)
[2018-01-12] MEDS: Dexmedetomidine Inj 1,000 MCG in Sodium Chlor 0.9% Inj 240 ML IV.CONT PRN ×2 (05:19→11:51)
[2018-01-12] MEDS: Heparin - SQ 10,000 UNITS/ML Vial SQ SCH ×3 (05:20→21:03)
[2018-01-12 05:46] LABS: Eos % (Auto) 0.1 % (0.0-4.0); Hematocrit 27.8 % (35.0-46.0); Hemoglobin 9.1 gm/dL (11.6-15.3); Lymph % (Auto) 11.3 % (9.0-44.0); Mean Corpuscular HGB Conc 32.6 % (32.0-36.0); Mean Corpuscular Hemoglobin 29.2 pg (27.0-34.0); Mean Corpuscular Volume 89.5 fL (80.0-100.0); Mean Platelet Volume 12.7 fL (7.0-11.0); Mono # (Auto) 0.7 th/mm3 (0.0-0.9); Mono % (Auto) 8.8 % (0.0-8.0); Neut # (Auto) 6.8 th/mm3 (1.8-7.7); Neut % (Auto) 79.8 % (16.0-70.0); Platelet Count 101 th/mm3 (150-450); Red Blood Count 3.11 mil/mm3 (4.00-5.30); Red Cell Distribution Width 13.7 % (11.6-17.2); White Blood Count 8.5 th/mm3 (4.0-11.0)
[2018-01-12 06:45] LABS: Alanine Aminotransferase 101 U/L (10-53); Albumin 2.9 g/dL (3.4-5.0); Alkaline Phosphatase 75 U/L (45-117); Anion Gap 17 meq/L (5-15); Aspartate Aminotransferase 24 U/L (15-37); Blood Urea Nitrogen 19 mg/dL (7-18); Calcium 8.3 mg/dL (8.5-10.1); Chloride 111 meq/L (98-107); Glomerular Filtration Rate 62 mL/min (>89); Glucose,Random 210 mg/dL (74-106); Magnesium 2.6 mg/dL (1.5-2.5); Potassium 4.2 meq/L (3.5-5.1); Sodium 151 meq/L (136-145); Total Protein 5.7 g/dL (6.4-8.2)
[2018-01-12] MEDS: Aspirin 325 MG Tablet PO SCH (08:05)
[2018-01-12] MEDS: Potassium Chloride 10 MEQ ER Capsule NG/OG SCH ×2 (08:05→20:54)
[2018-01-12] MEDS: Famotidine PF Inj 20 MG/2 ML Vial IV.PUSH SCH ×2 (08:06→20:54)
[2018-01-12] MEDS: MethylPREDNISolone Sod Succinate Inj 125 MG/2 ML Vial IV.PUSH SCH ×2 (08:06→20:53)
[2018-01-12] MEDS: Chlorhexidine 0.12% Oral Kit 15 ML UDC OROPHARYNG SCH ×2 (08:07→20:56)
--- NOTE | 2018-01-12 09:06 | P.PNCC ---
Subjective Subjective Remarks/Hospital Course: Hospital Course: This is a 52yF with a completely unknown past medical history who was found by EMS unresponsive in her home. per report, her friends called EMS to check on her. she was intubated in the field with 6.5 ett. she arrives to the ER hypotensive in shock. abg demonstrates pH 6.9/21/275/-26. wbc 30, hct 50, plt 253, 87% neutrophil. sodium 129, potassium 5.3, co2 5.9, AG 34, cr 4.25, glucose 1191. lactate 6.2, ammonia 70. Because nothing was known about the patient and she was in profound shock, we went emergently to CT: CT brain without acute abnormality. CT chest demonstrates patchy infiltrates concerning for infectious etiology. CT abd/pelvis without acute abnormality. she is taken to ICU in critical condition, unresponsive. no additional information is available. ROS unobtainable. 01/05: now on 3 vasopressors. glycemic control improving. remains encephalopathic. remains in shock. now with inferior ST elevations and rising troponins. given that she is unresponsive, unclear if she has any symptoms of ACS. Certainly given clinical course most likely Type II NSTEMI secondary to demand ischemia from shock, but unable to say with certainty that this is not Type I NSTEMI or STEMI given inferior ST elevations (there are diffuse areas of other ST elevations in other leads, which would argue against single vascular territory ischemia). cultures NGTD. Talked with family: she has poorly controlled diabetes and a strong psychiatric history (although family did not know specific diagnoses). 01/06: developed what appeared to be inferior STEMI over the course of yesterday afternoon into evening. troponins co[place] and continue to rise. 2d echo, however, without any wall motion abnormalities and ST elevations are somewhat diffuse. taken to [facility] and [facility] with clean coronaries. today remains on vasopressors. encephalopathy persists. acidosis persists and becoming quite hyperchloremic. cultures are NGTD. organ dysfunction persists. 01/07: Remains critically ill on Levophed and vasopressin. Remains encephalopathic. EEG rules out seizures but showed severe encephalopathy. Cultures remain negative. Blood sugar in mid 300s despite DKA protocol 01/08: Remains critically ill, remains on vasopressin. Due to poor control of blood sugar algorithm 3 non-DKA protocol was used yesterday but patient became hypoglycemic. Currently on D10 receiving only sliding scale coverage. Right radial pulse was not felt yesterday arterial Doppler was ordered which showed no perceptible arterial pressure in the digits of the right hand consistent with distal occlusive disease. Today weak radial pulses palpable good capillary refill. Discussed with Dr. Florez will attempt weaning process as tolerated. Also wean Versed after starting Precedex 01/09: Currently sedated with Precedex only but patient is tachypneic asynchronous with the vent. Intermittently follows commands on the right side. Had to sedated for vent synchrony. Chest x-ray shows bilateral effusions weight is up by 10 kg. I will start diuresis with 80 mg Lasix IV push 1 and 20 every 8 hours. Continue daily CPAP trials repeat sputum culture. Will DC vancomycin and azithromycin. Also I have increased Seroquel to 50 every 8 hours 01/10: Remains on Precedex. Tachypneic on CPAP. CXR with basilar infiltrate effusion which is small. I am unclear at this time whether her agitation is secondary to a small size ET tube, patient also has extensive psych history. I will proceed with a trial extubation as the ABG shows good oxygenation and essentially minimal metabolic acidosis. However if she requires reintubation will proceed with MRI of the brain and further workup. Urine output more than 9 L since starting Lasix. 01/11: She is hyper-reflexic with ankle clonus. Combined with other cognitive findings we need to consider serotonin syndrome. I am going to stop psych meds, check abg and CK's. Stick with ativan iv and wean off precedex. It's a long- shot but we need to sort out the cause of her profound encephalopathy. Recheck ammonia Subjective: 01/12: Remains on dexmedetomidine drip at 1.2 mcg/kg/hr. not following commands. Currently off hervenlafaxine, lurasidone and alprazolam and lithium. Remains on nasal cannula. Tachycardic and agitated Objective Vital Signs / I&O: Vital Signs 01/11/18 10:00 01/11/18 11:00 01/11/18 11:40 Temperature 99.8 F H 99.9 F H Pulse Rate 71 83 78 Respiratory Rate 18 19 26 H Blood Pressure 112/74 117/57 L Pulse Oximetry 96 94 L 01/11/18 12:00 01/11/18 13:00 01/11/18 14:00 Temperature 99.6 F Pulse Rate 74 73 80 Respiratory Rate 18 17 18 Blood Pressure 115/68 117/62 132/60 Pulse Oximetry 95 96 95 01/11/18 15:00 01/11/18 15:31 01/11/18 15:33 Temperature Pulse Rate 71 74 Respiratory Rate 16 26 H Blood Pressure 129/62 Pulse Oximetry 98 98 01/11/18 16:00 01/11/18 17:00 01/11/18 18:00 Temperature 99.2 F 98.9 F Pulse Rate 82 70 77 Respiratory Rate 17 16 17 Blood Pressure 120/67 122/66 116/78 Pulse Oximetry 99 99 100 01/11/18 19:00 01/11/18 19:55 01/11/18 20:00 Temperature 98.5 F Pulse Rate 63 68 68 Respiratory Rate 42 H 30 H 40 H Blood Pressure 120/65 132/60 Pulse Oximetry 99 99 96 01/11/18 21:00 01/11/18 22:00 01/11/18 23:00 Temperature Pulse Rate 68 63 65 Respiratory Rate 40 H 38 H 42 H Blood Pressure 134/78 138/63 144/70 H Pulse Oximetry 96 96 97 01/11/18 23:24 01/12/18 00:00 01/12/18 01:00 Temperature Pulse Rate 61 67 62 Respiratory Rate 21 39 H 34 H Blood Pressure 134/76 132/63 Pulse Oximetry 98 97 97 01/12/18 02:00 01/12/18 03:00 01/12/18 03:26 Temperature Pulse Rate 62 53 L 58 L Respiratory Rate 30 H 30 H 22 Blood Pressure 126/74 126/67 Pulse Oximetry 98 98 01/12/18 03:27 01/12/18 04:00 01/12/18 05:00 Temperature 98.4 F Pulse Rate 60 57 L Respiratory Rate 32 H 30 H Blood Pressure 134/74 129/66 Pulse Oximetry 98 97 97 01/12/18 06:00 01/12/18 06:44 01/12/18 08:00 Temperature Pulse Rate 60 63 94 H Respiratory Rate 29 H 19 Blood Pressure 125/65 Pulse Oximetry 100 Intake & Output 01/11/18 01/12/18 01/12/18 18:59 06:59 18:59 Intake Total 750 / 750 500 / 500 Output Total 450 / 450 200 / 200 Balance 300 / 300 300 / 300 Intake: IV 750 / 750 500 / 500 Precedex Inj 1,000 MCG In NS 500 / 500 500 / 500 Inj 240 ML @ 0.2 MCG/KG/HR 5.21 mls/hr IV.CONT TITRATE PRN Rx# :[id number] Zosyn 3.375 GM Premix 50 ML @ 50 / 50 100 mls/hr IV.SIG Q6H MATTEO Rx#: [id number] KCl 40 mEq Premix Inj 40 meq In 200 / 200 100 ml @ 50 mls/hr IV.SIG Q2H PRN Rx#:[id number] Output: Urine Amount (Catheter) 450 / 450 200 / 200 Indwelling Urethral Catheter 450 / 450 200 / 200 Other: Date of Last Bowel Movement 01/11/18 01/11/18 01/11/18 # Bowel Movements 1 Result Diagrams: 01/12/18 05:00 01/12/18 05:00 Other Results: Laboratory Tests 01/04/18 01/04/18 01/04/18 16:20 16:20 16:20 CBC w Diff WBC 30.0 H Corrected WBC RBC 4.81 Hgb 14.0 POC Hgb (Calc) Hct 50.8 H POC Hct MCV 105.7 H MCH 29.1 MCHC 27.6 L RDW 15.2 Plt Count 253 MPV 14.2 H Prelim Diff (Auto) Slide review pending Immature Gran % (Auto) Neut % (Auto) 87.9 H Lymph % (Auto) 5.1 L [place] % (Auto) 6.7 Eos % (Auto) 0.1 Baso % (Auto) 0.2 Immature Gran # (Auto) Neut # (Auto) 26.3 H Lymph # (Auto) 1.5 [place] # (Auto) 2.0 H Eos # (Auto) 0.0 Baso # (Auto) 0.1 WBC Differential Manual diff final Diff Scan Seg Neuts % (Manual) 80 H Band Neuts % (Manual) 6 Lymphocytes % (Manual) 6 L Atypical Lymphs % (Man) Monocytes % (Manual) 7 Eosinophils % (Manual) 1 Basophils % (Manual) Metamyelocytes % (Man) Myelocytes % (Man) Promyelocytes % (Man) Blast Cells % (Manual) Plasma Cell % (Manual) Other Cells % Abs Neuts (Manual) 25.8 H Nucleated RBCs/100 WBC Differential Comment . Hypersegmented Neuts Smudge Cells Toxic Granulation Toxic Vacuolation Dohle Bodies Platelet Estimate Normal Platelet Morphology Normal RBC Morphology Dimorphic RBCs Polychromasia Basophilic Stippling Spherocytes Pappenheimer Bodies Sickle Cells Target Cells Tear Drop Cells Ovalocytes 1+ H Stomatocytes Helmet Cells [place] Bodies [place] Cells Acanthocytes (Spur) Rouleaux Keratocytes Hematology Comments PT 10.0 INR 1.0 APTT 29.7 Fibrinogen 432 H Puncture Site Patient Temperature O2 Saturation ABG pH ABG pCO2 ABG pO2 ABG HCO3 ABG O2 Content ABG Base Excess ABG Methemoglobin Omer Test VBG pH VBG pCO2 VBG pO2 VBG HCO3 VBG O2 Saturation VBG O2 Content VBG Base Excess VBG Carboxyhemoglobin VBG Methemoglobin Hemoglobin Carboxyhemoglobin O2 Delivery Device Liter Flow Vent Setting Inspired O2 Critical Value POC Sodium Sodium 129 L POC Potassium Potassium 5.3 H POC Chloride Chloride 89 L Carbon Dioxide 5.9 L Anion Gap 34 H POC BUN BUN 48 H Creatinine 4.25 H POC Creatinine Estimated GFR 11 L POC Glucose Random Glucose 1191 H* Lactic Acid Calcium 9.1 Prot Corrected Calcium Phosphorus Magnesium Total Bilirubin 0.5 AST 20 ALT 23 Alkaline Phosphatase 97 Ammonia Total Creatine Kinase CK-MB (CK-2) CK-MB (CK-2) % Troponin I 0.03 Total Protein 7.4 Albumin 3.7 Beta-Hydroxybutyric Acd Urine Color Urine Clarity Urine pH Ur Specific [place] Urine Protein Urine Glucose (UA) Urine Ketones Urine Occult Blood Urine Nitrate Urine Bilirubin Urine Urobilinogen Ur Leukocyte Esterase Urine RBC Ur Squamous Epith Cells Micro UA Comment Ur Microscopic Review Urine Culture Comments Nasal Screen MRSA (PCR) Vancomycin Trough Random Vancomycin Salicylates Urine Opiates Screen Acetaminophen Less than 2.0 L Ur Barbiturates Screen Ur Amphetamines Screen U Benzodiazepines Scrn Urine Cocaine Screen U Cannabinoids Screen Serum Alcohol Less than 3 Adenovirus (PCR) Bordetella holmesii PCR B. pertussis DNA (PCR) B. paraper/bronch (PCR) Hepatitis A IgM Ab Hep Bs Antigen Hep B Core IgM Ab Hep C IgG Ab Human Metapneumovir PCR Influenza A (RT-PCR) Influenza A (H1) PCR Influenza A (H3) PCR Influenza B (RT-PCR) Parainfluenza 1 (PCR) Parainfluenza 2 (PCR) Parainfluenza 3 (PCR) Parainfluenza 4 (PCR) RSV Type A (PCR) RSV Type B (PCR) Rhinovirus (PCR) Blood Type Blood Type Recheck Antibody Screen 01/04/18 01/04/18 01/04/18 16:20 16:26 16:26 CBC w Diff WBC Corrected WBC RBC Hgb POC Hgb (Calc) Hct POC Hct MCV MCH MCHC RDW Plt Count MPV Prelim Diff (Auto) Immature Gran % (Auto) Neut % (Auto) Lymph % (Auto) [place] % (Auto) Eos % (Auto) Baso % (Auto) Immature Gran # (Auto) Neut # (Auto) Lymph # (Auto) [place] # (Auto) Eos # (Auto) Baso # (Auto) WBC Differential Diff Scan Seg Neuts % (Manual) Band Neuts % (Manual) Lymphocytes % (Manual) Atypical Lymphs % (Man) Monocytes % (Manual) Eosinophils % (Manual) Basophils % (Manual) Metamyelocytes % (Man) Myelocytes % (Man) Promyelocytes % (Man) Blast Cells % (Manual) Plasma Cell % (Manual) Other Cells % Abs Neuts (Manual) Nucleated RBCs/100 WBC Differential Comment Hypersegmented Neuts Smudge Cells Toxic Granulation Toxic Vacuolation Dohle Bodies Platelet Estimate Platelet Morphology RBC Morphology Dimorphic RBCs Polychromasia Basophilic Stippling Spherocytes Pappenheimer Bodies Sickle Cells Target Cells Tear Drop Cells Ovalocytes Stomatocytes Helmet Cells [place] Bodies [place] Cells Acanthocytes (Spur) Rouleaux Keratocytes Hematology Comments PT INR APTT Fibrinogen Puncture Site Patient Temperature O2 Saturation ABG pH ABG pCO2 ABG pO2 ABG HCO3 ABG O2 Content ABG Base Excess ABG Methemoglobin Omer Test VBG pH VBG pCO2 VBG pO2 VBG HCO3 VBG O2 Saturation VBG O2 Content VBG Base Excess VBG Carboxyhemoglobin VBG Methemoglobin Hemoglobin Carboxyhemoglobin O2 Delivery Device Liter Flow Vent Setting Inspired O2 Critical Value POC Sodium Sodium POC Potassium Potassium POC Chloride Chloride Carbon Dioxide Anion Gap POC BUN BUN Creatinine POC Creatinine Estimated GFR POC Glucose Random Glucose Lactic Acid 6.2 H* Calcium Prot Corrected Calcium Phosphorus Magnesium Total Bilirubin AST ALT Alkaline Phosphatase Ammonia 70 H Total Creatine Kinase CK-MB (CK-2) CK-MB (CK-2) % Troponin I Total Protein Albumin Beta-Hydroxybutyric Acd Urine Color Urine Clarity Urine pH Ur Specific [place] Urine Protein Urine Glucose (UA) Urine Ketones Urine Occult Blood Urine Nitrate Urine Bilirubin Urine Urobilinogen Ur Leukocyte Esterase Urine RBC Ur Squamous Epith Cells Micro UA Comment Ur Microscopic Review Urine Culture Comments Nasal Screen MRSA (PCR) Vancomycin Trough Random Vancomycin Salicylates 4.0 Urine Opiates Screen Acetaminophen Ur Barbiturates Screen Ur Amphetamines Screen U Benzodiazepines Scrn Urine Cocaine Screen U Cannabinoids Screen Serum Alcohol Adenovirus (PCR) Bordetella holmesii PCR B. pertussis DNA (PCR) B. paraper/bronch (PCR) Hepatitis A IgM Ab Hep Bs Antigen Hep B Core IgM Ab Hep C IgG Ab Human Metapneumovir PCR Influenza A (RT-PCR) Influenza A (H1) PCR Influenza A (H3) PCR Influenza B (RT-PCR) Parainfluenza 1 (PCR) Parainfluenza 2 (PCR) Parainfluenza 3 (PCR) Parainfluenza 4 (PCR) RSV Type A (PCR) RSV Type B (PCR) Rhinovirus (PCR) Blood Type Blood Type Recheck Antibody Screen 01/04/18 01/04/18 01/04/18 16:26 16:26 16:30 CBC w Diff WBC Corrected WBC RBC Hgb POC Hgb (Calc) Hct POC Hct MCV MCH MCHC RDW Plt Count MPV Prelim Diff (Auto) Immature Gran % (Auto) Neut % (Auto) Lymph % (Auto) [place] % (Auto) Eos % (Auto) Baso % (Auto) Immature Gran # (Auto) Neut # (Auto) Lymph # (Auto) [place] # (Auto) Eos # (Auto) Baso # (Auto) WBC Differential Diff Scan Seg Neuts % (Manual) Band Neuts % (Manual) Lymphocytes % (Manual) Atypical Lymphs % (Man) Monocytes % (Manual) Eosinophils % (Manual) Basophils % (Manual) Metamyelocytes % (Man) Myelocytes % (Man) Promyelocytes % (Man) Blast Cells % (Manual) Plasma Cell % (Manual) Other Cells % Abs Neuts (Manual) Nucleated RBCs/100 WBC Differential Comment Hypersegmented Neuts Smudge Cells Toxic Granulation Toxic Vacuolation Dohle Bodies Platelet Estimate Platelet Morphology RBC Morphology Dimorphic RBCs Polychromasia Basophilic Stippling Spherocytes Pappenheimer Bodies Sickle Cells Target Cells Tear Drop Cells Ovalocytes Stomatocytes Helmet Cells [place] Bodies [place] Cells Acanthocytes (Spur) Rouleaux Keratocytes Hematology Comments PT INR APTT Fibrinogen Puncture Site Right radial Patient Temperature 98.6 O2 Saturation 97 ABG pH 6.90 L* ABG pCO2 21 L* ABG pO2 275 H ABG HCO3 4 L* ABG O2 Content 16.6 ABG Base Excess -26.1 L ABG Methemoglobin 0.9 Omer Test Present VBG pH VBG pCO2 VBG pO2 VBG HCO3 VBG O2 Saturation VBG O2 Content VBG Base Excess VBG Carboxyhemoglobin VBG Methemoglobin Hemoglobin 11.7 L Carboxyhemoglobin 1.0 O2 Delivery Device Ventilator Liter Flow Vent Setting Vac/16/550/+5/.60% Inspired O2 60 Critical Value Yes POC Sodium Sodium POC Potassium Potassium POC Chloride Chloride Carbon Dioxide Anion Gap POC BUN BUN Creatinine POC Creatinine Estimated GFR POC Glucose Random Glucose Lactic Acid Calcium Prot Corrected Calcium Phosphorus Magnesium Total Bilirubin AST ALT Alkaline Phosphatase Ammonia Total Creatine Kinase CK-MB (CK-2) CK-MB (CK-2) % Troponin I Total Protein Albumin Beta-Hydroxybutyric Acd Urine Color Yellow Urine Clarity Clear Urine pH 5.0 Ur Specific [place] 1.017 Urine Protein Negative Urine Glucose (UA) 500 or greater Urine Ketones 80 or greater H Urine Occult Blood Small H Urine Nitrate Negative Urine Bilirubin Negative Urine Urobilinogen Less than 2 Ur Leukocyte Esterase Negative Urine RBC 1 Ur Squamous Epith Cells <1 Micro UA Comment Cath-culture not ind Ur Microscopic Review Not Reportable Urine Culture Comments Cath-cult not ind Nasal Screen MRSA (PCR) Vancomycin Trough Random Vancomycin Salicylates Urine Opiates Screen Neg Acetaminophen Ur Barbiturates Screen Neg Ur Amphetamines Screen Neg U Benzodiazepines Scrn Neg Urine Cocaine Screen Neg U Cannabinoids Screen Neg Serum Alcohol Adenovirus (PCR) Bordetella holmesii PCR B. pertussis DNA (PCR) B. paraper/bronch (PCR) Hepatitis A IgM Ab Hep Bs Antigen Hep B Core IgM Ab Hep C IgG Ab Human Metapneumovir PCR Influenza A (RT-PCR) Influenza A (H1) PCR Influenza A (H3) PCR Influenza B (RT-PCR) Parainfluenza 1 (PCR) Parainfluenza 2 (PCR) Parainfluenza 3 (PCR) Parainfluenza 4 (PCR) RSV Type A (PCR) RSV Type B (PCR) Rhinovirus (PCR) Blood Type Blood Type Recheck Antibody Screen 01/04/18 01/04/18 01/04/18 18:00 18:25 18:58 CBC w Diff WBC Corrected WBC RBC Hgb POC Hgb (Calc) Hct POC Hct MCV MCH MCHC RDW Plt Count MPV Prelim Diff (Auto) Immature Gran % (Auto) Neut % (Auto) Lymph % (Auto) [place] % (Auto) Eos % (Auto) Baso % (Auto) Immature Gran # (Auto) Neut # (Auto) Lymph # (Auto) [place] # (Auto) Eos # (Auto) Baso # (Auto) WBC Differential Diff Scan Seg Neuts % (Manual) Band Neuts % (Manual) Lymphocytes % (Manual) Atypical Lymphs % (Man) Monocytes % (Manual) Eosinophils % (Manual) Basophils % (Manual) Metamyelocytes % (Man) Myelocytes % (Man) Promyelocytes % (Man) Blast Cells % (Manual) Plasma Cell % (Manual) Other Cells % Abs Neuts (Manual) Nucleated RBCs/100 WBC Differential Comment Hypersegmented Neuts Smudge Cells Toxic Granulation Toxic Vacuolation Dohle Bodies Platelet Estimate Platelet Morphology RBC Morphology Dimorphic RBCs Polychromasia Basophilic Stippling Spherocytes Pappenheimer Bodies Sickle Cells Target Cells Tear Drop Cells Ovalocytes Stomatocytes Helmet Cells [place] Bodies [place] Cells Acanthocytes (Spur) Rouleaux Keratocytes Hematology Comments PT INR APTT Fibrinogen Puncture Site Art line Patient Temperature 98.6 O2 Saturation 97 ABG pH 7.10 L* ABG pCO2 26 L ABG pO2 554 H ABG HCO3 8 L* ABG O2 Content 17.6 ABG Base Excess -20.2 L ABG Methemoglobin 1.6 Omer Test VBG pH VBG pCO2 VBG pO2 VBG HCO3 VBG O2 Saturation VBG O2 Content VBG Base Excess VBG Carboxyhemoglobin VBG Methemoglobin Hemoglobin 11.8 L Carboxyhemoglobin 0.9 O2 Delivery Device Ventilator Liter Flow Vent Setting Prvc/ac 500/24/5peep Inspired O2 100 Critical Value Yes POC Sodium Sodium POC Potassium Potassium POC Chloride Chloride Carbon Dioxide Anion Gap POC BUN BUN Creatinine POC Creatinine Estimated GFR POC Glucose Random Glucose Lactic Acid Calcium Prot Corrected Calcium Phosphorus Magnesium Total Bilirubin AST ALT Alkaline Phosphatase Ammonia Total Creatine Kinase CK-MB (CK-2) CK-MB (CK-2) % Troponin I Total Protein Albumin Beta-Hydroxybutyric Acd Urine Color Urine Clarity Urine pH Ur Specific [place] Urine Protein Urine Glucose (UA) Urine Ketones Urine Occult Blood Urine Nitrate Urine Bilirubin Urine Urobilinogen Ur Leukocyte Esterase Urine RBC Ur Squamous Epith Cells Micro UA Comment Ur Microscopic Review Urine Culture Comments Nasal Screen MRSA (PCR) Not detected Vancomycin Trough Random Vancomycin Salicylates Urine Opiates Screen Acetaminophen Ur Barbiturates Screen Ur Amphetamines Screen U Benzodiazepines Scrn Urine Cocaine Screen U Cannabinoids Screen Serum Alcohol Adenovirus (PCR) Bordetella holmesii PCR B. pertussis DNA (PCR) B. paraper/bronch (PCR) Hepatitis A IgM Ab Nonreactive Hep Bs Antigen Nonreactive Hep B Core IgM Ab Nonreactive Hep C IgG Ab Nonreactive Human Metapneumovir PCR Influenza A (RT-PCR) Influenza A (H1) PCR Influenza A (H3) PCR Influenza B (RT-PCR) Parainfluenza 1 (PCR) Parainfluenza 2 (PCR) Parainfluenza 3 (PCR) Parainfluenza 4 (PCR) RSV Type A (PCR) RSV Type B (PCR) Rhinovirus (PCR) Blood Type Blood Type Recheck Antibody Screen 01/04/18 01/04/18 01/04/18 18:58 18:58 19:46 CBC w Diff WBC Corrected WBC RBC Hgb POC Hgb (Calc) Hct POC Hct MCV MCH MCHC RDW Plt Count MPV Prelim Diff (Auto) Immature Gran % (Auto) Neut % (Auto) Lymph % (Auto) [place] % (Auto) Eos % (Auto) Baso % (Auto) Immature Gran # (Auto) Neut # (Auto) Lymph # (Auto) [place] # (Auto) Eos # (Auto) Baso # (Auto) WBC Differential Diff Scan Seg Neuts % (Manual) Band Neuts % (Manual) Lymphocytes % (Manual) Atypical Lymphs % (Man) Monocytes % (Manual) Eosinophils % (Manual) Basophils % (Manual) Metamyelocytes % (Man) Myelocytes % (Man) Promyelocytes % (Man) Blast Cells % (Manual) Plasma Cell % (Manual) Other Cells % Abs Neuts (Manual) Nucleated RBCs/100 WBC Differential Comment Hypersegmented Neuts Smudge Cells Toxic Granulation Toxic Vacuolation Dohle Bodies Platelet Estimate Platelet Morphology RBC Morphology Dimorphic RBCs Polychromasia Basophilic Stippling Spherocytes Pappenheimer Bodies Sickle Cells Target Cells Tear Drop Cells Ovalocytes Stomatocytes Helmet Cells [place] Bodies [place] Cells Acanthocytes (Spur) Rouleaux Keratocytes Hematology Comments PT INR APTT Fibrinogen Puncture Site Patient Temperature O2 Saturation ABG pH ABG pCO2 ABG pO2 ABG HCO3 ABG O2 Content ABG Base Excess ABG Methemoglobin Omer Test VBG pH VBG pCO2 VBG pO2 VBG HCO3 VBG O2 Saturation VBG O2 Content VBG Base Excess VBG Carboxyhemoglobin VBG Methemoglobin Hemoglobin Carboxyhemoglobin O2 Delivery Device Liter Flow Vent Setting Inspired O2 Critical Value POC Sodium Sodium 142 D Cancelled POC Potassium Potassium 3.5 D Cancelled POC Chloride Chloride 103 D Cancelled Carbon Dioxide 8.1 L Cancelled Anion Gap 31 H Cancelled POC BUN BUN 47 H Cancelled Creatinine 3.36 H Cancelled POC Creatinine Estimated GFR 14 L Cancelled POC Glucose Greater than 600 H* Random Glucose 915 H* D Cancelled Lactic Acid Calcium 7.3 L* D Cancelled Prot Corrected Calcium 8.2 L Phosphorus 6.0 H Magnesium 2.4 Total Bilirubin AST ALT Alkaline Phosphatase Ammonia Total Creatine Kinase CK-MB (CK-2) CK-MB (CK-2) % Troponin I Total Protein 5.4 L D Albumin Beta-Hydroxybutyric Acd 12.50 H Urine Color Urine Clarity Urine pH Ur Specific [place] Urine Protein Urine Glucose (UA) Urine Ketones Urine Occult Blood Urine Nitrate Urine Bilirubin Urine Urobilinogen Ur Leukocyte Esterase Urine RBC Ur Squamous Epith Cells Micro UA Comment Ur Microscopic Review Urine Culture Comments Nasal Screen MRSA (PCR) Vancomycin Trough Random Vancomycin Salicylates Urine Opiates Screen Acetaminophen Ur Barbiturates Screen Ur Amphetamines Screen U Benzodiazepines Scrn Urine Cocaine Screen U Cannabinoids Screen Serum Alcohol Adenovirus (PCR) Bordetella holmesii PCR B. pertussis DNA (PCR) B. paraper/bronch (PCR) Hepatitis A IgM Ab Hep Bs Antigen Hep B Core IgM Ab Hep C IgG Ab Human Metapneumovir PCR Influenza A (RT-PCR) Influenza A (H1) PCR Influenza A (H3) PCR Influenza B (RT-PCR) Parainfluenza 1 (PCR) Parainfluenza 2 (PCR) Parainfluenza 3 (PCR) Parainfluenza 4 (PCR) RSV Type A (PCR) RSV Type B (PCR) Rhinovirus (PCR) Blood Type Blood Type Recheck Antibody Screen 01/04/18 01/04/18 01/04/18 21:00 21:00 23:45 CBC w Diff WBC Corrected WBC RBC Hgb POC Hgb (Calc) Hct POC Hct MCV MCH MCHC RDW Plt Count MPV Prelim Diff (Auto) Immature Gran % (Auto) Neut % (Auto) Lymph % (Auto) [place] % (Auto) Eos % (Auto) Baso % (Auto) Immature Gran # (Auto) Neut # (Auto) Lymph # (Auto) [place] # (Auto) Eos # (Auto) Baso # (Auto) WBC Differential Diff Scan Seg Neuts % (Manual) Band Neuts % (Manual) Lymphocytes % (Manual) Atypical Lymphs % (Man) Monocytes % (Manual) Eosinophils % (Manual) Basophils % (Manual) Metamyelocytes % (Man) Myelocytes % (Man) Promyelocytes % (Man) Blast Cells % (Manual) Plasma Cell % (Manual) Other Cells % Abs Neuts (Manual) Nucleated RBCs/100 WBC Differential Comment Hypersegmented Neuts Smudge Cells Toxic Granulation Toxic Vacuolation Dohle Bodies Platelet Estimate Platelet Morphology RBC Morphology Dimorphic RBCs Polychromasia Basophilic Stippling Spherocytes Pappenheimer Bodies Sickle Cells Target Cells Tear Drop Cells Ovalocytes Stomatocytes Helmet Cells [place] Bodies [place] Cells Acanthocytes (Spur) Rouleaux Keratocytes Hematology Comments PT INR APTT Fibrinogen Puncture Site Patient Temperature O2 Saturation ABG pH ABG pCO2 ABG pO2 ABG HCO3 ABG O2 Content ABG Base Excess ABG Methemoglobin Omer Test VBG pH VBG pCO2 VBG pO2 VBG HCO3 VBG O2 Saturation VBG O2 Content VBG Base Excess VBG Carboxyhemoglobin VBG Methemoglobin Hemoglobin Carboxyhemoglobin O2 Delivery Device Liter Flow Vent Setting Inspired O2 Critical Value POC Sodium Sodium 147 H POC Potassium Potassium 2.4 L* D POC Chloride Chloride 113 H D Carbon Dioxide 15.4 L Anion Gap 19 H POC BUN BUN 39 H Creatinine 2.76 H POC Creatinine Estimated GFR 18 L POC Glucose Random Glucose 749 H* D 578 H* D Lactic Acid 2.1 H Calcium 7.0 L* Prot Corrected Calcium 7.8 L Phosphorus 0.8 L D Magnesium 2.2 Total Bilirubin AST ALT Alkaline Phosphatase Ammonia Total Creatine Kinase CK-MB (CK-2) CK-MB (CK-2) % Troponin I Total Protein 5.5 L Albumin Beta-Hydroxybutyric Acd Urine Color Urine Clarity Urine pH Ur Specific [place] Urine Protein Urine Glucose (UA) Urine Ketones Urine Occult Blood Urine Nitrate Urine Bilirubin Urine Urobilinogen Ur Leukocyte Esterase Urine RBC Ur Squamous Epith Cells Micro UA Comment Ur Microscopic Review Urine Culture Comments Nasal Screen MRSA (PCR) Vancomycin Trough Random Vancomycin Salicylates Urine Opiates Screen Acetaminophen Ur Barbiturates Screen Ur Amphetamines Screen U Benzodiazepines Scrn Urine Cocaine Screen U Cannabinoids Screen Serum Alcohol Adenovirus (PCR) Bordetella holmesii PCR B. pertussis DNA (PCR) B. paraper/bronch (PCR) Hepatitis A IgM Ab Hep Bs Antigen Hep B Core IgM Ab Hep C IgG Ab Human Metapneumovir PCR Influenza A (RT-PCR) Influenza A (H1) PCR Influenza A (H3) PCR Influenza B (RT-PCR) Parainfluenza 1 (PCR) Parainfluenza 2 (PCR) Parainfluenza 3 (PCR) Parainfluenza 4 (PCR) RSV Type A (PCR) RSV Type B (PCR) Rhinovirus (PCR) Blood Type Blood Type Recheck Antibody Screen 01/04/18 01/05/18 01/05/18 23:47 00:20 01:59 CBC w Diff WBC Corrected WBC RBC Hgb POC Hgb (Calc) Hct POC Hct MCV MCH MCHC RDW Plt Count MPV Prelim Diff (Auto) Immature Gran % (Auto) Neut % (Auto) Lymph % (Auto) [place] % (Auto) Eos % (Auto) Baso % (Auto) Immature Gran # (Auto) Neut # (Auto) Lymph # (Auto) [place] # (Auto) Eos # (Auto) Baso # (Auto) WBC Differential Diff Scan Seg Neuts % (Manual) Band Neuts % (Manual) Lymphocytes % (Manual) Atypical Lymphs % (Man) Monocytes % (Manual) Eosinophils % (Manual) Basophils % (Manual) Metamyelocytes % (Man) Myelocytes % (Man) Promyelocytes % (Man) Blast Cells % (Manual) Plasma Cell % (Manual) Other Cells % Abs Neuts (Manual) Nucleated RBCs/100 WBC Differential Comment Hypersegmented Neuts Smudge Cells Toxic Granulation Toxic Vacuolation Dohle Bodies Platelet Estimate Platelet Morphology RBC Morphology Dimorphic RBCs Polychromasia Basophilic Stippling Spherocytes Pappenheimer Bodies Sickle Cells Target Cells Tear Drop Cells Ovalocytes Stomatocytes Helmet Cells [place] Bodies Efrem Cells Acanthocytes (Spur) Rouleaux Keratocytes Hematology Comments PT INR APTT Fibrinogen Puncture Site Iv line Patient Temperature 98.6 O2 Saturation ABG pH ABG pCO2 ABG pO2 ABG HCO3 ABG O2 Content ABG Base Excess ABG Methemoglobin Omer Test VBG pH 7.24 L* VBG pCO2 33 L VBG pO2 56 H VBG HCO3 14 L* VBG O2 Saturation 89 H VBG O2 Content 14.6 VBG Base Excess -12.2 L VBG Carboxyhemoglobin 1.4 VBG Methemoglobin 0.6 Hemoglobin 11.6 L Carboxyhemoglobin O2 Delivery Device Ventilator Liter Flow Vent Setting Prvc/ac Inspired O2 60 Critical Value Yes POC Sodium Sodium POC Potassium Potassium POC Chloride Chloride Carbon Dioxide Anion Gap POC BUN BUN Creatinine POC Creatinine Estimated GFR POC Glucose Greater than 600 H* Greater than 600 H* Random Glucose Lactic Acid Calcium Prot Corrected Calcium Phosphorus Magnesium Total Bilirubin AST ALT Alkaline Phosphatase Ammonia Total Creatine Kinase CK-MB (CK-2) CK-MB (CK-2) % Troponin I Total Protein Albumin Beta-Hydroxybutyric Acd Urine Color Urine Clarity Urine pH Ur Specific [place] Urine Protein Urine Glucose (UA) Urine Ketones Urine Occult Blood Urine Nitrate Urine Bilirubin Urine Urobilinogen Ur Leukocyte Esterase Urine RBC Ur Squamous Epith Cells Micro UA Comment Ur Microscopic Review Urine Culture Comments Nasal Screen MRSA (PCR) Vancomycin Trough Random Vancomycin Salicylates Urine Opiates Screen Acetaminophen Ur Barbiturates Screen Ur Amphetamines Screen U Benzodiazepines Scrn Urine Cocaine Screen U Cannabinoids Screen Serum Alcohol Adenovirus (PCR) Bordetella holmesii PCR B. pertussis DNA (PCR) B. paraper/bronch (PCR) Hepatitis A IgM Ab Hep Bs Antigen Hep B Core IgM Ab Hep C IgG Ab Human Metapneumovir PCR Influenza A (RT-PCR) Influenza A (H1) PCR Influenza A (H3) PCR Influenza B (RT-PCR) Parainfluenza 1 (PCR) Parainfluenza 2 (PCR) Parainfluenza 3 (PCR) Parainfluenza 4 (PCR) RSV Type A (PCR) RSV Type B (PCR) Rhinovirus (PCR) Blood Type Blood Type Recheck Antibody Screen 01/05/18 01/05/18 01/05/18 02:00 02:00 05:12 CBC w Diff WBC Corrected WBC RBC Hgb POC Hgb (Calc) Hct POC Hct MCV MCH MCHC RDW Plt Count MPV Prelim Diff (Auto) Immature Gran % (Auto) Neut % (Auto) Lymph % (Auto) [place] % (Auto) Eos % (Auto) Baso % (Auto) Immature Gran # (Auto) Neut # (Auto) Lymph # (Auto) [place] # (Auto) Eos # (Auto) Baso # (Auto) WBC Differential Diff Scan Seg Neuts % (Manual) Band Neuts % (Manual) Lymphocytes % (Manual) Atypical Lymphs % (Man) Monocytes % (Manual) Eosinophils % (Manual) Basophils % (Manual) Metamyelocytes % (Man) Myelocytes % (Man) Promyelocytes % (Man) Blast Cells % (Manual) Plasma Cell % (Manual) Other Cells % Abs Neuts (Manual) Nucleated RBCs/100 WBC Differential Comment Hypersegmented Neuts Smudge Cells Toxic Granulation Toxic Vacuolation Dohle Bodies Platelet Estimate Platelet Morphology RBC Morphology Dimorphic RBCs Polychromasia Basophilic Stippling Spherocytes Pappenheimer Bodies Sickle Cells Target Cells Tear Drop Cells Ovalocytes Stomatocytes Helmet Cells [place] Bodies [place] Cells Acanthocytes (Spur) Rouleaux Keratocytes Hematology Comments PT INR APTT Fibrinogen Puncture Site Patient Temperature O2 Saturation ABG pH ABG pCO2 ABG pO2 ABG HCO3 ABG O2 Content ABG Base Excess ABG Methemoglobin Omer Test VBG pH VBG pCO2 VBG pO2 VBG HCO3 VBG O2 Saturation VBG O2 Content VBG Base Excess VBG Carboxyhemoglobin VBG Methemoglobin Hemoglobin Carboxyhemoglobin O2 Delivery Device Liter Flow Vent Setting Inspired O2 Critical Value POC Sodium Sodium 148 H POC Potassium Potassium 2.6 L* POC Chloride Chloride 115 H Carbon Dioxide 17.4 L Anion Gap 16 H POC BUN BUN 36 H Creatinine 2.64 H POC Creatinine Estimated GFR 19 L POC Glucose 378 H Random Glucose 449 H D Lactic Acid Calcium 7.0 L* Prot Corrected Calcium 7.8 L Phosphorus 0.6 L Magnesium 2.1 Total Bilirubin 0.4 AST 101 H ALT 77 H Alkaline Phosphatase 67 Ammonia Total Creatine Kinase CK-MB (CK-2) CK-MB (CK-2) % Troponin I 0.83 H* D Total Protein 5.5 L Albumin 2.8 L D Beta-Hydroxybutyric Acd Urine Color Urine Clarity Urine pH Ur Specific [place] Urine Protein Urine Glucose (UA) Urine Ketones Urine Occult Blood Urine Nitrate Urine Bilirubin Urine Urobilinogen Ur Leukocyte Esterase Urine RBC Ur Squamous Epith Cells Micro UA Comment Ur Microscopic Review Urine Culture Comments Nasal Screen MRSA (PCR) Vancomycin Trough 44.0 H Random Vancomycin Salicylates Urine Opiates Screen Acetaminophen Ur Barbiturates Screen Ur Amphetamines Screen U Benzodiazepines Scrn Urine Cocaine Screen U Cannabinoids Screen Serum Alcohol Adenovirus (PCR) Bordetella holmesii PCR B. pertussis DNA (PCR) B. paraper/bronch (PCR) Hepatitis A IgM Ab Hep Bs Antigen Hep B Core IgM Ab Hep C IgG Ab Human Metapneumovir PCR Influenza A (RT-PCR) Influenza A (H1) PCR Influenza A (H3) PCR Influenza B (RT-PCR) Parainfluenza 1 (PCR) Parainfluenza 2 (PCR) Parainfluenza 3 (PCR) Parainfluenza 4 (PCR) RSV Type A (PCR) RSV Type B (PCR) Rhinovirus (PCR) Blood Type Blood Type Recheck Antibody Screen 01/05/18 01/05/18 01/05/18 06:00 06:12 07:38 CBC w Diff WBC Corrected WBC RBC Hgb POC Hgb (Calc) Hct POC Hct MCV MCH MCHC RDW Plt Count MPV Prelim Diff (Auto) Immature Gran % (Auto) Neut % (Auto) Lymph % (Auto) [place] % (Auto) Eos % (Auto) Baso % (Auto) Immature Gran # (Auto) Neut # (Auto) Lymph # (Auto) [place] # (Auto) Eos # (Auto) Baso # (Auto) WBC Differential Diff Scan Seg Neuts % (Manual) Band Neuts % (Manual) Lymphocytes % (Manual) Atypical Lymphs % (Man) Monocytes % (Manual) Eosinophils % (Manual) Basophils % (Manual) Metamyelocytes % (Man) Myelocytes % (Man) Promyelocytes % (Man) Blast Cells % (Manual) Plasma Cell % (Manual) Other Cells % Abs Neuts (Manual) Nucleated RBCs/100 WBC Differential Comment Hypersegmented Neuts Smudge Cells Toxic Granulation Toxic Vacuolation Dohle Bodies Platelet Estimate Platelet Morphology RBC Morphology Dimorphic RBCs Polychromasia Basophilic Stippling Spherocytes Pappenheimer Bodies Sickle Cells Target Cells Tear Drop Cells Ovalocytes Stomatocytes Helmet Cells [place] Bodies [place] Cells Acanthocytes (Spur) Rouleaux Keratocytes Hematology Comments PT 10.8 INR 1.1 APTT 24.4 Fibrinogen Puncture Site Patient Temperature O2 Saturation ABG pH ABG pCO2 ABG pO2 ABG HCO3 ABG O2 Content ABG Base Excess ABG Methemoglobin Omer Test VBG pH VBG pCO2 VBG pO2 VBG HCO3 VBG O2 Saturation VBG O2 Content VBG Base Excess VBG Carboxyhemoglobin VBG Methemoglobin Hemoglobin Carboxyhemoglobin O2 Delivery Device Liter Flow Vent Setting Inspired O2 Critical Value POC Sodium Sodium POC Potassium Potassium POC Chloride Chloride Carbon Dioxide Anion Gap POC BUN BUN Creatinine POC Creatinine Estimated GFR POC Glucose 410 H 235 H Random Glucose Lactic Acid Calcium Prot Corrected Calcium Phosphorus Magnesium Total Bilirubin AST ALT Alkaline Phosphatase Ammonia Total Creatine Kinase CK-MB (CK-2) CK-MB (CK-2) % Troponin I Total Protein Albumin Beta-Hydroxybutyric Acd Urine Color Urine Clarity Urine pH Ur Specific [place] Urine Protein Urine Glucose (UA) Urine Ketones Urine Occult Blood Urine Nitrate Urine Bilirubin Urine Urobilinogen Ur Leukocyte Esterase Urine RBC Ur Squamous Epith Cells Micro UA Comment Ur Microscopic Review Urine Culture Comments Nasal Screen MRSA (PCR) Vancomycin Trough Random Vancomycin Salicylates Urine Opiates Screen Acetaminophen Ur Barbiturates Screen Ur Amphetamines Screen U Benzodiazepines Scrn Urine Cocaine Screen U Cannabinoids Screen Serum Alcohol Adenovirus (PCR) Bordetella holmesii PCR B. pertussis DNA (PCR) B. paraper/bronch (PCR) Hepatitis A IgM Ab Hep Bs Antigen Hep B Core IgM Ab Hep C IgG Ab Human Metapneumovir PCR Influenza A (RT-PCR) Influenza A (H1) PCR Influenza A (H3) PCR Influenza B (RT-PCR) Parainfluenza 1 (PCR) Parainfluenza 2 (PCR) Parainfluenza 3 (PCR) Parainfluenza 4 (PCR) RSV Type A (PCR) RSV Type B (PCR) Rhinovirus (PCR) Blood Type Blood Type Recheck Antibody Screen 01/05/18 01/05/18 01/05/18 08:08 08:39 09:00 CBC w Diff WBC Corrected WBC RBC Hgb POC Hgb (Calc) Hct POC Hct MCV MCH MCHC RDW Plt Count MPV Prelim Diff (Auto) Immature Gran % (Auto) Neut % (Auto) Lymph % (Auto) [place] % (Auto) Eos % (Auto) Baso % (Auto) Immature Gran # (Auto) Neut # (Auto) Lymph # (Auto) [place] # (Auto) Eos # (Auto) Baso # (Auto) WBC Differential Diff Scan Seg Neuts % (Manual) Band Neuts % (Manual) Lymphocytes % (Manual) Atypical Lymphs % (Man) Monocytes % (Manual) Eosinophils % (Manual) Basophils % (Manual) Metamyelocytes % (Man) Myelocytes % (Man) Promyelocytes % (Man) Blast Cells % (Manual) Plasma Cell % (Manual) Other Cells % Abs Neuts (Manual) Nucleated RBCs/100 WBC Differential Comment Hypersegmented Neuts Smudge Cells Toxic Granulation Toxic Vacuolation Dohle Bodies Platelet Estimate Platelet Morphology RBC Morphology Dimorphic RBCs Polychromasia Basophilic Stippling Spherocytes Pappenheimer Bodies Sickle Cells Target Cells Tear Drop Cells Ovalocytes Stomatocytes Helmet Cells [place] Bodies Efrem Cells Acanthocytes (Spur) Rouleaux Keratocytes Hematology Comments PT INR APTT Fibrinogen Puncture Site Patient Temperature O2 Saturation ABG pH ABG pCO2 ABG pO2 ABG HCO3 ABG O2 Content ABG Base Excess ABG Methemoglobin Omer Test VBG pH VBG pCO2 VBG pO2 VBG HCO3 VBG O2 Saturation VBG O2 Content VBG Base Excess VBG Carboxyhemoglobin VBG Methemoglobin Hemoglobin Carboxyhemoglobin O2 Delivery Device Liter Flow Vent Setting Inspired O2 Critical Value POC Sodium Sodium POC Potassium Potassium POC Chloride Chloride Carbon Dioxide Anion Gap POC BUN BUN Creatinine POC Creatinine Estimated GFR POC Glucose 204 H 264 H 211 H Random Glucose Lactic Acid Calcium Prot Corrected Calcium Phosphorus Magnesium Total Bilirubin AST ALT Alkaline Phosphatase Ammonia Total Creatine Kinase CK-MB (CK-2) CK-MB (CK-2) % Troponin I Total Protein Albumin Beta-Hydroxybutyric Acd Urine Color Urine Clarity Urine pH Ur Specific [place] Urine Protein Urine Glucose (UA) Urine Ketones Urine Occult Blood Urine Nitrate Urine Bilirubin Urine Urobilinogen Ur Leukocyte Esterase Urine RBC Ur Squamous Epith Cells Micro UA Comment Ur Microscopic Review Urine Culture Comments Nasal Screen MRSA (PCR) Vancomycin Trough Random Vancomycin Salicylates Urine Opiates Screen Acetaminophen Ur Barbiturates Screen Ur Amphetamines Screen U Benzodiazepines Scrn Urine Cocaine Screen U Cannabinoids Screen Serum Alcohol Adenovirus (PCR) Bordetella holmesii PCR B. pertussis DNA (PCR) B. paraper/bronch (PCR) Hepatitis A IgM Ab Hep Bs Antigen Hep B Core IgM Ab Hep C IgG Ab Human Metapneumovir PCR Influenza A (RT-PCR) Influenza A (H1) PCR Influenza A (H3) PCR Influenza B (RT-PCR) Parainfluenza 1 (PCR) Parainfluenza 2 (PCR) Parainfluenza 3 (PCR) Parainfluenza 4 (PCR) RSV Type A (PCR) RSV Type B (PCR) Rhinovirus (PCR) Blood Type Blood Type Recheck Antibody Screen 01/05/18 01/05/18 01/05/18 09:40 10:57 11:00 CBC w Diff WBC Corrected WBC RBC Hgb POC Hgb (Calc) Hct POC Hct MCV MCH MCHC RDW Plt Count MPV Prelim Diff (Auto) Immature Gran % (Auto) Neut % (Auto) Lymph % (Auto) [place] % (Auto) Eos % (Auto) Baso % (Auto) Immature Gran # (Auto) Neut # (Auto) Lymph # (Auto) [place] # (Auto) Eos # (Auto) Baso # (Auto) WBC Differential Diff Scan Seg Neuts % (Manual) Band Neuts % (Manual) Lymphocytes % (Manual) Atypical Lymphs % (Man) Monocytes % (Manual) Eosinophils % (Manual) Basophils % (Manual) Metamyelocytes % (Man) Myelocytes % (Man) Promyelocytes % (Man) Blast Cells % (Manual) Plasma Cell % (Manual) Other Cells % Abs Neuts (Manual) Nucleated RBCs/100 WBC Differential Comment Hypersegmented Neuts Smudge Cells Toxic Granulation Toxic Vacuolation Dohle Bodies Platelet Estimate Platelet Morphology RBC Morphology Dimorphic RBCs Polychromasia Basophilic Stippling Spherocytes [place] Bodies Sickle Cells Target Cells Tear Drop Cells Ovalocytes Stomatocytes Helmet Cells [place] Bodies Efrem Cells Acanthocytes (Spur) Rouleaux Keratocytes Hematology Comments PT INR APTT Fibrinogen Puncture Site Patient Temperature O2 Saturation ABG pH ABG pCO2 ABG pO2 ABG HCO3 ABG O2 Content ABG Base Excess ABG Methemoglobin Omer Test VBG pH VBG pCO2 VBG pO2 VBG HCO3 VBG O2 Saturation VBG O2 Content VBG Base Excess VBG Carboxyhemoglobin VBG Methemoglobin Hemoglobin Carboxyhemoglobin O2 Delivery Device Liter Flow Vent Setting Inspired O2 Critical Value POC Sodium Sodium 152 H POC Potassium Potassium 2.7 L* POC Chloride Chloride 121 H Carbon Dioxide 18.9 L Anion Gap 12 POC BUN BUN 33 H Creatinine 1.86 H POC Creatinine Estimated GFR 29 L POC Glucose 236 H 262 H Random Glucose 257 H D Lactic Acid Calcium 7.0 L* Prot Corrected Calcium 8.1 L Phosphorus 0.5 L Magnesium 1.7 Total Bilirubin 0.3 AST 114 H ALT 81 H Alkaline Phosphatase 59 Ammonia Total Creatine Kinase CK-MB (CK-2) CK-MB (CK-2) % Troponin I Total Protein 5.1 L Albumin 2.7 L Beta-Hydroxybutyric Acd 2.37 H D Urine Color Urine Clarity Urine pH Ur Specific [place] Urine Protein Urine Glucose (UA) Urine Ketones Urine Occult Blood Urine Nitrate Urine Bilirubin Urine Urobilinogen Ur Leukocyte Esterase Urine RBC Ur Squamous Epith Cells Micro UA Comment Ur Microscopic Review Urine Culture Comments Nasal Screen MRSA (PCR) Vancomycin Trough Random Vancomycin Salicylates Urine Opiates Screen Acetaminophen Ur Barbiturates Screen Ur Amphetamines Screen U Benzodiazepines Scrn Urine Cocaine Screen U Cannabinoids Screen Serum Alcohol Adenovirus (PCR) Bordetella holmesii PCR B. pertussis DNA (PCR) B. paraper/bronch (PCR) Hepatitis A IgM Ab Hep Bs Antigen Hep B Core IgM Ab Hep C IgG Ab Human Metapneumovir PCR Influenza A (RT-PCR) Influenza A (H1) PCR Influenza A (H3) PCR Influenza B (RT-PCR) Parainfluenza 1 (PCR) Parainfluenza 2 (PCR) Parainfluenza 3 (PCR) Parainfluenza 4 (PCR) RSV Type A (PCR) RSV Type B (PCR) Rhinovirus (PCR) Blood Type Blood Type Recheck Antibody Screen 01/05/18 01/05/18 01/05/18 11:00 11:54 12:51 CBC w Diff WBC Corrected WBC RBC Hgb POC Hgb (Calc) Hct POC Hct MCV MCH MCHC RDW Plt Count MPV Prelim Diff (Auto) Immature Gran % (Auto) Neut % (Auto) Lymph % (Auto) [place] % (Auto) Eos % (Auto) Baso % (Auto) Immature Gran # (Auto) Neut # (Auto) Lymph # (Auto) [place] # (Auto) Eos # (Auto) Baso # (Auto) WBC Differential Diff Scan Seg Neuts % (Manual) Band Neuts % (Manual) Lymphocytes % (Manual) Atypical Lymphs % (Man) Monocytes % (Manual) Eosinophils % (Manual) Basophils % (Manual) Metamyelocytes % (Man) Myelocytes % (Man) Promyelocytes % (Man) Blast Cells % (Manual) Plasma Cell % (Manual) Other Cells % Abs Neuts (Manual) Nucleated RBCs/100 WBC Differential Comment Hypersegmented Neuts Smudge Cells Toxic Granulation Toxic Vacuolation [place]le Bodies Platelet Estimate Platelet Morphology RBC Morphology Dimorphic RBCs Polychromasia Basophilic Stippling Spherocytes [place]heimer Bodies Sickle Cells Target Cells Tear Drop Cells Ovalocytes Stomatocytes Helmet Cells [place] Bodies Efrem Cells Acanthocytes (Spur) Rouleaux Keratocytes Hematology Comments PT INR APTT Fibrinogen Puncture Site Patient Temperature O2 Saturation ABG pH ABG pCO2 ABG pO2 ABG HCO3 ABG O2 Content ABG Base Excess ABG Methemoglobin Omer Test VBG pH VBG pCO2 VBG pO2 VBG HCO3 VBG O2 Saturation VBG O2 Content VBG Base Excess VBG Carboxyhemoglobin VBG Methemoglobin Hemoglobin Carboxyhemoglobin O2 Delivery Device Liter Flow Vent Setting Inspired O2 Critical Value POC Sodium Sodium POC Potassium Potassium POC Chloride Chloride Carbon Dioxide Anion Gap POC BUN BUN Creatinine POC Creatinine Estimated GFR POC Glucose 251 H 191 H Random Glucose Lactic Acid Calcium Prot Corrected Calcium Phosphorus Magnesium Total Bilirubin AST ALT Alkaline Phosphatase Ammonia Total Creatine Kinase CK-MB (CK-2) CK-MB (CK-2) % Troponin I 2.29 H* D Total Protein Albumin Beta-Hydroxybutyric Acd Urine Color Urine Clarity Urine pH Ur Specific [place] Urine Protein Urine Glucose (UA) Urine Ketones Urine Occult Blood Urine Nitrate Urine Bilirubin Urine Urobilinogen Ur Leukocyte Esterase Urine RBC Ur Squamous Epith Cells Micro UA Comment Ur Microscopic Review Urine Culture Comments Nasal Screen MRSA (PCR) Vancomycin Trough Random Vancomycin Salicylates Urine Opiates Screen Acetaminophen Ur Barbiturates Screen Ur Amphetamines Screen U Benzodiazepines Scrn Urine Cocaine Screen U Cannabinoids Screen Serum Alcohol Adenovirus (PCR) Bordetella holmesii PCR B. pertussis DNA (PCR) B. paraper/bronch (PCR) Hepatitis A IgM Ab Hep Bs Antigen Hep B Core IgM Ab Hep C IgG Ab Human Metapneumovir PCR Influenza A (RT-PCR) Influenza A (H1) PCR Influenza A (H3) PCR Influenza B (RT-PCR) Parainfluenza 1 (PCR) Parainfluenza 2 (PCR) Parainfluenza 3 (PCR) Parainfluenza 4 (PCR) RSV Type A (PCR) RSV Type B (PCR) Rhinovirus (PCR) Blood Type Blood Type Recheck Antibody Screen 01/05/18 01/05/18 01/05/18 13:53 15:02 16:16 CBC w Diff WBC Corrected WBC RBC Hgb POC Hgb (Calc) Hct POC Hct MCV MCH MCHC RDW Plt Count MPV Prelim Diff (Auto) Immature Gran % (Auto) Neut % (Auto) Lymph % (Auto) [place] % (Auto) Eos % (Auto) Baso % (Auto) Immature Gran # (Auto) Neut # (Auto) Lymph # (Auto) [place] # (Auto) Eos # (Auto) Baso # (Auto) WBC Differential Diff Scan Seg Neuts % (Manual) Band Neuts % (Manual) Lymphocytes % (Manual) Atypical Lymphs % (Man) Monocytes % (Manual) Eosinophils % (Manual) Basophils % (Manual) Metamyelocytes % (Man) Myelocytes % (Man) Promyelocytes % (Man) Blast Cells % (Manual) Plasma Cell % (Manual) Other Cells % Abs Neuts (Manual) Nucleated RBCs/100 WBC Differential Comment Hypersegmented Neuts Smudge Cells Toxic Granulation Toxic Vacuolation Dohle Bodies Platelet Estimate Platelet Morphology RBC Morphology Dimorphic RBCs Polychromasia Basophilic Stippling Spherocytes Pappenheimer Bodies Sickle Cells Target Cells Tear Drop Cells Ovalocytes Stomatocytes Helmet Cells [place] Bodies Efrem Cells Acanthocytes (Spur) Rouleaux Keratocytes Hematology Comments PT INR APTT Fibrinogen Puncture Site Patient Temperature O2 Saturation ABG pH ABG pCO2 ABG pO2 ABG HCO3 ABG O2 Content ABG Base Excess ABG Methemoglobin Omer Test VBG pH VBG pCO2 VBG pO2 VBG HCO3 VBG O2 Saturation VBG O2 Content VBG Base Excess VBG Carboxyhemoglobin VBG Methemoglobin Hemoglobin Carboxyhemoglobin O2 Delivery Device Liter Flow Vent Setting Inspired O2 Critical Value POC Sodium Sodium POC Potassium Potassium POC Chloride Chloride Carbon Dioxide Anion Gap POC BUN BUN Creatinine POC Creatinine Estimated GFR POC Glucose 177 H 205 H 170 H Random Glucose Lactic Acid Calcium Prot Corrected Calcium Phosphorus Magnesium Total Bilirubin AST ALT Alkaline Phosphatase Ammonia Total Creatine Kinase CK-MB (CK-2) CK-MB (CK-2) % Troponin I Total Protein Albumin Beta-Hydroxybutyric Acd Urine Color Urine Clarity Urine pH Ur Specific [place] Urine Protein Urine Glucose (UA) Urine Ketones Urine Occult Blood Urine Nitrate Urine Bilirubin Urine Urobilinogen Ur Leukocyte Esterase Urine RBC Ur Squamous Epith Cells Micro UA Comment Ur Microscopic Review Urine Culture Comments Nasal Screen MRSA (PCR) Vancomycin Trough Random Vancomycin Salicylates Urine Opiates Screen Acetaminophen Ur Barbiturates Screen Ur Amphetamines Screen U Benzodiazepines Scrn Urine Cocaine Screen U Cannabinoids Screen Serum Alcohol Adenovirus (PCR) Bordetella holmesii PCR B. pertussis DNA (PCR) B. paraper/bronch (PCR) Hepatitis A IgM Ab Hep Bs Antigen Hep B Core IgM Ab Hep C IgG Ab Human Metapneumovir PCR Influenza A (RT-PCR) Influenza A (H1) PCR Influenza A (H3) PCR Influenza B (RT-PCR) Parainfluenza 1 (PCR) Parainfluenza 2 (PCR) Parainfluenza 3 (PCR) Parainfluenza 4 (PCR) RSV Type A (PCR) RSV Type B (PCR) Rhinovirus (PCR) Blood Type Blood Type Recheck Antibody Screen 01/05/18 01/05/18 01/05/18 16:50 17:09 18:00 CBC w Diff Cancelled WBC Cancelled 18.5 H Corrected WBC Cancelled RBC Cancelled 3.98 L Hgb Cancelled 11.4 L D POC Hgb (Calc) Hct Cancelled 34.4 L POC Hct MCV Cancelled 86.4 D MCH Cancelled 28.6 MCHC Cancelled 33.1 RDW Cancelled 12.8 Plt Count Cancelled 121 L D MPV Cancelled 12.1 H Prelim Diff (Auto) Cancelled Immature Gran % (Auto) Cancelled Neut % (Auto) Cancelled 88.7 H Lymph % (Auto) Cancelled 7.7 L [place] % (Auto) Cancelled 3.4 Eos % (Auto) Cancelled 0.0 Baso % (Auto) Cancelled 0.2 Immature Gran # (Auto) Cancelled Neut # (Auto) Cancelled 16.4 H Lymph # (Auto) Cancelled 1.4 [place] # (Auto) Cancelled 0.6 Eos # (Auto) Cancelled 0.0 Baso # (Auto) Cancelled 0.0 WBC Differential Cancelled . Diff Scan Cancelled Seg Neuts % (Manual) Cancelled Band Neuts % (Manual) Cancelled Lymphocytes % (Manual) Cancelled Atypical Lymphs % (Man) Cancelled Monocytes % (Manual) Cancelled Eosinophils % (Manual) Cancelled Basophils % (Manual) Cancelled Metamyelocytes % (Man) Cancelled Myelocytes % (Man) Cancelled Promyelocytes % (Man) Cancelled Blast Cells % (Manual) Cancelled Plasma Cell % (Manual) Cancelled Other Cells % Cancelled Abs Neuts (Manual) Cancelled Nucleated RBCs/100 WBC Cancelled Differential Comment Cancelled Auto diff final Hypersegmented Neuts Cancelled Smudge Cells Cancelled Toxic Granulation Cancelled Toxic Vacuolation Cancelled Dohle Bodies Cancelled Platelet Estimate Cancelled Platelet Morphology Cancelled RBC Morphology Cancelled Dimorphic RBCs Cancelled Polychromasia Cancelled Basophilic Stippling Cancelled Spherocytes Cancelled Pappenheimer Bodies Cancelled Sickle Cells Cancelled Target Cells Cancelled Tear Drop Cells Cancelled Ovalocytes Cancelled Stomatocytes Cancelled Helmet Cells Cancelled [place] Bodies Cancelled Efrem Cells Cancelled Acanthocytes (Spur) Cancelled Rouleaux Cancelled Keratocytes Cancelled Hematology Comments Cancelled PT INR APTT Fibrinogen Puncture Site Patient Temperature O2 Saturation ABG pH ABG pCO2 ABG pO2 ABG HCO3 ABG O2 Content ABG Base Excess ABG Methemoglobin Omer Test VBG pH VBG pCO2 VBG pO2 VBG HCO3 VBG O2 Saturation VBG O2 Content VBG Base Excess VBG Carboxyhemoglobin VBG Methemoglobin Hemoglobin Carboxyhemoglobin O2 Delivery Device Liter Flow Vent Setting Inspired O2 Critical Value POC Sodium Sodium POC Potassium Potassium POC Chloride Chloride Carbon Dioxide Anion Gap POC BUN BUN Creatinine POC Creatinine Estimated GFR POC Glucose 182 H Random Glucose Lactic Acid Calcium Prot Corrected Calcium Phosphorus Magnesium Total Bilirubin AST ALT Alkaline Phosphatase Ammonia Total Creatine Kinase CK-MB (CK-2) CK-MB (CK-2) % Troponin I Total Protein Albumin Beta-Hydroxybutyric Acd Urine Color Urine Clarity Urine pH Ur Specific [place] Urine Protein Urine Glucose (UA) Urine Ketones Urine Occult Blood Urine Nitrate Urine Bilirubin Urine Urobilinogen Ur Leukocyte Esterase Urine RBC Ur Squamous Epith Cells Micro UA Comment Ur Microscopic Review Urine Culture Comments Nasal Screen MRSA (PCR) Vancomycin Trough Random Vancomycin Salicylates Urine Opiates Screen Acetaminophen Ur Barbiturates Screen Ur Amphetamines Screen U Benzodiazepines Scrn Urine Cocaine Screen U Cannabinoids Screen Serum Alcohol Adenovirus (PCR) Bordetella holmesii PCR B. pertussis DNA (PCR) B. paraper/bronch (PCR) Hepatitis A IgM Ab Hep Bs Antigen Hep B Core IgM Ab Hep C IgG Ab Human Metapneumovir PCR Influenza A (RT-PCR) Influenza A (H1) PCR Influenza A (H3) PCR Influenza B (RT-PCR) Parainfluenza 1 (PCR) Parainfluenza 2 (PCR) Parainfluenza 3 (PCR) Parainfluenza 4 (PCR) RSV Type A (PCR) RSV Type B (PCR) Rhinovirus (PCR) Blood Type Blood Type Recheck Antibody Screen 01/05/18 01/05/18 01/05/18 18:01 19:15 19:15 CBC w Diff WBC Corrected WBC RBC Hgb POC Hgb (Calc) Hct POC Hct MCV MCH MCHC RDW Plt Count MPV Prelim Diff (Auto) Immature Gran % (Auto) Neut % (Auto) Lymph % (Auto) [place] % (Auto) Eos % (Auto) Baso % (Auto) Immature Gran # (Auto) Neut # (Auto) Lymph # (Auto) [place] # (Auto) Eos # (Auto) Baso # (Auto) WBC Differential Diff Scan Seg Neuts % (Manual) Band Neuts % (Manual) Lymphocytes % (Manual) Atypical Lymphs % (Man) Monocytes % (Manual) Eosinophils % (Manual) Basophils % (Manual) Metamyelocytes % (Man) Myelocytes % (Man) Promyelocytes % (Man) Blast Cells % (Manual) Plasma Cell % (Manual) Other Cells % Abs Neuts (Manual) Nucleated RBCs/100 WBC Differential Comment Hypersegmented Neuts Smudge Cells Toxic Granulation Toxic Vacuolation Dohle Bodies Platelet Estimate Platelet Morphology RBC Morphology Dimorphic RBCs Polychromasia Basophilic Stippling Spherocytes Pappenheimer Bodies Sickle Cells Target Cells Tear Drop Cells Ovalocytes Stomatocytes Helmet Cells [place] Bodies Efrem Cells Acanthocytes (Spur) Rouleaux Keratocytes Hematology Comments PT INR APTT Fibrinogen Puncture Site Patient Temperature O2 Saturation ABG pH ABG pCO2 ABG pO2 ABG HCO3 ABG O2 Content ABG Base Excess ABG Methemoglobin Omer Test VBG pH VBG pCO2 VBG pO2 VBG HCO3 VBG O2 Saturation VBG O2 Content VBG Base Excess VBG Carboxyhemoglobin VBG Methemoglobin Hemoglobin Carboxyhemoglobin O2 Delivery Device Liter Flow Vent Setting Inspired O2 Critical Value POC Sodium Sodium 153 H POC Potassium Potassium 3.3 L POC Chloride Chloride 124 H Carbon Dioxide 18.0 L Anion Gap 11 POC BUN BUN 28 H Creatinine 1.48 H POC Creatinine Estimated GFR 37 L POC Glucose 179 H Random Glucose 187 H Lactic Acid Calcium 7.1 L* Prot Corrected Calcium 8.2 L Phosphorus 0.3 L Magnesium 1.7 Total Bilirubin 0.2 AST 160 H ALT 112 H Alkaline Phosphatase 56 Ammonia Total Creatine Kinase CK-MB (CK-2) CK-MB (CK-2) % Troponin I 18.10 H* D Total Protein 5.1 L Albumin 2.5 L Beta-Hydroxybutyric Acd 0.12 D Urine Color Urine Clarity Urine pH Ur Specific [place] Urine Protein Urine Glucose (UA) Urine Ketones Urine Occult Blood Urine Nitrate Urine Bilirubin Urine Urobilinogen Ur Leukocyte Esterase Urine RBC Ur Squamous Epith Cells Micro UA Comment Ur Microscopic Review Urine Culture Comments Nasal Screen MRSA (PCR) Vancomycin Trough Random Vancomycin Salicylates Urine Opiates Screen Acetaminophen Ur Barbiturates Screen Ur Amphetamines Screen U Benzodiazepines Scrn Urine Cocaine Screen U Cannabinoids Screen Serum Alcohol Adenovirus (PCR) Bordetella holmesii PCR B. pertussis DNA (PCR) B. paraper/bronch (PCR) Hepatitis A IgM Ab Hep Bs Antigen Hep B Core IgM Ab Hep C IgG Ab Human Metapneumovir PCR Influenza A (RT-PCR) Influenza A (H1) PCR Influenza A (H3) PCR Influenza B (RT-PCR) Parainfluenza 1 (PCR) Parainfluenza 2 (PCR) Parainfluenza 3 (PCR) Parainfluenza 4 (PCR) RSV Type A (PCR) RSV Type B (PCR) Rhinovirus (PCR) Blood Type Blood Type Recheck Antibody Screen 01/05/18 01/05/18 01/05/18 19:34 20:00 21:06 CBC w Diff WBC Corrected WBC RBC Hgb POC Hgb (Calc) Hct POC Hct MCV MCH MCHC RDW Plt Count MPV Prelim Diff (Auto) Immature Gran % (Auto) Neut % (Auto) Lymph % (Auto) [place] % (Auto) Eos % (Auto) Baso % (Auto) Immature Gran # (Auto) Neut # (Auto) Lymph # (Auto) [place] # (Auto) Eos # (Auto) Baso # (Auto) WBC Differential Diff Scan Seg Neuts % (Manual) Band Neuts % (Manual) Lymphocytes % (Manual) Atypical Lymphs % (Man) Monocytes % (Manual) Eosinophils % (Manual) Basophils % (Manual) Metamyelocytes % (Man) Myelocytes % (Man) Promyelocytes % (Man) Blast Cells % (Manual) Plasma Cell % (Manual) Other Cells % Abs Neuts (Manual) Nucleated RBCs/100 WBC Differential Comment Hypersegmented Neuts Smudge Cells Toxic Granulation Toxic Vacuolation Dohle Bodies Platelet Estimate Platelet Morphology RBC Morphology Dimorphic RBCs Polychromasia Basophilic Stippling Spherocytes Pappenheimer Bodies Sickle Cells Target Cells Tear Drop Cells Ovalocytes Stomatocytes Helmet Cells [place] Bodies Efrem Cells Acanthocytes (Spur) Rouleaux Keratocytes Hematology Comments PT INR APTT 50.0 H D Fibrinogen Puncture Site Patient Temperature O2 Saturation ABG pH ABG pCO2 ABG pO2 ABG HCO3 ABG O2 Content ABG Base Excess ABG Methemoglobin Omer Test VBG pH VBG pCO2 VBG pO2 VBG HCO3 VBG O2 Saturation VBG O2 Content VBG Base Excess VBG Carboxyhemoglobin VBG Methemoglobin Hemoglobin Carboxyhemoglobin O2 Delivery Device Liter Flow Vent Setting Inspired O2 Critical Value POC Sodium Sodium POC Potassium Potassium POC Chloride Chloride Carbon Dioxide Anion Gap POC BUN BUN Creatinine POC Creatinine Estimated GFR POC Glucose 228 H 190 H Random Glucose Lactic Acid Calcium Prot Corrected Calcium Phosphorus Magnesium Total Bilirubin AST ALT Alkaline Phosphatase Ammonia Total Creatine Kinase CK-MB (CK-2) CK-MB (CK-2) % Troponin I Total Protein Albumin Beta-Hydroxybutyric Acd Urine Color Urine Clarity Urine pH Ur Specific [place] Urine Protein Urine Glucose (UA) Urine Ketones Urine Occult Blood Urine Nitrate Urine Bilirubin Urine Urobilinogen Ur Leukocyte Esterase Urine RBC Ur Squamous Epith Cells Micro UA Comment Ur Microscopic Review Urine Culture Comments Nasal Screen MRSA (PCR) Vancomycin Trough Random Vancomycin Salicylates Urine Opiates Screen Acetaminophen Ur Barbiturates Screen Ur Amphetamines Screen U Benzodiazepines Scrn Urine Cocaine Screen U Cannabinoids Screen Serum Alcohol Adenovirus (PCR) Bordetella holmesii PCR B. pertussis DNA (PCR) B. paraper/bronch (PCR) Hepatitis A IgM Ab Hep Bs Antigen Hep B Core IgM Ab Hep C IgG Ab Human Metapneumovir PCR Influenza A (RT-PCR) Influenza A (H1) PCR Influenza A (H3) PCR Influenza B (RT-PCR) Parainfluenza 1 (PCR) Parainfluenza 2 (PCR) Parainfluenza 3 (PCR) Parainfluenza 4 (PCR) RSV Type A (PCR) RSV Type B (PCR) Rhinovirus (PCR) Blood Type Blood Type Recheck Antibody Screen 01/05/18 01/05/18 01/05/18 22:05 22:30 22:30 CBC w Diff WBC Corrected WBC RBC Hgb POC Hgb (Calc) Hct POC Hct MCV MCH MCHC RDW Plt Count MPV Prelim Diff (Auto) Immature Gran % (Auto) Neut % (Auto) Lymph % (Auto) [place] % (Auto) Eos % (Auto) Baso % (Auto) Immature Gran # (Auto) Neut # (Auto) Lymph # (Auto) [place] # (Auto) Eos # (Auto) Baso # (Auto) WBC Differential Diff Scan Seg Neuts % (Manual) Band Neuts % (Manual) Lymphocytes % (Manual) Atypical Lymphs % (Man) Monocytes % (Manual) Eosinophils % (Manual) Basophils % (Manual) Metamyelocytes % (Man) Myelocytes % (Man) Promyelocytes % (Man) Blast Cells % (Manual) Plasma Cell % (Manual) Other Cells % Abs Neuts (Manual) Nucleated RBCs/100 WBC Differential Comment Hypersegmented Neuts Smudge Cells Toxic Granulation Toxic Vacuolation Dohle Bodies Platelet Estimate Platelet Morphology RBC Morphology Dimorphic RBCs Polychromasia Basophilic Stippling Spherocytes Pappenheimer Bodies Sickle Cells Target Cells Tear Drop Cells Ovalocytes Stomatocytes Helmet Cells [place] Bodies [place] Cells Acanthocytes (Spur) Rouleaux Keratocytes Hematology Comments PT 11.3 INR 1.1 APTT 56.3 H Fibrinogen Puncture Site Patient Temperature O2 Saturation ABG pH ABG pCO2 ABG pO2 ABG HCO3 ABG O2 Content ABG Base Excess ABG Methemoglobin Omer Test VBG pH VBG pCO2 VBG pO2 VBG HCO3 VBG O2 Saturation VBG O2 Content VBG Base Excess VBG Carboxyhemoglobin VBG Methemoglobin Hemoglobin Carboxyhemoglobin O2 Delivery Device Liter Flow Vent Setting Inspired O2 Critical Value POC Sodium Sodium POC Potassium Potassium POC Chloride Chloride Carbon Dioxide Anion Gap POC BUN BUN Creatinine POC Creatinine Estimated GFR POC Glucose 291 H Random Glucose Lactic Acid Calcium Prot Corrected Calcium Phosphorus Magnesium Total Bilirubin AST ALT Alkaline Phosphatase Ammonia Total Creatine Kinase CK-MB (CK-2) CK-MB (CK-2) % Troponin I Total Protein Albumin Beta-Hydroxybutyric Acd Urine Color Urine Clarity Urine pH Ur Specific [place] Urine Protein Urine Glucose (UA) Urine Ketones Urine Occult Blood Urine Nitrate Urine Bilirubin Urine Urobilinogen Ur Leukocyte Esterase Urine RBC Ur Squamous Epith Cells Micro UA Comment Ur Microscopic Review Urine Culture Comments Nasal Screen MRSA (PCR) Vancomycin Trough Random Vancomycin Salicylates Urine Opiates Screen Acetaminophen Ur Barbiturates Screen Ur Amphetamines Screen U Benzodiazepines Scrn Urine Cocaine Screen U Cannabinoids Screen Serum Alcohol Adenovirus (PCR) ND Bordetella holmesii PCR ND B. pertussis DNA (PCR) ND B. paraper/bronch (PCR) ND Hepatitis A IgM Ab Hep Bs Antigen Hep B Core IgM Ab Hep C IgG Ab Human Metapneumovir PCR ND Influenza A (RT-PCR) ND Influenza A (H1) PCR ND Influenza A (H3) PCR ND Influenza B (RT-PCR) ND Parainfluenza 1 (PCR) ND Parainfluenza 2 (PCR) ND Parainfluenza 3 (PCR) ND Parainfluenza 4 (PCR) ND RSV Type A (PCR) ND RSV Type B (PCR) ND Rhinovirus (PCR) ND Blood Type Blood Type Recheck Antibody Screen 01/05/18 01/05/18 01/05/18 22:30 22:30 23:00 CBC w Diff WBC 15.5 H Corrected WBC RBC 3.86 L Hgb 11.0 L POC Hgb (Calc) 10.2 L Hct 34.2 L POC Hct 30.0 L MCV 88.7 MCH 28.6 MCHC 32.2 RDW 13.6 Plt Count 82 L D MPV 12.6 H Prelim Diff (Auto) Slide review pending Immature Gran % (Auto) Neut % (Auto) 84.8 H Lymph % (Auto) 11.5 [place] % (Auto) 3.3 Eos % (Auto) 0.2 Baso % (Auto) 0.2 Immature Gran # (Auto) Neut # (Auto) 13.2 H Lymph # (Auto) 1.8 [place] # (Auto) 0.5 Eos # (Auto) 0.0 Baso # (Auto) 0.0 WBC Differential . Diff Scan Auto diff confirmed Seg Neuts % (Manual) Band Neuts % (Manual) Lymphocytes % (Manual) Atypical Lymphs % (Man) Monocytes % (Manual) Eosinophils % (Manual) Basophils % (Manual) Metamyelocytes % (Man) Myelocytes % (Man) Promyelocytes % (Man) Blast Cells % (Manual) Plasma Cell % (Manual) Other Cells % Abs Neuts (Manual) Nucleated RBCs/100 WBC Differential Comment . Hypersegmented Neuts Smudge Cells Toxic Granulation Toxic Vacuolation Dohle Bodies Platelet Estimate Low L Platelet Morphology Enlarged H RBC Morphology Dimorphic RBCs Polychromasia Basophilic Stippling Spherocytes P[place] Bodies Sickle Cells Target Cells Tear Drop Cells Ovalocytes Stomatocytes Helmet Cells [place] Bodies [place] Cells Acanthocytes (Spur) Occ H Rouleaux Keratocytes Occ H Hematology Comments PT INR APTT Fibrinogen Puncture Site Patient Temperature O2 Saturation ABG pH ABG pCO2 ABG pO2 ABG HCO3 ABG O2 Content ABG Base Excess ABG Methemoglobin Omer Test VBG pH VBG pCO2 VBG pO2 VBG HCO3 VBG O2 Saturation VBG O2 Content VBG Base Excess VBG Carboxyhemoglobin VBG Methemoglobin Hemoglobin Carboxyhemoglobin O2 Delivery Device Liter Flow Vent Setting Inspired O2 Critical Value POC Sodium 149 H Sodium POC Potassium 3.1 L Potassium POC Chloride 121 H Chloride Carbon Dioxide Anion Gap POC BUN 22 H BUN Creatinine POC Creatinine 0.9 Estimated GFR POC Glucose 282 H Random Glucose Lactic Acid Calcium Prot Corrected Calcium Phosphorus Magnesium Total Bilirubin AST ALT Alkaline Phosphatase Ammonia Total Creatine Kinase CK-MB (CK-2) CK-MB (CK-2) % Troponin I Total Protein Albumin Beta-Hydroxybutyric Acd Urine Color Urine Clarity Urine pH Ur Specific [place] Urine Protein Urine Glucose (UA) Urine Ketones Urine Occult Blood Urine Nitrate Urine Bilirubin Urine Urobilinogen Ur Leukocyte Esterase Urine RBC Ur Squamous Epith Cells Micro UA Comment Ur Microscopic Review Urine Culture Comments Nasal Screen MRSA (PCR) Vancomycin Trough Random Vancomycin Salicylates Urine Opiates Screen Acetaminophen Ur Barbiturates Screen Ur Amphetamines Screen U Benzodiazepines Scrn Urine Cocaine Screen U Cannabinoids Screen Serum Alcohol Adenovirus (PCR) Bordetella holmesii PCR B. pertussis DNA (PCR) B. paraper/bronch (PCR) Hepatitis A IgM Ab Hep Bs Antigen Hep B Core IgM Ab Hep C IgG Ab Human Metapneumovir PCR Influenza A (RT-PCR) Influenza A (H1) PCR Influenza A (H3) PCR Influenza B (RT-PCR) Parainfluenza 1 (PCR) Parainfluenza 2 (PCR) Parainfluenza 3 (PCR) Parainfluenza 4 (PCR) RSV Type A (PCR) RSV Type B (PCR) Rhinovirus (PCR) Blood Type O Positive Blood Type Recheck Required Antibody Screen Negative 01/05/18 01/06/18 01/06/18 23:48 01:24 02:14 CBC w Diff WBC Corrected WBC RBC Hgb POC Hgb (Calc) Hct POC Hct MCV MCH MCHC RDW Plt Count MPV Prelim Diff (Auto) Immature Gran % (Auto) Neut % (Auto) Lymph % (Auto) [place] % (Auto) Eos % (Auto) Baso % (Auto) Immature Gran # (Auto) Neut # (Auto) Lymph # (Auto) [place] # (Auto) Eos # (Auto) Baso # (Auto) WBC Differential Diff Scan Seg Neuts % (Manual) Band Neuts % (Manual) Lymphocytes % (Manual) Atypical Lymphs % (Man) Monocytes % (Manual) Eosinophils % (Manual) Basophils % (Manual) Metamyelocytes % (Man) Myelocytes % (Man) Promyelocytes % (Man) Blast Cells % (Manual) Plasma Cell % (Manual) Other Cells % Abs Neuts (Manual) Nucleated RBCs/100 WBC Differential Comment Hypersegmented Neuts Smudge Cells Toxic Granulation Toxic Vacuolation Dohle Bodies Platelet Estimate Platelet Morphology RBC Morphology Dimorphic RBCs Polychromasia Basophilic Stippling Spherocytes [place] Bodies Sickle Cells Target Cells Tear Drop Cells Ovalocytes Stomatocytes Helmet Cells [place] Bodies [place] Cells Acanthocytes (Spur) Rouleaux Keratocytes Hematology Comments PT INR APTT Fibrinogen Puncture Site Patient Temperature O2 Saturation ABG pH ABG pCO2 ABG pO2 ABG HCO3 ABG O2 Content ABG Base Excess ABG Methemoglobin Omer Test VBG pH VBG pCO2 VBG pO2 VBG HCO3 VBG O2 Saturation VBG O2 Content VBG Base Excess VBG Carboxyhemoglobin VBG Methemoglobin Hemoglobin Carboxyhemoglobin O2 Delivery Device Liter Flow Vent Setting Inspired O2 Critical Value POC Sodium Sodium POC Potassium Potassium POC Chloride Chloride Carbon Dioxide Anion Gap POC BUN BUN Creatinine POC Creatinine Estimated GFR POC Glucose 309 H 230 H 198 H Random Glucose Lactic Acid Calcium Prot Corrected Calcium Phosphorus Magnesium Total Bilirubin AST ALT Alkaline Phosphatase Ammonia Total Creatine Kinase CK-MB (CK-2) CK-MB (CK-2) % Troponin I Total Protein Albumin Beta-Hydroxybutyric Acd Urine Color Urine Clarity Urine pH Ur Specific [place] Urine Protein Urine Glucose (UA) Urine Ketones Urine Occult Blood Urine Nitrate Urine Bilirubin Urine Urobilinogen Ur Leukocyte Esterase Urine RBC Ur Squamous Epith Cells Micro UA Comment Ur Microscopic Review Urine Culture Comments Nasal Screen MRSA (PCR) Vancomycin Trough Random Vancomycin Salicylates Urine Opiates Screen Acetaminophen Ur Barbiturates Screen Ur Amphetamines Screen U Benzodiazepines Scrn Urine Cocaine Screen U Cannabinoids Screen Serum Alcohol Adenovirus (PCR) Bordetella holmesii PCR B. pertussis DNA (PCR) B. paraper/bronch (PCR) Hepatitis A IgM Ab Hep Bs Antigen Hep B Core IgM Ab Hep C IgG Ab Human Metapneumovir PCR Influenza A (RT-PCR) Influenza A (H1) PCR Influenza A (H3) PCR Influenza B (RT-PCR) Parainfluenza 1 (PCR) Parainfluenza 2 (PCR) Parainfluenza 3 (PCR) Parainfluenza 4 (PCR) RSV Type A (PCR) RSV Type B (PCR) Rhinovirus (PCR) Blood Type Blood Type Recheck Antibody Screen 01/06/18 01/06/18 01/06/18 03:26 03:30 03:30 CBC w Diff WBC Corrected WBC RBC Hgb POC Hgb (Calc) Hct POC Hct MCV MCH MCHC RDW Plt Count MPV Prelim Diff (Auto) Immature Gran % (Auto) Neut % (Auto) Lymph % (Auto) [place] % (Auto) Eos % (Auto) Baso % (Auto) Immature Gran # (Auto) Neut # (Auto) Lymph # (Auto) [place] # (Auto) Eos # (Auto) Baso # (Auto) WBC Differential Diff Scan Seg Neuts % (Manual) Band Neuts % (Manual) Lymphocytes % (Manual) Atypical Lymphs % (Man) Monocytes % (Manual) Eosinophils % (Manual) Basophils % (Manual) Metamyelocytes % (Man) Myelocytes % (Man) Promyelocytes % (Man) Blast Cells % (Manual) Plasma Cell % (Manual) Other Cells % Abs Neuts (Manual) Nucleated RBCs/100 WBC Differential Comment Hypersegmented Neuts Smudge Cells Toxic Granulation Toxic Vacuolation Dohle Bodies Platelet Estimate Platelet Morphology RBC Morphology Dimorphic RBCs Polychromasia Basophilic Stippling Spherocytes Pappenheimer Bodies Sickle Cells Target Cells Tear Drop Cells Ovalocytes Stomatocytes Helmet Cells [place] Bodies Efrem Cells Acanthocytes (Spur) Rouleaux Keratocytes Hematology Comments PT 10.7 INR 1.1 APTT 23.9 L D Fibrinogen Puncture Site Patient Temperature O2 Saturation ABG pH ABG pCO2 ABG pO2 ABG HCO3 ABG O2 Content ABG Base Excess ABG Methemoglobin Omer Test VBG pH VBG pCO2 VBG pO2 VBG HCO3 VBG O2 Saturation VBG O2 Content VBG Base Excess VBG Carboxyhemoglobin VBG Methemoglobin Hemoglobin Carboxyhemoglobin O2 Delivery Device Liter Flow Vent Setting Inspired O2 Critical Value POC Sodium Sodium 155 H POC Potassium Potassium 3.3 L POC Chloride Chloride 126 H Carbon Dioxide 15.1 L Anion Gap 14 POC BUN BUN 21 H Creatinine 1.12 H POC Creatinine Estimated GFR 51 L POC Glucose 153 H Random Glucose 162 H Lactic Acid Calcium 6.7 L* Prot Corrected Calcium 7.9 L Phosphorus 0.5 L Magnesium 1.7 Total Bilirubin 0.2 AST 205 H ALT 150 H Alkaline Phosphatase 58 Ammonia Total Creatine Kinase CK-MB (CK-2) CK-MB (CK-2) % Troponin I 24.00 H* D Total Protein 4.7 L Albumin 2.2 L Beta-Hydroxybutyric Acd Urine Color Urine Clarity Urine pH Ur Specific [place] Urine Protein Urine Glucose (UA) Urine Ketones Urine Occult Blood Urine Nitrate Urine Bilirubin Urine Urobilinogen Ur Leukocyte Esterase Urine RBC Ur Squamous Epith Cells Micro UA Comment Ur Microscopic Review Urine Culture Comments Nasal Screen MRSA (PCR) Vancomycin Trough Random Vancomycin 7.4 Salicylates Urine Opiates Screen Acetaminophen Ur Barbiturates Screen Ur Amphetamines Screen U Benzodiazepines Scrn Urine Cocaine Screen U Cannabinoids Screen Serum Alcohol Adenovirus (PCR) Bordetella holmesii PCR B. pertussis DNA (PCR) B. paraper/bronch (PCR) Hepatitis A IgM Ab Hep Bs Antigen Hep B Core IgM Ab Hep C IgG Ab Human Metapneumovir PCR Influenza A (RT-PCR) Influenza A (H1) PCR Influenza A (H3) PCR Influenza B (RT-PCR) Parainfluenza 1 (PCR) Parainfluenza 2 (PCR) Parainfluenza 3 (PCR) Parainfluenza 4 (PCR) RSV Type A (PCR) RSV Type B (PCR) Rhinovirus (PCR) Blood Type Blood Type Recheck Antibody Screen 01/06/18 01/06/18 01/06/18 03:30 03:30 03:56 CBC w Diff WBC 14.9 H Corrected WBC RBC 3.73 L Hgb 10.7 L POC Hgb (Calc) Hct 33.0 L POC Hct MCV 88.3 MCH 28.8 MCHC 32.6 RDW 13.7 Plt Count 94 L MPV 12.7 H Prelim Diff (Auto) Immature Gran % (Auto) Neut % (Auto) Lymph % (Auto) [place] % (Auto) Eos % (Auto) Baso % (Auto) Immature Gran # (Auto) Neut # (Auto) Lymph # (Auto) [place] # (Auto) Eos # (Auto) Baso # (Auto) WBC Differential Diff Scan Seg Neuts % (Manual) Band Neuts % (Manual) Lymphocytes % (Manual) Atypical Lymphs % (Man) Monocytes % (Manual) Eosinophils % (Manual) Basophils % (Manual) Metamyelocytes % (Man) Myelocytes % (Man) Promyelocytes % (Man) Blast Cells % (Manual) Plasma Cell % (Manual) Other Cells % Abs Neuts (Manual) Nucleated RBCs/100 WBC Differential Comment Hypersegmented Neuts Smudge Cells Toxic Granulation Toxic Vacuolation Dohle Bodies Platelet Estimate Platelet Morphology RBC Morphology Dimorphic RBCs Polychromasia Basophilic Stippling Spherocytes Pappenheimer Bodies Sickle Cells Target Cells Tear Drop Cells Ovalocytes Stomatocytes Helmet Cells [place] Bodies Efrem Cells Acanthocytes (Spur) Rouleaux Keratocytes Hematology Comments PT INR APTT Fibrinogen Puncture Site Patient Temperature O2 Saturation ABG pH ABG pCO2 ABG pO2 ABG HCO3 ABG O2 Content ABG Base Excess ABG Methemoglobin Omer Test VBG pH VBG pCO2 VBG pO2 VBG HCO3 VBG O2 Saturation VBG O2 Content VBG Base Excess VBG Carboxyhemoglobin VBG Methemoglobin Hemoglobin Carboxyhemoglobin O2 Delivery Device Liter Flow Vent Setting Inspired O2 Critical Value POC Sodium Sodium POC Potassium Potassium POC Chloride Chloride Carbon Dioxide Anion Gap POC BUN BUN Creatinine POC Creatinine Estimated GFR POC Glucose 208 H Random Glucose Lactic Acid Calcium Prot Corrected Calcium Phosphorus Magnesium Total Bilirubin AST ALT Alkaline Phosphatase Ammonia Total Creatine Kinase CK-MB (CK-2) CK-MB (CK-2) % Troponin I Total Protein Albumin Beta-Hydroxybutyric Acd 0.08 Urine Color Urine Clarity Urine pH Ur Specific [place] Urine Protein Urine Glucose (UA) Urine Ketones Urine Occult Blood Urine Nitrate Urine Bilirubin Urine Urobilinogen Ur Leukocyte Esterase Urine RBC Ur Squamous Epith Cells Micro UA Comment Ur Microscopic Review Urine Culture Comments Nasal Screen MRSA (PCR) Vancomycin Trough Random Vancomycin Salicylates Urine Opiates Screen Acetaminophen Ur Barbiturates Screen Ur Amphetamines Screen U Benzodiazepines Scrn Urine Cocaine Screen U Cannabinoids Screen Serum Alcohol Adenovirus (PCR) Bordetella holmesii PCR B. pertussis DNA (PCR) B. paraper/bronch (PCR) Hepatitis A IgM Ab Hep Bs Antigen Hep B Core IgM Ab Hep C IgG Ab Human Metapneumovir PCR Influenza A (RT-PCR) Influenza A (H1) PCR Influenza A (H3) PCR Influenza B (RT-PCR) Parainfluenza 1 (PCR) Parainfluenza 2 (PCR) Parainfluenza 3 (PCR) Parainfluenza 4 (PCR) RSV Type A (PCR) RSV Type B (PCR) Rhinovirus (PCR) Blood Type Blood Type Recheck Antibody Screen 01/06/18 01/06/18 01/06/18 05:10 06:07 07:18 CBC w Diff WBC Corrected WBC RBC Hgb POC Hgb (Calc) Hct POC Hct MCV MCH MCHC RDW Plt Count MPV Prelim Diff (Auto) Immature Gran % (Auto) Neut % (Auto) Lymph % (Auto) [place] % (Auto) Eos % (Auto) Baso % (Auto) Immature Gran # (Auto) Neut # (Auto) Lymph # (Auto) [place] # (Auto) Eos # (Auto) Baso # (Auto) WBC Differential Diff Scan Seg Neuts % (Manual) Band Neuts % (Manual) Lymphocytes % (Manual) Atypical Lymphs % (Man) Monocytes % (Manual) Eosinophils % (Manual) Basophils % (Manual) Metamyelocytes % (Man) Myelocytes % (Man) Promyelocytes % (Man) Blast Cells % (Manual) Plasma Cell % (Manual) Other Cells % Abs Neuts (Manual) Nucleated RBCs/100 WBC Differential Comment Hypersegmented Neuts Smudge Cells Toxic Granulation Toxic Vacuolation Dohle Bodies Platelet Estimate Platelet Morphology RBC Morphology Dimorphic RBCs Polychromasia Basophilic Stippling Spherocytes Pappenheimer Bodies Sickle Cells Target Cells Tear Drop Cells Ovalocytes Stomatocytes Helmet Cells [place] Bodies [place] Cells Acanthocytes (Spur) Rouleaux Keratocytes Hematology Comments PT INR APTT Fibrinogen Puncture Site Patient Temperature O2 Saturation ABG pH ABG pCO2 ABG pO2 ABG HCO3 ABG O2 Content ABG Base Excess ABG Methemoglobin Omer Test VBG pH VBG pCO2 VBG pO2 VBG HCO3 VBG O2 Saturation VBG O2 Content VBG Base Excess VBG Carboxyhemoglobin VBG Methemoglobin Hemoglobin Carboxyhemoglobin O2 Delivery Device Liter Flow Vent Setting Inspired O2 Critical Value POC Sodium Sodium POC Potassium Potassium POC Chloride Chloride Carbon Dioxide Anion Gap POC BUN BUN Creatinine POC Creatinine Estimated GFR POC Glucose 170 H 128 H 109 Random Glucose Lactic Acid Calcium Prot Corrected Calcium Phosphorus Magnesium Total Bilirubin AST ALT Alkaline Phosphatase Ammonia Total Creatine Kinase CK-MB (CK-2) CK-MB (CK-2) % Troponin I Total Protein Albumin Beta-Hydroxybutyric Acd Urine Color Urine Clarity Urine pH Ur Specific [place] Urine Protein Urine Glucose (UA) Urine Ketones Urine Occult Blood Urine Nitrate Urine Bilirubin Urine Urobilinogen Ur Leukocyte Esterase Urine RBC Ur Squamous Epith Cells Micro UA Comment Ur Microscopic Review Urine Culture Comments Nasal Screen MRSA (PCR) Vancomycin Trough Random Vancomycin Salicylates Urine Opiates Screen Acetaminophen Ur Barbiturates Screen Ur Amphetamines Screen U Benzodiazepines Scrn Urine Cocaine Screen U Cannabinoids Screen Serum Alcohol Adenovirus (PCR) Bordetella holmesii PCR B. pertussis DNA (PCR) B. paraper/bronch (PCR) Hepatitis A IgM Ab Hep Bs Antigen Hep B Core IgM Ab Hep C IgG Ab Human Metapneumovir PCR Influenza A (RT-PCR) Influenza A (H1) PCR Influenza A (H3) PCR Influenza B (RT-PCR) Parainfluenza 1 (PCR) Parainfluenza 2 (PCR) Parainfluenza 3 (PCR) Parainfluenza 4 (PCR) RSV Type A (PCR) RSV Type B (PCR) Rhinovirus (PCR) Blood Type Blood Type Recheck Antibody Screen 01/06/18 01/06/18 01/06/18 08:13 09:10 10:03 CBC w Diff WBC Corrected WBC RBC Hgb POC Hgb (Calc) Hct POC Hct MCV MCH MCHC RDW Plt Count MPV Prelim Diff (Auto) Immature Gran % (Auto) Neut % (Auto) Lymph % (Auto) [place] % (Auto) Eos % (Auto) Baso % (Auto) Immature Gran # (Auto) Neut # (Auto) Lymph # (Auto) [place] # (Auto) Eos # (Auto) Baso # (Auto) WBC Differential Diff Scan Seg Neuts % (Manual) Band Neuts % (Manual) Lymphocytes % (Manual) Atypical Lymphs % (Man) Monocytes % (Manual) Eosinophils % (Manual) Basophils % (Manual) Metamyelocytes % (Man) Myelocytes % (Man) Promyelocytes % (Man) Blast Cells % (Manual) Plasma Cell % (Manual) Other Cells % Abs Neuts (Manual) Nucleated RBCs/100 WBC Differential Comment Hypersegmented Neuts Smudge Cells Toxic Granulation Toxic Vacuolation Dohle Bodies Platelet Estimate Platelet Morphology RBC Morphology Dimorphic RBCs Polychromasia Basophilic Stippling Spherocytes Pappenheimer Bodies Sickle Cells Target Cells Tear Drop Cells Ovalocytes Stomatocytes Helmet Cells [place] Bodies [place] Cells Acanthocytes (Spur) Rouleaux Keratocytes Hematology Comments PT INR APTT Fibrinogen Puncture Site Patient Temperature O2 Saturation ABG pH ABG pCO2 ABG pO2 ABG HCO3 ABG O2 Content ABG Base Excess ABG Methemoglobin Omer Test VBG pH VBG pCO2 VBG pO2 VBG HCO3 VBG O2 Saturation VBG O2 Content VBG Base Excess VBG Carboxyhemoglobin VBG Methemoglobin Hemoglobin Carboxyhemoglobin O2 Delivery Device Liter Flow Vent Setting Inspired O2 Critical Value POC Sodium Sodium POC Potassium Potassium POC Chloride Chloride Carbon Dioxide Anion Gap POC BUN BUN Creatinine POC Creatinine Estimated GFR POC Glucose 135 H 190 H 191 H Random Glucose Lactic Acid Calcium Prot Corrected Calcium Phosphorus Magnesium Total Bilirubin AST ALT Alkaline Phosphatase Ammonia Total Creatine Kinase CK-MB (CK-2) CK-MB (CK-2) % Troponin I Total Protein Albumin Beta-Hydroxybutyric Acd Urine Color Urine Clarity Urine pH Ur Specific [place] Urine Protein Urine Glucose (UA) Urine Ketones Urine Occult Blood Urine Nitrate Urine Bilirubin Urine Urobilinogen Ur Leukocyte Esterase Urine RBC Ur Squamous Epith Cells Micro UA Comment Ur Microscopic Review Urine Culture Comments Nasal Screen MRSA (PCR) Vancomycin Trough Random Vancomycin Salicylates Urine Opiates Screen Acetaminophen Ur Barbiturates Screen Ur Amphetamines Screen U Benzodiazepines Scrn Urine Cocaine Screen U Cannabinoids Screen Serum Alcohol Adenovirus (PCR) Bordetella holmesii PCR B. pertussis DNA (PCR) B. paraper/bronch (PCR) Hepatitis A IgM Ab Hep Bs Antigen Hep B Core IgM Ab Hep C IgG Ab Human Metapneumovir PCR Influenza A (RT-PCR) Influenza A (H1) PCR Influenza A (H3) PCR Influenza B (RT-PCR) Parainfluenza 1 (PCR) Parainfluenza 2 (PCR) Parainfluenza 3 (PCR) Parainfluenza 4 (PCR) RSV Type A (PCR) RSV Type B (PCR) Rhinovirus (PCR) Blood Type Blood Type Recheck Antibody Screen 01/06/18 01/06/18 01/06/18 11:02 12:03 12:56 CBC w Diff WBC Corrected WBC RBC Hgb POC Hgb (Calc) Hct POC Hct MCV MCH MCHC RDW Plt Count MPV Prelim Diff (Auto) Immature Gran % (Auto) Neut % (Auto) Lymph % (Auto) [place] % (Auto) Eos % (Auto) Baso % (Auto) Immature Gran # (Auto) Neut # (Auto) Lymph # (Auto) [place] # (Auto) Eos # (Auto) Baso # (Auto) WBC Differential Diff Scan Seg Neuts % (Manual) Band Neuts % (Manual) Lymphocytes % (Manual) Atypical Lymphs % (Man) Monocytes % (Manual) Eosinophils % (Manual) Basophils % (Manual) Metamyelocytes % (Man) Myelocytes % (Man) Promyelocytes % (Man) Blast Cells % (Manual) Plasma Cell % (Manual) Other Cells % Abs Neuts (Manual) Nucleated RBCs/100 WBC Differential Comment Hypersegmented Neuts Smudge Cells Toxic Granulation Toxic Vacuolation Dohle Bodies Platelet Estimate Platelet Morphology RBC Morphology Dimorphic RBCs Polychromasia Basophilic Stippling Spherocytes Pappenheimer Bodies Sickle Cells Target Cells Tear Drop Cells Ovalocytes Stomatocytes Helmet Cells [place] Bodies [place] Cells Acanthocytes (Spur) Rouleaux Keratocytes Hematology Comments PT INR APTT Fibrinogen Puncture Site Patient Temperature O2 Saturation ABG pH ABG pCO2 ABG pO2 ABG HCO3 ABG O2 Content ABG Base Excess ABG Methemoglobin Omer Test VBG pH VBG pCO2 VBG pO2 VBG HCO3 VBG O2 Saturation VBG O2 Content VBG Base Excess VBG Carboxyhemoglobin VBG Methemoglobin Hemoglobin Carboxyhemoglobin O2 Delivery Device Liter Flow Vent Setting Inspired O2 Critical Value POC Sodium Sodium POC Potassium Potassium POC Chloride Chloride Carbon Dioxide Anion Gap POC BUN BUN Creatinine POC Creatinine Estimated GFR POC Glucose 190 H 189 H 171 H Random Glucose Lactic Acid Calcium Prot Corrected Calcium Phosphorus Magnesium Total Bilirubin AST ALT Alkaline Phosphatase Ammonia Total Creatine Kinase CK-MB (CK-2) CK-MB (CK-2) % Troponin I Total Protein Albumin Beta-Hydroxybutyric Acd Urine Color Urine Clarity Urine pH Ur Specific [place] Urine Protein Urine Glucose (UA) Urine Ketones Urine Occult Blood Urine Nitrate Urine Bilirubin Urine Urobilinogen Ur Leukocyte Esterase Urine RBC Ur Squamous Epith Cells Micro UA Comment Ur Microscopic Review Urine Culture Comments Nasal Screen MRSA (PCR) Vancomycin Trough Random Vancomycin Salicylates Urine Opiates Screen Acetaminophen Ur Barbiturates Screen Ur Amphetamines Screen U Benzodiazepines Scrn Urine Cocaine Screen U Cannabinoids Screen Serum Alcohol Adenovirus (PCR) Bordetella holmesii PCR B. pertussis DNA (PCR) B. paraper/bronch (PCR) Hepatitis A IgM Ab Hep Bs Antigen Hep B Core IgM Ab Hep C IgG Ab Human Metapneumovir PCR Influenza A (RT-PCR) Influenza A (H1) PCR Influenza A (H3) PCR Influenza B (RT-PCR) Parainfluenza 1 (PCR) Parainfluenza 2 (PCR) Parainfluenza 3 (PCR) Parainfluenza 4 (PCR) RSV Type A (PCR) RSV Type B (PCR) Rhinovirus (PCR) Blood Type Blood Type Recheck Antibody Screen 01/06/18 01/06/18 01/06/18 14:05 15:01 16:23 CBC w Diff WBC Corrected WBC RBC Hgb POC Hgb (Calc) Hct POC Hct MCV MCH MCHC RDW Plt Count MPV Prelim Diff (Auto) Immature Gran % (Auto) Neut % (Auto) Lymph % (Auto) [place] % (Auto) Eos % (Auto) Baso % (Auto) Immature Gran # (Auto) Neut # (Auto) Lymph # (Auto) [place] # (Auto) Eos # (Auto) Baso # (Auto) WBC Differential Diff Scan Seg Neuts % (Manual) Band Neuts % (Manual) Lymphocytes % (Manual) Atypical Lymphs % (Man) Monocytes % (Manual) Eosinophils % (Manual) Basophils % (Manual) Metamyelocytes % (Man) Myelocytes % (Man) Promyelocytes % (Man) Blast Cells % (Manual) Plasma Cell % (Manual) Other Cells % Abs Neuts (Manual) Nucleated RBCs/100 WBC Differential Comment Hypersegmented Neuts Smudge Cells Toxic Granulation Toxic Vacuolation Dohle Bodies Platelet Estimate Platelet Morphology RBC Morphology Dimorphic RBCs Polychromasia Basophilic Stippling Spherocytes Pappenheimer Bodies Sickle Cells Target Cells Tear Drop Cells Ovalocytes Stomatocytes Helmet Cells [place] Bodies [place]frem Cells Acanthocytes (Spur) Rouleaux Keratocytes Hematology Comments PT INR APTT Fibrinogen Puncture Site Patient Temperature O2 Saturation ABG pH ABG pCO2 ABG pO2 ABG HCO3 ABG O2 Content ABG Base Excess ABG Methemoglobin Omer Test VBG pH VBG pCO2 VBG pO2 VBG HCO3 VBG O2 Saturation VBG O2 Content VBG Base Excess VBG Carboxyhemoglobin VBG Methemoglobin Hemoglobin Carboxyhemoglobin O2 Delivery Device Liter Flow Vent Setting Inspired O2 Critical Value POC Sodium Sodium POC Potassium Potassium POC Chloride Chloride Carbon Dioxide Anion Gap POC BUN BUN Creatinine POC Creatinine Estimated GFR POC Glucose 145 H 148 H 182 H Random Glucose Lactic Acid Calcium Prot Corrected Calcium Phosphorus Magnesium Total Bilirubin AST ALT Alkaline Phosphatase Ammonia Total Creatine Kinase CK-MB (CK-2) CK-MB (CK-2) % Troponin I Total Protein Albumin Beta-Hydroxybutyric Acd Urine Color Urine Clarity Urine pH Ur Specific [place] Urine Protein Urine Glucose (UA) Urine Ketones Urine Occult Blood Urine Nitrate Urine Bilirubin Urine Urobilinogen Ur Leukocyte Esterase Urine RBC Ur Squamous Epith Cells Micro UA Comment Ur Microscopic Review Urine Culture Comments Nasal Screen MRSA (PCR) Vancomycin Trough Random Vancomycin Salicylates Urine Opiates Screen Acetaminophen Ur Barbiturates Screen Ur Amphetamines Screen U Benzodiazepines Scrn Urine Cocaine Screen U Cannabinoids Screen Serum Alcohol Adenovirus (PCR) Bordetella holmesii PCR B. pertussis DNA (PCR) B. paraper/bronch (PCR) Hepatitis A IgM Ab Hep Bs Antigen Hep B Core IgM Ab Hep C IgG Ab Human Metapneumovir PCR Influenza A (RT-PCR) Influenza A (H1) PCR Influenza A (H3) PCR Influenza B (RT-PCR) Parainfluenza 1 (PCR) Parainfluenza 2 (PCR) Parainfluenza 3 (PCR) Parainfluenza 4 (PCR) RSV Type A (PCR) RSV Type B (PCR) Rhinovirus (PCR) Blood Type Blood Type Recheck Antibody Screen 01/06/18 01/06/18 01/06/18 17:06 18:00 18:52 CBC w Diff WBC Corrected WBC RBC Hgb POC Hgb (Calc) Hct POC Hct MCV MCH MCHC RDW Plt Count MPV Prelim Diff (Auto) Immature Gran % (Auto) Neut % (Auto) Lymph % (Auto) [place] % (Auto) Eos % (Auto) Baso % (Auto) Immature Gran # (Auto) Neut # (Auto) Lymph # (Auto) [place] # (Auto) Eos # (Auto) Baso # (Auto) WBC Differential Diff Scan Seg Neuts % (Manual) Band Neuts % (Manual) Lymphocytes % (Manual) Atypical Lymphs % (Man) Monocytes % (Manual) Eosinophils % (Manual) Basophils % (Manual) Metamyelocytes % (Man) Myelocytes % (Man) Promyelocytes % (Man) Blast Cells % (Manual) Plasma Cell % (Manual) Other Cells % Abs Neuts (Manual) Nucleated RBCs/100 WBC Differential Comment Hypersegmented Neuts Smudge Cells Toxic Granulation Toxic Vacuolation Dohle Bodies Platelet Estimate Platelet Morphology RBC Morphology Dimorphic RBCs Polychromasia Basophilic Stippling Spherocytes Pappenheimer Bodies Sickle Cells Target Cells Tear Drop Cells Ovalocytes Stomatocytes Helmet Cells [place] Bodies Efrem Cells Acanthocytes (Spur) Rouleaux Keratocytes Hematology Comments PT INR APTT Fibrinogen Puncture Site Patient Temperature O2 Saturation ABG pH ABG pCO2 ABG pO2 ABG HCO3 ABG O2 Content ABG Base Excess ABG Methemoglobin Omer Test VBG pH VBG pCO2 VBG pO2 VBG HCO3 VBG O2 Saturation VBG O2 Content VBG Base Excess VBG Carboxyhemoglobin VBG Methemoglobin Hemoglobin Carboxyhemoglobin O2 Delivery Device Liter Flow Vent Setting Inspired O2 Critical Value POC Sodium Sodium POC Potassium Potassium POC Chloride Chloride Carbon Dioxide Anion Gap POC BUN BUN Creatinine POC Creatinine Estimated GFR POC Glucose 222 H 212 H 264 H Random Glucose Lactic Acid Calcium Prot Corrected Calcium Phosphorus Magnesium Total Bilirubin AST ALT Alkaline Phosphatase Ammonia Total Creatine Kinase CK-MB (CK-2) CK-MB (CK-2) % Troponin I Total Protein Albumin Beta-Hydroxybutyric Acd Urine Color Urine Clarity Urine pH Ur Specific [place] Urine Protein Urine Glucose (UA) Urine Ketones Urine Occult Blood Urine Nitrate Urine Bilirubin Urine Urobilinogen Ur Leukocyte Esterase Urine RBC Ur Squamous Epith Cells Micro UA Comment Ur Microscopic Review Urine Culture Comments Nasal Screen MRSA (PCR) Vancomycin Trough Random Vancomycin Salicylates Urine Opiates Screen Acetaminophen Ur Barbiturates Screen Ur Amphetamines Screen U Benzodiazepines Scrn Urine Cocaine Screen U Cannabinoids Screen Serum Alcohol Adenovirus (PCR) Bordetella holmesii PCR B. pertussis DNA (PCR) B. paraper/bronch (PCR) Hepatitis A IgM Ab Hep Bs Antigen Hep B Core IgM Ab Hep C IgG Ab Human Metapneumovir PCR Influenza A (RT-PCR) Influenza A (H1) PCR Influenza A (H3) PCR Influenza B (RT-PCR) Parainfluenza 1 (PCR) Parainfluenza 2 (PCR) Parainfluenza 3 (PCR) Parainfluenza 4 (PCR) RSV Type A (PCR) RSV Type B (PCR) Rhinovirus (PCR) Blood Type Blood Type Recheck Antibody Screen 01/06/18 01/06/18 01/06/18 20:07 21:10 22:12 CBC w Diff WBC Corrected WBC RBC Hgb POC Hgb (Calc) Hct POC Hct MCV MCH MCHC RDW Plt Count MPV Prelim Diff (Auto) Immature Gran % (Auto) Neut % (Auto) Lymph % (Auto) [place] % (Auto) Eos % (Auto) Baso % (Auto) Immature Gran # (Auto) Neut # (Auto) Lymph # (Auto) [place] # (Auto) Eos # (Auto) Baso # (Auto) WBC Differential Diff Scan Seg Neuts % (Manual) Band Neuts % (Manual) Lymphocytes % (Manual) Atypical Lymphs % (Man) Monocytes % (Manual) Eosinophils % (Manual) Basophils % (Manual) Metamyelocytes % (Man) Myelocytes % (Man) Promyelocytes % (Man) Blast Cells % (Manual) Plasma Cell % (Manual) Other Cells % Abs Neuts (Manual) Nucleated RBCs/100 WBC Differential Comment Hypersegmented Neuts Smudge Cells Toxic Granulation Toxic Vacuolation Dohle Bodies Platelet Estimate Platelet Morphology RBC Morphology Dimorphic RBCs Polychromasia Basophilic Stippling Spherocytes [place] Bodies Sickle Cells Target Cells Tear Drop Cells Ovalocytes Stomatocytes Helmet Cells [place] Bodies [place] Cells Acanthocytes (Spur) Rouleaux Keratocytes Hematology Comments PT INR APTT Fibrinogen Puncture Site Patient Temperature O2 Saturation ABG pH ABG pCO2 ABG pO2 ABG HCO3 ABG O2 Content ABG Base Excess ABG Methemoglobin Omer Test VBG pH VBG pCO2 VBG pO2 VBG HCO3 VBG O2 Saturation VBG O2 Content VBG Base Excess VBG Carboxyhemoglobin VBG Methemoglobin Hemoglobin Carboxyhemoglobin O2 Delivery Device Liter Flow Vent Setting Inspired O2 Critical Value POC Sodium Sodium POC Potassium Potassium POC Chloride Chloride Carbon Dioxide Anion Gap POC BUN BUN Creatinine POC Creatinine Estimated GFR POC Glucose 257 H 211 H 215 H Random Glucose Lactic Acid Calcium Prot Corrected Calcium Phosphorus Magnesium Total Bilirubin AST ALT Alkaline Phosphatase Ammonia Total Creatine Kinase CK-MB (CK-2) CK-MB (CK-2) % Troponin I Total Protein Albumin Beta-Hydroxybutyric Acd Urine Color Urine Clarity Urine pH Ur Specific [place] Urine Protein Urine Glucose (UA) Urine Ketones Urine Occult Blood Urine Nitrate Urine Bilirubin Urine Urobilinogen Ur Leukocyte Esterase Urine RBC Ur Squamous Epith Cells Micro UA Comment Ur Microscopic Review Urine Culture Comments Nasal Screen MRSA (PCR) Vancomycin Trough Random Vancomycin Salicylates Urine Opiates Screen Acetaminophen Ur Barbiturates Screen Ur Amphetamines Screen U Benzodiazepines Scrn Urine Cocaine Screen U Cannabinoids Screen Serum Alcohol Adenovirus (PCR) Bordetella holmesii PCR B. pertussis DNA (PCR) B. paraper/bronch (PCR) Hepatitis A IgM Ab Hep Bs Antigen Hep B Core IgM Ab Hep C IgG Ab Human Metapneumovir PCR Influenza A (RT-PCR) Influenza A (H1) PCR Influenza A (H3) PCR Influenza B (RT-PCR) Parainfluenza 1 (PCR) Parainfluenza 2 (PCR) Parainfluenza 3 (PCR) Parainfluenza 4 (PCR) RSV Type A (PCR) RSV Type B (PCR) Rhinovirus (PCR) Blood Type Blood Type Recheck Antibody Screen 01/06/18 01/06/18 01/07/18 22:24 22:54 00:08 CBC w Diff WBC Corrected WBC RBC Hgb POC Hgb (Calc) Hct POC Hct MCV MCH MCHC RDW Plt Count MPV Prelim Diff (Auto) Immature Gran % (Auto) Neut % (Auto) Lymph % (Auto) [place] % (Auto) Eos % (Auto) Baso % (Auto) Immature Gran # (Auto) Neut # (Auto) Lymph # (Auto) [place] # (Auto) Eos # (Auto) Baso # (Auto) WBC Differential Diff Scan Seg Neuts % (Manual) Band Neuts % (Manual) Lymphocytes % (Manual) Atypical Lymphs % (Man) Monocytes % (Manual) Eosinophils % (Manual) Basophils % (Manual) Metamyelocytes % (Man) Myelocytes % (Man) Promyelocytes % (Man) Blast Cells % (Manual) Plasma Cell % (Manual) Other Cells % Abs Neuts (Manual) Nucleated RBCs/100 WBC Differential Comment Hypersegmented Neuts Smudge Cells Toxic Granulation Toxic Vacuolation [place]le Bodies Platelet Estimate Platelet Morphology RBC Morphology Dimorphic RBCs Polychromasia Basophilic Stippling Spherocytes [place] Bodies Sickle Cells Target Cells Tear Drop Cells Ovalocytes Stomatocytes Helmet Cells [place] Bodies [place] Cells Acanthocytes (Spur) Rouleaux Keratocytes Hematology Comments PT INR APTT Fibrinogen Puncture Site Patient Temperature O2 Saturation ABG pH ABG pCO2 ABG pO2 ABG HCO3 ABG O2 Content ABG Base Excess ABG Methemoglobin Omer Test VBG pH VBG pCO2 VBG pO2 VBG HCO3 VBG O2 Saturation VBG O2 Content VBG Base Excess VBG Carboxyhemoglobin VBG Methemoglobin Hemoglobin Carboxyhemoglobin O2 Delivery Device Liter Flow Vent Setting Inspired O2 Critical Value POC Sodium Sodium POC Potassium Potassium POC Chloride Chloride Carbon Dioxide Anion Gap POC BUN BUN Creatinine POC Creatinine Estimated GFR POC Glucose 237 H 162 H Random Glucose Lactic Acid Calcium Prot Corrected Calcium Phosphorus Magnesium Total Bilirubin AST ALT Alkaline Phosphatase Ammonia Total Creatine Kinase CK-MB (CK-2) CK-MB (CK-2) % Troponin I 5.62 H* D Total Protein Albumin Beta-Hydroxybutyric Acd Urine Color Urine Clarity Urine pH Ur Specific [place] Urine Protein Urine Glucose (UA) Urine Ketones Urine Occult Blood Urine Nitrate Urine Bilirubin Urine Urobilinogen Ur Leukocyte Esterase Urine RBC Ur Squamous Epith Cells Micro UA Comment Ur Microscopic Review Urine Culture Comments Nasal Screen MRSA (PCR) Vancomycin Trough Random Vancomycin Salicylates Urine Opiates Screen Acetaminophen Ur Barbiturates Screen Ur Amphetamines Screen U Benzodiazepines Scrn Urine Cocaine Screen U Cannabinoids Screen Serum Alcohol Adenovirus (PCR) Bordetella holmesii PCR B. pertussis DNA (PCR) B. paraper/bronch (PCR) Hepatitis A IgM Ab Hep Bs Antigen Hep B Core IgM Ab Hep C IgG Ab Human Metapneumovir PCR Influenza A (RT-PCR) Influenza A (H1) PCR Influenza A (H3) PCR Influenza B (RT-PCR) Parainfluenza 1 (PCR) Parainfluenza 2 (PCR) Parainfluenza 3 (PCR) Parainfluenza 4 (PCR) RSV Type A (PCR) RSV Type B (PCR) Rhinovirus (PCR) Blood Type Blood Type Recheck Antibody Screen 01/07/18 01/07/18 01/07/18 01:10 02:05 03:09 CBC w Diff WBC Corrected WBC RBC Hgb POC Hgb (Calc) Hct POC Hct MCV MCH MCHC RDW Plt Count MPV Prelim Diff (Auto) Immature Gran % (Auto) Neut % (Auto) Lymph % (Auto) [place] % (Auto) Eos % (Auto) Baso % (Auto) Immature Gran # (Auto) Neut # (Auto) Lymph # (Auto) [place] # (Auto) Eos # (Auto) Baso # (Auto) WBC Differential Diff Scan Seg Neuts % (Manual) Band Neuts % (Manual) Lymphocytes % (Manual) Atypical Lymphs % (Man) Monocytes % (Manual) Eosinophils % (Manual) Basophils % (Manual) Metamyelocytes % (Man) Myelocytes % (Man) Promyelocytes % (Man) Blast Cells % (Manual) Plasma Cell % (Manual) Other Cells % Abs Neuts (Manual) Nucleated RBCs/100 WBC Differential Comment Hypersegmented Neuts Smudge Cells Toxic Granulation Toxic Vacuolation Dohle Bodies Platelet Estimate Platelet Morphology RBC Morphology Dimorphic RBCs Polychromasia Basophilic Stippling Spherocytes Pappenheimer Bodies Sickle Cells Target Cells Tear Drop Cells Ovalocytes Stomatocytes Helmet Cells [place] Bodies Efrem Cells Acanthocytes (Spur) Rouleaux Keratocytes Hematology Comments PT INR APTT Fibrinogen Puncture Site Patient Temperature O2 Saturation ABG pH ABG pCO2 ABG pO2 ABG HCO3 ABG O2 Content ABG Base Excess ABG Methemoglobin Omer Test VBG pH VBG pCO2 VBG pO2 VBG HCO3 VBG O2 Saturation VBG O2 Content VBG Base Excess VBG Carboxyhemoglobin VBG Methemoglobin Hemoglobin Carboxyhemoglobin O2 Delivery Device Liter Flow Vent Setting Inspired O2 Critical Value POC Sodium Sodium POC Potassium Potassium POC Chloride Chloride Carbon Dioxide Anion Gap POC BUN BUN Creatinine POC Creatinine Estimated GFR POC Glucose 112 H 119 H 155 H Random Glucose Lactic Acid Calcium Prot Corrected Calcium Phosphorus Magnesium Total Bilirubin AST ALT Alkaline Phosphatase Ammonia Total Creatine Kinase CK-MB (CK-2) CK-MB (CK-2) % Troponin I Total Protein Albumin Beta-Hydroxybutyric Acd Urine Color Urine Clarity Urine pH Ur Specific [place] Urine Protein Urine Glucose (UA) Urine Ketones Urine Occult Blood Urine Nitrate Urine Bilirubin Urine Urobilinogen Ur Leukocyte Esterase Urine RBC Ur Squamous Epith Cells Micro UA Comment Ur Microscopic Review Urine Culture Comments Nasal Screen MRSA (PCR) Vancomycin Trough Random Vancomycin Salicylates Urine Opiates Screen Acetaminophen Ur Barbiturates Screen Ur Amphetamines Screen U Benzodiazepines Scrn Urine Cocaine Screen U Cannabinoids Screen Serum Alcohol Adenovirus (PCR) Bordetella holmesii PCR B. pertussis DNA (PCR) B. paraper/bronch (PCR) Hepatitis A IgM Ab Hep Bs Antigen Hep B Core IgM Ab Hep C IgG Ab Human Metapneumovir PCR Influenza A (RT-PCR) Influenza A (H1) PCR Influenza A (H3) PCR Influenza B (RT-PCR) Parainfluenza 1 (PCR) Parainfluenza 2 (PCR) Parainfluenza 3 (PCR) Parainfluenza 4 (PCR) RSV Type A (PCR) RSV Type B (PCR) Rhinovirus (PCR) Blood Type Blood Type Recheck Antibody Screen 01/07/18 01/07/18 01/07/18 03:53 04:30 04:30 CBC w Diff WBC Corrected WBC RBC Hgb POC Hgb (Calc) Hct POC Hct MCV MCH MCHC RDW Plt Count MPV Prelim Diff (Auto) Immature Gran % (Auto) Neut % (Auto) Lymph % (Auto) [place] % (Auto) Eos % (Auto) Baso % (Auto) Immature Gran # (Auto) Neut # (Auto) Lymph # (Auto) [place] # (Auto) Eos # (Auto) Baso # (Auto) WBC Differential Diff Scan Seg Neuts % (Manual) Band Neuts % (Manual) Lymphocytes % (Manual) Atypical Lymphs % (Man) Monocytes % (Manual) Eosinophils % (Manual) Basophils % (Manual) Metamyelocytes % (Man) Myelocytes % (Man) Promyelocytes % (Man) Blast Cells % (Manual) Plasma Cell % (Manual) Other Cells % Abs Neuts (Manual) Nucleated RBCs/100 WBC Differential Comment Hypersegmented Neuts Smudge Cells Toxic Granulation Toxic Vacuolation Dohle Bodies Platelet Estimate Platelet Morphology RBC Morphology Dimorphic RBCs Polychromasia Basophilic Stippling Spherocytes Pappenheimer Bodies Sickle Cells Target Cells Tear Drop Cells Ovalocytes Stomatocytes Helmet Cells [place] Bodies [place] Cells Acanthocytes (Spur) Rouleaux Keratocytes Hematology Comments PT 10.8 INR 1.1 APTT 26.3 Fibrinogen Puncture Site Patient Temperature O2 Saturation ABG pH ABG pCO2 ABG pO2 ABG HCO3 ABG O2 Content ABG Base Excess ABG Methemoglobin Omer Test VBG pH VBG pCO2 VBG pO2 VBG HCO3 VBG O2 Saturation VBG O2 Content VBG Base Excess VBG Carboxyhemoglobin VBG Methemoglobin Hemoglobin Carboxyhemoglobin O2 Delivery Device Liter Flow Vent Setting Inspired O2 Critical Value POC Sodium Sodium 153 H POC Potassium Potassium 5.1 D POC Chloride Chloride 121 H Carbon Dioxide 20.3 L Anion Gap 12 POC BUN BUN 15 Creatinine 0.84 POC Creatinine Estimated GFR 72 L POC Glucose 215 H Random Glucose 235 H Lactic Acid Calcium 7.2 L* Prot Corrected Calcium 8.5 Phosphorus 1.3 L Magnesium 1.6 Total Bilirubin 0.7 AST 335 H ALT 360 H Alkaline Phosphatase 91 Ammonia Total Creatine Kinase CK-MB (CK-2) CK-MB (CK-2) % Troponin I Total Protein 4.7 L Albumin 2.0 L Beta-Hydroxybutyric Acd Urine Color Urine Clarity Urine pH Ur Specific [place] Urine Protein Urine Glucose (UA) Urine Ketones Urine Occult Blood Urine Nitrate Urine Bilirubin Urine Urobilinogen Ur Leukocyte Esterase Urine RBC Ur Squamous Epith Cells Micro UA Comment Ur Microscopic Review Urine Culture Comments Nasal Screen MRSA (PCR) Vancomycin Trough Random Vancomycin Salicylates Urine Opiates Screen Acetaminophen Ur Barbiturates Screen Ur Amphetamines Screen U Benzodiazepines Scrn Urine Cocaine Screen U Cannabinoids Screen Serum Alcohol Adenovirus (PCR) Bordetella holmesii PCR B. pertussis DNA (PCR) B. paraper/bronch (PCR) Hepatitis A IgM Ab Hep Bs Antigen Hep B Core IgM Ab Hep C IgG Ab Human Metapneumovir PCR Influenza A (RT-PCR) Influenza A (H1) PCR Influenza A (H3) PCR Influenza B (RT-PCR) Parainfluenza 1 (PCR) Parainfluenza 2 (PCR) Parainfluenza 3 (PCR) Parainfluenza 4 (PCR) RSV Type A (PCR) RSV Type B (PCR) Rhinovirus (PCR) Blood Type Blood Type Recheck Antibody Screen 01/07/18 01/07/18 01/07/18 04:30 04:53 06:54 CBC w Diff WBC 13.8 H Corrected WBC RBC 3.71 L Hgb 10.5 L POC Hgb (Calc) Hct 32.9 L POC Hct MCV 88.9 MCH 28.4 MCHC 32.0 RDW 14.7 Plt Count 82 L MPV 12.1 H Prelim Diff (Auto) Immature Gran % (Auto) Neut % (Auto) Lymph % (Auto) [place] % (Auto) Eos % (Auto) Baso % (Auto) Immature Gran # (Auto) Neut # (Auto) Lymph # (Auto) [place] # (Auto) Eos # (Auto) Baso # (Auto) WBC Differential Diff Scan Seg Neuts % (Manual) Band Neuts % (Manual) Lymphocytes % (Manual) Atypical Lymphs % (Man) Monocytes % (Manual) Eosinophils % (Manual) Basophils % (Manual) Metamyelocytes % (Man) Myelocytes % (Man) Promyelocytes % (Man) Blast Cells % (Manual) Plasma Cell % (Manual) Other Cells % Abs Neuts (Manual) Nucleated RBCs/100 WBC Differential Comment Hypersegmented Neuts Smudge Cells Toxic Granulation Toxic Vacuolation Dohle Bodies Platelet Estimate Platelet Morphology RBC Morphology Dimorphic RBCs Polychromasia Basophilic Stippling Spherocytes Pappenheimer Bodies Sickle Cells Target Cells Tear Drop Cells Ovalocytes Stomatocytes Helmet Cells [place] Bodies Efrem Cells Acanthocytes (Spur) Rouleaux Keratocytes Hematology Comments PT INR APTT Fibrinogen Puncture Site Patient Temperature O2 Saturation ABG pH ABG pCO2 ABG pO2 ABG HCO3 ABG O2 Content ABG Base Excess ABG Methemoglobin Omer Test VBG pH VBG pCO2 VBG pO2 VBG HCO3 VBG O2 Saturation VBG O2 Content VBG Base Excess VBG Carboxyhemoglobin VBG Methemoglobin Hemoglobin Carboxyhemoglobin O2 Delivery Device Liter Flow Vent Setting Inspired O2 Critical Value POC Sodium Sodium POC Potassium Potassium POC Chloride Chloride Carbon Dioxide Anion Gap POC BUN BUN Creatinine POC Creatinine Estimated GFR POC Glucose 224 H 290 H Random Glucose Lactic Acid Calcium Prot Corrected Calcium Phosphorus Magnesium Total Bilirubin AST ALT Alkaline Phosphatase Ammonia Total Creatine Kinase CK-MB (CK-2) CK-MB (CK-2) % Troponin I Total Protein Albumin Beta-Hydroxybutyric Acd Urine Color Urine Clarity Urine pH Ur Specific [place] Urine Protein Urine Glucose (UA) Urine Ketones Urine Occult Blood Urine Nitrate Urine Bilirubin Urine Urobilinogen Ur Leukocyte Esterase Urine RBC Ur Squamous Epith Cells Micro UA Comment Ur Microscopic Review Urine Culture Comments Nasal Screen MRSA (PCR) Vancomycin Trough Random Vancomycin Salicylates Urine Opiates Screen Acetaminophen Ur Barbiturates Screen Ur Amphetamines Screen U Benzodiazepines Scrn Urine Cocaine Screen U Cannabinoids Screen Serum Alcohol Adenovirus (PCR) Bordetella holmesii PCR B. pertussis DNA (PCR) B. paraper/bronch (PCR) Hepatitis A IgM Ab Hep Bs Antigen Hep B Core IgM Ab Hep C IgG Ab Human Metapneumovir PCR Influenza A (RT-PCR) Influenza A (H1) PCR Influenza A (H3) PCR Influenza B (RT-PCR) Parainfluenza 1 (PCR) Parainfluenza 2 (PCR) Parainfluenza 3 (PCR) Parainfluenza 4 (PCR) RSV Type A (PCR) RSV Type B (PCR) Rhinovirus (PCR) Blood Type Blood Type Recheck Antibody Screen 01/07/18 01/07/18 01/07/18 07:11 08:16 09:02 CBC w Diff WBC Corrected WBC RBC Hgb POC Hgb (Calc) Hct POC Hct MCV MCH MCHC RDW Plt Count MPV Prelim Diff (Auto) Immature Gran % (Auto) Neut % (Auto) Lymph % (Auto) [place] % (Auto) Eos % (Auto) Baso % (Auto) Immature Gran # (Auto) Neut # (Auto) Lymph # (Auto) [place] # (Auto) Eos # (Auto) Baso # (Auto) WBC Differential Diff Scan Seg Neuts % (Manual) Band Neuts % (Manual) Lymphocytes % (Manual) Atypical Lymphs % (Man) Monocytes % (Manual) Eosinophils % (Manual) Basophils % (Manual) Metamyelocytes % (Man) Myelocytes % (Man) Promyelocytes % (Man) Blast Cells % (Manual) Plasma Cell % (Manual) Other Cells % Abs Neuts (Manual) Nucleated RBCs/100 WBC Differential Comment Hypersegmented Neuts Smudge Cells Toxic Granulation Toxic Vacuolation Dohle Bodies Platelet Estimate Platelet Morphology RBC Morphology Dimorphic RBCs Polychromasia Basophilic Stippling Spherocytes Pappenheimer Bodies Sickle Cells Target Cells Tear Drop Cells Ovalocytes Stomatocytes Helmet Cells [place] Bodies [place] Cells Acanthocytes (Spur) Rouleaux Keratocytes Hematology Comments PT INR APTT Fibrinogen Puncture Site Patient Temperature O2 Saturation ABG pH ABG pCO2 ABG pO2 ABG HCO3 ABG O2 Content ABG Base Excess ABG Methemoglobin Omer Test VBG pH VBG pCO2 VBG pO2 VBG HCO3 VBG O2 Saturation VBG O2 Content VBG Base Excess VBG Carboxyhemoglobin VBG Methemoglobin Hemoglobin Carboxyhemoglobin O2 Delivery Device Liter Flow Vent Setting Inspired O2 Critical Value POC Sodium Sodium POC Potassium Potassium POC Chloride Chloride Carbon Dioxide Anion Gap POC BUN BUN Creatinine POC Creatinine Estimated GFR POC Glucose 331 H 324 H 356 H Random Glucose Lactic Acid Calcium Prot Corrected Calcium Phosphorus Magnesium Total Bilirubin AST ALT Alkaline Phosphatase Ammonia Total Creatine Kinase CK-MB (CK-2) CK-MB (CK-2) % Troponin I Total Protein Albumin Beta-Hydroxybutyric Acd Urine Color Urine Clarity Urine pH Ur Specific [place] Urine Protein Urine Glucose (UA) Urine Ketones Urine Occult Blood Urine Nitrate Urine Bilirubin Urine Urobilinogen Ur Leukocyte Esterase Urine RBC Ur Squamous Epith Cells Micro UA Comment Ur Microscopic Review Urine Culture Comments Nasal Screen MRSA (PCR) Vancomycin Trough Random Vancomycin Salicylates Urine Opiates Screen Acetaminophen Ur Barbiturates Screen Ur Amphetamines Screen U Benzodiazepines Scrn Urine Cocaine Screen U Cannabinoids Screen Serum Alcohol Adenovirus (PCR) Bordetella holmesii PCR B. pertussis DNA (PCR) B. paraper/bronch (PCR) Hepatitis A IgM Ab Hep Bs Antigen Hep B Core IgM Ab Hep C IgG Ab Human Metapneumovir PCR Influenza A (RT-PCR) Influenza A (H1) PCR Influenza A (H3) PCR Influenza B (RT-PCR) Parainfluenza 1 (PCR) Parainfluenza 2 (PCR) Parainfluenza 3 (PCR) Parainfluenza 4 (PCR) RSV Type A (PCR) RSV Type B (PCR) Rhinovirus (PCR) Blood Type Blood Type Recheck Antibody Screen 01/07/18 01/07/18 01/07/18 10:33 11:00 12:00 CBC w Diff WBC Corrected WBC RBC Hgb POC Hgb (Calc) Hct POC Hct MCV MCH MCHC RDW Plt Count MPV Prelim Diff (Auto) Immature Gran % (Auto) Neut % (Auto) Lymph % (Auto) [place] % (Auto) Eos % (Auto) Baso % (Auto) Immature Gran # (Auto) Neut # (Auto) Lymph # (Auto) [place] # (Auto) Eos # (Auto) Baso # (Auto) WBC Differential Diff Scan Seg Neuts % (Manual) Band Neuts % (Manual) Lymphocytes % (Manual) Atypical Lymphs % (Man) Monocytes % (Manual) Eosinophils % (Manual) Basophils % (Manual) Metamyelocytes % (Man) Myelocytes % (Man) Promyelocytes % (Man) Blast Cells % (Manual) Plasma Cell % (Manual) Other Cells % Abs Neuts (Manual) Nucleated RBCs/100 WBC Differential Comment Hypersegmented Neuts Smudge Cells Toxic Granulation Toxic Vacuolation Dohle Bodies Platelet Estimate Platelet Morphology RBC Morphology Dimorphic RBCs Polychromasia Basophilic Stippling Spherocytes Pappenheimer Bodies Sickle Cells Target Cells Tear Drop Cells Ovalocytes Stomatocytes Helmet Cells [place] Bodies [place] Cells Acanthocytes (Spur) Rouleaux Keratocytes Hematology Comments PT INR APTT Fibrinogen Puncture Site Patient Temperature O2 Saturation ABG pH ABG pCO2 ABG pO2 ABG HCO3 ABG O2 Content ABG Base Excess ABG Methemoglobin Omer Test VBG pH VBG pCO2 VBG pO2 VBG HCO3 VBG O2 Saturation VBG O2 Content VBG Base Excess VBG Carboxyhemoglobin VBG Methemoglobin Hemoglobin Carboxyhemoglobin O2 Delivery Device Liter Flow Vent Setting Inspired O2 Critical Value POC Sodium Sodium POC Potassium Potassium POC Chloride Chloride Carbon Dioxide Anion Gap POC BUN BUN Creatinine POC Creatinine Estimated GFR POC Glucose 341 H 328 H 322 H Random Glucose Lactic Acid Calcium Prot Corrected Calcium Phosphorus Magnesium Total Bilirubin AST ALT Alkaline Phosphatase Ammonia Total Creatine Kinase CK-MB (CK-2) CK-MB (CK-2) % Troponin I Total Protein Albumin Beta-Hydroxybutyric Acd Urine Color Urine Clarity Urine pH Ur Specific [place] Urine Protein Urine Glucose (UA) Urine Ketones Urine Occult Blood Urine Nitrate Urine Bilirubin Urine Urobilinogen Ur Leukocyte Esterase Urine RBC Ur Squamous Epith Cells Micro UA Comment Ur Microscopic Review Urine Culture Comments Nasal Screen MRSA (PCR) Vancomycin Trough Random Vancomycin Salicylates Urine Opiates Screen Acetaminophen Ur Barbiturates Screen Ur Amphetamines Screen U Benzodiazepines Scrn Urine Cocaine Screen U Cannabinoids Screen Serum Alcohol Adenovirus (PCR) Bordetella holmesii PCR B. pertussis DNA (PCR) B. paraper/bronch (PCR) Hepatitis A IgM Ab Hep Bs Antigen Hep B Core IgM Ab Hep C IgG Ab Human Metapneumovir PCR Influenza A (RT-PCR) Influenza A (H1) PCR Influenza A (H3) PCR Influenza B (RT-PCR) Parainfluenza 1 (PCR) Parainfluenza 2 (PCR) Parainfluenza 3 (PCR) Parainfluenza 4 (PCR) RSV Type A (PCR) RSV Type B (PCR) Rhinovirus (PCR) Blood Type Blood Type Recheck Antibody Screen 01/07/18 01/07/18 01/07/18 12:59 14:04 15:01 CBC w Diff WBC Corrected WBC RBC Hgb POC Hgb (Calc) Hct POC Hct MCV MCH MCHC RDW Plt Count MPV Prelim Diff (Auto) Immature Gran % (Auto) Neut % (Auto) Lymph % (Auto) [place] % (Auto) Eos % (Auto) Baso % (Auto) Immature Gran # (Auto) Neut # (Auto) Lymph # (Auto) [place] # (Auto) Eos # (Auto) Baso # (Auto) WBC Differential Diff Scan Seg Neuts % (Manual) Band Neuts % (Manual) Lymphocytes % (Manual) Atypical Lymphs % (Man) Monocytes % (Manual) Eosinophils % (Manual) Basophils % (Manual) Metamyelocytes % (Man) Myelocytes % (Man) Promyelocytes % (Man) Blast Cells % (Manual) Plasma Cell % (Manual) Other Cells % Abs Neuts (Manual) Nucleated RBCs/100 WBC Differential Comment Hypersegmented Neuts Smudge Cells Toxic Granulation Toxic Vacuolation Dohle Bodies Platelet Estimate Platelet Morphology RBC Morphology Dimorphic RBCs Polychromasia Basophilic Stippling Spherocytes [place] Bodies Sickle Cells Target Cells Tear Drop Cells Ovalocytes Stomatocytes Helmet Cells [place] Bodies [place] Cells Acanthocytes (Spur) Rouleaux Keratocytes Hematology Comments PT INR APTT Fibrinogen Puncture Site Patient Temperature O2 Saturation ABG pH ABG pCO2 ABG pO2 ABG HCO3 ABG O2 Content ABG Base Excess ABG Methemoglobin Omer Test VBG pH VBG pCO2 VBG pO2 VBG HCO3 VBG O2 Saturation VBG O2 Content VBG Base Excess VBG Carboxyhemoglobin VBG Methemoglobin Hemoglobin Carboxyhemoglobin O2 Delivery Device Liter Flow Vent Setting Inspired O2 Critical Value POC Sodium Sodium POC Potassium Potassium POC Chloride Chloride Carbon Dioxide Anion Gap POC BUN BUN Creatinine POC Creatinine Estimated GFR POC Glucose 360 H 266 H 274 H Random Glucose Lactic Acid Calcium Prot Corrected Calcium Phosphorus Magnesium Total Bilirubin AST ALT Alkaline Phosphatase Ammonia Total Creatine Kinase CK-MB (CK-2) CK-MB (CK-2) % Troponin I Total Protein Albumin Beta-Hydroxybutyric Acd Urine Color Urine Clarity Urine pH Ur Specific [place] Urine Protein Urine Glucose (UA) Urine Ketones Urine Occult Blood Urine Nitrate Urine Bilirubin Urine Urobilinogen Ur Leukocyte Esterase Urine RBC Ur Squamous Epith Cells Micro UA Comment Ur Microscopic Review Urine Culture Comments Nasal Screen MRSA (PCR) Vancomycin Trough Random Vancomycin Salicylates Urine Opiates Screen Acetaminophen Ur Barbiturates Screen Ur Amphetamines Screen U Benzodiazepines Scrn Urine Cocaine Screen U Cannabinoids Screen Serum Alcohol Adenovirus (PCR) Bordetella holmesii PCR B. pertussis DNA (PCR) B. paraper/bronch (PCR) Hepatitis A IgM Ab Hep Bs Antigen Hep B Core IgM Ab Hep C IgG Ab Human Metapneumovir PCR Influenza A (RT-PCR) Influenza A (H1) PCR Influenza A (H3) PCR Influenza B (RT-PCR) Parainfluenza 1 (PCR) Parainfluenza 2 (PCR) Parainfluenza 3 (PCR) Parainfluenza 4 (PCR) RSV Type A (PCR) RSV Type B (PCR) Rhinovirus (PCR) Blood Type Blood Type Recheck Antibody Screen 01/07/18 01/07/18 01/07/18 16:02 17:01 18:09 CBC w Diff WBC Corrected WBC RBC Hgb POC Hgb (Calc) Hct POC Hct MCV MCH MCHC RDW Plt Count MPV Prelim Diff (Auto) Immature Gran % (Auto) Neut % (Auto) Lymph % (Auto) [place] % (Auto) Eos % (Auto) Baso % (Auto) Immature Gran # (Auto) Neut # (Auto) Lymph # (Auto) [place] # (Auto) Eos # (Auto) Baso # (Auto) WBC Differential Diff Scan Seg Neuts % (Manual) Band Neuts % (Manual) Lymphocytes % (Manual) Atypical Lymphs % (Man) Monocytes % (Manual) Eosinophils % (Manual) Basophils % (Manual) Metamyelocytes % (Man) Myelocytes % (Man) Promyelocytes % (Man) Blast Cells % (Manual) Plasma Cell % (Manual) Other Cells % Abs Neuts (Manual) Nucleated RBCs/100 WBC Differential Comment Hypersegmented Neuts Smudge Cells Toxic Granulation Toxic Vacuolation D[place]le Bodies Platelet Estimate Platelet Morphology RBC Morphology Dimorphic RBCs Polychromasia Basophilic Stippling Spherocytes [place] Bodies Sickle Cells Target Cells Tear Drop Cells Ovalocytes Stomatocytes Helmet Cells [place] Bodies [place] Cells Acanthocytes (Spur) Rouleaux Keratocytes Hematology Comments PT INR APTT Fibrinogen Puncture Site Patient Temperature O2 Saturation ABG pH ABG pCO2 ABG pO2 ABG HCO3 ABG O2 Content ABG Base Excess ABG Methemoglobin Omer Test VBG pH VBG pCO2 VBG pO2 VBG HCO3 VBG O2 Saturation VBG O2 Content VBG Base Excess VBG Carboxyhemoglobin VBG Methemoglobin Hemoglobin Carboxyhemoglobin O2 Delivery Device Liter Flow Vent Setting Inspired O2 Critical Value POC Sodium Sodium POC Potassium Potassium POC Chloride Chloride Carbon Dioxide Anion Gap POC BUN BUN Creatinine POC Creatinine Estimated GFR POC Glucose 253 H 231 H 188 H Random Glucose Lactic Acid Calcium Prot Corrected Calcium Phosphorus Magnesium Total Bilirubin AST ALT Alkaline Phosphatase Ammonia Total Creatine Kinase CK-MB (CK-2) CK-MB (CK-2) % Troponin I Total Protein Albumin Beta-Hydroxybutyric Acd Urine Color Urine Clarity Urine pH Ur Specific [place] Urine Protein Urine Glucose (UA) Urine Ketones Urine Occult Blood Urine Nitrate Urine Bilirubin Urine Urobilinogen Ur Leukocyte Esterase Urine RBC Ur Squamous Epith Cells Micro UA Comment Ur Microscopic Review Urine Culture Comments Nasal Screen MRSA (PCR) Vancomycin Trough Random Vancomycin Salicylates Urine Opiates Screen Acetaminophen Ur Barbiturates Screen Ur Amphetamines Screen U Benzodiazepines Scrn Urine Cocaine Screen U Cannabinoids Screen Serum Alcohol Adenovirus (PCR) Bordetella holmesii PCR B. pertussis DNA (PCR) B. paraper/bronch (PCR) Hepatitis A IgM Ab Hep Bs Antigen Hep B Core IgM Ab Hep C IgG Ab Human Metapneumovir PCR Influenza A (RT-PCR) Influenza A (H1) PCR Influenza A (H3) PCR Influenza B (RT-PCR) Parainfluenza 1 (PCR) Parainfluenza 2 (PCR) Parainfluenza 3 (PCR) Parainfluenza 4 (PCR) RSV Type A (PCR) RSV Type B (PCR) Rhinovirus (PCR) Blood Type Blood Type Recheck Antibody Screen 01/07/18 01/07/18 01/07/18 19:07 20:16 20:29 CBC w Diff WBC Corrected WBC RBC Hgb POC Hgb (Calc) Hct POC Hct MCV MCH MCHC RDW Plt Count MPV Prelim Diff (Auto) Immature Gran % (Auto) Neut % (Auto) Lymph % (Auto) [place] % (Auto) Eos % (Auto) Baso % (Auto) Immature Gran # (Auto) Neut # (Auto) Lymph # (Auto) [place] # (Auto) Eos # (Auto) Baso # (Auto) WBC Differential Diff Scan Seg Neuts % (Manual) Band Neuts % (Manual) Lymphocytes % (Manual) Atypical Lymphs % (Man) Monocytes % (Manual) Eosinophils % (Manual) Basophils % (Manual) Metamyelocytes % (Man) Myelocytes % (Man) Promyelocytes % (Man) Blast Cells % (Manual) Plasma Cell % (Manual) Other Cells % Abs Neuts (Manual) Nucleated RBCs/100 WBC Differential Comment Hypersegmented Neuts Smudge Cells Toxic Granulation Toxic Vacuolation Dohle Bodies Platelet Estimate Platelet Morphology RBC Morphology Dimorphic RBCs Polychromasia Basophilic Stippling Spherocytes [place] Bodies Sickle Cells Target Cells Tear Drop Cells Ovalocytes Stomatocytes Hel[place] Cells [place] Bodies [place]rem Cells Acanthocytes (Spur) Rouleaux Keratocytes Hematology Comments PT INR APTT Fibrinogen Puncture Site Patient Temperature O2 Saturation ABG pH ABG pCO2 ABG pO2 ABG HCO3 ABG O2 Content ABG Base Excess ABG Methemoglobin Omer Test VBG pH VBG pCO2 VBG pO2 VBG HCO3 VBG O2 Saturation VBG O2 Content VBG Base Excess VBG Carboxyhemoglobin VBG Methemoglobin Hemoglobin Carboxyhemoglobin O2 Delivery Device Liter Flow Vent Setting Inspired O2 Critical Value POC Sodium Sodium POC Potassium Potassium POC Chloride Chloride Carbon Dioxide Anion Gap POC BUN BUN Creatinine POC Creatinine Estimated GFR POC Glucose 182 H 128 H 117 H Random Glucose Lactic Acid Calcium Prot Corrected Calcium Phosphorus Magnesium Total Bilirubin AST ALT Alkaline Phosphatase Ammonia Total Creatine Kinase CK-MB (CK-2) CK-MB (CK-2) % Troponin I Total Protein Albumin Beta-Hydroxybutyric Acd Urine Color Urine Clarity Urine pH Ur Specific [place] Urine Protein Urine Glucose (UA) Urine Ketones Urine Occult Blood Urine Nitrate Urine Bilirubin Urine Urobilinogen Ur Leukocyte Esterase Urine RBC Ur Squamous Epith Cells Micro UA Comment Ur Microscopic Review Urine Culture Comments Nasal Screen MRSA (PCR) Vancomycin Trough Random Vancomycin Salicylates Urine Opiates Screen Acetaminophen Ur Barbiturates Screen Ur Amphetamines Screen U Benzodiazepines Scrn Urine Cocaine Screen U Cannabinoids Screen Serum Alcohol Adenovirus (PCR) Bordetella holmesii PCR B. pertussis DNA (PCR) B. paraper/bronch (PCR) Hepatitis A IgM Ab Hep Bs Antigen Hep B Core IgM Ab Hep C IgG Ab Human Metapneumovir PCR Influenza A (RT-PCR) Influenza A (H1) PCR Influenza A (H3) PCR Influenza B (RT-PCR) Parainfluenza 1 (PCR) Parainfluenza 2 (PCR) Parainfluenza 3 (PCR) Parainfluenza 4 (PCR) RSV Type A (PCR) RSV Type B (PCR) Rhinovirus (PCR) Blood Type Blood Type Recheck Antibody Screen 01/07/18 01/07/18 01/07/18 20:52 21:47 23:05 CBC w Diff WBC Corrected WBC RBC Hgb POC Hgb (Calc) Hct POC Hct MCV MCH MCHC RDW Plt Count MPV Prelim Diff (Auto) Immature Gran % (Auto) Neut % (Auto) Lymph % (Auto) [place] % (Auto) Eos % (Auto) Baso % (Auto) Immature Gran # (Auto) Neut # (Auto) Lymph # (Auto) [place] # (Auto) Eos # (Auto) Baso # (Auto) WBC Differential Diff Scan Seg Neuts % (Manual) Band Neuts % (Manual) Lymphocytes % (Manual) Atypical Lymphs % (Man) Monocytes % (Manual) Eosinophils % (Manual) Basophils % (Manual) Metamyelocytes % (Man) Myelocytes % (Man) Promyelocytes % (Man) Blast Cells % (Manual) Plasma Cell % (Manual) Other Cells % Abs Neuts (Manual) Nucleated RBCs/100 WBC Differential Comment Hypersegmented Neuts Smudge Cells Toxic Granulation Toxic Vacuolation Dohle Bodies Platelet Estimate Platelet Morphology RBC Morphology Dimorphic RBCs Polychromasia Basophilic Stippling Spherocytes P[place]heimer Bodies Sickle Cells Target Cells Tear Drop Cells Ovalocytes Stomatocytes Helmet Cells [place] Bodies Efrem Cells Acanthocytes (Spur) Rouleaux Keratocytes Hematology Comments PT INR APTT Fibrinogen Puncture Site Patient Temperature O2 Saturation ABG pH ABG pCO2 ABG pO2 ABG HCO3 ABG O2 Content ABG Base Excess ABG Methemoglobin Omer Test VBG pH VBG pCO2 VBG pO2 VBG HCO3 VBG O2 Saturation VBG O2 Content VBG Base Excess VBG Carboxyhemoglobin VBG Methemoglobin Hemoglobin Carboxyhemoglobin O2 Delivery Device Liter Flow Vent Setting Inspired O2 Critical Value POC Sodium Sodium POC Potassium Potassium POC Chloride Chloride Carbon Dioxide Anion Gap POC BUN BUN Creatinine POC Creatinine Estimated GFR POC Glucose 109 102 93 Random Glucose Lactic Acid Calcium Prot Corrected Calcium Phosphorus Magnesium Total Bilirubin AST ALT Alkaline Phosphatase Ammonia Total Creatine Kinase CK-MB (CK-2) CK-MB (CK-2) % Troponin I Total Protein Albumin Beta-Hydroxybutyric Acd Urine Color Urine Clarity Urine pH Ur Specific [place] Urine Protein Urine Glucose (UA) Urine Ketones Urine Occult Blood Urine Nitrate Urine Bilirubin Urine Urobilinogen Ur Leukocyte Esterase Urine RBC Ur Squamous Epith Cells Micro UA Comment Ur Microscopic Review Urine Culture Comments Nasal Screen MRSA (PCR) Vancomycin Trough Random Vancomycin Salicylates Urine Opiates Screen Acetaminophen Ur Barbiturates Screen Ur Amphetamines Screen U Benzodiazepines Scrn Urine Cocaine Screen U Cannabinoids Screen Serum Alcohol Adenovirus (PCR) Bordetella holmesii PCR B. pertussis DNA (PCR) B. paraper/bronch (PCR) Hepatitis A IgM Ab Hep Bs Antigen Hep B Core IgM Ab Hep C IgG Ab Human Metapneumovir PCR Influenza A (RT-PCR) Influenza A (H1) PCR Influenza A (H3) PCR Influenza B (RT-PCR) Parainfluenza 1 (PCR) Parainfluenza 2 (PCR) Parainfluenza 3 (PCR) Parainfluenza 4 (PCR) RSV Type A (PCR) RSV Type B (PCR) Rhinovirus (PCR) Blood Type Blood Type Recheck Antibody Screen 01/07/18 01/08/18 01/08/18 23:58 01:09 02:10 CBC w Diff WBC Corrected WBC RBC Hgb POC Hgb (Calc) Hct POC Hct MCV MCH MCHC RDW Plt Count MPV Prelim Diff (Auto) Immature Gran % (Auto) Neut % (Auto) Lymph % (Auto) [place] % (Auto) Eos % (Auto) Baso % (Auto) Immature Gran # (Auto) Neut # (Auto) Lymph # (Auto) [place] # (Auto) Eos # (Auto) Baso # (Auto) WBC Differential Diff Scan Seg Neuts % (Manual) Band Neuts % (Manual) Lymphocytes % (Manual) Atypical Lymphs % (Man) Monocytes % (Manual) Eosinophils % (Manual) Basophils % (Manual) Metamyelocytes % (Man) Myelocytes % (Man) Promyelocytes % (Man) Blast Cells % (Manual) Plasma Cell % (Manual) Other Cells % Abs Neuts (Manual) Nucleated RBCs/100 WBC Differential Comment Hypersegmented Neuts Smudge Cells Toxic Granulation Toxic Vacuolation Dohle Bodies Platelet Estimate Platelet Morphology RBC Morphology Dimorphic RBCs Polychromasia Basophilic Stippling Spherocytes Pappenheimer Bodies Sickle Cells Target Cells Tear Drop Cells Ovalocytes Stomatocytes Helmet Cells [place] Bodies Efrem Cells Acanthocytes (Spur) Rouleaux Keratocytes Hematology Comments PT INR APTT Fibrinogen Puncture Site Patient Temperature O2 Saturation ABG pH ABG pCO2 ABG pO2 ABG HCO3 ABG O2 Content ABG Base Excess ABG Methemoglobin Omer Test VBG pH VBG pCO2 VBG pO2 VBG HCO3 VBG O2 Saturation VBG O2 Content VBG Base Excess VBG Carboxyhemoglobin VBG Methemoglobin Hemoglobin Carboxyhemoglobin O2 Delivery Device Liter Flow Vent Setting Inspired O2 Critical Value POC Sodium Sodium POC Potassium Potassium POC Chloride Chloride Carbon Dioxide Anion Gap POC BUN BUN Creatinine POC Creatinine Estimated GFR POC Glucose 80 75 71 Random Glucose Lactic Acid Calcium Prot Corrected Calcium Phosphorus Magnesium Total Bilirubin AST ALT Alkaline Phosphatase Ammonia Total Creatine Kinase CK-MB (CK-2) CK-MB (CK-2) % Troponin I Total Protein Albumin Beta-Hydroxybutyric Acd Urine Color Urine Clarity Urine pH Ur Specific [place] Urine Protein Urine Glucose (UA) Urine Ketones Urine Occult Blood Urine Nitrate Urine Bilirubin Urine Urobilinogen Ur Leukocyte Esterase Urine RBC Ur Squamous Epith Cells Micro UA Comment Ur Microscopic Review Urine Culture Comments Nasal Screen MRSA (PCR) Vancomycin Trough Random Vancomycin Salicylates Urine Opiates Screen Acetaminophen Ur Barbiturates Screen Ur Amphetamines Screen U Benzodiazepines Scrn Urine Cocaine Screen U Cannabinoids Screen Serum Alcohol Adenovirus (PCR) Bordetella holmesii PCR B. pertussis DNA (PCR) B. paraper/bronch (PCR) Hepatitis A IgM Ab Hep Bs Antigen Hep B Core IgM Ab Hep C IgG Ab Human Metapneumovir PCR Influenza A (RT-PCR) Influenza A (H1) PCR Influenza A (H3) PCR Influenza B (RT-PCR) Parainfluenza 1 (PCR) Parainfluenza 2 (PCR) Parainfluenza 3 (PCR) Parainfluenza 4 (PCR) RSV Type A (PCR) RSV Type B (PCR) Rhinovirus (PCR) Blood Type Blood Type Recheck Antibody Screen 01/08/18 01/08/18 01/08/18 03:07 03:08 03:27 CBC w Diff WBC Corrected WBC RBC Hgb POC Hgb (Calc) Hct POC Hct MCV MCH MCHC RDW Plt Count MPV Prelim Diff (Auto) Immature Gran % (Auto) Neut % (Auto) Lymph % (Auto) [place] % (Auto) Eos % (Auto) Baso % (Auto) Immature Gran # (Auto) Neut # (Auto) Lymph # (Auto) [place] # (Auto) Eos # (Auto) Baso # (Auto) WBC Differential Diff Scan Seg Neuts % (Manual) Band Neuts % (Manual) Lymphocytes % (Manual) Atypical Lymphs % (Man) Monocytes % (Manual) Eosinophils % (Manual) Basophils % (Manual) Metamyelocytes % (Man) Myelocytes % (Man) Promyelocytes % (Man) Blast Cells % (Manual) Plasma Cell % (Manual) Other Cells % Abs Neuts (Manual) Nucleated RBCs/100 WBC Differential Comment Hypersegmented Neuts Smudge Cells Toxic Granulation Toxic Vacuolation Dohle Bodies Platelet Estimate Platelet Morphology RBC Morphology Dimorphic RBCs Polychromasia Basophilic Stippling Spherocytes Pappenheimer Bodies Sickle Cells Target Cells Tear Drop Cells Ovalocytes Stomatocytes Helmet Cells [place] Bodies [place] Cells Acanthocytes (Spur) Rouleaux Keratocytes Hematology Comments PT INR APTT Fibrinogen Puncture Site Patient Temperature O2 Saturation ABG pH ABG pCO2 ABG pO2 ABG HCO3 ABG O2 Content ABG Base Excess ABG Methemoglobin Omer Test VBG pH VBG pCO2 VBG pO2 VBG HCO3 VBG O2 Saturation VBG O2 Content VBG Base Excess VBG Carboxyhemoglobin VBG Methemoglobin Hemoglobin Carboxyhemoglobin O2 Delivery Device Liter Flow Vent Setting Inspired O2 Critical Value POC Sodium Sodium POC Potassium Potassium POC Chloride Chloride Carbon Dioxide Anion Gap POC BUN BUN Creatinine POC Creatinine Estimated GFR POC Glucose 34 L* 39 L* Random Glucose 202 H Lactic Acid Calcium Prot Corrected Calcium Phosphorus Magnesium Total Bilirubin AST ALT Alkaline Phosphatase Ammonia Total Creatine Kinase CK-MB (CK-2) CK-MB (CK-2) % Troponin I Total Protein Albumin Beta-Hydroxybutyric Acd Urine Color Urine Clarity Urine pH Ur Specific [place] Urine Protein Urine Glucose (UA) Urine Ketones Urine Occult Blood Urine Nitrate Urine Bilirubin Urine Urobilinogen Ur Leukocyte Esterase Urine RBC Ur Squamous Epith Cells Micro UA Comment Ur Microscopic Review Urine Culture Comments Nasal Screen MRSA (PCR) Vancomycin Trough Random Vancomycin Salicylates Urine Opiates Screen Acetaminophen Ur Barbiturates Screen Ur Amphetamines Screen U Benzodiazepines Scrn Urine Cocaine Screen U Cannabinoids Screen Serum Alcohol Adenovirus (PCR) Bordetella holmesii PCR B. pertussis DNA (PCR) B. paraper/bronch (PCR) Hepatitis A IgM Ab Hep Bs Antigen Hep B Core IgM Ab Hep C IgG Ab Human Metapneumovir PCR Influenza A (RT-PCR) Influenza A (H1) PCR Influenza A (H3) PCR Influenza B (RT-PCR) Parainfluenza 1 (PCR) Parainfluenza 2 (PCR) Parainfluenza 3 (PCR) Parainfluenza 4 (PCR) RSV Type A (PCR) RSV Type B (PCR) Rhinovirus (PCR) Blood Type Blood Type Recheck Antibody Screen 01/08/18 01/08/18 01/08/18 03:31 04:15 04:56 CBC w Diff WBC Corrected WBC RBC Hgb POC Hgb (Calc) Hct POC Hct MCV MCH MCHC RDW Plt Count MPV Prelim Diff (Auto) Immature Gran % (Auto) Neut % (Auto) Lymph % (Auto) [place] % (Auto) Eos % (Auto) Baso % (Auto) Immature Gran # (Auto) Neut # (Auto) Lymph # (Auto) [place] # (Auto) Eos # (Auto) Baso # (Auto) WBC Differential Diff Scan Seg Neuts % (Manual) Band Neuts % (Manual) Lymphocytes % (Manual) Atypical Lymphs % (Man) Monocytes % (Manual) Eosinophils % (Manual) Basophils % (Manual) Metamyelocytes % (Man) Myelocytes % (Man) Promyelocytes % (Man) Blast Cells % (Manual) Plasma Cell % (Manual) Other Cells % Abs Neuts (Manual) Nucleated RBCs/100 WBC Differential Comment Hypersegmented Neuts Smudge Cells Toxic Granulation Toxic Vacuolation [place] Bodies Platelet Estimate Platelet Morphology RBC Morphology Dimorphic RBCs Polychromasia Basophilic Stippling Spherocytes Pappenheimer Bodies Sickle Cells Target Cells Tear Drop Cells Ovalocytes Stomatocytes Helmet Cells [place] Bodies [place] Cells Acanthocytes (Spur) Rouleaux Keratocytes Hematology Comments PT INR APTT Fibrinogen Puncture Site Patient Temperature O2 Saturation ABG pH ABG pCO2 ABG pO2 ABG HCO3 ABG O2 Content ABG Base Excess ABG Methemoglobin Omer Test VBG pH VBG pCO2 VBG pO2 VBG HCO3 VBG O2 Saturation VBG O2 Content VBG Base Excess VBG Carboxyhemoglobin VBG Methemoglobin Hemoglobin Carboxyhemoglobin O2 Delivery Device Liter Flow Vent Setting Inspired O2 Critical Value POC Sodium Sodium POC Potassium Potassium POC Chloride Chloride Carbon Dioxide Anion Gap POC BUN BUN Creatinine POC Creatinine Estimated GFR POC Glucose 133 H 87 83 Random Glucose Lactic Acid Calcium Prot Corrected Calcium Phosphorus Magnesium Total Bilirubin AST ALT Alkaline Phosphatase Ammonia Total Creatine Kinase CK-MB (CK-2) CK-MB (CK-2) % Troponin I Total Protein Albumin Beta-Hydroxybutyric Acd Urine Color Urine Clarity Urine pH Ur Specific [place] Urine Protein Urine Glucose (UA) Urine Ketones Urine Occult Blood Urine Nitrate Urine Bilirubin Urine Urobilinogen Ur Leukocyte Esterase Urine RBC Ur Squamous Epith Cells Micro UA Comment Ur Microscopic Review Urine Culture Comments Nasal Screen MRSA (PCR) Vancomycin Trough Random Vancomycin Salicylates Urine Opiates Screen Acetaminophen Ur Barbiturates Screen Ur Amphetamines Screen U Benzodiazepines Scrn Urine Cocaine Screen U Cannabinoids Screen Serum Alcohol Adenovirus (PCR) Bordetella holmesii PCR B. pertussis DNA (PCR) B. paraper/bronch (PCR) Hepatitis A IgM Ab Hep Bs Antigen Hep B Core IgM Ab Hep C IgG Ab Human Metapneumovir PCR Influenza A (RT-PCR) Influenza A (H1) PCR Influenza A (H3) PCR Influenza B (RT-PCR) Parainfluenza 1 (PCR) Parainfluenza 2 (PCR) Parainfluenza 3 (PCR) Parainfluenza 4 (PCR) RSV Type A (PCR) RSV Type B (PCR) Rhinovirus (PCR) Blood Type Blood Type Recheck Antibody Screen 01/08/18 01/08/18 01/08/18 05:30 05:30 05:30 CBC w Diff WBC 11.4 H Corrected WBC RBC 3.26 L Hgb 9.4 L POC Hgb (Calc) Hct 28.8 L POC Hct MCV 88.4 MCH 28.9 MCHC 32.7 RDW 14.6 Plt Count 57 L D MPV 12.2 H Prelim Diff (Auto) Immature Gran % (Auto) Neut % (Auto) Lymph % (Auto) [place] % (Auto) Eos % (Auto) Baso % (Auto) Immature Gran # (Auto) Neut # (Auto) Lymph # (Auto) [place] # (Auto) Eos # (Auto) Baso # (Auto) WBC Differential Diff Scan Seg Neuts % (Manual) Band Neuts % (Manual) Lymphocytes % (Manual) Atypical Lymphs % (Man) Monocytes % (Manual) Eosinophils % (Manual) Basophils % (Manual) Metamyelocytes % (Man) Myelocytes % (Man) Promyelocytes % (Man) Blast Cells % (Manual) Plasma Cell % (Manual) Other Cells % Abs Neuts (Manual) Nucleated RBCs/100 WBC Differential Comment Hypersegmented Neuts Smudge Cells Toxic Granulation Toxic Vacuolation [place] Bodies Platelet Estimate Platelet Morphology RBC Morphology Dimorphic RBCs Polychromasia Basophilic Stippling Spherocytes Pappenheimer Bodies Sickle Cells Target Cells Tear Drop Cells Ovalocytes Stomatocytes Helmet Cells [place] Bodies [place] Cells Acanthocytes (Spur) Rouleaux Keratocytes Hematology Comments PT 10.8 INR 1.1 APTT 25.1 Fibrinogen Puncture Site Patient Temperature O2 Saturation ABG pH ABG pCO2 ABG pO2 ABG HCO3 ABG O2 Content ABG Base Excess ABG Methemoglobin Omer Test VBG pH VBG pCO2 VBG pO2 VBG HCO3 VBG O2 Saturation VBG O2 Content VBG Base Excess VBG Carboxyhemoglobin VBG Methemoglobin Hemoglobin Carboxyhemoglobin O2 Delivery Device Liter Flow Vent Setting Inspired O2 Critical Value POC Sodium Sodium 149 H POC Potassium Potassium 3.5 D POC Chloride Chloride 116 H Carbon Dioxide 22.7 Anion Gap 10 POC BUN BUN 13 Creatinine 0.70 POC Creatinine Estimated GFR 89 POC Glucose Random Glucose 139 H Lactic Acid Calcium 7.2 L* Prot Corrected Calcium 8.7 Phosphorus 1.4 L Magnesium 1.5 Total Bilirubin 0.6 AST 222 H ALT 386 H Alkaline Phosphatase 80 Ammonia Total Creatine Kinase CK-MB (CK-2) CK-MB (CK-2) % Troponin I Total Protein 4.4 L Albumin 1.8 L Beta-Hydroxybutyric Acd Urine Color Urine Clarity Urine pH Ur Specific [place] Urine Protein Urine Glucose (UA) Urine Ketones Urine Occult Blood Urine Nitrate Urine Bilirubin Urine Urobilinogen Ur Leukocyte Esterase Urine RBC Ur Squamous Epith Cells Micro UA Comment Ur Microscopic Review Urine Culture Comments Nasal Screen MRSA (PCR) Vancomycin Trough Random Vancomycin Salicylates Urine Opiates Screen Acetaminophen Ur Barbiturates Screen Ur Amphetamines Screen U Benzodiazepines Scrn Urine Cocaine Screen U Cannabinoids Screen Serum Alcohol Adenovirus (PCR) Bordetella holmesii PCR B. pertussis DNA (PCR) B. paraper/bronch (PCR) Hepatitis A IgM Ab Hep Bs Antigen Hep B Core IgM Ab Hep C IgG Ab Human Metapneumovir PCR Influenza A (RT-PCR) Influenza A (H1) PCR Influenza A (H3) PCR Influenza B (RT-PCR) Parainfluenza 1 (PCR) Parainfluenza 2 (PCR) Parainfluenza 3 (PCR) Parainfluenza 4 (PCR) RSV Type A (PCR) RSV Type B (PCR) Rhinovirus (PCR) Blood Type Blood Type Recheck Antibody Screen 01/08/18 01/08/18 01/08/18 06:21 07:59 11:50 CBC w Diff WBC Corrected WBC RBC Hgb POC Hgb (Calc) Hct POC Hct MCV MCH MCHC RDW Plt Count MPV Prelim Diff (Auto) Immature Gran % (Auto) Neut % (Auto) Lymph % (Auto) [place] % (Auto) Eos % (Auto) Baso % (Auto) Immature Gran # (Auto) Neut # (Auto) Lymph # (Auto) [place] # (Auto) Eos # (Auto) Baso # (Auto) WBC Differential Diff Scan Seg Neuts % (Manual) Band Neuts % (Manual) Lymphocytes % (Manual) Atypical Lymphs % (Man) Monocytes % (Manual) Eosinophils % (Manual) Basophils % (Manual) Metamyelocytes % (Man) Myelocytes % (Man) Promyelocytes % (Man) Blast Cells % (Manual) Plasma Cell % (Manual) Other Cells % Abs Neuts (Manual) Nucleated RBCs/100 WBC Differential Comment Hypersegmented Neuts Smudge Cells Toxic Granulation Toxic Vacuolation [place] Bodies Platelet Estimate Platelet Morphology RBC Morphology Dimorphic RBCs Polychromasia Basophilic Stippling Spherocytes [place] Bodies Sickle Cells Target Cells Tear Drop Cells Ovalocytes Stomatocytes Helmet Cells [place] Bodies [place] Cells Acanthocytes (Spur) Rouleaux Keratocytes Hematology Comments PT INR APTT Fibrinogen Puncture Site Patient Temperature O2 Saturation ABG pH ABG pCO2 ABG pO2 ABG HCO3 ABG O2 Content ABG Base Excess ABG Methemoglobin Omer Test VBG pH VBG pCO2 VBG pO2 VBG HCO3 VBG O2 Saturation VBG O2 Content VBG Base Excess VBG Carboxyhemoglobin VBG Methemoglobin Hemoglobin Carboxyhemoglobin O2 Delivery Device Liter Flow Vent Setting Inspired O2 Critical Value POC Sodium Sodium POC Potassium Potassium POC Chloride Chloride Carbon Dioxide Anion Gap POC BUN BUN Creatinine POC Creatinine Estimated GFR POC Glucose 66 L 91 Random Glucose Lactic Acid Calcium Prot Corrected Calcium Phosphorus Magnesium Total Bilirubin AST ALT Alkaline Phosphatase Ammonia Total Creatine Kinase CK-MB (CK-2) CK-MB (CK-2) % Troponin I Total Protein Albumin Beta-Hydroxybutyric Acd Urine Color Urine Clarity Urine pH Ur Specific [place] Urine Protein Urine Glucose (UA) Urine Ketones Urine Occult Blood Urine Nitrate Urine Bilirubin Urine Urobilinogen Ur Leukocyte Esterase Urine RBC Ur Squamous Epith Cells Micro UA Comment Ur Microscopic Review Urine Culture Comments Nasal Screen MRSA (PCR) Vancomycin Trough 10.7 H Random Vancomycin Salicylates Urine Opiates Screen Acetaminophen Ur Barbiturates Screen Ur Amphetamines Screen U Benzodiazepines Scrn Urine Cocaine Screen U Cannabinoids Screen Serum Alcohol Adenovirus (PCR) Bordetella holmesii PCR B. pertussis DNA (PCR) B. paraper/bronch (PCR) Hepatitis A IgM Ab Hep Bs Antigen Hep B Core IgM Ab Hep C IgG Ab Human Metapneumovir PCR Influenza A (RT-PCR) Influenza A (H1) PCR Influenza A (H3) PCR Influenza B (RT-PCR) Parainfluenza 1 (PCR) Parainfluenza 2 (PCR) Parainfluenza 3 (PCR) Parainfluenza 4 (PCR) RSV Type A (PCR) RSV Type B (PCR) Rhinovirus (PCR) Blood Type Blood Type Recheck Antibody Screen 01/08/18 01/08/18 01/08/18 12:21 12:52 16:44 CBC w Diff WBC Corrected WBC RBC Hgb POC Hgb (Calc) Hct POC Hct MCV MCH MCHC RDW Plt Count MPV Prelim Diff (Auto) Immature Gran % (Auto) Neut % (Auto) Lymph % (Auto) [place] % (Auto) Eos % (Auto) Baso % (Auto) Immature Gran # (Auto) Neut # (Auto) Lymph # (Auto) [place] # (Auto) Eos # (Auto) Baso # (Auto) WBC Differential Diff Scan Seg Neuts % (Manual) Band Neuts % (Manual) Lymphocytes % (Manual) Atypical Lymphs % (Man) Monocytes % (Manual) Eosinophils % (Manual) Basophils % (Manual) Metamyelocytes % (Man) Myelocytes % (Man) Promyelocytes % (Man) Blast Cells % (Manual) Plasma Cell % (Manual) Other Cells % Abs Neuts (Manual) Nucleated RBCs/100 WBC Differential Comment Hypersegmented Neuts Smudge Cells Toxic Granulation Toxic Vacuolation [place] Bodies Platelet Estimate Platelet Morphology RBC Morphology Dimorphic RBCs Polychromasia Basophilic Stippling Spherocytes [place] Bodies Sickle Cells Target Cells Tear Drop Cells Ovalocytes Stomatocytes Helmet Cells [place] Bodies [place] Cells Acanthocytes (Spur) Rouleaux Keratocytes Hematology Comments PT INR APTT Fibrinogen Puncture Site Patient Temperature O2 Saturation ABG pH ABG pCO2 ABG pO2 ABG HCO3 ABG O2 Content ABG Base Excess ABG Methemoglobin Omer Test VBG pH VBG pCO2 VBG pO2 VBG HCO3 VBG O2 Saturation VBG O2 Content VBG Base Excess VBG Carboxyhemoglobin VBG Methemoglobin Hemoglobin Carboxyhemoglobin O2 Delivery Device Liter Flow Vent Setting Inspired O2 Critical Value POC Sodium Sodium POC Potassium Potassium POC Chloride Chloride Carbon Dioxide Anion Gap POC BUN BUN Creatinine POC Creatinine Estimated GFR POC Glucose 64 L 103 118 H Random Glucose Lactic Acid Calcium Prot Corrected Calcium Phosphorus Magnesium Total Bilirubin AST ALT Alkaline Phosphatase Ammonia Total Creatine Kinase CK-MB (CK-2) CK-MB (CK-2) % Troponin I Total Protein Albumin Beta-Hydroxybutyric Acd Urine Color Urine Clarity Urine pH Ur Specific [place] Urine Protein Urine Glucose (UA) Urine Ketones Urine Occult Blood Urine Nitrate Urine Bilirubin Urine Urobilinogen Ur Leukocyte Esterase Urine RBC Ur Squamous Epith Cells Micro UA Comment Ur Microscopic Review Urine Culture Comments Nasal Screen MRSA (PCR) Vancomycin Trough Random Vancomycin Salicylates Urine Opiates Screen Acetaminophen Ur Barbiturates Screen Ur Amphetamines Screen U Benzodiazepines Scrn Urine Cocaine Screen U Cannabinoids Screen Serum Alcohol Adenovirus (PCR) Bordetella holmesii PCR B. pertussis DNA (PCR) B. paraper/bronch (PCR) Hepatitis A IgM Ab Hep Bs Antigen Hep B Core IgM Ab Hep C IgG Ab Human Metapneumovir PCR Influenza A (RT-PCR) Influenza A (H1) PCR Influenza A (H3) PCR Influenza B (RT-PCR) Parainfluenza 1 (PCR) Parainfluenza 2 (PCR) Parainfluenza 3 (PCR) Parainfluenza 4 (PCR) RSV Type A (PCR) RSV Type B (PCR) Rhinovirus (PCR) Blood Type Blood Type Recheck Antibody Screen 01/08/18 01/08/18 01/09/18 19:35 23:36 03:24 CBC w Diff WBC Corrected WBC RBC Hgb POC Hgb (Calc) Hct POC Hct MCV MCH MCHC RDW Plt Count MPV Prelim Diff (Auto) Immature Gran % (Auto) Neut % (Auto) Lymph % (Auto) [place] % (Auto) Eos % (Auto) Baso % (Auto) Immature Gran # (Auto) Neut # (Auto) Lymph # (Auto) [place] # (Auto) Eos # (Auto) Baso # (Auto) WBC Differential Diff Scan Seg Neuts % (Manual) Band Neuts % (Manual) Lymphocytes % (Manual) Atypical Lymphs % (Man) Monocytes % (Manual) Eosinophils % (Manual) Basophils % (Manual) Metamyelocytes % (Man) Myelocytes % (Man) Promyelocytes % (Man) Blast Cells % (Manual) Plasma Cell % (Manual) Other Cells % Abs Neuts (Manual) Nucleated RBCs/100 WBC Differential Comment Hypersegmented Neuts Smudge Cells Toxic Granulation Toxic Vacuolation [place] Bodies Platelet Estimate Platelet Morphology RBC Morphology Dimorphic RBCs Polychromasia Basophilic Stippling Spherocytes [place] Bodies Sickle Cells Target Cells Tear Drop Cells Ovalocytes Stomatocytes Helmet Cells [place] Bodies [place] Cells Acanthocytes (Spur) Rouleaux Keratocytes Hematology Comments PT INR APTT Fibrinogen Puncture Site Patient Temperature O2 Saturation ABG pH ABG pCO2 ABG pO2 ABG HCO3 ABG O2 Content ABG Base Excess ABG Methemoglobin Omer Test VBG pH VBG pCO2 VBG pO2 VBG HCO3 VBG O2 Saturation VBG O2 Content VBG Base Excess VBG Carboxyhemoglobin VBG Methemoglobin Hemoglobin Carboxyhemoglobin O2 Delivery Device Liter Flow Vent Setting Inspired O2 Critical Value POC Sodium Sodium POC Potassium Potassium POC Chloride Chloride Carbon Dioxide Anion Gap POC BUN BUN Creatinine POC Creatinine Estimated GFR POC Glucose 175 H 267 H 295 H Random Glucose Lactic Acid Calcium Prot Corrected Calcium Phosphorus Magnesium Total Bilirubin AST ALT Alkaline Phosphatase Ammonia Total Creatine Kinase CK-MB (CK-2) CK-MB (CK-2) % Troponin I Total Protein Albumin Beta-Hydroxybutyric Acd Urine Color Urine Clarity Urine pH Ur Specific [place] Urine Protein Urine Glucose (UA) Urine Ketones Urine Occult Blood Urine Nitrate Urine Bilirubin Urine Urobilinogen Ur Leukocyte Esterase Urine RBC Ur Squamous Epith Cells Micro UA Comment Ur Microscopic Review Urine Culture Comments Nasal Screen MRSA (PCR) Vancomycin Trough Random Vancomycin Salicylates Urine Opiates Screen Acetaminophen Ur Barbiturates Screen Ur Amphetamines Screen U Benzodiazepines Scrn Urine Cocaine Screen U Cannabinoids Screen Serum Alcohol Adenovirus (PCR) Bordetella holmesii PCR B. pertussis DNA (PCR) B. paraper/bronch (PCR) Hepatitis A IgM Ab Hep Bs Antigen Hep B Core IgM Ab Hep C IgG Ab Human Metapneumovir PCR Influenza A (RT-PCR) Influenza A (H1) PCR Influenza A (H3) PCR Influenza B (RT-PCR) Parainfluenza 1 (PCR) Parainfluenza 2 (PCR) Parainfluenza 3 (PCR) Parainfluenza 4 (PCR) RSV Type A (PCR) RSV Type B (PCR) Rhinovirus (PCR) Blood Type Blood Type Recheck Antibody Screen 01/09/18 01/09/18 01/09/18 05:07 05:07 08:09 CBC w Diff WBC Corrected WBC RBC Hgb POC Hgb (Calc) Hct POC Hct MCV MCH MCHC RDW Plt Count MPV Prelim Diff (Auto) Immature Gran % (Auto) Neut % (Auto) Lymph % (Auto) [place] % (Auto) Eos % (Auto) Baso % (Auto) Immature Gran # (Auto) Neut # (Auto) Lymph # (Auto) [place] # (Auto) Eos # (Auto) Baso # (Auto) WBC Differential Diff Scan Seg Neuts % (Manual) Band Neuts % (Manual) Lymphocytes % (Manual) Atypical Lymphs % (Man) Monocytes % (Manual) Eosinophils % (Manual) Basophils % (Manual) Metamyelocytes % (Man) Myelocytes % (Man) Promyelocytes % (Man) Blast Cells % (Manual) Plasma Cell % (Manual) Other Cells % Abs Neuts (Manual) Nucleated RBCs/100 WBC Differential Comment Hypersegmented Neuts Smudge Cells Toxic Granulation Toxic Vacuolation [place] Bodies Platelet Estimate Platelet Morphology RBC Morphology Dimorphic RBCs Polychromasia Basophilic Stippling Spherocytes [place] Bodies Sickle Cells Target Cells Tear Drop Cells Ovalocytes Stomatocytes Helmet Cells [place] Bodies [place] Cells Acanthocytes (Spur) Rouleaux Keratocytes Hematology Comments PT 10.8 INR 1.1 APTT 23.8 L Fibrinogen Puncture Site Patient Temperature O2 Saturation ABG pH ABG pCO2 ABG pO2 ABG HCO3 ABG O2 Content ABG Base Excess ABG Methemoglobin Omer Test VBG pH VBG pCO2 VBG pO2 VBG HCO3 VBG O2 Saturation VBG O2 Content VBG Base Excess VBG Carboxyhemoglobin VBG Methemoglobin Hemoglobin Carboxyhemoglobin O2 Delivery Device Liter Flow Vent Setting Inspired O2 Critical Value POC Sodium Sodium 148 H POC Potassium Potassium 3.9 POC Chloride Chloride 116 H Carbon Dioxide 22.2 Anion Gap 10 POC BUN BUN 17 Creatinine 0.85 POC Creatinine Estimated GFR 71 L POC Glucose 260 H Random Glucose 287 H D Lactic Acid Calcium 7.4 L* Prot Corrected Calcium 8.8 Phosphorus 1.5 L Magnesium 1.8 Total Bilirubin 0.4 AST 89 H ALT 275 H Alkaline Phosphatase 95 Ammonia Total Creatine Kinase CK-MB (CK-2) CK-MB (CK-2) % Troponin I Total Protein 4.7 L Albumin 1.9 L Beta-Hydroxybutyric Acd Urine Color Urine Clarity Urine pH Ur Specific [place] Urine Protein Urine Glucose (UA) Urine Ketones Urine Occult Blood Urine Nitrate Urine Bilirubin Urine Urobilinogen Ur Leukocyte Esterase Urine RBC Ur Squamous Epith Cells Micro UA Comment Ur Microscopic Review Urine Culture Comments Nasal Screen MRSA (PCR) Vancomycin Trough Random Vancomycin Salicylates Urine Opiates Screen Acetaminophen Ur Barbiturates Screen Ur Amphetamines Screen U Benzodiazepines Scrn Urine Cocaine Screen U Cannabinoids Screen Serum Alcohol Adenovirus (PCR) Bordetella holmesii PCR B. pertussis DNA (PCR) B. paraper/bronch (PCR) Hepatitis A IgM Ab Hep Bs Antigen Hep B Core IgM Ab Hep C IgG Ab Human Metapneumovir PCR Influenza A (RT-PCR) Influenza A (H1) PCR Influenza A (H3) PCR Influenza B (RT-PCR) Parainfluenza 1 (PCR) Parainfluenza 2 (PCR) Parainfluenza 3 (PCR) Parainfluenza 4 (PCR) RSV Type A (PCR) RSV Type B (PCR) Rhinovirus (PCR) Blood Type Blood Type Recheck Antibody Screen 01/09/18 01/09/18 01/09/18 09:00 11:43 16:38 CBC w Diff WBC 9.2 Corrected WBC RBC 3.41 L Hgb 9.7 L POC Hgb (Calc) Hct 31.0 L POC Hct MCV 90.9 MCH 28.5 MCHC 31.3 L RDW 14.2 Plt Count MPV 12.2 H Prelim Diff (Auto) Immature Gran % (Auto) Neut % (Auto) Lymph % (Auto) [place] % (Auto) Eos % (Auto) Baso % (Auto) Immature Gran # (Auto) Neut # (Auto) Lymph # (Auto) [place] # (Auto) Eos # (Auto) Baso # (Auto) WBC Differential Diff Scan Seg Neuts % (Manual) Band Neuts % (Manual) Lymphocytes % (Manual) Atypical Lymphs % (Man) Monocytes % (Manual) Eosinophils % (Manual) Basophils % (Manual) Metamyelocytes % (Man) Myelocytes % (Man) Promyelocytes % (Man) Blast Cells % (Manual) Plasma Cell % (Manual) Other Cells % Abs Neuts (Manual) Nucleated RBCs/100 WBC Differential Comment Hypersegmented Neuts Smudge Cells Toxic Granulation Toxic Vacuolation Dohle Bodies Platelet Estimate Platelet Morphology RBC Morphology Dimorphic RBCs Polychromasia Basophilic Stippling Spherocytes Pappenheimer Bodies Sickle Cells Target Cells Tear Drop Cells Ovalocytes Stomatocytes Helmet Cells [place] Bodies [place] Cells Acanthocytes (Spur) Rouleaux Keratocytes Hematology Comments PT INR APTT Fibrinogen Puncture Site Patient Temperature O2 Saturation ABG pH ABG pCO2 ABG pO2 ABG HCO3 ABG O2 Content ABG Base Excess ABG Methemoglobin Omer Test VBG pH VBG pCO2 VBG pO2 VBG HCO3 VBG O2 Saturation VBG O2 Content VBG Base Excess VBG Carboxyhemoglobin VBG Methemoglobin Hemoglobin Carboxyhemoglobin O2 Delivery Device Liter Flow Vent Setting Inspired O2 Critical Value POC Sodium Sodium POC Potassium Potassium POC Chloride Chloride Carbon Dioxide Anion Gap POC BUN BUN Creatinine POC Creatinine Estimated GFR POC Glucose 225 H 256 H Random Glucose Lactic Acid Calcium Prot Corrected Calcium Phosphorus Magnesium Total Bilirubin AST ALT Alkaline Phosphatase Ammonia Total Creatine Kinase CK-MB (CK-2) CK-MB (CK-2) % Troponin I Total Protein Albumin Beta-Hydroxybutyric Acd Urine Color Urine Clarity Urine pH Ur Specific [place] Urine Protein Urine Glucose (UA) Urine Ketones Urine Occult Blood Urine Nitrate Urine Bilirubin Urine Urobilinogen Ur Leukocyte Esterase Urine RBC Ur Squamous Epith Cells Micro UA Comment Ur Microscopic Review Urine Culture Comments Nasal Screen MRSA (PCR) Vancomycin Trough Random Vancomycin Salicylates Urine Opiates Screen Acetaminophen Ur Barbiturates Screen Ur Amphetamines Screen U Benzodiazepines Scrn Urine Cocaine Screen U Cannabinoids Screen Serum Alcohol Adenovirus (PCR) Bordetella holmesii PCR B. pertussis DNA (PCR) B. paraper/bronch (PCR) Hepatitis A IgM Ab Hep Bs Antigen Hep B Core IgM Ab Hep C IgG Ab Human Metapneumovir PCR Influenza A (RT-PCR) Influenza A (H1) PCR Influenza A (H3) PCR Influenza B (RT-PCR) Parainfluenza 1 (PCR) Parainfluenza 2 (PCR) Parainfluenza 3 (PCR) Parainfluenza 4 (PCR) RSV Type A (PCR) RSV Type B (PCR) Rhinovirus (PCR) Blood Type Blood Type Recheck Antibody Screen 01/09/18 01/10/18 01/10/18 19:51 02:16 04:42 CBC w Diff WBC Corrected WBC RBC Hgb POC Hgb (Calc) Hct POC Hct MCV MCH MCHC RDW Plt Count MPV Prelim Diff (Auto) Immature Gran % (Auto) Neut % (Auto) Lymph % (Auto) [place] % (Auto) Eos % (Auto) Baso % (Auto) Immature Gran # (Auto) Neut # (Auto) Lymph # (Auto) [place] # (Auto) Eos # (Auto) Baso # (Auto) WBC Differential Diff Scan Seg Neuts % (Manual) Band Neuts % (Manual) Lymphocytes % (Manual) Atypical Lymphs % (Man) Monocytes % (Manual) Eosinophils % (Manual) Basophils % (Manual) Metamyelocytes % (Man) Myelocytes % (Man) Promyelocytes % (Man) Blast Cells % (Manual) Plasma Cell % (Manual) Other Cells % Abs Neuts (Manual) Nucleated RBCs/100 WBC Differential Comment Hypersegmented Neuts Smudge Cells Toxic Granulation Toxic Vacuolation Dohle Bodies Platelet Estimate Platelet Morphology RBC Morphology Dimorphic RBCs Polychromasia Basophilic Stippling Spherocytes Pappenheimer Bodies Sickle Cells Target Cells Tear Drop Cells Ovalocytes Stomatocytes Helmet Cells [place] Bodies Efrem Cells Acanthocytes (Spur) Rouleaux Keratocytes Hematology Comments PT 11.0 INR 1.1 APTT 23.6 L Fibrinogen Puncture Site Patient Temperature O2 Saturation ABG pH ABG pCO2 ABG pO2 ABG HCO3 ABG O2 Content ABG Base Excess ABG Methemoglobin Omer Test VBG pH VBG pCO2 VBG pO2 VBG HCO3 VBG O2 Saturation VBG O2 Content VBG Base Excess VBG Carboxyhemoglobin VBG Methemoglobin Hemoglobin Carboxyhemoglobin O2 Delivery Device Liter Flow Vent Setting Inspired O2 Critical Value POC Sodium Sodium POC Potassium Potassium POC Chloride Chloride Carbon Dioxide Anion Gap POC BUN BUN Creatinine POC Creatinine Estimated GFR POC Glucose 232 H 261 H Random Glucose Lactic Acid Calcium Prot Corrected Calcium Phosphorus Magnesium Total Bilirubin AST ALT Alkaline Phosphatase Ammonia Total Creatine Kinase CK-MB (CK-2) CK-MB (CK-2) % Troponin I Total Protein Albumin Beta-Hydroxybutyric Acd Urine Color Urine Clarity Urine pH Ur Specific [place] Urine Protein Urine Glucose (UA) Urine Ketones Urine Occult Blood Urine Nitrate Urine Bilirubin Urine Urobilinogen Ur Leukocyte Esterase Urine RBC Ur Squamous Epith Cells Micro UA Comment Ur Microscopic Review Urine Culture Comments Nasal Screen MRSA (PCR) Vancomycin Trough Random Vancomycin Salicylates Urine Opiates Screen Acetaminophen Ur Barbiturates Screen Ur Amphetamines Screen U Benzodiazepines Scrn Urine Cocaine Screen U Cannabinoids Screen Serum Alcohol Adenovirus (PCR) Bordetella holmesii PCR B. pertussis DNA (PCR) B. paraper/bronch (PCR) Hepatitis A IgM Ab Hep Bs Antigen Hep B Core IgM Ab Hep C IgG Ab Human Metapneumovir PCR Influenza A (RT-PCR) Influenza A (H1) PCR Influenza A (H3) PCR Influenza B (RT-PCR) Parainfluenza 1 (PCR) Parainfluenza 2 (PCR) Parainfluenza 3 (PCR) Parainfluenza 4 (PCR) RSV Type A (PCR) RSV Type B (PCR) Rhinovirus (PCR) Blood Type Blood Type Recheck Antibody Screen 01/10/18 01/10/18 01/10/18 04:42 04:42 07:34 CBC w Diff WBC 7.8 Corrected WBC RBC 3.22 L Hgb 9.4 L POC Hgb (Calc) Hct 28.0 L POC Hct MCV 87.0 D MCH 29.3 MCHC 33.7 RDW 13.3 Plt Count 61 L MPV 12.6 H Prelim Diff (Auto) Immature Gran % (Auto) Neut % (Auto) Lymph % (Auto) [place] % (Auto) Eos % (Auto) Baso % (Auto) Immature Gran # (Auto) Neut # (Auto) Lymph # (Auto) [place] # (Auto) Eos # (Auto) Baso # (Auto) WBC Differential Diff Scan Seg Neuts % (Manual) Band Neuts % (Manual) Lymphocytes % (Manual) Atypical Lymphs % (Man) Monocytes % (Manual) Eosinophils % (Manual) Basophils % (Manual) Metamyelocytes % (Man) Myelocytes % (Man) Promyelocytes % (Man) Blast Cells % (Manual) Plasma Cell % (Manual) Other Cells % Abs Neuts (Manual) Nucleated RBCs/100 WBC Differential Comment Hypersegmented Neuts Smudge Cells Toxic Granulation Toxic Vacuolation Dohle Bodies Platelet Estimate Platelet Morphology RBC Morphology Dimorphic RBCs Polychromasia Basophilic Stippling Spherocytes Pappenheimer Bodies Sickle Cells Target Cells Tear Drop Cells Ovalocytes Stomatocytes Helmet Cells [place] Bodies Efrem Cells Acanthocytes (Spur) Rouleaux Keratocytes Hematology Comments PT INR APTT Fibrinogen Puncture Site Patient Temperature O2 Saturation ABG pH ABG pCO2 ABG pO2 ABG HCO3 ABG O2 Content ABG Base Excess ABG Methemoglobin Omer Test VBG pH VBG pCO2 VBG pO2 VBG HCO3 VBG O2 Saturation VBG O2 Content VBG Base Excess VBG Carboxyhemoglobin VBG Methemoglobin Hemoglobin Carboxyhemoglobin O2 Delivery Device Liter Flow Vent Setting Inspired O2 Critical Value POC Sodium Sodium 149 H POC Potassium Potassium 3.2 L POC Chloride Chloride 112 H Carbon Dioxide 25.3 Anion Gap 12 POC BUN BUN 15 Creatinine 1.07 H POC Creatinine Estimated GFR 54 L POC Glucose 248 H Random Glucose 264 H Lactic Acid Calcium 8.0 L Prot Corrected Calcium Phosphorus 4.7 D Magnesium 1.7 Total Bilirubin 0.5 AST 35 ALT 173 H Alkaline Phosphatase 87 Ammonia Total Creatine Kinase CK-MB (CK-2) CK-MB (CK-2) % Troponin I Total Protein 5.4 L D Albumin 2.9 L D Beta-Hydroxybutyric Acd Urine Color Urine Clarity Urine pH Ur Specific [place] Urine Protein Urine Glucose (UA) Urine Ketones Urine Occult Blood Urine Nitrate Urine Bilirubin Urine Urobilinogen Ur Leukocyte Esterase Urine RBC Ur Squamous Epith Cells Micro UA Comment Ur Microscopic Review Urine Culture Comments Nasal Screen MRSA (PCR) Vancomycin Trough Random Vancomycin Salicylates Urine Opiates Screen Acetaminophen Ur Barbiturates Screen Ur Amphetamines Screen U Benzodiazepines Scrn Urine Cocaine Screen U Cannabinoids Screen Serum Alcohol Adenovirus (PCR) Bordetella holmesii PCR B. pertussis DNA (PCR) B. paraper/bronch (PCR) Hepatitis A IgM Ab Hep Bs Antigen Hep B Core IgM Ab Hep C IgG Ab Human Metapneumovir PCR Influenza A (RT-PCR) Influenza A (H1) PCR Influenza A (H3) PCR Influenza B (RT-PCR) Parainfluenza 1 (PCR) Parainfluenza 2 (PCR) Parainfluenza 3 (PCR) Parainfluenza 4 (PCR) RSV Type A (PCR) RSV Type B (PCR) Rhinovirus (PCR) Blood Type Blood Type Recheck Antibody Screen 0801/10/18 01/10/18 10:18 11:22 16:05 CBC w Diff WBC Corrected WBC RBC Hgb POC Hgb (Calc) Hct POC Hct MCV MCH MCHC RDW Plt Count MPV Prelim Diff (Auto) Immature Gran % (Auto) Neut % (Auto) Lymph % (Auto) [place] % (Auto) Eos % (Auto) Baso % (Auto) Immature Gran # (Auto) Neut # (Auto) Lymph # (Auto) [place] # (Auto) Eos # (Auto) Baso # (Auto) WBC Differential Diff Scan Seg Neuts % (Manual) Band Neuts % (Manual) Lymphocytes % (Manual) Atypical Lymphs % (Man) Monocytes % (Manual) Eosinophils % (Manual) Basophils % (Manual) Metamyelocytes % (Man) Myelocytes % (Man) Promyelocytes % (Man) Blast Cells % (Manual) Plasma Cell % (Manual) Other Cells % Abs Neuts (Manual) Nucleated RBCs/100 WBC Differential Comment Hypersegmented Neuts Smudge Cells Toxic Granulation Toxic Vacuolation Dohle Bodies Platelet Estimate Platelet Morphology RBC Morphology Dimorphic RBCs Polychromasia Basophilic Stippling Spherocytes Pappenheimer Bodies Sickle Cells Target Cells Tear Drop Cells Ovalocytes Stomatocytes Helmet Cells [place] Bodies [place] Cells Acanthocytes (Spur) Rouleaux Keratocytes Hematology Comments PT INR APTT Fibrinogen Puncture Site Left radial Patient Temperature 98.6 O2 Saturation 96 ABG pH 7.42 ABG pCO2 36 L ABG pO2 119 ABG HCO3 23 ABG O2 Content 13.6 ABG Base Excess -0.5 ABG Methemoglobin 1.3 Omer Test Y VBG pH VBG pCO2 VBG pO2 VBG HCO3 VBG O2 Saturation VBG O2 Content VBG Base Excess VBG Carboxyhemoglobin VBG Methemoglobin Hemoglobin 9.8 L Carboxyhemoglobin 0.6 O2 Delivery Device Ventilator Liter Flow Vent Setting Cpap [id number] Inspired O2 40 Critical Value No POC Sodium Sodium POC Potassium Potassium POC Chloride Chloride Carbon Dioxide Anion Gap POC BUN BUN Creatinine POC Creatinine Estimated GFR POC Glucose 249 H 224 H Random Glucose Lactic Acid Calcium Prot Corrected Calcium Phosphorus Magnesium Total Bilirubin AST ALT Alkaline Phosphatase Ammonia Total Creatine Kinase CK-MB (CK-2) CK-MB (CK-2) % Troponin I Total Protein Albumin Beta-Hydroxybutyric Acd Urine Color Urine Clarity Urine pH Ur Specific [place] Urine Protein Urine Glucose (UA) Urine Ketones Urine Occult Blood Urine Nitrate Urine Bilirubin Urine Urobilinogen Ur Leukocyte Esterase Urine RBC Ur Squamous Epith Cells Micro UA Comment Ur Microscopic Review Urine Culture Comments Nasal Screen MRSA (PCR) Vancomycin Trough Random Vancomycin Salicylates Urine Opiates Screen Acetaminophen Ur Barbiturates Screen Ur Amphetamines Screen U Benzodiazepines Scrn Urine Cocaine Screen U Cannabinoids Screen Serum Alcohol Adenovirus (PCR) Bordetella holmesii PCR B. pertussis DNA (PCR) B. paraper/bronch (PCR) Hepatitis A IgM Ab Hep Bs Antigen Hep B Core IgM Ab Hep C IgG Ab Human Metapneumovir PCR Influenza A (RT-PCR) Influenza A (H1) PCR Influenza A (H3) PCR Influenza B (RT-PCR) Parainfluenza 1 (PCR) Parainfluenza 2 (PCR) Parainfluenza 3 (PCR) Parainfluenza 4 (PCR) RSV Type A (PCR) RSV Type B (PCR) Rhinovirus (PCR) Blood Type Blood Type Recheck Antibody Screen 01/10/18 01/10/18 01/11/18 20:24 20:48 00:33 CBC w Diff WBC Corrected WBC RBC Hgb POC Hgb (Calc) Hct POC Hct MCV MCH MCHC RDW Plt Count MPV Prelim Diff (Auto) Immature Gran % (Auto) Neut % (Auto) Lymph % (Auto) [place] % (Auto) Eos % (Auto) Baso % (Auto) Immature Gran # (Auto) Neut # (Auto) Lymph # (Auto) [place] # (Auto) Eos # (Auto) Baso # (Auto) WBC Differential Diff Scan Seg Neuts % (Manual) Band Neuts % (Manual) Lymphocytes % (Manual) Atypical Lymphs % (Man) Monocytes % (Manual) Eosinophils % (Manual) Basophils % (Manual) Metamyelocytes % (Man) Myelocytes % (Man) Promyelocytes % (Man) Blast Cells % (Manual) Plasma Cell % (Manual) Other Cells % Abs Neuts (Manual) Nucleated RBCs/100 WBC Differential Comment Hypersegmented Neuts Smudge Cells Toxic Granulation Toxic Vacuolation Dohle Bodies Platelet Estimate Platelet Morphology RBC Morphology Dimorphic RBCs Polychromasia Basophilic Stippling Spherocytes Pappenheimer Bodies Sickle Cells Target Cells Tear Drop Cells Ovalocytes Stomatocytes Helmet Cells [place] Bodies [place] Cells Acanthocytes (Spur) Rouleaux Keratocytes Hematology Comments PT INR APTT Fibrinogen Puncture Site Patient Temperature O2 Saturation ABG pH ABG pCO2 ABG pO2 ABG HCO3 ABG O2 Content ABG Base Excess ABG Methemoglobin Omer Test VBG pH VBG pCO2 VBG pO2 VBG HCO3 VBG O2 Saturation VBG O2 Content VBG Base Excess VBG Carboxyhemoglobin VBG Methemoglobin Hemoglobin Carboxyhemoglobin O2 Delivery Device Liter Flow Vent Setting Inspired O2 Critical Value POC Sodium Sodium POC Potassium Potassium 3.0 L POC Chloride Chloride Carbon Dioxide Anion Gap POC BUN BUN Creatinine POC Creatinine Estimated GFR POC Glucose 200 H 157 H Random Glucose Lactic Acid Calcium Prot Corrected Calcium Phosphorus Magnesium Total Bilirubin AST ALT Alkaline Phosphatase Ammonia Total Creatine Kinase CK-MB (CK-2) CK-MB (CK-2) % Troponin I Total Protein Albumin Beta-Hydroxybutyric Acd Urine Color Urine Clarity Urine pH Ur Specific [place] Urine Protein Urine Glucose (UA) Urine Ketones Urine Occult Blood Urine Nitrate Urine Bilirubin Urine Urobilinogen Ur Leukocyte Esterase Urine RBC Ur Squamous Epith Cells Micro UA Comment Ur Microscopic Review Urine Culture Comments Nasal Screen MRSA (PCR) Vancomycin Trough Random Vancomycin Salicylates Urine Opiates Screen Acetaminophen Ur Barbiturates Screen Ur Amphetamines Screen U Benzodiazepines Scrn Urine Cocaine Screen U Cannabinoids Screen Serum Alcohol Adenovirus (PCR) Bordetella holmesii PCR B. pertussis DNA (PCR) B. paraper/bronch (PCR) Hepatitis A IgM Ab Hep Bs Antigen Hep B Core IgM Ab Hep C IgG Ab Human Metapneumovir PCR Influenza A (RT-PCR) Influenza A (H1) PCR Influenza A (H3) PCR Influenza B (RT-PCR) Parainfluenza 1 (PCR) Parainfluenza 2 (PCR) Parainfluenza 3 (PCR) Parainfluenza 4 (PCR) RSV Type A (PCR) RSV Type B (PCR) Rhinovirus (PCR) Blood Type Blood Type Recheck Antibody Screen 01/11/18 01/11/18 01/11/18 05:00 05:00 05:00 CBC w Diff WBC 7.7 Corrected WBC RBC 3.00 L Hgb 8.7 L POC Hgb (Calc) Hct 26.8 L POC Hct MCV 89.5 MCH 29.2 MCHC 32.6 RDW 13.3 Plt Count 87 L D MPV 12.3 H Prelim Diff (Auto) Immature Gran % (Auto) Neut % (Auto) Lymph % (Auto) [place] % (Auto) Eos % (Auto) Baso % (Auto) Immature Gran # (Auto) Neut # (Auto) Lymph # (Auto) [place] # (Auto) Eos # (Auto) Baso # (Auto) WBC Differential Diff Scan Seg Neuts % (Manual) Band Neuts % (Manual) Lymphocytes % (Manual) Atypical Lymphs % (Man) Monocytes % (Manual) Eosinophils % (Manual) Basophils % (Manual) Metamyelocytes % (Man) Myelocytes % (Man) Promyelocytes % (Man) Blast Cells % (Manual) Plasma Cell % (Manual) Other Cells % Abs Neuts (Manual) Nucleated RBCs/100 WBC Differential Comment Hypersegmented Neuts Smudge Cells Toxic Granulation Toxic Vacuolation Dohle Bodies Platelet Estimate Platelet Morphology RBC Morphology Dimorphic RBCs Polychromasia Basophilic Stippling Spherocytes Pappenheimer Bodies Sickle Cells Target Cells Tear Drop Cells Ovalocytes Stomatocytes Helmet Cells [place] Bodies [place] Cells Acanthocytes (Spur) Rouleaux Keratocytes Hematology Comments PT 11.3 INR 1.1 APTT 25.0 Fibrinogen Puncture Site Patient Temperature O2 Saturation ABG pH ABG pCO2 ABG pO2 ABG HCO3 ABG O2 Content ABG Base Excess ABG Methemoglobin Omer Test VBG pH VBG pCO2 VBG pO2 VBG HCO3 VBG O2 Saturation VBG O2 Content VBG Base Excess VBG Carboxyhemoglobin VBG Methemoglobin Hemoglobin Carboxyhemoglobin O2 Delivery Device Liter Flow Vent Setting Inspired O2 Critical Value POC Sodium Sodium 153 H POC Potassium Potassium 2.9 L* POC Chloride Chloride 119 H Carbon Dioxide 18.4 L Anion Gap 16 H POC BUN BUN 13 Creatinine 0.84 POC Creatinine Estimated GFR 72 L POC Glucose Random Glucose 236 H Lactic Acid Calcium 6.8 L* D Prot Corrected Calcium 8.2 L Phosphorus 3.2 D Magnesium 1.9 Total Bilirubin 0.5 AST 38 H ALT 102 H Alkaline Phosphatase 61 Ammonia Total Creatine Kinase CK-MB (CK-2) CK-MB (CK-2) % Troponin I Total Protein 4.5 L D Albumin 2.6 L Beta-Hydroxybutyric Acd Urine Color Urine Clarity Urine pH Ur Specific [place] Urine Protein Urine Glucose (UA) Urine Ketones Urine Occult Blood Urine Nitrate Urine Bilirubin Urine Urobilinogen Ur Leukocyte Esterase Urine RBC Ur Squamous Epith Cells Micro UA Comment Ur Microscopic Review Urine Culture Comments Nasal Screen MRSA (PCR) Vancomycin Trough Random Vancomycin Salicylates Urine Opiates Screen Acetaminophen Ur Barbiturates Screen Ur Amphetamines Screen U Benzodiazepines Scrn Urine Cocaine Screen U Cannabinoids Screen Serum Alcohol Adenovirus (PCR) Bordetella holmesii PCR B. pertussis DNA (PCR) B. paraper/bronch (PCR) Hepatitis A IgM Ab Hep Bs Antigen Hep B Core IgM Ab Hep C IgG Ab Human Metapneumovir PCR Influenza A (RT-PCR) Influenza A (H1) PCR Influenza A (H3) PCR Influenza B (RT-PCR) Parainfluenza 1 (PCR) Parainfluenza 2 (PCR) Parainfluenza 3 (PCR) Parainfluenza 4 (PCR) RSV Type A (PCR) RSV Type B (PCR) Rhinovirus (PCR) Blood Type Blood Type Recheck Antibody Screen 01/11/18 01/11/18 01/11/18 05:11 07:48 09:24 CBC w Diff WBC Corrected WBC RBC Hgb POC Hgb (Calc) Hct POC Hct MCV MCH MCHC RDW Plt Count MPV Prelim Diff (Auto) Immature Gran % (Auto) Neut % (Auto) Lymph % (Auto) [place] % (Auto) Eos % (Auto) Baso % (Auto) Immature Gran # (Auto) Neut # (Auto) Lymph # (Auto) [place] # (Auto) Eos # (Auto) Baso # (Auto) WBC Differential Diff Scan Seg Neuts % (Manual) Band Neuts % (Manual) Lymphocytes % (Manual) Atypical Lymphs % (Man) Monocytes % (Manual) Eosinophils % (Manual) Basophils % (Manual) Metamyelocytes % (Man) Myelocytes % (Man) Promyelocytes % (Man) Blast Cells % (Manual) Plasma Cell % (Manual) Other Cells % Abs Neuts (Manual) Nucleated RBCs/100 WBC Differential Comment Hypersegmented Neuts Smudge Cells Toxic Granulation Toxic Vacuolation Dohle Bodies Platelet Estimate Platelet Morphology RBC Morphology Dimorphic RBCs Polychromasia Basophilic Stippling Spherocytes [place] Bodies Sickle Cells Target Cells Tear Drop Cells Ovalocytes Stomatocytes Helmet Cells [place] Bodies Efrem Cells Acanthocytes (Spur) Rouleaux Keratocytes Hematology Comments PT INR APTT Fibrinogen Puncture Site Left radial Patient Temperature 98.6 O2 Saturation 95 ABG pH 7.49 H ABG pCO2 30 L ABG pO2 81 ABG HCO3 23 ABG O2 Content 12.1 ABG Base Excess -0.3 ABG Methemoglobin 1.2 Omer Test Present VBG pH VBG pCO2 VBG pO2 VBG HCO3 VBG O2 Saturation VBG O2 Content VBG Base Excess VBG Carboxyhemoglobin VBG Methemoglobin Hemoglobin 9.0 L Carboxyhemoglobin 0.9 O2 Delivery Device Nasal cannula Liter Flow 4.00 Vent Setting Inspired O2 21 Critical Value No POC Sodium Sodium POC Potassium Potassium POC Chloride Chloride Carbon Dioxide Anion Gap POC BUN BUN Creatinine POC Creatinine Estimated GFR POC Glucose 289 H 211 H Random Glucose Lactic Acid Calcium Prot Corrected Calcium Phosphorus Magnesium Total Bilirubin AST ALT Alkaline Phosphatase Ammonia Total Creatine Kinase CK-MB (CK-2) CK-MB (CK-2) % Troponin I Total Protein Albumin Beta-Hydroxybutyric Acd Urine Color Urine Clarity Urine pH Ur Specific [place] Urine Protein Urine Glucose (UA) Urine Ketones Urine Occult Blood Urine Nitrate Urine Bilirubin Urine Urobilinogen Ur Leukocyte Esterase Urine RBC Ur Squamous Epith Cells Micro UA Comment Ur Microscopic Review Urine Culture Comments Nasal Screen MRSA (PCR) Vancomycin Trough Random Vancomycin Salicylates Urine Opiates Screen Acetaminophen Ur Barbiturates Screen Ur Amphetamines Screen U Benzodiazepines Scrn Urine Cocaine Screen U Cannabinoids Screen Serum Alcohol Adenovirus (PCR) Bordetella holmesii PCR B. pertussis DNA (PCR) B. paraper/bronch (PCR) Hepatitis A IgM Ab Hep Bs Antigen Hep B Core IgM Ab Hep C IgG Ab Human Metapneumovir PCR Influenza A (RT-PCR) Influenza A (H1) PCR Influenza A (H3) PCR Influenza B (RT-PCR) Parainfluenza 1 (PCR) Parainfluenza 2 (PCR) Parainfluenza 3 (PCR) Parainfluenza 4 (PCR) RSV Type A (PCR) RSV Type B (PCR) Rhinovirus (PCR) Blood Type Blood Type Recheck Antibody Screen 01/11/18 01/11/18 01/11/18 09:40 09:40 11:23 CBC w Diff WBC Corrected WBC RBC Hgb POC Hgb (Calc) Hct POC Hct MCV MCH MCHC RDW Plt Count MPV Prelim Diff (Auto) Immature Gran % (Auto) Neut % (Auto) Lymph % (Auto) [place] % (Auto) Eos % (Auto) Baso % (Auto) Immature Gran # (Auto) Neut # (Auto) Lymph # (Auto) [place] # (Auto) Eos # (Auto) Baso # (Auto) WBC Differential Diff Scan Seg Neuts % (Manual) Band Neuts % (Manual) Lymphocytes % (Manual) Atypical Lymphs % (Man) Monocytes % (Manual) Eosinophils % (Manual) Basophils % (Manual) Metamyelocytes % (Man) Myelocytes % (Man) Promyelocytes % (Man) Blast Cells % (Manual) Plasma Cell % (Manual) Other Cells % Abs Neuts (Manual) Nucleated RBCs/100 WBC Differential Comment Hypersegmented Neuts Smudge Cells Toxic Granulation Toxic Vacuolation Dohle Bodies Platelet Estimate Platelet Morphology RBC Morphology Dimorphic RBCs Polychromasia Basophilic Stippling Spherocytes [place] Bodies Sickle Cells Target Cells Tear Drop Cells Ovalocytes Stomatocytes Helmet Cells [place] Bodies Efrem Cells Acanthocytes (Spur) Rouleaux Keratocytes Hematology Comments PT INR APTT Fibrinogen Puncture Site Patient Temperature O2 Saturation ABG pH ABG pCO2 ABG pO2 ABG HCO3 ABG O2 Content ABG Base Excess ABG Methemoglobin Omer Test VBG pH VBG pCO2 VBG pO2 VBG HCO3 VBG O2 Saturation VBG O2 Content VBG Base Excess VBG Carboxyhemoglobin VBG Methemoglobin Hemoglobin Carboxyhemoglobin O2 Delivery Device Liter Flow Vent Setting Inspired O2 Critical Value POC Sodium Sodium POC Potassium Potassium POC Chloride Chloride Carbon Dioxide Anion Gap POC BUN BUN Creatinine POC Creatinine Estimated GFR POC Glucose 224 H Random Glucose Lactic Acid 2.0 Calcium Prot Corrected Calcium Phosphorus Magnesium Total Bilirubin AST ALT Alkaline Phosphatase Ammonia Total Creatine Kinase 654 H CK-MB (CK-2) 2.6 CK-MB (CK-2) % 0.4 Troponin I Total Protein Albumin Beta-Hydroxybutyric Acd Urine Color Urine Clarity Urine pH Ur Specific [place] Urine Protein Urine Glucose (UA) Urine Ketones Urine Occult Blood Urine Nitrate Urine Bilirubin Urine Urobilinogen Ur Leukocyte Esterase Urine RBC Ur Squamous Epith Cells Micro UA Comment Ur Microscopic Review Urine Culture Comments Nasal Screen MRSA (PCR) Vancomycin Trough Random Vancomycin Salicylates Urine Opiates Screen Acetaminophen Ur Barbiturates Screen Ur Amphetamines Screen U Benzodiazepines Scrn Urine Cocaine Screen U Cannabinoids Screen Serum Alcohol Adenovirus (PCR) Bordetella holmesii PCR B. pertussis DNA (PCR) B. paraper/bronch (PCR) Hepatitis A IgM Ab Hep Bs Antigen Hep B Core IgM Ab Hep C IgG Ab Human Metapneumovir PCR Influenza A (RT-PCR) Influenza A (H1) PCR Influenza A (H3) PCR Influenza B (RT-PCR) Parainfluenza 1 (PCR) Parainfluenza 2 (PCR) Parainfluenza 3 (PCR) Parainfluenza 4 (PCR) RSV Type A (PCR) RSV Type B (PCR) Rhinovirus (PCR) Blood Type Blood Type Recheck Antibody Screen 01/11/18 01/11/18 01/11/18 16:14 19:48 21:35 CBC w Diff WBC Corrected WBC RBC Hgb POC Hgb (Calc) Hct POC Hct MCV MCH MCHC RDW Plt Count MPV Prelim Diff (Auto) Immature Gran % (Auto) Neut % (Auto) Lymph % (Auto) [place] % (Auto) Eos % (Auto) Baso % (Auto) Immature Gran # (Auto) Neut # (Auto) Lymph # (Auto) [place] # (Auto) Eos # (Auto) Baso # (Auto) WBC Differential Diff Scan Seg Neuts % (Manual) Band Neuts % (Manual) Lymphocytes % (Manual) Atypical Lymphs % (Man) Monocytes % (Manual) Eosinophils % (Manual) Basophils % (Manual) Metamyelocytes % (Man) Myelocytes % (Man) Promyelocytes % (Man) Blast Cells % (Manual) Plasma Cell % (Manual) Other Cells % Abs Neuts (Manual) Nucleated RBCs/100 WBC Differential Comment Hypersegmented Neuts Smudge Cells Toxic Granulation Toxic Vacuolation Dohle Bodies Platelet Estimate Platelet Morphology RBC Morphology Dimorphic RBCs Polychromasia Basophilic Stippling Spherocytes Pappenheimer Bodies Sickle Cells Target Cells Tear Drop Cells Ovalocytes Stomatocytes Helmet Cells [place] Bodies [place] Cells Acanthocytes (Spur) Rouleaux Keratocytes Hematology Comments PT INR APTT Fibrinogen Puncture Site Patient Temperature O2 Saturation ABG pH ABG pCO2 ABG pO2 ABG HCO3 ABG O2 Content ABG Base Excess ABG Methemoglobin Omer Test VBG pH VBG pCO2 VBG pO2 VBG HCO3 VBG O2 Saturation VBG O2 Content VBG Base Excess VBG Carboxyhemoglobin VBG Methemoglobin Hemoglobin Carboxyhemoglobin O2 Delivery Device Liter Flow Vent Setting Inspired O2 Critical Value POC Sodium Sodium POC Potassium Potassium 3.6 POC Chloride Chloride Carbon Dioxide Anion Gap POC BUN BUN Creatinine POC Creatinine Estimated GFR POC Glucose 257 H 207 H Random Glucose Lactic Acid Calcium Prot Corrected Calcium Phosphorus Magnesium Total Bilirubin AST ALT Alkaline Phosphatase Ammonia Total Creatine Kinase CK-MB (CK-2) CK-MB (CK-2) % Troponin I Total Protein Albumin Beta-Hydroxybutyric Acd Urine Color Urine Clarity Urine pH Ur Specific [place] Urine Protein Urine Glucose (UA) Urine Ketones Urine Occult Blood Urine Nitrate Urine Bilirubin Urine Urobilinogen Ur Leukocyte Esterase Urine RBC Ur Squamous Epith Cells Micro UA Comment Ur Microscopic Review Urine Culture Comments Nasal Screen MRSA (PCR) Vancomycin Trough Random Vancomycin Salicylates Urine Opiates Screen Acetaminophen Ur Barbiturates Screen Ur Amphetamines Screen U Benzodiazepines Scrn Urine Cocaine Screen U Cannabinoids Screen Serum Alcohol Adenovirus (PCR) Bordetella holmesii PCR B. pertussis DNA (PCR) B. paraper/bronch (PCR) Hepatitis A IgM Ab Hep Bs Antigen Hep B Core IgM Ab Hep C IgG Ab Human Metapneumovir PCR Influenza A (RT-PCR) Influenza A (H1) PCR Influenza A (H3) PCR Influenza B (RT-PCR) Parainfluenza 1 (PCR) Parainfluenza 2 (PCR) Parainfluenza 3 (PCR) Parainfluenza 4 (PCR) RSV Type A (PCR) RSV Type B (PCR) Rhinovirus (PCR) Blood Type Blood Type Recheck Antibody Screen 01/11/18 01/12/18 01/12/18 23:32 04:34 05:00 CBC w Diff WBC 8.5 Corrected WBC RBC 3.11 L Hgb 9.1 L POC Hgb (Calc) Hct 27.8 L POC Hct MCV 89.5 MCH 29.2 MCHC 32.6 RDW 13.7 Plt Count 101 L MPV 12.7 H Prelim Diff (Auto) Slide review pending Immature Gran % (Auto) Neut % (Auto) 79.8 H Lymph % (Auto) 11.3 [place] % (Auto) 8.8 H Eos % (Auto) 0.1 Baso % (Auto) 0.0 Immature Gran # (Auto) Neut # (Auto) 6.8 Lymph # (Auto) 1.0 [place] # (Auto) 0.7 Eos # (Auto) 0.0 Baso # (Auto) 0.0 WBC Differential Diff Scan Seg Neuts % (Manual) Band Neuts % (Manual) Lymphocytes % (Manual) Atypical Lymphs % (Man) Monocytes % (Manual) Eosinophils % (Manual) Basophils % (Manual) Metamyelocytes % (Man) Myelocytes % (Man) Promyelocytes % (Man) Blast Cells % (Manual) Plasma Cell % (Manual) Other Cells % Abs Neuts (Manual) Nucleated RBCs/100 WBC Differential Comment . Hypersegmented Neuts Smudge Cells Toxic Granulation Toxic Vacuolation Dohle Bodies Platelet Estimate Platelet Morphology RBC Morphology Dimorphic RBCs Polychromasia Basophilic Stippling Spherocytes Pappenheimer Bodies Sickle Cells Target Cells Tear Drop Cells Ovalocytes Stomatocytes Helmet Cells [place] Bodies [place] Cells Acanthocytes (Spur) Rouleaux Keratocytes Hematology Comments PT INR APTT Fibrinogen Puncture Site Patient Temperature O2 Saturation ABG pH ABG pCO2 ABG pO2 ABG HCO3 ABG O2 Content ABG Base Excess ABG Methemoglobin Omer Test VBG pH VBG pCO2 VBG pO2 VBG HCO3 VBG O2 Saturation VBG O2 Content VBG Base Excess VBG Carboxyhemoglobin VBG Methemoglobin Hemoglobin Carboxyhemoglobin O2 Delivery Device Liter Flow Vent Setting Inspired O2 Critical Value POC Sodium Sodium POC Potassium Potassium POC Chloride Chloride Carbon Dioxide Anion Gap POC BUN BUN Creatinine POC Creatinine Estimated GFR POC Glucose 180 H 224 H Random Glucose Lactic Acid Calcium Prot Corrected Calcium Phosphorus Magnesium Total Bilirubin AST ALT Alkaline Phosphatase Ammonia Total Creatine Kinase CK-MB (CK-2) CK-MB (CK-2) % Troponin I Total Protein Albumin Beta-Hydroxybutyric Acd Urine Color Urine Clarity Urine pH Ur Specific [place] Urine Protein Urine Glucose (UA) Urine Ketones Urine Occult Blood Urine Nitrate Urine Bilirubin Urine Urobilinogen Ur Leukocyte Esterase Urine RBC Ur Squamous Epith Cells Micro UA Comment Ur Microscopic Review Urine Culture Comments Nasal Screen MRSA (PCR) Vancomycin Trough Random Vancomycin Salicylates Urine Opiates Screen Acetaminophen Ur Barbiturates Screen Ur Amphetamines Screen U Benzodiazepines Scrn Urine Cocaine Screen U Cannabinoids Screen Serum Alcohol Adenovirus (PCR) Bordetella holmesii PCR B. pertussis DNA (PCR) B. paraper/bronch (PCR) Hepatitis A IgM Ab Hep Bs Antigen Hep B Core IgM Ab Hep C IgG Ab Human Metapneumovir PCR Influenza A (RT-PCR) Influenza A (H1) PCR Influenza A (H3) PCR Influenza B (RT-PCR) Parainfluenza 1 (PCR) Parainfluenza 2 (PCR) Parainfluenza 3 (PCR) Parainfluenza 4 (PCR) RSV Type A (PCR) RSV Type B (PCR) Rhinovirus (PCR) Blood Type Blood Type Recheck Antibody Screen 01/12/18 01/12/18 01/12/18 05:00 05:00 07:46 CBC w Diff WBC Corrected WBC RBC Hgb POC Hgb (Calc) Hct POC Hct MCV MCH MCHC RDW Plt Count MPV Prelim Diff (Auto) Immature Gran % (Auto) Neut % (Auto) Lymph % (Auto) [place] % (Auto) Eos % (Auto) Baso % (Auto) Immature Gran # (Auto) Neut # (Auto) Lymph # (Auto) [place] # (Auto) Eos # (Auto) Baso # (Auto) WBC Differential Diff Scan Seg Neuts % (Manual) Band Neuts % (Manual) Lymphocytes % (Manual) Atypical Lymphs % (Man) Monocytes % (Manual) Eosinophils % (Manual) Basophils % (Manual) Metamyelocytes % (Man) Myelocytes % (Man) Promyelocytes % (Man) Blast Cells % (Manual) Plasma Cell % (Manual) Other Cells % Abs Neuts (Manual) Nucleated RBCs/100 WBC Differential Comment Hypersegmented Neuts Smudge Cells Toxic Granulation Toxic Vacuolation Dohle Bodies Platelet Estimate Platelet Morphology RBC Morphology Dimorphic RBCs Polychromasia Basophilic Stippling Spherocytes Pappenheimer Bodies Sickle Cells Target Cells Tear Drop Cells Ovalocytes Stomatocytes Helmet Cells [place] Bodies [place] Cells Acanthocytes (Spur) Rouleaux Keratocytes Hematology Comments PT INR APTT Fibrinogen Puncture Site Patient Temperature O2 Saturation ABG pH ABG pCO2 ABG pO2 ABG HCO3 ABG O2 Content ABG Base Excess ABG Methemoglobin Omer Test VBG pH VBG pCO2 VBG pO2 VBG HCO3 VBG O2 Saturation VBG O2 Content VBG Base Excess VBG Carboxyhemoglobin VBG Methemoglobin Hemoglobin Carboxyhemoglobin O2 Delivery Device Liter Flow Vent Setting Inspired O2 Critical Value POC Sodium Sodium 151 H POC Potassium Potassium 4.2 POC Chloride Chloride 111 H D Carbon Dioxide 23.0 Anion Gap 17 H POC BUN BUN 19 H Creatinine 0.96 POC Creatinine Estimated GFR 62 L POC Glucose 201 H Random Glucose 210 H Lactic Acid Calcium 8.3 L D Prot Corrected Calcium Phosphorus Magnesium 2.6 H D Total Bilirubin 0.3 AST 24 ALT 101 H Alkaline Phosphatase 75 Ammonia 24 Total Creatine Kinase CK-MB (CK-2) CK-MB (CK-2) % Troponin I Total Protein 5.7 L D Albumin 2.9 L Beta-Hydroxybutyric Acd Urine Color Urine Clarity Urine pH Ur Specific [place] Urine Protein Urine Glucose (UA) Urine Ketones Urine Occult Blood Urine Nitrate Urine Bilirubin Urine Urobilinogen Ur Leukocyte Esterase Urine RBC Ur Squamous Epith Cells Micro UA Comment Ur Microscopic Review Urine Culture Comments Nasal Screen MRSA (PCR) Vancomycin Trough Random Vancomycin Salicylates Urine Opiates Screen Acetaminophen Ur Barbiturates Screen Ur Amphetamines Screen U Benzodiazepines Scrn Urine Cocaine Screen U Cannabinoids Screen Serum Alcohol Adenovirus (PCR) Bordetella holmesii PCR B. pertussis DNA (PCR) B. paraper/bronch (PCR) Hepatitis A IgM Ab Hep Bs Antigen Hep B Core IgM Ab Hep C IgG Ab Human Metapneumovir PCR Influenza A (RT-PCR) Influenza A (H1) PCR Influenza A (H3) PCR Influenza B (RT-PCR) Parainfluenza 1 (PCR) Parainfluenza 2 (PCR) Parainfluenza 3 (PCR) Parainfluenza 4 (PCR) RSV Type A (PCR) RSV Type B (PCR) Rhinovirus (PCR) Blood Type Blood Type Recheck Antibody Screen ITS Impressions Abdomen/Pelvis CT 01/04/18 00:00 CONCLUSION: Fatty liver. Chest CT 01/04/18 00:00 CONCLUSION: Bilateral parenchymal infiltrates most likely inflammatory possibly pneumonia. Head CT 01/07/18 05:43 CONCLUSION: 1. No acute intracranial abnormality. 2. Sinus disease developing. . Extremity Arterial Study 01/07/18 22:13 CONCLUSION: 1. No perceptible arterial pressure in the digits of the right hand consistent with distal occlusive disease. 2. Mildly decreased arterial pressure in the digits of the left hand consistent with nonocclusive distal narrowing. 3. No significant disease at and proximal to either wrist. Chest X-Ray 01/10/18 00:00 CONCLUSION: No significant interval change compared to the prior examination. Microbiology 01/09/18 16:50 Sputum - Endotracheal Gram Stain - Final 01/09/18 16:50 Sputum - Endotracheal Sputum Culture - Final Heavy growth normal respiratory griffin 01/04/18 18:00 Blood - Line Aerobic Blood Culture - Final No growth in 5 days 01/04/18 18:00 Blood - Line Anaerobic Blood Culture - Final No growth in 5 days 01/04/18 16:20 Blood - Peripheral Aerobic Blood Culture - Final No growth in 5 days 01/04/18 16:20 Blood - Peripheral Anaerobic Blood Culture - Final No growth in 5 days 01/04/18 16:26 Blood - Peripheral Aerobic Blood Culture - Final No growth in 5 days 01/04/18 16:26 Blood - Peripheral Anaerobic Blood Culture - Final No growth in 5 days 01/06/18 05:30 Nasal Wash Influenza Types A,B Antigen - Final Negative for FLU A and B antigen Infection due to influenza A or B cannot be ruled out since the antigen present in the sample may be below the detection limit of the test. 01/05/18 01:20 Urine - Catheterized Urine Streptococcus pneumoniae Antigen ( M - Final Presumptive negative for streptococcus pneumoniae antigen, suggesting no current or recent infection. Infection due to Streptococcus pneumoniae cannot be ruled out since the antigen present in the sample may be below the detection limit of the test. 01/05/18 01:20 Urine - Catheterized Urine Legionella Antigen - Final Presumptive negative for Legionella pneumophila serogroup 1 antigen in urine, suggesting no recent or recurrent infection. Infection due to Legionella cannot be ruled out since other serogroups and species may cause disease, antigen may not be present in urine in early infection, and the level of antigen present in the urine may be below the detection limit of the test. Imaging: Abdomen/Pelvis CT 01/04/18 00:00 CONCLUSION: Fatty liver. Chest CT 01/04/18 00:00 CONCLUSION: Bilateral parenchymal infiltrates most likely inflammatory possibly pneumonia. Head CT 01/04/18 16:50 CONCLUSION: Technically degraded exam grossly negative for acute intracranial process. . Chest X-Ray 01/04/18 18:00 CONCLUSION: Left IJ catheter in good position. No evidence of pneumothorax. Head CT 01/07/18 05:43 CONCLUSION: 1. No acute intracranial abnormality. 2. Sinus disease developing. . Extremity Arterial Study 01/07/18 22:13 CONCLUSION: 1. No perceptible arterial pressure in the digits of the right hand consistent with distal occlusive disease. 2. Mildly decreased arterial pressure in the digits of the left hand consistent with nonocclusive distal narrowing. 3. No significant disease at and proximal to either wrist. Chest X-Ray 01/09/18 08:34 CONCLUSION: Bilateral effusions and basilar consolidation. Chest X-Ray 01/10/18 00:00 CONCLUSION: No significant interval change compared to the prior examination. Objective Remarks: Gen: 52-year-old middle-aged appearing female, sitting up in bed on nasal cannula in no acute distress. heent: pupils 2 mm, equal, reactive. nc. at. mucous membranes moist. neck: no jvd. trachea midline. airway widely patent. Left IJ CVL clean dry and intact chest: comfortable pattern. equal chest rise. minimal wheezing. cv: tachycardic rate, regular rhythm. No murmur. abd: soft, obese, nontender, nondistended. no guarding. bs active. extr: warm, well perfused. poor cap refill. distal pulses 1+ but weak. neuro: On methadone drip for sedation. Moves all extremities spontaneously. DTRs patella 4+, bilateral ankle clonus. Just stares straight ahead and not following commands. Assessment and Plan - Assessment and Plan Plan: Assessment: 52yF with history of poorly controlled diabetes presents in multiorgan failure and profound shock and diabetic ketoacidosis, elevated troponin. critically ill. no improvements in last 48h. off pathway. coronary ischemia, acidosis, and respiratory failure persist despite aggressive therapy. Plan by systems: Neuro/Psych: Acute metabolic encephalopathy Depression/anxiety/bipolar? -Patient has extensive psych history, it is unclear to me whether that is playing a part in her agitation -Continue dexmedetomidine drip at 1.2 mg/kg/h -D/C quetiapine 50 q8. d/c haloperidol as needed for breakthrough agitation -MRI brain without contrast on 01/12. EEG 01/07 revealed severe encephalopathy -Holding home medications venlafaxine 150 mg daily, lurasidone 80 mg daily, lithium 450 mg twice daily and alprazolam 0.5 mg twice daily Resp: Acute hypoxic and hypercarbic respiratory failure Community Acquired pneumonia -Nasal cannula to maintain saturations greater than equal to 92% -Incentive spirometry while awake - Taper methylprednisolone succinate to 40 mg IV every 12 hours due to wheezing -Albuterol/ipratropium aerosols every 4 hours with albuterol aerosols every 2 hours as needed for dyspnea CV: Septic Shock- resolved Volume overload Acute coronary ischemia: unclear if Type I vs. Type II ST elevation myocardial infarction Elevated troponin 3 of hyperlipidemia -During hospitalization, approximate 10 kg up in weight, currently on IV furosemide 20 mg IV daily - IV albumin 25 g every 12 for 3 days has been discontinued - trend trops. - EKG with inferior ST elevations - 2d echo - left ventricular systolic function is mildly reduced with an estimated ejection fraction in the range of 45- 50%. Mild global hypokinesis though TDS. Wall thickness is normal. Normal left ventricular size. Mitral annular calcification is present. Mild mitral valve regurgitation. Aortic valve sclerosis is present. There is mild tricuspid valve regurgitation. The estimated pulmonary arterial pressure is 27.8 mmHg. The pulmonary valve is not well visualized. 01/05. [facility] 01/05 overnight with clean coronaries - cardiology: Dr. Alvarado/Brie Previously on pravastatin 20 mg daily and lisinopril 10 mg daily for dyslipidemia/hypertension respectively Renal: Acute kidney injury -resolving - likely secondary to volume depletion and shock -- dc IVF, daily bmp. Lasix as above. Allen FEN/GI: Lactic Acidosis- resolved Severe anion-gap metabolic acidosis-resolved Acute intravascular volume depletion- resolved. Hypernatremia Hyperchloremia Hypermagnesia Hypoalbuminemia -Continue tube feeding with Glucerna 1.5-50 cc hour with free water 200 cc every 6 hours - ICU electrolyte protocol famotidine for GI prophylaxis Docusate replacement 1 tablet twice daily for bowel regimen Heme/ID: Community Acquired Pneumonia Septic Shock-resolved Normocytic anemia Thrombocytopenia - d/c piperacillin/tazobactam, DCd vancomycin, azithromycin. - cultures 01/04 NGTD. repeat sputum pending - daily cbc - diffuse ST elevations were concerning for pericarditis, but viral panel negative for common pathogens known to cause infectious pericarditis. Endo: Diabetes mellitus likely - dka protocol insulin drip-DCD 01/07/2018 - Use SSI aspart insulin - q4h accuchecks and start insulin detemir 5 units at night Prophylaxis: SQH famotidine SCDs/heparin subcu Lines: - 01/04 left IJ TLC - allen Dispo: - remain in ICU. critically ill. minimal improvements. Overall impression: Encephalopathy, hyper-reflexia, multiple psych meds with recent changes. No fever or rigidity. Consider serotonin syndrome as possible cause. Procedures - Arterial Line Size (Gauge): 20
[2018-01-12 09:21] LABS: Lymphocytes 6 % (9-44); Monocytes 7 % (0-8); Plasma Cells 1 % (0-0)
[2018-01-12] MEDS ORDERED: Etomidate Inj 40 MG/20 ML Vial IV.PUSH ONE (12:56)
--- NOTE | 2018-01-12 13:33 | P.PCN ---
Date of procedure: 01/12/18 Pre-op diagnosis: Acute respiratory failure Post-op diagnosis: same Procedure: DATE: 01/12/2018 PROCEDURE: Orotracheal intubation INDICATION: Acute respiratory failure DETAILS OF PROCEDURE The patient was placed in optimal position and preoxygenated with 100% FiO2 via bag valve mask. At the start oxygen saturation was 98%. The patient was administered 20 mg etomidate IV and 50 mg rocuronium IV. I entered the oropharynx with a size 4 laryngoscope blade and obtained a grade 2 view of the airway. The airway copious amounts of thick green secretions obscuring view of vocal cords. On single attempt a size 8.0 cuffed endotracheal tube was passed through the vocal cords. Correct tube location was confirmed with end tidal CO2 detector and by auscultating over bilateral lung stevenson. The endotracheal tube was secured with adhesive tape at a depth of 24 cm at the lips. The patient was connected to the ventilator. The patient tolerated the procedure well without any apparent complications. Oxygen saturations were maintained greater than 95% all times. STAT chest x-ray pending at time of dictation.
[2018-01-12] MEDS: fentaNYL 10 mcg/mL Premix Drip 2,500 MCG/250 ML BAG IV.SIG PRN (13:38)
--- NOTE | 2018-01-12 14:01 | XR ---
EXAM DATE: 01/12/2018 1:56 PM EDT AGE/SEX: 52 years / Female INDICATIONS: Intubation readjustment. CLINICAL DATA: This is the patient's initial encounter. Patient reports that signs and symptoms have been present for 1 day and indicates a pain score of Nonresponsive. MEDICAL/SURGICAL HISTORY: Seizures. Diabetes. None. COMPARISON: C, CHEST 1V SINGLE AP, 01/12/2018. . FINDINGS: Endotracheal tube has been repositioned, tip terminates 1.6 cm above the colin. Diffuse bilateral in filtrates are again seen. Left jugular central venous catheter again noted. CONCLUSION: ET tube repositioning. Electronically signed by: Yunior Hsieh MD 01/12/2018 2:00 PM EDT
--- NOTE | 2018-01-12 14:01 | XR ---
EXAM DATE: 01/12/2018 1:55 PM EDT AGE/SEX: 52 years / Female INDICATIONS: Intubation. CLINICAL DATA: This is the patient's initial encounter. Patient reports that signs and symptoms have been present for 1 day and indicates a pain score of Nonresponsive. MEDICAL/SURGICAL HISTORY: Seizures. Diabetes. None. COMPARISON: [facility] [place], CHEST 1V SINGLE AP, 01/10/2018. . FINDINGS: Diffuse bilateral parenchymal infiltrates are again seen. An endotracheal tube is noted extending int o the right mainstem bronchus region. The lung volumes are diminished. Left jugular line is noted and the tip overlies the expected location of the SVC. CONCLUSION: Endotracheal tube is directed to the right mainstem bronchus. Electronically signed by: Yunior Hsieh MD 01/12/2018 1:59 PM EDT
[2018-01-12] MEDS: Propofol 1000 mg/100 ml Inj 1,000 MG/100 ML BOTTLE IV.CONT PRN ×3 (14:11→21:22)
[2018-01-12 15:38] LABS: ABG PCO2 28 mmHg (38-42); ABG PO2 88 mmHG (61-120)
[2018-01-12] MEDS: Hypromellose 0.3% Opth Gel 10 GM Bottle EACH EYE SCH (20:54)
[2018-01-12] MEDS: Insulin Detemir Inj 1,000 UNIT/10 ML Vial SQ SCH (21:02)
--- NOTE | 2018-01-12 22:29 | MG ---
cc: Parviz Rodriguez MD, PhD DATE OF STUDY: 01/12/2018 TEST NUMBER: [id number] TECHNIQUE: A 17-channel EEG. DESCRIPTION: The background rhythm reveals symmetrical slowing in the delta frequency, roughly 3-4 Hz, amplitude 10-20 microvolts. No lateralizing features identified. No epileptiform discharges seen. There is occasional muscle artifact. Photic results in a poor driving response. INTERPRETATION: Abnormal study consistent with an encephalopathy. Parviz Rodriguez MD, PhD EMILY/rw , 04:46 PM , 04:50 PM
[2018-01-13] MEDS: Propofol 1000 mg/100 ml Inj 1,000 MG/100 ML BOTTLE IV.CONT PRN ×7 (00:54→20:56)
[2018-01-13] MEDS: fentaNYL 10 mcg/mL Premix Drip 2,500 MCG/250 ML BAG IV.SIG PRN ×4 (00:55→23:49)
[2018-01-13] MEDS: Insulin NovoLOG Aspart Correctional Sugar Inj SQ SCH ×6 (02:01→20:53)
[2018-01-13] MEDS: Oral Hygiene Kit OROPHARYNG SCH ×4 (02:02→16:41)
--- NOTE | 2018-01-13 04:14 | XR ---
EXAM DATE: 01/13/2018 4:11 AM EDT AGE/SEX: 52 years / Female INDICATIONS: Shortness of breath, possible pulmonary disease. CLINICAL DATA: This is the patient's subsequent encounter. Patient reports that signs and symptoms h ave been present for 1 week and indicates a pain score of Nonresponsive. MEDICAL/SURGICAL HISTORY: Diabetes. Seizures. None. COMPARISON: C, CHEST 1V SINGLE AP, 01/12/2018. . FINDINGS: A single AP view of the chest is blurred by breathing motion artifact. Endotracheal tube tip is appro ximately 2 cm from the colin. Nasogastric tube coiled within the stomach. Diffuse bilateral pulmonar y infiltrates and suspected small bilateral pleural effusions are unchanged. Heart is normal in size. CONCLUSION: Unchanged diffuse bilateral pulmonary infiltrates and suspected small effusions. Electronically signed by: Bony Fisher MD 01/13/2018 4:12 AM EDT
[2018-01-13 04:47] LABS: Baso % (Auto) 0.1 % (0.0-2.0); Eos % (Auto) 0.1 % (0.0-4.0); Hematocrit 28.4 % (35.0-46.0); Lymph # (Auto) 0.9 th/mm3 (1.0-4.8); Lymph % (Auto) 7.1 % (9.0-44.0); Mean Corpuscular HGB Conc 31.6 % (32.0-36.0); Mean Corpuscular Hemoglobin 28.8 pg (27.0-34.0); Mean Corpuscular Volume 91.2 fL (80.0-100.0); Mean Platelet Volume 11.7 fL (7.0-11.0); Mono # (Auto) 0.9 th/mm3 (0.0-0.9); Mono % (Auto) 6.6 % (0.0-8.0); Neut # (Auto) 11.2 th/mm3 (1.8-7.7); Neut % (Auto) 86.1 % (16.0-70.0); Platelet Count 143 th/mm3 (150-450); Red Blood Count 3.11 mil/mm3 (4.00-5.30); Red Cell Distribution Width 13.6 % (11.6-17.2)
[2018-01-13 05:04] LABS: Alanine Aminotransferase 82 U/L (10-53); Albumin 2.7 g/dL (3.4-5.0); Anion Gap 11 meq/L (5-15); Aspartate Aminotransferase 31 U/L (15-37); Blood Urea Nitrogen 16 mg/dL (7-18); Calcium 7.8 mg/dL (8.5-10.1); Carbon Dioxide 27.9 meq/L (21.0-32.0); Chloride 109 meq/L (98-107); Glomerular Filtration Rate 70 mL/min (>89); Glucose,Random 216 mg/dL (74-106); Magnesium 2.3 mg/dL (1.5-2.5); Phosphorus 2.9 mg/dL (2.5-4.9); Potassium 4.3 meq/L (3.5-5.1); Sodium 148 meq/L (136-145)
[2018-01-13 05:06] LABS: Alkaline Phosphatase 75 U/L (45-117); Total Protein 5.5 g/dL (6.4-8.2)
[2018-01-13] MEDS: Heparin - SQ 10,000 UNITS/ML Vial SQ SCH ×3 (05:07→21:01)
[2018-01-13 10:08] LABS: Lymphocytes 7 % (9-44); Metamyelocytes 1 % (0-1); Monocytes 5 % (0-8); Tallied Nucleated RBC 1 (0-0)
[2018-01-13 10:09] LABS: Platelet Estimate Normal (Normal); Toxic Granulation 1+
[2018-01-13] MEDS: Chlorhexidine 0.12% Oral Kit 15 ML UDC OROPHARYNG SCH ×2 (12:18→20:54)
[2018-01-13] MEDS: Famotidine PF Inj 20 MG/2 ML Vial IV.PUSH SCH ×2 (12:18→21:01)
[2018-01-13] MEDS: Hypromellose 0.3% Opth Gel 10 GM Bottle EACH EYE SCH ×2 (12:18→20:54)
[2018-01-13] MEDS: Aspirin 325 MG Tablet PO SCH (12:18)
[2018-01-13] MEDS: Potassium Chloride 10 MEQ ER Capsule NG/OG SCH ×2 (12:18→20:54)
[2018-01-13] MEDS: MethylPREDNISolone Sod Succinate Inj 125 MG/2 ML Vial IV.PUSH SCH ×2 (12:18→20:55)
--- NOTE | 2018-01-13 12:22 | MR ---
EXAM DATE: 01/13/2018 12:19 PM EDT AGE/SEX: 52 years / Female INDICATIONS: Altered mental status. CLINICAL DATA: This is the patient's initial encounter. Patient reports that signs and symptoms have been present for 2 days and indicates a pain score of 0/10. MEDICAL/SURGICAL HISTORY: Diabetes mellitus type II. Seizures. . COMPARISON: [facility] [place], CT HEAD W/O CONTRAST, 01/07/2018. . TECHNIQUE: Multiplanar, multisequence examination of the brain was performed without contrast. FINDINGS: CSF spaces, ventricles and cisterns are of normal size and configuration no hemorrhage, infarct, or m ass. Diffusion weighted images are normal. Bilateral mastoid fluid is seen. CONCLUSION: 1. Normal appearance of the brain. 2. Mastoid fluid. Electronically signed by: Yunior Hsieh MD 01/13/2018 12:21 PM EDT
--- NOTE | 2018-01-13 19:09 | P.PNCC ---
Subjective Subjective Remarks/Hospital Course: Hospital Course: This is a 52yF with a completely unknown past medical history who was found by EMS unresponsive in her home. per report, her friends called EMS to check on her. she was intubated in the field with 6.5 ett. she arrives to the ER hypotensive in shock. abg demonstrates pH 6.9/21/275/-26. wbc 30, hct 50, plt 253, 87% neutrophil. sodium 129, potassium 5.3, co2 5.9, AG 34, cr 4.25, glucose 1191. lactate 6.2, ammonia 70. Because nothing was known about the patient and she was in profound shock, we went emergently to CT: CT brain without acute abnormality. CT chest demonstrates patchy infiltrates concerning for infectious etiology. CT abd/pelvis without acute abnormality. she is taken to ICU in critical condition, unresponsive. no additional information is available. ROS unobtainable. 01/05: now on 3 vasopressors. glycemic control improving. remains encephalopathic. remains in shock. now with inferior ST elevations and rising troponins. given that she is unresponsive, unclear if she has any symptoms of ACS. Certainly given clinical course most likely Type II NSTEMI secondary to demand ischemia from shock, but unable to say with certainty that this is not Type I NSTEMI or STEMI given inferior ST elevations (there are diffuse areas of other ST elevations in other leads, which would argue against single vascular territory ischemia). cultures NGTD. Talked with family: she has poorly controlled diabetes and a strong psychiatric history (although family did not know specific diagnoses). 01/06: developed what appeared to be inferior STEMI over the course of yesterday afternoon into evening. troponins coleman and continue to rise. 2d echo, however, without any wall motion abnormalities and ST elevations are somewhat diffuse. taken to rn cardiac cath overnight and [facility] with clean coronaries. today remains on vasopressors. encephalopathy persists. acidosis persists and becoming quite hyperchloremic. cultures are NGTD. organ dysfunction persists. 01/07: Remains critically ill on Levophed and vasopressin. Remains encephalopathic. EEG rules out seizures but showed severe encephalopathy. Cultures remain negative. Blood sugar in mid 300s despite DKA protocol 01/08: Remains critically ill, remains on vasopressin. Due to poor control of blood sugar algorithm 3 non-DKA protocol was used yesterday but patient became hypoglycemic. Currently on D10 receiving only sliding scale coverage. Right radial pulse was not felt yesterday arterial Doppler was ordered which showed no perceptible arterial pressure in the digits of the right hand consistent with distal occlusive disease. Today weak radial pulses palpable good capillary refill. Discussed with Dr. Florez will attempt weaning process as tolerated. Also wean Versed after starting Precedex 01/09: Currently sedated with Precedex only but patient is tachypneic asynchronous with the vent. Intermittently follows commands on the right side. Had to sedated for vent synchrony. Chest x-ray shows bilateral effusions weight is up by 10 kg. I will start diuresis with 80 mg Lasix IV push 1 and 20 every 8 hours. Continue daily CPAP trials repeat sputum culture. Will DC vancomycin and azithromycin. Also I have increased Seroquel to 50 every 8 hours 01/10: Remains on Precedex. Tachypneic on CPAP. CXR with basilar infiltrate effusion which is small. I am unclear at this time whether her agitation is secondary to a small size ET tube, patient also has extensive psych history. I will proceed with a trial extubation as the ABG shows good oxygenation and essentially minimal metabolic acidosis. However if she requires reintubation will proceed with MRI of the brain and further workup. Urine output more than 9 L since starting Lasix. 01/11: She is hyper-reflexic with ankle clonus. Combined with other cognitive findings we need to consider serotonin syndrome. I am going to stop psych meds, check abg and CK's. Stick with ativan iv and wean off precedex. It's a long- shot but we need to sort out the cause of her profound encephalopathy. Recheck ammonia Subjective: 01/12: Remains on dexmedetomidine drip at 1.2 mcg/kg/hr. not following commands. Currently off hervenlafaxine, lurasidone and alprazolam and lithium. Remains on nasal cannula. Tachycardic and agitated 01/13: reintubated yesterday. remains intubated. becomes quite agitated with any lightening of sedation. Objective Vital Signs / I&O: Vital Signs 01/12/18 20:00 01/12/18 20:24 01/12/18 21:00 Temperature Pulse Rate 104 H 103 H 106 H Respiratory Rate 16 30 H 23 Blood Pressure 134/61 126/60 Pulse Oximetry 98 100 100 01/12/18 22:00 01/12/18 23:00 01/12/18 23:18 Temperature Pulse Rate 106 H 84 93 H Respiratory Rate 24 16 19 Blood Pressure 131/62 114/59 L Pulse Oximetry 100 97 01/12/18 23:19 01/13/18 00:00 01/13/18 01:00 Temperature Pulse Rate 80 105 H Respiratory Rate 18 16 16 Blood Pressure 114/56 L 142/72 H Pulse Oximetry 97 97 99 01/13/18 02:00 01/13/18 02:01 01/13/18 03:00 Temperature 36.6 C Pulse Rate 80 89 Respiratory Rate 16 22 21 Blood Pressure 111/52 L 147/85 H Pulse Oximetry 98 100 01/13/18 03:43 01/13/18 03:45 01/13/18 04:00 Temperature Pulse Rate 74 73 Respiratory Rate 17 17 16 Blood Pressure 106/58 L Pulse Oximetry 99 98 01/13/18 04:45 01/13/18 05:00 01/13/18 05:15 Temperature Pulse Rate 111 H 68 71 Respiratory Rate 18 16 22 Blood Pressure 152/84 H 111/59 L 96/51 L Pulse Oximetry 100 99 98 01/13/18 05:30 01/13/18 05:33 01/13/18 05:45 Temperature Pulse Rate 70 70 69 Respiratory Rate 11 L 16 16 Blood Pressure 90/55 L 90/55 L 96/55 L Pulse Oximetry 98 98 98 01/13/18 06:00 01/13/18 06:15 01/13/18 06:30 Temperature Pulse Rate 70 79 107 H Respiratory Rate 16 17 19 Blood Pressure 97/52 L 98/57 L 137/75 Pulse Oximetry 99 98 100 01/13/18 06:45 01/13/18 07:00 01/13/18 07:15 Temperature Pulse Rate 109 H 109 H 93 H Respiratory Rate 21 20 15 Blood Pressure 144/72 H 148/79 H 120/58 L Pulse Oximetry 100 100 98 01/13/18 07:21 01/13/18 07:30 01/13/18 07:45 Temperature Pulse Rate 102 H 110 H 109 H Respiratory Rate 16 22 18 Blood Pressure 151/71 H 151/70 H Pulse Oximetry 100 100 01/13/18 08:00 01/13/18 08:15 01/13/18 08:30 Temperature Pulse Rate 84 79 73 Respiratory Rate 16 0 L 4 L Blood Pressure 111/58 L 103/50 L 90/51 L Pulse Oximetry 98 97 97 01/13/18 08:45 01/13/18 09:00 01/13/18 09:15 Temperature Pulse Rate 70 71 77 Respiratory Rate 0 L 0 L 16 Blood Pressure 88/49 L 95/52 L 106/57 L Pulse Oximetry 97 99 99 01/13/18 09:30 01/13/18 09:45 01/13/18 10:00 Temperature 37.4 C Pulse Rate 94 H 75 76 Respiratory Rate 16 7 L 17 Blood Pressure 112/60 103/59 L 89/50 L Pulse Oximetry 100 98 99 01/13/18 10:15 01/13/18 10:30 01/13/18 10:45 Temperature Pulse Rate 82 77 108 H Respiratory Rate 13 16 21 Blood Pressure 135/67 102/57 L 149/76 H Pulse Oximetry 100 97 100 01/13/18 11:00 01/13/18 11:15 01/13/18 11:30 Temperature Pulse Rate 100 H 74 103 H Respiratory Rate 19 13 20 Blood Pressure 147/83 H 135/62 154/71 H Pulse Oximetry 98 97 100 01/13/18 12:00 01/13/18 12:28 01/13/18 12:34 Temperature Pulse Rate 73 76 71 Respiratory Rate 16 19 Blood Pressure 127/73 153/83 H Pulse Oximetry 100 100 01/13/18 12:40 01/13/18 12:55 01/13/18 13:00 Temperature 37.3 C Pulse Rate 79 70 Respiratory Rate 16 25 H 16 Blood Pressure 142/75 H 106/59 L Pulse Oximetry 100 100 100 01/13/18 13:15 01/13/18 13:30 01/13/18 13:45 Temperature Pulse Rate 66 62 60 Respiratory Rate 16 16 16 Blood Pressure 100/56 L 95/52 L 92/54 L Pulse Oximetry 100 100 100 01/13/18 14:00 01/13/18 14:02 01/13/18 14:03 Temperature Pulse Rate 68 66 Respiratory Rate 16 18 17 Blood Pressure 111/66 Pulse Oximetry 100 100 01/13/18 14:15 01/13/18 14:30 01/13/18 14:45 Temperature Pulse Rate 62 62 61 Respiratory Rate 16 16 16 Blood Pressure 105/58 L 98/54 L 97/54 L Pulse Oximetry 97 100 100 01/13/18 15:00 01/13/18 15:15 01/13/18 15:30 Temperature Pulse Rate 66 65 63 Respiratory Rate 16 16 16 Blood Pressure 105/58 L 102/55 L 97/51 L Pulse Oximetry 100 100 100 01/13/18 15:45 01/13/18 16:00 01/13/18 16:15 Temperature 37.3 C Pulse Rate 68 67 67 Respiratory Rate 16 17 17 Blood Pressure 98/56 L 96/52 L 94/51 L Pulse Oximetry 100 100 100 01/13/18 16:30 01/13/18 16:45 01/13/18 17:00 Temperature Pulse Rate 65 62 65 Respiratory Rate 16 16 16 Blood Pressure 91/50 L 86/54 L 81/52 L Pulse Oximetry 100 100 100 01/13/18 17:10 01/13/18 17:15 01/13/18 17:30 Temperature Pulse Rate 63 61 68 Respiratory Rate 16 17 16 Blood Pressure 85/50 L 87/52 L 94/54 L Pulse Oximetry 100 100 100 01/13/18 17:45 01/13/18 18:00 01/13/18 18:16 Temperature Pulse Rate 69 78 116 H Respiratory Rate 17 16 18 Blood Pressure 90/54 L 86/53 L 171/73 H Pulse Oximetry 100 100 75 L 01/13/18 18:21 Temperature Pulse Rate 103 H Respiratory Rate 15 Blood Pressure 146/63 H Pulse Oximetry 100 Intake & Output 01/13/18 01/13/18 01/14/18 06:59 18:59 06:59 Intake Total 958 / 958 1291 / 1291 Output Total 1000 / 1000 2850 / 2850 Balance -42 / -42 -1559 / -1559 Weight 98 kg Intake: IV 800 / 800 650 / 650 Diprivan 1000 mg/100 ml Inj 1, 300 / 300 400 / 400 000 mg In 100 ml @ 5 MCG/KG/MIN 3.13 mls/hr IV.CONT TITRATE PRN Rx#:[id number] fentaNYL 10 mcg/mL Premix Drip 500 / 500 250 / 250 2,500 mcg In 250 ml @ 50 MCG/HR 5 mls/hr IV.SIG TITRATE PRN Rx #:[id number] Oral 0 / 0 Tube Feeding 98 / 98 551 / 551 Tube Irrigant 60 / 60 90 / 90 Output: Urine 2850 / 2850 Urine Amount (Catheter) 1000 / 1000 Indwelling Urethral Catheter 1000 / 1000 Other: Date of Last Bowel Movement 01/13/18 01/13/18 # Bowel Movements 1 Result Diagrams: 01/13/18 04:18 01/13/18 04:18 Objective Remarks: Gen: 52-year-old middle-aged appearing female, lying in bed, intubated , sedated. heent: pupils 2 mm, equal, reactive. nc. at. mucous membranes moist. neck: no jvd. trachea midline. airway widely patent. Left IJ CVL clean dry and intact chest: intubated, prvc, peep 5. equal chest rise. cv: tachycardic rate, regular rhythm. No murmur. abd: soft, obese, nontender, nondistended. no guarding. extr: warm, well perfused. poor cap refill. distal pulses 1+ but weak. neuro: Moves all extremities spontaneously. sedated. RASS -3. when aroused becomes agitated. does not follow commands. Assessment and Plan - Assessment and Plan Plan: Assessment: 52yF with history of poorly controlled diabetes presents in multiorgan failure and profound shock and diabetic ketoacidosis, elevated troponin. critically ill. now s/p reintubation with significant encephalopathy. If no improvements in the coming days, need to consider trach/peg as she has not made meaningful improvements over the last 2 weeks. Plan by systems: Neuro/Psych: Acute metabolic encephalopathy Depression/anxiety/bipolar? -Patient has extensive psych history, it is unclear to me whether that is playing a part in her agitation -Continue dexmedetomidine drip at 1.2 mg/kg/h -D/C quetiapine 50 q8. d/c haloperidol as needed for breakthrough agitation -MRI brain without contrast on 01/12. EEG 01/07 revealed severe encephalopathy -Holding home medications venlafaxine 150 mg daily, lurasidone 80 mg daily, lithium 450 mg twice daily and alprazolam 0.5 mg twice daily Resp: Acute hypoxic and hypercarbic respiratory failure- recurrent. Community Acquired pneumonia -daily sbt's -vent bundle - hob elevated - nebs - Taper methylprednisolone succinate to 40 mg IV every 12 hours due to wheezing -Albuterol/ipratropium aerosols every 4 hours with albuterol aerosols every 2 hours as needed for dyspnea CV: Septic Shock- resolved Volume overload Acute coronary ischemia: unclear if Type I vs. Type II ST elevation myocardial infarction Elevated troponin 3 of hyperlipidemia -During hospitalization, approximate 10 kg up in weight, currently on IV furosemide 20 mg IV daily - IV albumin 25 g every 12 for 3 days has been discontinued - trend trops. - EKG with inferior ST elevations - 2d echo - left ventricular systolic function is mildly reduced with an estimated ejection fraction in the range of 45- 50%. Mild global hypokinesis though TDS. Wall thickness is normal. Normal left ventricular size. Mitral annular calcification is present. Mild mitral valve regurgitation. Aortic valve sclerosis is present. There is mild tricuspid valve regurgitation. The estimated pulmonary arterial pressure is 27.8 mmHg. The pulmonary valve is not well visualized. 01/05. rn cardiac cath 01/05 overnight with clean coronaries - cardiology: Dr. Alvarado/Brie Previously on pravastatin 20 mg daily and lisinopril 10 mg daily for dyslipidemia/hypertension respectively Renal: Acute kidney injury -resolving - likely secondary to volume depletion and shock -- dc IVF, daily bmp. Lasix as above. Allen FEN/GI: Lactic Acidosis- resolved Severe anion-gap metabolic acidosis-resolved Acute intravascular volume depletion- resolved. Hypernatremia Hyperchloremia Hypermagnesia Hypoalbuminemia -Continue tube feeding with Glucerna 1.5-50 cc hour with free water 200 cc every 6 hours - ICU electrolyte protocol famotidine for GI prophylaxis Docusate replacement 1 tablet twice daily for bowel regimen Heme/ID: Community Acquired Pneumonia Septic Shock-resolved Normocytic anemia Thrombocytopenia - d/c piperacillin/tazobactam, DCd vancomycin, azithromycin. - cultures 01/04 NGTD. repeat sputum pending - daily cbc - diffuse ST elevations were concerning for pericarditis, but viral panel negative for common pathogens known to cause infectious pericarditis. Endo: Diabetes mellitus likely - dka protocol insulin drip-DCD 01/07/2018 - Use SSI aspart insulin - q4h accuchecks and start insulin detemir 5 units at night Prophylaxis: SQH famotidine SCDs/heparin subcu Lines: - 01/04 left IJ TLC - allen Dispo: - remain in ICU. critically ill. minimal improvements. Overall impression: Encephalopathy, hyper-reflexia, multiple psych meds with recent changes. No fever or rigidity. Consider serotonin syndrome as possible cause. recurrent respiratory failure is worrisome for overall poor prognosis. may need long recovery and trach/peg. Procedures - Arterial Line Size (Gauge): 20
[2018-01-13] MEDS: Insulin Detemir Inj 1,000 UNIT/10 ML Vial SQ SCH (20:53)
[2018-01-14] MEDS: Insulin NovoLOG Aspart Correctional Sugar Inj SQ SCH ×6 (00:43→20:12)
[2018-01-14] MEDS: Oral Hygiene Kit OROPHARYNG SCH ×4 (00:44→16:12)
[2018-01-14] MEDS: Propofol 1000 mg/100 ml Inj 1,000 MG/100 ML BOTTLE IV.CONT PRN ×7 (00:50→21:46)
[2018-01-14 05:06] LABS: ABG Base Excess 4.8 mmol/L (-2-2); ABG PCO2 51 mmHg (38-42); ABG PO2 45 mmHG (61-120)
--- NOTE | 2018-01-14 06:02 | XR ---
EXAM DATE: 01/14/2018 5:54 AM EDT AGE/SEX: 52 years / Female INDICATIONS: Shortness of breath. CLINICAL DATA: This is the patient's subsequent encounter. Patient reports that signs and symptoms h ave been present for 1 week and indicates a pain score of Nonresponsive. MEDICAL/SURGICAL HISTORY: Diabetes. Seizures. None. COMPARISON: [facility] – [place], CHEST 1V SINGLE AP, 01/13/2018. . FINDINGS: Portable AP view of the chest demonstrates a normal-sized cardiac silhouette. Nasogastric tube is loo ped in the stomach and endotracheal tube distal tip measures approximately 1.5 cm from the colin. Le ft IJ line remains present and multiple EKG lines overlie the patient. Lungs are underinflated with b ilateral airspace consolidation in the mid and lower lung zones. No pneumothorax or definite effusion is seen. CONCLUSION: Underinflation with bilateral airspace consolidation and likely atelectasis. However, there is improv ed aeration compared to yesterday's examination. Electronically signed by: Demetri Dill MD 01/14/2018 6:00 AM EDT
[2018-01-14 07:19] LABS: ABG Base Excess 5.4 mmol/L (-2-2); ABG PCO2 46 mmHg (38-42); ABG PO2 154 mmHG (61-120)
[2018-01-14] MEDS: Heparin - SQ 10,000 UNITS/ML Vial SQ SCH ×3 (07:28→21:26)
[2018-01-14 07:29] LABS: Hematocrit 31.2 % (35.0-46.0); Hemoglobin 9.9 gm/dL (11.6-15.3); Mean Corpuscular HGB Conc 31.7 % (32.0-36.0); Mean Corpuscular Hemoglobin 28.8 pg (27.0-34.0); Mean Platelet Volume 12.2 fL (7.0-11.0); Platelet Count 199 th/mm3 (150-450); Red Blood Count 3.43 mil/mm3 (4.00-5.30); White Blood Count 18.7 th/mm3 (4.0-11.0)
[2018-01-14] MEDS: Chlorhexidine 0.12% Oral Kit 15 ML UDC OROPHARYNG SCH ×2 (07:29→20:12)
[2018-01-14 07:41] LABS: Calcium 8.7 mg/dL (8.5-10.1); Carbon Dioxide 31.6 meq/L (21.0-32.0); Magnesium 2.4 mg/dL (1.5-2.5); Phosphorus 2.5 mg/dL (2.5-4.9); Potassium 4.8 meq/L (3.5-5.1)
--- NOTE | 2018-01-14 07:45 | P.PNCC ---
Subjective Subjective Remarks/Hospital Course: Hospital Course: This is a 52yF with a completely unknown past medical history who was found by EMS unresponsive in her home. per report, her friends called EMS to check on her. she was intubated in the field with 6.5 ett. she arrives to the ER hypotensive in shock. abg demonstrates pH 6.9/21/275/-26. wbc 30, hct 50, plt 253, 87% neutrophil. sodium 129, potassium 5.3, co2 5.9, AG 34, cr 4.25, glucose 1191. lactate 6.2, ammonia 70. Because nothing was known about the patient and she was in profound shock, we went emergently to CT: CT brain without acute abnormality. CT chest demonstrates patchy infiltrates concerning for infectious etiology. CT abd/pelvis without acute abnormality. she is taken to ICU in critical condition, unresponsive. no additional information is available. ROS unobtainable. 01/05: now on 3 vasopressors. glycemic control improving. remains encephalopathic. remains in shock. now with inferior ST elevations and rising troponins. given that she is unresponsive, unclear if she has any symptoms of ACS. Certainly given clinical course most likely Type II NSTEMI secondary to demand ischemia from shock, but unable to say with certainty that this is not Type I NSTEMI or STEMI given inferior ST elevations (there are diffuse areas of other ST elevations in other leads, which would argue against single vascular territory ischemia). cultures NGTD. Talked with family: she has poorly controlled diabetes and a strong psychiatric history (although family did not know specific diagnoses). 01/06: developed what appeared to be inferior STEMI over the course of yesterday afternoon into evening. troponins coleman and continue to rise. 2d echo, however, without any wall motion abnormalities and ST elevations are somewhat diffuse. 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 today remains on vasopressors. encephalopathy persists. acidosis persists and becoming quite hyperchloremic. cultures are NGTD. organ dysfunction persists. 01/07: Remains critically ill on Levophed and vasopressin. Remains encephalopathic. EEG rules out seizures but showed severe encephalopathy. Cultures remain negative. Blood sugar in mid 300s despite DKA protocol 01/08: Remains critically ill, remains on vasopressin. Due to poor control of blood sugar algorithm 3 non-DKA protocol was used yesterday but patient became hypoglycemic. Currently on D10 receiving only sliding scale coverage. Right radial pulse was not felt yesterday arterial Doppler was ordered which showed no perceptible arterial pressure in the digits of the right hand consistent with distal occlusive disease. Today weak radial pulses palpable good capillary refill. Discussed with Dr. Florez will attempt weaning process as tolerated. Also wean Versed after starting Precedex 01/09: Currently sedated with Precedex only but patient is tachypneic asynchronous with the vent. Intermittently follows commands on the right side. Had to sedated for vent synchrony. Chest x-ray shows bilateral effusions weight is up by 10 kg. I will start diuresis with 80 mg Lasix IV push 1 and 20 every 8 hours. Continue daily CPAP trials repeat sputum culture. Will DC vancomycin and azithromycin. Also I have increased Seroquel to 50 every 8 hours 01/10: Remains on Precedex. Tachypneic on CPAP. CXR with basilar infiltrate effusion which is small. I am unclear at this time whether her agitation is secondary to a small size ET tube, patient also has extensive psych history. I will proceed with a trial extubation as the ABG shows good oxygenation and essentially minimal metabolic acidosis. However if she requires reintubation will proceed with MRI of the brain and further workup. Urine output more than 9 L since starting Lasix. 01/11: She is hyper-reflexic with ankle clonus. Combined with other cognitive findings we need to consider serotonin syndrome. I am going to stop psych meds, check abg and CK's. Stick with ativan iv and wean off precedex. It's a long- shot but we need to sort out the cause of her profound encephalopathy. Recheck ammonia Subjective: 01/12: Remains on dexmedetomidine drip at 1.2 mcg/kg/hr. not following commands. Currently off hervenlafaxine, lurasidone and alprazolam and lithium. Remains on nasal cannula. Tachycardic and agitated 01/13: reintubated yesterday. remains intubated. becomes quite agitated with any lightening of sedation. 01/14: Remains intubated and sedated. Failed CPAP trial due to apnea, continues to have agitation and does not follow commands while off sedation. Objective Vital Signs / I&O: Vital Signs 01/13/18 07:45 01/13/18 08:00 01/13/18 08:15 Temperature Pulse Rate 109 H 84 79 Respiratory Rate 18 16 0 L Blood Pressure 151/70 H 111/58 L 103/50 L Pulse Oximetry 100 98 97 01/13/18 08:30 01/13/18 08:45 01/13/18 09:00 Temperature Pulse Rate 73 70 71 Respiratory Rate 4 L 0 L 0 L Blood Pressure 90/51 L 88/49 L 95/52 L Pulse Oximetry 97 97 99 01/13/18 09:15 01/13/18 09:30 01/13/18 09:45 Temperature 99.3 F Pulse Rate 77 94 H 75 Respiratory Rate 16 16 7 L Blood Pressure 106/57 L 112/60 103/59 L Pulse Oximetry 99 100 98 01/13/18 10:00 01/13/18 10:15 01/13/18 10:30 Temperature Pulse Rate 76 82 77 Respiratory Rate 17 13 16 Blood Pressure 89/50 L 135/67 102/57 L Pulse Oximetry 99 100 97 01/13/18 10:45 01/13/18 11:00 01/13/18 11:15 Temperature Pulse Rate 108 H 100 H 74 Respiratory Rate 21 19 13 Blood Pressure 149/76 H 147/83 H 135/62 Pulse Oximetry 100 98 97 01/13/18 11:30 01/13/18 12:00 01/13/18 12:28 Temperature Pulse Rate 103 H 73 76 Respiratory Rate 20 16 Blood Pressure 154/71 H 127/73 Pulse Oximetry 100 100 01/13/18 12:34 01/13/18 12:40 01/13/18 12:55 Temperature 99.2 F Pulse Rate 71 79 Respiratory Rate 19 16 25 H Blood Pressure 153/83 H 142/75 H Pulse Oximetry 100 100 100 01/13/18 13:00 01/13/18 13:15 01/13/18 13:30 Temperature Pulse Rate 70 66 62 Respiratory Rate 16 16 16 Blood Pressure 106/59 L 100/56 L 95/52 L Pulse Oximetry 100 100 100 01/13/18 13:45 01/13/18 14:00 01/13/18 14:02 Temperature Pulse Rate 60 68 66 Respiratory Rate 16 16 18 Blood Pressure 92/54 L 111/66 Pulse Oximetry 100 100 01/13/18 14:03 01/13/18 14:15 01/13/18 14:30 Temperature Pulse Rate 62 62 Respiratory Rate 17 16 16 Blood Pressure 105/58 L 98/54 L Pulse Oximetry 100 97 100 01/13/18 14:45 01/13/18 15:00 01/13/18 15:15 Temperature Pulse Rate 61 66 65 Respiratory Rate 16 16 16 Blood Pressure 97/54 L 105/58 L 102/55 L Pulse Oximetry 100 100 100 01/13/18 15:30 01/13/18 15:45 01/13/18 16:00 Temperature 99.2 F Pulse Rate 63 68 67 Respiratory Rate 16 16 17 Blood Pressure 97/51 L 98/56 L 96/52 L Pulse Oximetry 100 100 100 01/13/18 16:15 01/13/18 16:30 01/13/18 16:45 Temperature Pulse Rate 67 65 62 Respiratory Rate 17 16 16 Blood Pressure 94/51 L 91/50 L 86/54 L Pulse Oximetry 100 100 100 01/13/18 17:00 01/13/18 17:10 01/13/18 17:15 Temperature Pulse Rate 65 63 61 Respiratory Rate 16 16 17 Blood Pressure 81/52 L 85/50 L 87/52 L Pulse Oximetry 100 100 100 01/13/18 17:30 01/13/18 17:45 01/13/18 18:00 Temperature Pulse Rate 68 69 78 Respiratory Rate 16 17 16 Blood Pressure 94/54 L 90/54 L 86/53 L Pulse Oximetry 100 100 100 01/13/18 18:16 01/13/18 18:21 01/13/18 18:31 Temperature Pulse Rate 116 H 103 H 71 Respiratory Rate 18 15 16 Blood Pressure 171/73 H 146/63 H 96/51 L Pulse Oximetry 75 L 100 100 01/13/18 18:45 01/13/18 19:00 01/13/18 19:16 Temperature Pulse Rate 72 68 108 H Respiratory Rate 16 16 19 Blood Pressure 92/53 L 91/53 L 135/83 Pulse Oximetry 100 100 89 L 01/13/18 19:23 01/13/18 19:25 01/13/18 19:30 Temperature Pulse Rate 120 H 110 H Respiratory Rate 20 20 17 Blood Pressure 136/76 Pulse Oximetry 100 99 01/13/18 19:46 01/13/18 20:00 01/13/18 20:16 Temperature 99.9 F H Pulse Rate 108 H 109 H 103 H Respiratory Rate 16 17 17 Blood Pressure 146/70 H 155/62 H 156/74 H Pulse Oximetry 100 100 100 01/13/18 20:30 01/13/18 20:45 01/13/18 21:00 Temperature Pulse Rate 104 H 108 H 104 H Respiratory Rate 15 18 16 Blood Pressure 133/64 147/69 H 165/76 H Pulse Oximetry 100 100 100 01/13/18 21:15 01/13/18 21:30 01/13/18 21:45 Temperature Pulse Rate 100 H 114 H 110 H Respiratory Rate 16 18 19 Blood Pressure 147/61 H 151/75 H 144/72 H Pulse Oximetry 100 100 100 01/13/18 22:00 01/13/18 22:15 01/13/18 22:30 Temperature Pulse Rate 77 68 71 Respiratory Rate 16 16 16 Blood Pressure 114/70 103/55 L 92/47 L Pulse Oximetry 97 97 97 01/13/18 22:45 01/13/18 23:00 01/13/18 23:15 Temperature Pulse Rate 67 72 74 Respiratory Rate 16 16 17 Blood Pressure 96/51 L 95/54 L 123/71 Pulse Oximetry 98 100 100 01/13/18 23:21 01/13/18 23:22 01/13/18 23:30 Temperature Pulse Rate 120 H 100 H Respiratory Rate 23 21 18 Blood Pressure 156/77 H Pulse Oximetry 100 100 01/13/18 23:45 01/14/18 00:00 01/14/18 00:15 Temperature 99.6 F Pulse Rate 109 H 111 H 107 H Respiratory Rate 13 13 13 Blood Pressure 167/80 H 161/72 H 154/74 H Pulse Oximetry 100 100 100 01/14/18 00:30 01/14/18 00:46 01/14/18 01:00 Temperature Pulse Rate 113 H 112 H 97 H Respiratory Rate 13 18 18 Blood Pressure 158/75 H 152/108 H 167/76 H Pulse Oximetry 100 100 100 01/14/18 01:16 01/14/18 01:30 01/14/18 01:45 Temperature Pulse Rate 76 76 72 Respiratory Rate 16 16 16 Blood Pressure 115/57 L 107/53 L 92/50 L Pulse Oximetry 98 98 98 01/14/18 02:00 01/14/18 02:15 01/14/18 02:31 Temperature Pulse Rate 68 66 107 H Respiratory Rate 16 16 13 Blood Pressure 91/53 L 87/50 L 174/81 H Pulse Oximetry 98 98 96 01/14/18 02:45 01/14/18 03:00 01/14/18 03:01 Temperature Pulse Rate 93 H 73 73 Respiratory Rate 10 L 16 16 Blood Pressure 157/61 H 106/59 L Pulse Oximetry 100 98 98 01/14/18 03:15 01/14/18 03:27 01/14/18 03:29 Temperature Pulse Rate 69 90 Respiratory Rate 16 17 20 Blood Pressure 88/48 L Pulse Oximetry 98 100 01/14/18 03:31 01/14/18 03:45 01/14/18 04:00 Temperature 99.0 F Pulse Rate 116 H 103 H 115 H Respiratory Rate 16 14 13 Blood Pressure 179/82 H 161/74 H 164/77 H Pulse Oximetry 100 100 100 01/14/18 05:00 01/14/18 06:00 01/14/18 07:00 Temperature Pulse Rate 109 H 95 H 105 H Respiratory Rate 18 17 14 Blood Pressure 173/77 H 171/73 H 158/74 H Pulse Oximetry 83 L 100 100 Intake & Output 01/13/18 01/14/18 01/14/18 18:59 06:59 18:59 Intake Total 1291 / 1291 1276 / 1276 Output Total 2850 / 2850 550 / 550 Balance -1559 / -1559 726 / 726 Intake: IV 650 / 650 550 / 550 Diprivan 1000 mg/100 ml Inj 1, 400 / 400 300 / 300 000 mg In 100 ml @ 5 MCG/KG/MIN 3.13 mls/hr IV.CONT TITRATE PRN Rx#:[id number] fentaNYL 10 mcg/mL Premix Drip 250 / 250 250 / 250 2,500 mcg In 250 ml @ 50 MCG/HR 5 mls/hr IV.SIG TITRATE PRN Rx #:[id number] Tube Feeding 551 / 551 626 / 626 Tube Irrigant 90 / 90 Water Bolus Amount 100 / 100 Output: Urine 2850 / 2850 Urine Amount (Catheter) 550 / 550 Indwelling Urethral Catheter 550 / 550 Other: Date of Last Bowel Movement 01/13/18 01/13/18 Result Diagrams: 01/15/18 04:10 01/15/18 04:10 Objective Remarks: Gen: 52-year-old middle-aged female, agitated, intubated, sedated. HEENT: Pupils 3 mm, equal, reactive. NGT and ETT in place. NECK: no JVD, trachea midline. Left IJ CVL clean dry and intact CHEST: intubated, mechanical breath sounds bilaterally, equal chest rise. CARDIO: Tachy and regular ABDOMEN: soft, non-tender in all quadrants, non-distended, no guarding. EXT: warm, well perfused. NEURO: Hyperreflexic in all extremities, no clonus. Moves all extremities sponatenously. Will intermittently and inconsistently follow some simple commands (lifts arms and legs) but does not open eyes or squeeze hands on command, withdraws consistently to painful stimuli. Eyes open but does not make eye contact or track movements. GCS 9T ([id number]) Assessment and Plan - Assessment and Plan Plan: Assessment: 52yF with history of poorly controlled diabetes presents in multiorgan failure and profound shock and diabetic ketoacidosis, elevated troponin. critically ill. now s/p reintubation with significant encephalopathy. If no improvements in the coming days, need to consider trach/peg as she has not made meaningful improvements over the last 2 weeks. Plan by systems: Neuro/Psych: Acute metabolic encephalopathy Depression/anxiety/bipolar? -Patient has extensive psych history. Hold all antipsychotics as it is unclear if the patient's agitated and hyperreflexia is being driven by serotonin syndrome. Afebrile, so unlikely to be neuroleptical malignant syndrome. Home medications included venlafaxine 150 mg daily, lurasidone 80 mg daily, lithium 450 mg twice daily and alprazolam 0.5 mg twice daily, all of which are currently being held. -Unlikely to be withdrawal from alcohol or benzodiazepines as she is on high doses of propofol and PRN ativan -Continue fentanyl @ 250/hr, attempt to wean propofol as tolerated, continue PRN ativan -MRI brain without contrast on 01/12 showed normal appearance of brain, mastoid fluid -EEG 01/07 revealed severe encephalopathy Resp: Acute hypoxic and hypercarbic respiratory failure- recurrent. Community Acquired pneumonia -Daily SBT (failed this morning); currently on 16/550/5/40% with ABG of 7.42/ 45.9/154/29.7/5.4. ETT in adequate position on today's CXR. -Vent bundle -HOB elevated -Taper methylprednisolone succinate to 20 mg IV every 12 hours -Albuterol/ipratropium aerosols every 4 hours with albuterol aerosols every 2 hours as needed for wheezing -Aggressive pulmonary toilet CV: Septic Shock- resolved Volume overload Acute coronary ischemia Questionable ST elevation myocardial infarction Elevated troponin History of hyperlipidemia -Currently on IV furosemide 20 mg IV daily, -1800 in 24 hrs. Sodium and chloride elevated. Will hold lasix today to see if patient will start to auto- diurese. -s/p inferior wall STEMI on 01/05, no longer trending trops. As per cardiology note on 01/05, likely myocarditis as she had no lesions seen on cardiac cath. Continue ASA. -2d echo - left ventricular systolic function is mildly reduced with an estimated ejection fraction in the range of 45- 50%. Mild global hypokinesis though TDS. Wall thickness is normal. Normal left ventricular size. Mitral annular calcification is present. Mild mitral valve regurgitation. Aortic valve sclerosis is present. There is mild tricuspid valve regurgitation. The estimated pulmonary arterial pressure is 27.8 mmHg. The pulmonary valve is not well visualized. Cath on 01/05 showed clean coronaries -Cardiology: Dr. Alvarado/Brie Previously on pravastatin 20 mg daily and lisinopril 10 mg daily for dyslipidemia/hypertension respectively Renal: Acute kidney injury -resolved -Likely secondary to volume depletion and shock -Hold lasix for today as detailed above. [place] required for accurate Is/Os and retention. FEN/GI: Lactic Acidosis- resolved Severe anion-gap metabolic acidosis-resolved Acute intravascular volume depletion- resolved. Hypernatremia Hyperchloremia Hypermagnesia Hypoalbuminemia -Continue tube feeding with Glucerna 1.5-50 cc hour with free water 200 cc every 6 hours -Sodium and chloride elevated; hold lasix as detailed above. -ICU electrolyte protocol -Famotidine for GI prophylaxis -Docusate replacement 1 tablet twice daily for bowel regimen, last BM yesterday Heme/ID: Community Acquired Pneumonia Septic Shock-resolved Normocytic anemia Thrombocytopenia - Off all antibiotics at this point - All cultures negative to date - daily cbc - diffuse ST elevations were concerning for myocarditis, but viral panel negative for common pathogens known to cause infectious cooper/myocarditis. Endo: Diabetes mellitus likely -Use SSI aspart insulin, increase to high sliding scale -q4h accuchecks and increase insulin detemir to 10 units at night -Hopefully glucose will improve as steroids are weaned Prophylaxis: SQH, SCDs famotidine Lines: - 01/04 left IJ TLC- patient will need PICC line tomorrow - tiffany Dispo: -Remain in ICU. Critically ill. Overall impression: Continued severe encephalopathy and recurrent respiratory failure requiring re-intubation. Unclear source of encephalopathy, but possibly due to multiple psych meds prior to admission. Will likely require PICC, PEG, trach. Will discuss with family this week. Counseling/ Coordination of Care: Total critical care time: 40 minutes This includes examining the patient, gathering history from someone other than the patient (i.e., chart review), discussing the patient's care with other providers, managing the patient's blood pressure and ventilator settings, ordering and interpreting radiologic studies, ordering and interpreting laboratory studies, managing the patient's sedation requirements, re-evaluation at frequent intervals, and documentation. Critical care time is separate and exclusive from teaching, procedures, or discussions with family. Procedures - Arterial Line Size (Gauge): 20
[2018-01-14] MEDS: Famotidine PF Inj 20 MG/2 ML Vial IV.PUSH SCH ×2 (11:06→20:13)
[2018-01-14] MEDS: Hypromellose 0.3% Opth Gel 10 GM Bottle EACH EYE SCH ×2 (11:06→20:12)
[2018-01-14] MEDS: Aspirin 325 MG Tablet PO SCH (11:06)
[2018-01-14] MEDS: Potassium Chloride 10 MEQ ER Capsule NG/OG SCH ×2 (11:06→20:12)
[2018-01-14] MEDS: MethylPREDNISolone Sod Succinate Inj 40 MG/ML Vial IV.PUSH SCH ×2 (11:07→20:13)
[2018-01-14] MEDS: fentaNYL 10 mcg/mL Premix Drip 2,500 MCG/250 ML BAG IV.SIG PRN ×2 (11:14→18:24)
--- NOTE | 2018-01-14 11:28 | P.DIET ---
Nutritional Evaluation Type of nutrition evaluation: follow-up Nutrition consult regarding: Tube Feeding Objective - Diagnosis Metabolic Acidosis, Intubated - Objective Mentcle body weight: 64 kg % IBW: 164 Body Weight Used for Calculations: IBW Energy Needs - Lower Range (kCal/kg): 25 Energy Needs - Upper Range (kCal/kg): 30 Lower Limit kCal/kg (kCals): 1,590 Upper Limit kCal/kg (kCals): 1,908 Lower Limit Protein Factor (Grams per Kg): 1.2 Upper Limit Protein Factor (Grams per Kg): 1.5 Lower Protein Needs (Protein): 76 Upper Protein Needs (Protein): 96 Dietitian Reviewed in Medical Record: Curent medications, Intake & Output, Labs , Medical history, Tube feeding Diet Order: TF only Objective Comments: PMH: DM, otherwise unknown Labs include: Na 148, Glu 264, POC Glucose 224, 263, 310 Last BM 01/13 Assessment Assessment: Pt at nutritional risk r/t current clinical status. Per MD: pt remains intubated. Failed CPAP trial due to apnea, continues to have agitation and does not follow commands while off sedation. Pt's nutritional needs as assessed above. TF has been on hold from 01/09, restarted 01/13. Glucerna 1.5 with goal rate of 50ml/hr will provide 1800kcals, 99 gms protein and 911mls free water. Noted MD to talk to family regarding PEG/trach. Will monitor TF tolerance, clinical course. Recommendations: TF Glucerna 1.5 with goal rate 50 ml/hr Dietitian to Monitor: Lab values, Intake & Output, Tube feeding tolerance, Weight change, Medical course
[2018-01-14] MEDS: Insulin Detemir Inj 1,000 UNIT/10 ML Vial SQ SCH (20:12)
[2018-01-15] MEDS: Oral Hygiene Kit OROPHARYNG SCH ×4 (00:04→15:53)
[2018-01-15] MEDS: Insulin NovoLOG Aspart Correctional Sugar Inj SQ SCH ×6 (00:06→20:41)
[2018-01-15] MEDS: Propofol 1000 mg/100 ml Inj 1,000 MG/100 ML BOTTLE IV.CONT PRN ×5 (00:43→14:08)
[2018-01-15] MEDS: fentaNYL 10 mcg/mL Premix Drip 2,500 MCG/250 ML BAG IV.SIG PRN (03:54)
[2018-01-15 04:24] LABS: Hematocrit 27.9 % (35.0-46.0); Hemoglobin 9.1 gm/dL (11.6-15.3); Mean Corpuscular HGB Conc 32.6 % (32.0-36.0); Mean Corpuscular Hemoglobin 29.4 pg (27.0-34.0); Mean Platelet Volume 11.6 fL (7.0-11.0); Platelet Count 167 th/mm3 (150-450); White Blood Count 13.2 th/mm3 (4.0-11.0)
[2018-01-15 04:41] LABS: Carbon Dioxide 32.5 meq/L (21.0-32.0); Magnesium 2.1 mg/dL (1.5-2.5); Phosphorus 2.8 mg/dL (2.5-4.9); Potassium 4.3 meq/L (3.5-5.1)
[2018-01-15] MEDS: Heparin - SQ 10,000 UNITS/ML Vial SQ SCH ×3 (05:24→22:21)
[2018-01-15 05:28] LABS: ABG Base Excess 7.6 mmol/L (-2-2); ABG PCO2 43 mmHg (38-42); ABG PO2 100 mmHG (61-120)
[2018-01-15] MEDS: Chlorhexidine 0.12% Oral Kit 15 ML UDC OROPHARYNG SCH ×2 (07:22→20:41)
[2018-01-15] MEDS ORDERED: Naloxone Inj 0.4 MG/ML Vial IV.PUSH PRN (07:41)
[2018-01-15] MEDS ORDERED: HYDROmorphone PCA Inj 6 MG/30 ML PCA.VIAL PCA PRN (07:41)
[2018-01-15] MEDS ORDERED: HYDROmorphone PCA Inj 6 MG/30 ML PCA.VIAL PCA SCH (08:30)
[2018-01-15] MEDS: Aspirin 325 MG Tablet PO SCH (09:46)
[2018-01-15] MEDS: Famotidine PF Inj 20 MG/2 ML Vial IV.PUSH SCH ×2 (09:47→20:43)
[2018-01-15] MEDS: Hypromellose 0.3% Opth Gel 10 GM Bottle EACH EYE SCH ×2 (09:47→20:43)
[2018-01-15] MEDS: MethylPREDNISolone Sod Succinate Inj 40 MG/ML Vial IV.PUSH SCH ×2 (09:47→20:43)
[2018-01-15] MEDS: Potassium Chloride 10 MEQ ER Capsule NG/OG SCH ×2 (09:47→20:43)
[2018-01-15] MEDS: SODIUM CHLOR 0.9% IV.SIG SCH ×2 (10:41→20:42)
[2018-01-15] MEDS: HYDROMORPHONE IV.SIG SCH ×2 (10:41→20:42)
--- NOTE | 2018-01-15 10:42 | P.PNCC ---
Subjective Subjective Remarks/Hospital Course: Hospital Course: This is a 52yF with a completely unknown past medical history who was found by EMS unresponsive in her home. per report, her friends called EMS to check on her. she was intubated in the field with 6.5 ett. she arrives to the ER hypotensive in shock. abg demonstrates pH 6.9/21/275/-26. wbc 30, hct 50, plt 253, 87% neutrophil. sodium 129, potassium 5.3, co2 5.9, AG 34, cr 4.25, glucose 1191. lactate 6.2, ammonia 70. Because nothing was known about the patient and she was in profound shock, we went emergently to CT: CT brain without acute abnormality. CT chest demonstrates patchy infiltrates concerning for infectious etiology. CT abd/pelvis without acute abnormality. she is taken to ICU in critical condition, unresponsive. no additional information is available. ROS unobtainable. 01/05: now on 3 vasopressors. glycemic control improving. remains encephalopathic. remains in shock. now with inferior ST elevations and rising troponins. given that she is unresponsive, unclear if she has any symptoms of ACS. Certainly given clinical course most likely Type II NSTEMI secondary to demand ischemia from shock, but unable to say with certainty that this is not Type I NSTEMI or STEMI given inferior ST elevations (there are diffuse areas of other ST elevations in other leads, which would argue against single vascular territory ischemia). cultures NGTD. Talked with family: she has poorly controlled diabetes and a strong psychiatric history (although family did not know specific diagnoses). 01/06: developed what appeared to be inferior STEMI over the course of yesterday afternoon into evening. troponins coleman and continue to rise. 2d echo, however, without any wall motion abnormalities and ST elevations are somewhat diffuse. taken to [facility] overnight and [facility] with clean coronaries. today remains on vasopressors. encephalopathy persists. acidosis persists and becoming quite hyperchloremic. cultures are NGTD. organ dysfunction persists. 01/07: Remains critically ill on Levophed and vasopressin. Remains encephalopathic. EEG rules out seizures but showed severe encephalopathy. Cultures remain negative. Blood sugar in mid 300s despite DKA protocol 01/08: Remains critically ill, remains on vasopressin. Due to poor control of blood sugar algorithm 3 non-DKA protocol was used yesterday but patient became hypoglycemic. Currently on D10 receiving only sliding scale coverage. Right radial pulse was not felt yesterday arterial Doppler was ordered which showed no perceptible arterial pressure in the digits of the right hand consistent with distal occlusive disease. Today weak radial pulses palpable good capillary refill. Discussed with Dr. Florez will attempt weaning process as tolerated. Also wean Versed after starting Precedex 01/09: Currently sedated with Precedex only but patient is tachypneic asynchronous with the vent. Intermittently follows commands on the right side. Had to sedated for vent synchrony. Chest x-ray shows bilateral effusions weight is up by 10 kg. I will start diuresis with 80 mg Lasix IV push 1 and 20 every 8 hours. Continue daily CPAP trials repeat sputum culture. Will DC vancomycin and azithromycin. Also I have increased Seroquel to 50 every 8 hours 01/10: Remains on Precedex. Tachypneic on CPAP. CXR with basilar infiltrate effusion which is small. I am unclear at this time whether her agitation is secondary to a small size ET tube, patient also has extensive psych history. I will proceed with a trial extubation as the ABG shows good oxygenation and essentially minimal metabolic acidosis. However if she requires reintubation will proceed with MRI of the brain and further workup. Urine output more than 9 L since starting Lasix. 01/11: She is hyper-reflexic with ankle clonus. Combined with other cognitive findings we need to consider serotonin syndrome. I am going to stop psych meds, check abg and CK's. Stick with ativan iv and wean off precedex. It's a long- shot but we need to sort out the cause of her profound encephalopathy. Recheck ammonia Subjective: 01/12: Remains on dexmedetomidine drip at 1.2 mcg/kg/hr. not following commands. Currently off hervenlafaxine, lurasidone and alprazolam and lithium. Remains on nasal cannula. Tachycardic and agitated 01/13: reintubated yesterday. remains intubated. becomes quite agitated with any lightening of sedation. 01/14: Remains intubated and sedated. Failed CPAP trial due to apnea, continues to have agitation and does not follow commands while off sedation. 01/15: No events overnight. Patient seems more awake this morning but still does not consistently follow commands. Switching fentanyl to dilaudid prior to attempting PSV. Objective Vital Signs / I&O: Vital Signs 01/14/18 11:00 01/14/18 11:01 01/14/18 11:42 Temperature Pulse Rate 93 H 85 Respiratory Rate 17 16 18 Blood Pressure 160/88 H Pulse Oximetry 99 100 97 01/14/18 12:00 01/14/18 12:48 01/14/18 13:00 Temperature 98.9 F Pulse Rate 85 94 H 94 H Respiratory Rate 16 18 16 Blood Pressure 146/73 H 161/78 H Pulse Oximetry 100 100 01/14/18 14:00 01/14/18 14:01 01/14/18 14:27 Temperature Pulse Rate 72 73 Respiratory Rate 16 16 16 Blood Pressure 112/53 L Pulse Oximetry 99 99 99 01/14/18 15:00 01/14/18 16:00 01/14/18 16:35 Temperature 98.0 F Pulse Rate 66 68 66 Respiratory Rate 0 L 16 16 Blood Pressure 81/45 L 82/48 L 88/49 L Pulse Oximetry 98 99 100 01/14/18 16:38 01/14/18 17:00 01/14/18 17:01 Temperature Pulse Rate 67 91 H 81 Respiratory Rate 16 20 20 Blood Pressure 135/62 Pulse Oximetry 100 100 01/14/18 17:45 01/14/18 18:00 01/14/18 18:01 Temperature Pulse Rate 67 67 Respiratory Rate 16 16 16 Blood Pressure 74/37 L Pulse Oximetry 99 99 99 01/14/18 18:02 01/14/18 18:03 01/14/18 19:00 Temperature Pulse Rate 69 69 71 Respiratory Rate 37 H 17 16 Blood Pressure 81/46 L 82/50 L 77/45 L Pulse Oximetry 100 100 97 01/14/18 19:20 01/14/18 19:21 01/14/18 19:23 Temperature Pulse Rate 81 74 Respiratory Rate 17 16 17 Blood Pressure 85/50 L 100/58 L Pulse Oximetry 100 100 100 01/14/18 20:00 01/14/18 20:54 01/14/18 21:00 Temperature 98.6 F Pulse Rate 70 77 72 Respiratory Rate 17 17 16 Blood Pressure 78/41 L 102/63 93/51 L Pulse Oximetry 100 100 99 01/14/18 22:00 01/14/18 22:58 01/14/18 23:00 Temperature Pulse Rate 68 72 Respiratory Rate 16 17 18 Blood Pressure 86/51 L 129/61 Pulse Oximetry 97 100 100 01/14/18 23:04 01/15/18 00:00 01/15/18 01:00 Temperature 99.3 F Pulse Rate 75 92 H 88 Respiratory Rate 17 17 18 Blood Pressure 141/67 H 150/70 H Pulse Oximetry 100 100 01/15/18 01:22 01/15/18 02:00 01/15/18 02:01 Temperature Pulse Rate 92 H 68 68 Respiratory Rate 16 16 16 Blood Pressure 150/70 H 107/56 L 107/56 L Pulse Oximetry 100 100 99 01/15/18 03:00 01/15/18 03:09 01/15/18 03:16 Temperature Pulse Rate 69 67 Respiratory Rate 16 16 16 Blood Pressure 90/50 L Pulse Oximetry 99 100 01/15/18 04:00 01/15/18 05:00 01/15/18 06:00 Temperature 98.1 F Pulse Rate 64 74 73 Respiratory Rate 16 16 16 Blood Pressure 116/60 93/54 L 86/52 L Pulse Oximetry 100 99 99 01/15/18 06:55 01/15/18 07:00 01/15/18 07:32 Temperature Pulse Rate 77 78 70 Respiratory Rate 16 16 19 Blood Pressure 83/51 L 83/51 L Pulse Oximetry 100 100 100 01/15/18 07:36 01/15/18 08:00 Temperature 99.0 F Pulse Rate 78 69 Respiratory Rate 16 Blood Pressure 84/51 L Pulse Oximetry 100 Intake & Output 01/14/18 01/15/18 01/15/18 18:59 06:59 18:59 Intake Total 900 / 900 1942 / 1942 Output Total 350 / 350 Balance 900 / 900 1592 / 1592 Weight 98 kg Intake: IV 900 / 900 1300 / 1300 Diprivan 1000 mg/100 ml Inj 1, 400 / 400 400 / 400 000 mg In 100 ml @ 5 MCG/KG/MIN 3.13 mls/hr IV.CONT TITRATE PRN Rx#:[id number] Levophed-Dextrose 4 mg/250 ml 250 / 250 Drip 4 mg In 250 ml @ 2 MCG/MIN 7.5 mls/hr IV.SIG TITRATE PRN Rx#:[id number] KCl 20 mEq Premix Inj 20 meq In 100 / 100 100 ml @ 50 mls/hr IV.SIG Q2H PRN Rx#:[id number] fentaNYL 10 mcg/mL Premix Drip 500 / 500 250 / 250 2,500 mcg In 250 ml @ 50 MCG/HR 5 mls/hr IV.SIG TITRATE PRN Rx #:[id number] Tube Feeding 642 / 642 Output: Urine Amount (Catheter) 350 / 350 Indwelling Urethral Catheter 350 / 350 Other: Date of Last Bowel Movement 01/13/18 01/13/18 01/13/18 # Bowel Movements 0 Result Diagrams: 01/15/18 04:10 01/15/18 04:10 Objective Remarks: Gen: Middle-aged female, intubated, sedated, no agitation currently HEENT: PERRL. NGT and ETT in place. NECK: Trachea midline CHEST: Mechanical breath sounds bilaterally, equal chest rise. CARDIO: Tachy, regular ABDOMEN: soft, non-tender in all quadrants, non-distended, no guarding. EXT: warm, well perfused. NEURO: Hyperreflexic in all extremities (lower greater than upper), mild rigidity, no clonus. Moves all extremities spontaneously. Continues to not make eye contact or track movements but eyes open spontaneously. GCS 9T ([id number]) Assessment and Plan - Assessment and Plan Plan: Assessment: 52yF with history of poorly controlled diabetes presents in multiorgan failure and profound shock and diabetic ketoacidosis, elevated troponin. critically ill. now s/p reintubation with significant encephalopathy. If no improvements in the coming days, need to consider trach/peg as she has not made meaningful improvements over the last 2 weeks. Plan by systems: Neuro/Psych: Acute metabolic encephalopathy Depression/anxiety/bipolar? -Patient has extensive psych history. Hold all antipsychotics as it is unclear if the patient's agitated and hyperreflexia is being driven by serotonin syndrome. Afebrile, so unlikely to be neuroleptical malignant syndrome. Home medications included venlafaxine 150 mg daily, lurasidone 80 mg daily, lithium 450 mg twice daily and alprazolam 0.5 mg twice daily, all of which are currently being held. As fentanyl can also cause serotonin agonism, will also d/ c this in favor of dilaudid for pain control. -Unlikely to be withdrawal from alcohol or benzodiazepines as she is on high doses of propofol and PRN ativan -MRI brain without contrast on 01/12 showed normal appearance of brain, mastoid fluid -EEG 01/07 revealed severe encephalopathy Resp: Acute hypoxic and hypercarbic respiratory failure- recurrent. Community Acquired pneumonia -Daily SBT (deferring until after we switch to dilaudid in hopes that this may help with some of her agitation/ sedation issues); currently on /550/5/40% with ABG of 7.48/43/100/31/7.6. ETT appears further out today than it had been yesterday, will obtain CXR to check positioning -Vent bundle -HOB elevated -Tapered methylprednisolone succinate to 20 mg IV every 12 hours yesterday, will taper again later this week -Albuterol/ipratropium aerosols every 4 hours with albuterol aerosols every 2 hours as needed for wheezing -Aggressive pulmonary toilet CV: Septic Shock- resolved Volume overload Acute coronary ischemia Questionable ST elevation myocardial infarction Elevated troponin History of hyperlipidemia -Patient was -800 yesterday even without lasix -s/p inferior wall STEMI on 01/05, no longer trending trops. As per cardiology note on 01/05, likely myocarditis as she had no lesions seen on cardiac cath. Viral panel negative. Continue ASA. -2d echo - left ventricular systolic function is mildly reduced with an estimated ejection fraction in the range of 45- 50%. Mild global hypokinesis though TDS. Wall thickness is normal. Normal left ventricular size. Mitral annular calcification is present. Mild mitral valve regurgitation. Aortic valve sclerosis is present. There is mild tricuspid valve regurgitation. The estimated pulmonary arterial pressure is 27.8 mmHg. The pulmonary valve is not well visualized. -Cardiology: Dr. Alvarado/Brie -Previously on pravastatin 20 mg daily and lisinopril 10 mg daily for dyslipidemia/hypertension respectively. Continue to hold HERNANDEZ as her BP has been borderline overnight. Renal: Acute kidney injury -resolved -Likely secondary to volume depletion and shock -Continue to hold lasix for now, no overt signs of fluid overload. Allen required for accurate Is/Os and retention. FEN/GI: Lactic Acidosis- resolved Severe anion-gap metabolic acidosis-resolved Acute intravascular volume depletion- resolved. Hypernatremia Hyperchloremia Hypermagnesia Hypoalbuminemia -Continue tube feeding with Glucerna 1.5-50 cc hour with free water 200 cc every 6 hours -Sodium and chloride improved -ICU electrolyte protocol -Famotidine for GI prophylaxis -Docusate replacement 1 tablet twice daily for bowel regimen Heme/ID: Community Acquired Pneumonia Septic Shock-resolved Normocytic anemia Thrombocytopenia - No current ID issues -Hemoglobin and platelets stable, leukocytosis nearly resolved Endo: Diabetes mellitus likely -Use SSI aspart insulin, glucose overall improving with increased insulin/ weaning steroids -q4h accuchecks Prophylaxis: SQH, SCDs famotidine Lines: - 01/04 left IJ TLC- discontinue today, patient has peripheral IVs; poor access in general, may ultimately require PICC placement - allen Dispo: -Remain in ICU. Critically ill. Overall impression: Continued severe encephalopathy and recurrent respiratory failure requiring re-intubation. Unclear source of encephalopathy, but possibly due to multiple psych meds and mild serotonin syndrome. Will switch fentanyl to dilaudid today; if there is no improvement in her mental status by tomorrow, will discuss PEG/ trach with family. Counseling/ Coordination of Care: Total critical care time: 35 minutes This includes examining the patient, gathering history from someone other than the patient (i.e., chart review), discussing the patient's care with other providers, managing the patient's blood pressure and ventilator settings, ordering and interpreting radiologic studies, ordering and interpreting laboratory studies, managing the patient's sedation requirements, re-evaluation at frequent intervals, and documentation. Critical care time is separate and exclusive from teaching, procedures, or discussions with family. Procedures - Arterial Line Size (Gauge): 20
--- NOTE | 2018-01-15 11:45 | XR ---
EXAM DATE: 01/15/2018 11:43 AM EDT AGE/SEX: 52 years / Female INDICATIONS: Respiratory failure. Verify ETT placement. CLINICAL DATA: This is the patient's subsequent encounter. Patient reports that signs and symptoms h ave been present for 1 week and indicates a pain score of Nonresponsive. MEDICAL/SURGICAL HISTORY: . Diabetes mellitus type II. Seizures . COMPARISON: [facility] [place] 1V SINGLE AP, 01/14/2018. . FINDINGS: An ET tube has been placed. The tip is approximately one centimeter above the colin. There is an NG tube in the stomach. There is a left-sided central line in place. There is no pneumothorax. There is some scattered pulmonary infiltrates in both lung bases without significant change compared to the pr ior examination. The heart size is stable. The bony structures are stable. CONCLUSION: 1. The ET tube appears to be in good position. 2. No evidence of pneumothorax. Electronically signed by: Epi Dixon MD 01/15/2018 11:44 AM EDT
[2018-01-15] MEDS ORDERED: Dexmedetomidine Inj 200 MCG/2 ML Vial IV.PUSH ONE (15:30)
[2018-01-15] MEDS: Dexmedetomidine Inj 200 MCG in Sodium Chlor 0.9% Inj 48 ML IV.CONT PRN ×2 (15:59→22:22)
[2018-01-15] MEDS: Insulin Detemir Inj 1,000 UNIT/10 ML Vial SQ SCH (20:43)
[2018-01-16] MEDS: Oral Hygiene Kit OROPHARYNG SCH ×4 (00:20→18:40)
[2018-01-16] MEDS: Dexmedetomidine Inj 200 MCG in Sodium Chlor 0.9% Inj 48 ML IV.CONT PRN ×2 (00:20→01:52)
[2018-01-16] MEDS: Insulin NovoLOG Aspart Correctional Sugar Inj SQ SCH ×6 (02:25→20:01)
[2018-01-16] MEDS: Dexmedetomidine Inj 1,000 MCG in Sodium Chlor 0.9% Inj 240 ML IV.CONT PRN ×2 (03:15→11:03)
[2018-01-16 04:21] LABS: Hematocrit 28.4 % (35.0-46.0); Hemoglobin 9.1 gm/dL (11.6-15.3); Mean Corpuscular HGB Conc 32.2 % (32.0-36.0); Mean Corpuscular Hemoglobin 28.7 pg (27.0-34.0); Mean Corpuscular Volume 89.4 fL (80.0-100.0); Mean Platelet Volume 11.9 fL (7.0-11.0); Platelet Count 148 th/mm3 (150-450); Red Blood Count 3.17 mil/mm3 (4.00-5.30); Red Cell Distribution Width 13.7 % (11.6-17.2); White Blood Count 13.1 th/mm3 (4.0-11.0)
[2018-01-16 04:51] LABS: Anion Gap 9 meq/L (5-15); Blood Urea Nitrogen 19 mg/dL (7-18); Calcium 8.2 mg/dL (8.5-10.1); Carbon Dioxide 30.3 meq/L (21.0-32.0); Chloride 105 meq/L (98-107); Glomerular Filtration Rate Greater Than 89 mL/min (>89); Glucose,Random 254 mg/dL (74-106); Magnesium 2.2 mg/dL (1.5-2.5); Phosphorus 3.2 mg/dL (2.5-4.9); Potassium 4.8 meq/L (3.5-5.1); Sodium 144 meq/L (136-145)
[2018-01-16] MEDS: Heparin - SQ 10,000 UNITS/ML Vial SQ SCH ×3 (05:01→21:47)
[2018-01-16 05:36] LABS: ABG Base Excess 5.5 mmol/L (-2-2); ABG PCO2 34 mmHg (38-42); ABG PO2 174 mmHG (61-120)
[2018-01-16] MEDS: SODIUM CHLOR 0.9% IV.SIG SCH ×2 (06:06→17:22)
[2018-01-16] MEDS: HYDROMORPHONE IV.SIG SCH ×2 (06:06→17:22)
[2018-01-16] MEDS: Famotidine PF Inj 20 MG/2 ML Vial IV.PUSH SCH ×2 (08:37→20:02)
[2018-01-16] MEDS: MethylPREDNISolone Sod Succinate Inj 40 MG/ML Vial IV.PUSH SCH ×2 (08:38→20:02)
[2018-01-16] MEDS: Aspirin 325 MG Tablet PO SCH (08:42)
[2018-01-16] MEDS: Potassium Chloride 10 MEQ ER Capsule NG/OG SCH ×2 (08:44→20:02)
[2018-01-16] MEDS: Chlorhexidine 0.12% Oral Kit 15 ML UDC OROPHARYNG SCH ×2 (08:45→20:01)
[2018-01-16] MEDS: Hypromellose 0.3% Opth Gel 10 GM Bottle EACH EYE SCH ×2 (08:45→20:01)
--- NOTE | 2018-01-16 09:52 | P.PNCC ---
Subjective Subjective Remarks/Hospital Course: Hospital Course: This is a 52yF with a completely unknown past medical history who was found by EMS unresponsive in her home. per report, her friends called EMS to check on her. she was intubated in the field with 6.5 ett. she arrives to the ER hypotensive in shock. abg demonstrates pH 6.9/21/275/-26. wbc 30, hct 50, plt 253, 87% neutrophil. sodium 129, potassium 5.3, co2 5.9, AG 34, cr 4.25, glucose 1191. lactate 6.2, ammonia 70. Because nothing was known about the patient and she was in profound shock, we went emergently to CT: CT brain without acute abnormality. CT chest demonstrates patchy infiltrates concerning for infectious etiology. CT abd/pelvis without acute abnormality. she is taken to ICU in critical condition, unresponsive. no additional information is available. ROS unobtainable. 01/05: now on 3 vasopressors. glycemic control improving. remains encephalopathic. remains in shock. now with inferior ST elevations and rising troponins. given that she is unresponsive, unclear if she has any symptoms of ACS. Certainly given clinical course most likely Type II NSTEMI secondary to demand ischemia from shock, but unable to say with certainty that this is not Type I NSTEMI or STEMI given inferior ST elevations (there are diffuse areas of other ST elevations in other leads, which would argue against single vascular territory ischemia). cultures NGTD. Talked with family: she has poorly controlled diabetes and a strong psychiatric history (although family did not know specific diagnoses). 01/06: developed what appeared to be inferior STEMI over the course of yesterday afternoon into evening. troponins coleman and continue to rise. 2d echo, however, without any wall motion abnormalities and ST elevations are somewhat diffuse. 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 today remains on vasopressors. encephalopathy persists. acidosis persists and becoming quite hyperchloremic. cultures are NGTD. organ dysfunction persists. 01/07: Remains critically ill on Levophed and vasopressin. Remains encephalopathic. EEG rules out seizures but showed severe encephalopathy. Cultures remain negative. Blood sugar in mid 300s despite DKA protocol 01/08: Remains critically ill, remains on vasopressin. Due to poor control of blood sugar algorithm 3 non-DKA protocol was used yesterday but patient became hypoglycemic. Currently on D10 receiving only sliding scale coverage. Right radial pulse was not felt yesterday arterial Doppler was ordered which showed no perceptible arterial pressure in the digits of the right hand consistent with distal occlusive disease. Today weak radial pulses palpable good capillary refill. Discussed with Dr. Florez will attempt weaning process as tolerated. Also wean Versed after starting Precedex 01/09: Currently sedated with Precedex only but patient is tachypneic asynchronous with the vent. Intermittently follows commands on the right side. Had to sedated for vent synchrony. Chest x-ray shows bilateral effusions weight is up by 10 kg. I will start diuresis with 80 mg Lasix IV push 1 and 20 every 8 hours. Continue daily CPAP trials repeat sputum culture. Will DC vancomycin and azithromycin. Also I have increased Seroquel to 50 every 8 hours 01/10: Remains on Precedex. Tachypneic on CPAP. CXR with basilar infiltrate effusion which is small. I am unclear at this time whether her agitation is secondary to a small size ET tube, patient also has extensive psych history. I will proceed with a trial extubation as the ABG shows good oxygenation and essentially minimal metabolic acidosis. However if she requires reintubation will proceed with MRI of the brain and further workup. Urine output more than 9 L since starting Lasix. 01/11: She is hyper-reflexic with ankle clonus. Combined with other cognitive findings we need to consider serotonin syndrome. I am going to stop psych meds, check abg and CK's. Stick with ativan iv and wean off precedex. It's a long- shot but we need to sort out the cause of her profound encephalopathy. Recheck ammonia Subjective: 01/12: Remains on dexmedetomidine drip at 1.2 mcg/kg/hr. not following commands. Currently off hervenlafaxine, lurasidone and alprazolam and lithium. Remains on nasal cannula. Tachycardic and agitated 01/13: reintubated yesterday. remains intubated. becomes quite agitated with any lightening of sedation. 01/14: Remains intubated and sedated. Failed CPAP trial due to apnea, continues to have agitation and does not follow commands while off sedation. 01/15: No events overnight. Patient seems more awake this morning but still does not consistently follow commands. Switching fentanyl to dilaudid prior to attempting PSV. 01/16: Mental status much improved today. Krista now opens her eyes, tracks movements, follows commands, and nods/ shakes her head appropriately to yes/ no questions. Objective Vital Signs / I&O: Vital Signs 01/15/18 10:00 01/15/18 10:05 01/15/18 11:00 Temperature Pulse Rate 107 H 96 H 103 H Respiratory Rate 18 14 14 Blood Pressure 143/75 H Pulse Oximetry 100 100 100 01/15/18 11:08 01/15/18 11:10 01/15/18 12:00 Temperature 99.9 F H Pulse Rate 95 H 92 H 63 Respiratory Rate 16 16 16 Blood Pressure 119/77 85/48 L Pulse Oximetry 99 98 97 01/15/18 13:00 01/15/18 14:00 01/15/18 15:00 Temperature Pulse Rate 68 109 H 85 Respiratory Rate 17 17 8 L Blood Pressure 96/54 L Pulse Oximetry 99 100 97 01/15/18 15:19 01/15/18 15:50 01/15/18 16:00 Temperature 98.9 F Pulse Rate 82 67 68 Respiratory Rate 18 16 16 Blood Pressure 93/52 L 83/50 L Pulse Oximetry 99 97 01/15/18 16:38 01/15/18 17:00 01/15/18 17:40 Temperature Pulse Rate 71 64 65 Respiratory Rate 16 16 16 Blood Pressure 85/55 L 86/54 L 89/54 L Pulse Oximetry 99 98 100 01/15/18 18:00 01/15/18 19:00 01/15/18 19:36 Temperature Pulse Rate 60 68 77 Respiratory Rate 16 16 16 Blood Pressure 88/52 L 79/51 L Pulse Oximetry 100 100 100 01/15/18 20:00 01/15/18 21:00 01/15/18 22:00 Temperature 98.8 F Pulse Rate 78 80 65 Respiratory Rate 17 16 16 Blood Pressure 81/55 L 100/62 88/54 L Pulse Oximetry 100 100 100 01/15/18 23:00 01/15/18 23:07 01/15/18 23:10 Temperature Pulse Rate 69 70 Respiratory Rate 16 16 16 Blood Pressure 96/54 L Pulse Oximetry 99 100 01/16/18 00:00 01/16/18 01:00 01/16/18 02:00 Temperature 98.9 F Pulse Rate 71 71 54 L Respiratory Rate 16 16 16 Blood Pressure 105/62 100/56 L 106/59 L Pulse Oximetry 100 99 99 01/16/18 03:00 01/16/18 03:25 01/16/18 03:29 Temperature Pulse Rate 68 72 Respiratory Rate 16 17 Blood Pressure 121/71 Pulse Oximetry 98 100 100 01/16/18 04:00 01/16/18 05:00 01/16/18 06:00 Temperature 99.3 F Pulse Rate 95 H 69 58 L Respiratory Rate 22 16 16 Blood Pressure 130/85 105/56 L 98/59 L Pulse Oximetry 100 100 98 01/16/18 07:00 01/16/18 07:28 01/16/18 08:00 Temperature 98.9 F Pulse Rate 54 L 53 L 52 L Respiratory Rate 16 16 16 Blood Pressure 95/58 L 94/50 L Pulse Oximetry 98 98 98 01/16/18 09:00 Temperature Pulse Rate 51 L Respiratory Rate 16 Blood Pressure 100/55 L Pulse Oximetry 100 Intake & Output 01/15/18 01/16/18 01/16/18 18:59 06:59 18:59 Intake Total 1058 / 1058 942 / 942 Output Total 500 / 500 750 / 750 Balance 558 / 558 192 / 192 Weight 98 kg Intake: IV 350 / 350 400 / 400 Precedex Inj 200 MCG In NS Inj 200 / 200 48 ML @ 0.2 MCG/KG/HR 4.9 mls/ hr IV.CONT TITRATE PRN Rx#: [id number] Diprivan 1000 mg/100 ml Inj 1, 200 / 200 000 mg In 100 ml @ 5 MCG/KG/MIN 3.13 mls/hr IV.CONT TITRATE PRN Rx#:[id number] Dilaudid PF Inj 20 MG In NS Inj 200 / 200 98 ML @ 2 MG/HR 10 mls/hr IV. SIG Q10H MATTEO Rx#:[id number] fentaNYL 10 mcg/mL Premix Drip 150 / 150 2,500 mcg In 250 ml @ 50 MCG/HR 5 mls/hr IV.SIG TITRATE PRN Rx #:[id number] Tube Feeding 618 / 618 542 / 542 Tube Irrigant 90 / 90 Output: Urine 500 / 500 Urine Amount (Catheter) 750 / 750 Indwelling Urethral Catheter 750 / 750 Other: Date of Last Bowel Movement 01/13/18 01/13/18 01/13/18 # Bowel Movements 0 0 Result Diagrams: 01/16/18 03:01 01/16/18 03:01 Objective Remarks: Gen: Middle-aged female, intubated, sedated, calm HEENT: PERRL. NGT and ETT in place. NECK: Trachea midline CHEST: Mechanical breath sounds bilaterally, equal chest rise. CARDIO: Tachy, regular ABDOMEN: soft, non-tender in all quadrants, non-distended, no guarding. EXT: warm, well perfused. NEURO: GCS 10T ([id number]). Patient tracks movements but does not make eye contact or focus on objects. Nods/ shakes head appropriately to yes/no questions. Follows commands consistently. Assessment and Plan - Assessment and Plan Plan: Assessment: 52yF with history of poorly controlled diabetes presents in multiorgan failure and profound shock and diabetic ketoacidosis. critically ill. Plan by systems: Neuro/Psych: Acute metabolic encephalopathy Depression/anxiety/bipolar? -Mental status much improved since switching from fentanyl/ propofol to dilaudid / precedex. Dilaudid currently on hold and precedex decreased for sedation vacation. Attempting SBT. -Patient has extensive psych history. Hold all antipsychotics as it is unclear if the patient's agitated and hyperreflexia is being driven by serotonin syndrome. Afebrile, so unlikely to be neuroleptical malignant syndrome. Home medications included venlafaxine 150 mg daily, lurasidone 80 mg daily, lithium 450 mg twice daily and alprazolam 0.5 mg twice daily, all of which are currently being held. As fentanyl can also cause serotonin agonism, will also d/ c this in favor of dilaudid for pain control. -MRI brain without contrast on 01/12 showed normal appearance of brain, mastoid fluid -EEG 01/07 revealed severe encephalopathy Resp: Acute hypoxic and hypercarbic respiratory failure- recurrent. Community Acquired pneumonia -Daily SBT -Vent bundle -HOB elevated -Tapered methylprednisolone succinate to 20 mg IV every 12 hours yesterday, will drop to 30 qday tomorrow -Albuterol/ipratropium aerosols every 4 hours with albuterol aerosols every 2 hours as needed for wheezing -Aggressive pulmonary toilet -Trach planning (see below) CV: Septic Shock- resolved Volume overload Acute coronary ischemia Questionable ST elevation myocardial infarction Elevated troponin History of hyperlipidemia -Patient's urine output dropped off yesterday, will restart lasix -s/p inferior wall STEMI on 01/05, no longer trending trops. As per cardiology note on 01/05, likely myocarditis as she had no lesions seen on cardiac cath. Viral panel negative. Continue ASA. -2d echo - left ventricular systolic function is mildly reduced with an estimated ejection fraction in the range of 45- 50%. Mild global hypokinesis though TDS. Wall thickness is normal. Normal left ventricular size. Mitral annular calcification is present. Mild mitral valve regurgitation. Aortic valve sclerosis is present. There is mild tricuspid valve regurgitation. The estimated pulmonary arterial pressure is 27.8 mmHg. The pulmonary valve is not well visualized. -Cardiology: Dr. Alvarado/Brie -Previously on pravastatin 20 mg daily and lisinopril 10 mg daily for dyslipidemia/hypertension respectively. Continue to hold HERNANDEZ as her BP has been borderline overnight. Renal: Acute kidney injury -resolved -Likely secondary to volume depletion and shock -Lasix today. Allen required for accurate Is/Os and retention. FEN/GI: Lactic Acidosis- resolved Severe anion-gap metabolic acidosis-resolved Acute intravascular volume depletion- resolved. Hypernatremia Hyperchloremia Hypermagnesia Hypoalbuminemia -Continue tube feeding with Glucerna 1.5-50 cc hour with free water 200 cc every 6 hours -Sodium and chloride normal today -ICU electrolyte protocol -Famotidine for GI prophylaxis -Docusate replacement 1 tablet twice daily for bowel regimen Heme/ID: Community Acquired Pneumonia Septic Shock-resolved Normocytic anemia Thrombocytopenia - No current ID issues Endo: Diabetes mellitus likely -Use SSI aspart insulin, glucose overall improving with increased insulin/ weaning steroids -q4h accuchecks Prophylaxis: SQH, SCDs famotidine Lines: - allne Dispo: -Remain in ICU. Critically ill. Overall impression: Patient's mental status much improved today. I had a long conversation with the patient's daughter and mother regarding her hospital course and prognosis. I am hopeful that she will pass an SBT and be able to be extubated, but since she has already failed once, if she requires re-intubation or continues to fail SBTs then I feel that we should proceed with a trach by the end of the week. Her family understands and agrees with this plan. Counseling/ Coordination of Care: Total critical care time: 32 minutes This includes examining the patient, gathering history from someone other than the patient (i.e., chart review), discussing the patient's care with other providers, managing the patient's blood pressure and ventilator settings, ordering and interpreting radiologic studies, ordering and interpreting laboratory studies, managing the patient's sedation requirements, re-evaluation at frequent intervals, and documentation. Critical care time is separate and exclusive from teaching, procedures, or discussions with family. Procedures - Arterial Line Size (Gauge): 20
[2018-01-16] MEDS: Insulin Detemir Inj 1,000 UNIT/10 ML Vial SQ SCH (20:02)
[2018-01-17] MEDS: Oral Hygiene Kit OROPHARYNG SCH ×2 (00:49→05:11)
[2018-01-17] MEDS: Insulin NovoLOG Aspart Correctional Sugar Inj SQ SCH ×6 (00:49→21:21)
[2018-01-17] MEDS: SODIUM CHLOR 0.9% IV.SIG SCH (02:05)
[2018-01-17] MEDS: HYDROMORPHONE IV.SIG SCH (02:05)
[2018-01-17 03:27] LABS: Hematocrit 32.9 % (35.0-46.0); Hemoglobin 10.6 gm/dL (11.6-15.3); Mean Corpuscular HGB Conc 32.4 % (32.0-36.0); Mean Corpuscular Hemoglobin 28.7 pg (27.0-34.0); Mean Corpuscular Volume 88.6 fL (80.0-100.0); Mean Platelet Volume 11.8 fL (7.0-11.0); Platelet Count 215 th/mm3 (150-450); Red Blood Count 3.71 mil/mm3 (4.00-5.30); Red Cell Distribution Width 13.4 % (11.6-17.2); White Blood Count 19.6 th/mm3 (4.0-11.0)
[2018-01-17 03:55] LABS: Anion Gap 12 meq/L (5-15); Blood Urea Nitrogen 19 mg/dL (7-18); Calcium 8.8 mg/dL (8.5-10.1); Chloride 100 meq/L (98-107); Glomerular Filtration Rate Greater Than 89 mL/min (>89); Glucose,Random 165 mg/dL (74-106); Magnesium 2.2 mg/dL (1.5-2.5); Potassium 4.3 meq/L (3.5-5.1); Sodium 140 meq/L (136-145)
[2018-01-17] MEDS: Heparin - SQ 10,000 UNITS/ML Vial SQ SCH ×3 (05:30→21:21)
--- NOTE | 2018-01-17 08:36 | P.PNCC ---
Subjective Subjective Remarks/Hospital Course: Hospital Course: This is a 52yF with a completely unknown past medical history who was found by EMS unresponsive in her home. per report, her friends called EMS to check on her. she was intubated in the field with 6.5 ett. she arrives to the ER hypotensive in shock. abg demonstrates pH 6.9/21/275/-26. wbc 30, hct 50, plt 253, 87% neutrophil. sodium 129, potassium 5.3, co2 5.9, AG 34, cr 4.25, glucose 1191. lactate 6.2, ammonia 70. Because nothing was known about the patient and she was in profound shock, we went emergently to CT: CT brain without acute abnormality. CT chest demonstrates patchy infiltrates concerning for infectious etiology. CT abd/pelvis without acute abnormality. she is taken to ICU in critical condition, unresponsive. no additional information is available. ROS unobtainable. 01/05: now on 3 vasopressors. glycemic control improving. remains encephalopathic. remains in shock. now with inferior ST elevations and rising troponins. given that she is unresponsive, unclear if she has any symptoms of ACS. Certainly given clinical course most likely Type II NSTEMI secondary to demand ischemia from shock, but unable to say with certainty that this is not Type I NSTEMI or STEMI given inferior ST elevations (there are diffuse areas of other ST elevations in other leads, which would argue against single vascular territory ischemia). cultures NGTD. Talked with family: she has poorly controlled diabetes and a strong psychiatric history (although family did not know specific diagnoses). 01/06: developed what appeared to be inferior STEMI over the course of yesterday afternoon into evening. troponins coleman and continue to rise. 2d echo, however, without any wall motion abnormalities and ST elevations are somewhat diffuse. taken to laboratory phlebotomist overnight and [facility] with clean coronaries. today remains on vasopressors. encephalopathy persists. acidosis persists and becoming quite hyperchloremic. cultures are NGTD. organ dysfunction persists. 01/07: Remains critically ill on Levophed and vasopressin. Remains encephalopathic. EEG rules out seizures but showed severe encephalopathy. Cultures remain negative. Blood sugar in mid 300s despite DKA protocol 01/08: Remains critically ill, remains on vasopressin. Due to poor control of blood sugar algorithm 3 non-DKA protocol was used yesterday but patient became hypoglycemic. Currently on D10 receiving only sliding scale coverage. Right radial pulse was not felt yesterday arterial Doppler was ordered which showed no perceptible arterial pressure in the digits of the right hand consistent with distal occlusive disease. Today weak radial pulses palpable good capillary refill. Discussed with Dr. Florez will attempt weaning process as tolerated. Also wean Versed after starting Precedex 01/09: Currently sedated with Precedex only but patient is tachypneic asynchronous with the vent. Intermittently follows commands on the right side. Had to sedated for vent synchrony. Chest x-ray shows bilateral effusions weight is up by 10 kg. I will start diuresis with 80 mg Lasix IV push 1 and 20 every 8 hours. Continue daily CPAP trials repeat sputum culture. Will DC vancomycin and azithromycin. Also I have increased Seroquel to 50 every 8 hours 01/10: Remains on Precedex. Tachypneic on CPAP. CXR with basilar infiltrate effusion which is small. I am unclear at this time whether her agitation is secondary to a small size ET tube, patient also has extensive psych history. I will proceed with a trial extubation as the ABG shows good oxygenation and essentially minimal metabolic acidosis. However if she requires reintubation will proceed with MRI of the brain and further workup. Urine output more than 9 L since starting Lasix. 01/11: She is hyper-reflexic with ankle clonus. Combined with other cognitive findings we need to consider serotonin syndrome. I am going to stop psych meds, check abg and CK's. Stick with ativan iv and wean off precedex. It's a long- shot but we need to sort out the cause of her profound encephalopathy. Recheck ammonia Subjective: 01/12: Remains on dexmedetomidine drip at 1.2 mcg/kg/hr. not following commands. Currently off hervenlafaxine, lurasidone and alprazolam and lithium. Remains on nasal cannula. Tachycardic and agitated 01/13: reintubated yesterday. remains intubated. becomes quite agitated with any lightening of sedation. 01/14: Remains intubated and sedated. Failed CPAP trial due to apnea, continues to have agitation and does not follow commands while off sedation. 01/15: No events overnight. Patient seems more awake this morning but still does not consistently follow commands. Switching fentanyl to dilaudid prior to attempting PSV. 01/16: Mental status much improved today. Krista now opens her eyes, tracks movements, follows commands, and nods/ shakes her head appropriately to yes/ no questions. 01/17: Patient successfully extubated yesterday afternoon, now awake and alert but confused about the details of her hospitalization thus far. She recalls visiting [facility] from [place] and that she wasn't feeling well but does not remember any details following that. She reports that she uses an insulin pump but is not sure if it was malfunctioning prior to her illness. Patient reportedly fell last night while trying to get out of bed to look for her daughter, did not sustain any injuries, and patient reports "I forgot where I was". Objective Vital Signs / I&O: Vital Signs 01/16/18 09:00 01/16/18 10:00 01/16/18 11:00 Temperature Pulse Rate 51 L 55 L 53 L Respiratory Rate 16 16 16 Blood Pressure 100/55 L 86/54 L 96/60 L Pulse Oximetry 100 98 100 01/16/18 11:17 01/16/18 11:22 01/16/18 12:00 Temperature Pulse Rate 78 78 Respiratory Rate 12 15 Blood Pressure 141/69 H Pulse Oximetry 100 100 01/16/18 13:00 01/16/18 14:00 01/16/18 14:01 Temperature 99.1 F Pulse Rate 80 78 76 Respiratory Rate 17 16 19 Blood Pressure 135/72 120/59 L Pulse Oximetry 100 100 100 01/16/18 15:00 01/16/18 16:00 01/16/18 17:00 Temperature Pulse Rate 70 72 78 Respiratory Rate 15 17 19 Blood Pressure 112/58 L 112/59 L 118/61 Pulse Oximetry 99 99 99 01/16/18 18:00 01/16/18 19:00 01/16/18 20:00 Temperature Pulse Rate 75 80 81 Respiratory Rate 16 16 18 Blood Pressure 131/69 139/64 141/74 H Pulse Oximetry 98 96 95 01/16/18 20:30 01/16/18 21:00 01/16/18 22:00 Temperature Pulse Rate 82 72 Respiratory Rate 17 16 Blood Pressure 137/63 123/58 L Pulse Oximetry 96 96 97 01/16/18 23:00 01/16/18 23:06 01/16/18 23:11 Temperature Pulse Rate 83 83 83 Respiratory Rate 38 H 25 H 25 H Blood Pressure 136/61 136/61 136/61 Pulse Oximetry 100 96 96 01/17/18 00:00 01/17/18 00:11 01/17/18 01:00 Temperature Pulse Rate 74 74 76 Respiratory Rate 18 18 19 Blood Pressure 125/58 L 125/58 L 122/59 L Pulse Oximetry 99 99 99 01/17/18 01:09 01/17/18 02:00 01/17/18 02:08 Temperature Pulse Rate 63 74 74 Respiratory Rate 28 H 17 17 Blood Pressure 109/53 L 122/60 122/60 Pulse Oximetry 95 99 99 01/17/18 03:00 01/17/18 03:01 01/17/18 04:00 Temperature Pulse Rate 77 75 77 Respiratory Rate 19 18 19 Blood Pressure 117/53 L 117/53 L 130/63 Pulse Oximetry 99 99 100 01/17/18 05:00 01/17/18 05:01 01/17/18 05:03 Temperature Pulse Rate 84 85 84 Respiratory Rate 22 22 Blood Pressure 147/64 H 147/64 H Pulse Oximetry 100 81 L 100 01/17/18 06:00 01/17/18 06:01 01/17/18 06:11 Temperature Pulse Rate 76 76 76 Respiratory Rate 20 19 20 Blood Pressure 130/63 130/63 130/63 Pulse Oximetry 100 100 100 01/17/18 07:00 01/17/18 07:01 01/17/18 08:20 Temperature Pulse Rate 75 79 Respiratory Rate 19 18 Blood Pressure 109/60 Pulse Oximetry 100 100 100 Intake & Output 01/16/18 01/17/18 01/17/18 18:59 06:59 18:59 Intake Total 456 / 456 0 / 0 Output Total 2675 / 2675 100 / 100 Balance -2219 / -2219 -100 / -100 Weight 98 kg Intake: IV 336 / 336 Precedex Inj 1,000 MCG In NS 300 / 300 Inj 240 ML @ 0.2 MCG/KG/HR 4.9 mls/hr IV.CONT TITRATE PRN Rx#: [id number] Dilaudid PF Inj 20 MG In NS Inj 36 / 36 98 ML @ 2 MG/HR 10 mls/hr IV. SIG Q10H MATTEO Rx#:[id number] Oral 0 / 0 Tube Irrigant 120 / 120 Output: Urine Amount (Catheter) 2674 Indwelling Urethral Catheter 2674 Gastric Drainage 100 / 100 Gastrostomy Tube (PEG) 100 / 100 Other: # Incontinent Voids 2 Date of Last Bowel Movement 01/13/18 01/13/18 # Bowel Movements 0 Result Diagrams: 01/17/18 02:39 01/17/18 02:39 Objective Remarks: Gen: Middle-aged female, awake and alert, well-appearing HEENT: NCAT, PERRL NECK: Trachea midline CHEST: Clear to auscultation bilaterally CARDIO: Regular rate and rhythm ABDOMEN: soft, non-tender in all quadrants, non-distended EXT: Warm, well perfused. NEURO: GCS 15, A&Ox3, answers questions appropriately, follows all commands, conversational, appears mildly confused Assessment and Plan - Assessment and Plan Plan: Assessment: 52yF with history of poorly controlled diabetes presents in multiorgan failure, profound shock, and diabetic ketoacidosis, now extubated and hemodynamically stable. Plan by systems: Neuro/Psych: Acute metabolic encephalopathy Depression/anxiety/bipolar? -Mental status at baseline. Patient was on a number of psychiatric medications prior to her hospitalization and may have had atypical serotonin syndrome as cause of her continued encephalopathy/ hyperreflexia/ muscular rigidity earlier this week. Symptoms resolved after all serotonergic meds were discontinued. She will likely need to be restarted on some antipsychotics prior to discharge, but for now I would continue to hold all of these. Her home meds were: venlafaxine 150 mg daily, lurasidone 80 mg daily, lithium 450 mg twice daily and alprazolam 0.5 mg twice daily. -Patient's sleep/ wake cycle significantly disturbed by her prolonged intubation / ICU admission. Will start melatonin at night and start delirium precautions ( lights on/ shades up during the day, OOB to chair, discourage daytime naps, limit nighttime disruptions) Resp: Acute hypoxic and hypercarbic respiratory failure- recurrent. Community Acquired pneumonia -Now extubated and on room air, weak effort on incentive spirometry. Will need frequent encouragement to use this. -Tapered methylprednisolone succinate from 20 q12h to 30 qday, can be transitioned to prednisone when out of unit -Albuterol/ipratropium aerosols every 4 hours with albuterol aerosols every 2 hours as needed for wheezing CV: Septic Shock- resolved Volume overload Acute coronary ischemia Questionable ST elevation myocardial infarction Elevated troponin History of hyperlipidemia -Continue lasix for today, unclear if she will need this as a long-term med -s/p inferior wall STEMI on 01/05, no longer trending trops. As per cardiology note on 01/05, likely myocarditis as she had no lesions seen on cardiac cath. Viral panel negative. Patient need to be on aspirin, beta kesha, statin, HERNANDEZ-I prior to discharge ; will start BB and statin today, already on aspirin, if BP stable tomorrow can restart home HERNANDEZ -2d echo - left ventricular systolic function is mildly reduced with an estimated ejection fraction in the range of 45- 50%. Mild global hypokinesis though TDS. Wall thickness is normal. Normal left ventricular size. Mitral annular calcification is present. Mild mitral valve regurgitation. Aortic valve sclerosis is present. There is mild tricuspid valve regurgitation. The estimated pulmonary arterial pressure is 27.8 mmHg. The pulmonary valve is not well visualized. -Cardiology: Dr. Alvarado/Brie Renal: Acute kidney injury -resolved -Likely secondary to volume depletion and shock -Whiting discontinued yesterday FEN/GI: Lactic Acidosis- resolved Severe anion-gap metabolic acidosis-resolved Acute intravascular volume depletion- resolved. Hypernatremia Hyperchloremia Hypermagnesia Hypoalbuminemia -Passed nursing dysphagia screen; start diabetic diet -No longer requires stress ulcer prophylaxis -Lytes today within normal limits -Docusate replacement 1 tablet twice daily for bowel regimen Heme/ID: Community Acquired Pneumonia Septic Shock-resolved Normocytic anemia Thrombocytopenia - No current ID issues Endo: Diabetes mellitus likely -Diabetic diet -Continue long-acting and sliding scale insulin. I was informed by our call center that we do not have endocrinology available for inpatient consults; patient uses an insulin pump at home and will need to be transitioned to a home regimen before discharge Prophylaxis: SQH, SCDs No indication for stress ulcer prophylaxis Lines: -None Dispo: -PT/ OT consults -Patient can be downgraded from [facility] [place] to hospitalist service Level 2 Procedures - Arterial Line Size (Gauge): 20
[2018-01-17] MEDS: MethylPREDNISolone Sod Succinate Inj 40 MG/ML Vial IV.PUSH SCH (09:43)
[2018-01-17] MEDS: Potassium Chloride 10 MEQ ER Capsule NG/OG SCH ×2 (09:44→21:19)
[2018-01-17] MEDS: Aspirin 325 MG Tablet PO SCH (09:44)
[2018-01-17] MEDS: Metoprolol Tartrate 25 MG Tablet PO SCH ×2 (09:44→21:20)
[2018-01-17] MEDS: Chlorhexidine 0.12% Oral Kit 15 ML UDC OROPHARYNG SCH (19:48)
[2018-01-17] MEDS: Melatonin 5 MG Tablet PO SCH (21:20)
[2018-01-17] MEDS: Insulin Detemir Inj 1,000 UNIT/10 ML Vial SQ SCH (21:20)
[2018-01-18 03:55] LABS: Hematocrit 34.9 % (35.0-46.0); Hemoglobin 11.3 gm/dL (11.6-15.3); Mean Corpuscular HGB Conc 32.5 % (32.0-36.0); Mean Corpuscular Volume 89.4 fL (80.0-100.0); Mean Platelet Volume 12.3 fL (7.0-11.0); Platelet Count 204 th/mm3 (150-450); Red Blood Count 3.91 mil/mm3 (4.00-5.30); Red Cell Distribution Width 14.1 % (11.6-17.2); White Blood Count 16.7 th/mm3 (4.0-11.0)
[2018-01-18 04:12] LABS: Anion Gap 15 meq/L (5-15); Blood Urea Nitrogen 17 mg/dL (7-18); Calcium 8.7 mg/dL (8.5-10.1); Carbon Dioxide 24.7 meq/L (21.0-32.0); Chloride 100 meq/L (98-107); Glomerular Filtration Rate Greater Than 89 mL/min (>89); Glucose,Random 198 mg/dL (74-106); Magnesium 2.1 mg/dL (1.5-2.5); Phosphorus 2.8 mg/dL (2.5-4.9); Potassium 3.7 meq/L (3.5-5.1); Sodium 140 meq/L (136-145)
[2018-01-18] MEDS: Heparin - SQ 10,000 UNITS/ML Vial SQ SCH ×3 (06:12→21:30)
[2018-01-18] MEDS: Potassium Chloride 10 MEQ ER Capsule NG/OG SCH ×2 (10:18→21:27)
[2018-01-18] MEDS: Aspirin 325 MG Tablet PO SCH (10:19)
[2018-01-18] MEDS: Metoprolol Tartrate 25 MG Tablet PO SCH ×2 (10:20→21:27)
[2018-01-18] MEDS: Insulin NovoLOG Aspart Correctional Sugar Inj SQ SCH ×4 (10:20→21:28)
[2018-01-18] MEDS: MethylPREDNISolone Sod Succinate Inj 40 MG/ML Vial IV.PUSH SCH (10:22)
--- NOTE | 2018-01-18 10:31 | P.PNIM ---
Subjective Interval history: Patient reports she is feeling much better today. Feeling stronger. Physical Exam Vital signs: Vital Signs 01/17/18 11:00 01/17/18 11:01 01/17/18 12:00 Temperature 98.9 F Pulse Rate 75 79 84 Respiratory Rate 22 24 Blood Pressure 130/60 Pulse Oximetry 100 99 98 01/17/18 12:02 01/17/18 13:00 01/17/18 14:00 Temperature 98.9 F Pulse Rate 74 73 Respiratory Rate 31 H Blood Pressure 120/59 L 122/58 L 127/55 L Pulse Oximetry 98 100 100 01/17/18 14:11 01/17/18 15:00 01/17/18 16:00 Temperature 98.9 F 99 F Pulse Rate 77 77 Respiratory Rate 25 H 27 H Blood Pressure 122/58 L 112/68 Pulse Oximetry 100 100 01/17/18 16:01 01/17/18 17:00 01/17/18 18:00 Temperature Pulse Rate 92 H 80 81 Respiratory Rate 21 26 H Blood Pressure 114/65 121/56 L 126/64 Pulse Oximetry 92 L 100 100 01/17/18 18:11 01/17/18 19:00 01/17/18 19:01 Temperature Pulse Rate 85 86 Respiratory Rate 22 20 Blood Pressure 126/64 112/54 L 112/54 L Pulse Oximetry 100 100 01/17/18 19:37 01/17/18 20:00 01/17/18 21:00 Temperature Pulse Rate 81 80 Respiratory Rate 23 22 Blood Pressure 114/55 L 121/60 Pulse Oximetry 100 100 100 01/17/18 22:00 01/17/18 22:11 01/17/18 23:00 Temperature Pulse Rate 76 76 72 Respiratory Rate 24 24 23 Blood Pressure 129/58 L 129/58 L 110/56 L Pulse Oximetry 100 100 99 01/17/18 23:01 01/18/18 00:00 01/18/18 01:00 Temperature Pulse Rate 72 69 132 H Respiratory Rate 23 26 H 27 H Blood Pressure 110/56 L 119/53 L 139/62 Pulse Oximetry 100 100 100 01/18/18 02:00 01/18/18 02:01 01/18/18 02:11 Temperature Pulse Rate 68 70 68 Respiratory Rate 24 23 24 Blood Pressure 123/56 L 123/56 L 123/56 L Pulse Oximetry 100 100 100 01/18/18 03:00 01/18/18 03:01 01/18/18 04:00 Temperature 98.4 F Pulse Rate 71 71 77 Respiratory Rate 25 H 25 H 23 Blood Pressure 106/53 L 106/53 L 134/60 Pulse Oximetry 100 100 100 01/18/18 04:04 01/18/18 05:00 01/18/18 05:01 Temperature Pulse Rate 74 73 72 Respiratory Rate 24 25 H 23 Blood Pressure 134/60 129/58 L 129/58 L Pulse Oximetry 97 100 100 01/18/18 06:00 01/18/18 06:01 01/18/18 07:00 Temperature Pulse Rate 77 77 71 Respiratory Rate 19 23 24 Blood Pressure 121/59 L 121/59 L 127/59 L Pulse Oximetry 100 100 100 Intake & Output 01/17/18 01/18/18 01/18/18 18:59 06:59 18:59 Intake Total 1000 / 1000 542.6 / 542.6 Output Total 1625 / 1625 400 / 400 Balance -625 / -625 142.6 / 142.6 Weight 89.5 kg Intake: IV 62.6 / 62.6 Diprivan 1000 mg/100 ml Inj 1, 62.6 / 62.6 000 mg In 100 ml @ 5 MCG/KG/MIN 3.13 mls/hr IV.CONT TITRATE PRN Rx#:[id number] Oral 1000 / 1000 480 / 480 Output: Urine Amount (Catheter) 1625 / 1625 400 / 400 Female External 1625 / 1625 400 / 400 Other: # Voids 3 Date of Last Bowel Movement 01/13/18 # Bowel Movements 0 Narrative: GENERAL: This is a well-nourished, well-developed patient, in no apparent distress. CARDIOVASCULAR: Normal rate and regular rhythm without murmurs, gallops, or rubs. RESPIRATORY: Good respiratory efforts. Breath sounds equal and clear to auscultation bilaterally. GASTROINTESTINAL: Abdomen soft, non-tender, non-distended. Normal active bowel sounds MUSCULOSKELETAL: Extremities without cyanosis, or edema. NEURO: Alert & Oriented x4 to person, place, time, situation. Moves all ext x4. Generalized weakness PSYCH: Appropriate mood and affect. - Urinary Catheter Management Indwelling Urethral Catheter Cath placed during this visit: yes, but has since been removed by the nurse Reason for continuing: Decision to DC catheter Insertion date: 01/04/18 Insertion time: 16:29 Removal date: 01/16/18 Removal time: 17:00 Female External Cath placed during this visit: yes Reason for continuing: Not indwelling catheter Insertion date: 01/16/18 Insertion time: 16:00 Results - Labs CBC & Chem 7: 01/18/18 03:12 01/18/18 03:12 Laboratory Results - last 24 hr 01/17/18 01/17/18 01/17/18 13:24 17:55 20:14 WBC RBC Hgb Hct MCV MCH MCHC RDW Plt Count MPV Sodium Potassium Chloride Carbon Dioxide Anion Gap BUN Creatinine Estimated GFR POC Glucose 219 H 197 H 221 H Random Glucose Calcium Phosphorus Magnesium 01/18/18 01/18/18 03:12 03:12 WBC 16.7 H RBC 3.91 L Hgb 11.3 L Hct 34.9 L MCV 89.4 MCH 29.0 MCHC 32.5 RDW 14.1 Plt Count 204 MPV 12.3 H Sodium 140 Potassium 3.7 Chloride 100 Carbon Dioxide 24.7 Anion Gap 15 BUN 17 Creatinine 0.53 Estimated GFR Greater than 89 POC Glucose Random Glucose 198 H Calcium 8.7 Phosphorus 2.8 Magnesium 2.1 Assessment and Plan - Plan 52-year-old female with uncontrolled diabetes presented in diabetic ketoacidosis , multiorgan failure, profound shock. Patient required intubation. She has since been extubated and is improved. Care is transferred to the hospitalist service. Uncontrolled diabetes mellitus: -Patient reports she use an insulin pump at home. She took it off and forgot to put it back on. Also states she is unclear if it is working or not. -We will continue with sliding scale insulin with Accu-Cheks. Increase Levemir to 15 units at bedtime. - Diabetic diet. She normally lives in [place]. We will plan to eventually discharge her on long-acting and sliding scale insulin until she can be seen by her electrical prospector back home Acute metabolic encephalopathy Depression/anxiety/bipolar? -Mental status at baseline. Continue to hold multiple antipsychotic home medications: venlafaxine 150 mg daily, lurasidone 80 mg daily, lithium 450 mg twice daily and alprazolam 0.5 mg twice daily. -Melatonin at night and delirium precautions Acute hypoxic and hypercarbic respiratory failure- recurrent. Community Acquired pneumonia -Now extubated and on room air. Wean off steroids. -Albuterol/ipratropium aerosols every 4 hours with albuterol aerosols every 2 hours as needed for wheezing Septic Shock- resolved Volume overload Acute coronary ischemia Elevated troponin History of hyperlipidemia -Elevated cardiac enzymes. As per cardiology note on 01/05, likely myocarditis as she had no lesions seen on cardiac cath. Viral panel negative. -Continue on aspirin, beta kesha, statin, HERNANDEZ-I -2d echo - left ventricular systolic function is mildly reduced with an estimated ejection fraction in the range of 45- 50%. Mild global hypokinesis though TDS. Wall thickness is normal. Normal left ventricular size. Mitral annular calcification is present. Mild mitral valve regurgitation. Aortic valve sclerosis is present. There is mild tricuspid valve regurgitation. The estimated pulmonary arterial pressure is 27.8 mmHg. The pulmonary valve is not well visualized. Acute kidney injury -resolved -Likely secondary to volume depletion and shock Lactic Acidosis- resolved Severe anion-gap metabolic acidosis-resolved Community Acquired Pneumonia Septic Shock-resolved Normocytic anemia Thrombocytopenia -May discontinue IV antibiotics. Prophylaxis: SQH, SCDs Discharge Planning: Okay to transfer to floor today. Will need SNF versus home with home health. Patient normally lives in [place]. Procedures - Arterial Line Size (Gauge): 20
[2018-01-18] MEDS: Melatonin 5 MG Tablet PO SCH (21:26)
[2018-01-18] MEDS: Insulin Detemir Inj 1,000 UNIT/10 ML Vial SQ SCH (21:27)
[2018-01-18 22:25] LABS: Hemoglobin A1c 8.9 % (4.3-6.0)
[2018-01-19] MEDS: Heparin - SQ 10,000 UNITS/ML Vial SQ SCH ×3 (06:19→21:07)
[2018-01-19] MEDS ORDERED: Venlafaxine XR 75 MG Capsule PO SCH (09:00)
[2018-01-19 09:34] LABS: Hematocrit 34.9 % (35.0-46.0); Hemoglobin 11.3 gm/dL (11.6-15.3); Mean Corpuscular HGB Conc 32.4 % (32.0-36.0); Mean Corpuscular Hemoglobin 28.8 pg (27.0-34.0); Mean Platelet Volume 12.3 fL (7.0-11.0); Platelet Count 220 th/mm3 (150-450); Red Blood Count 3.92 mil/mm3 (4.00-5.30); Red Cell Distribution Width 14.4 % (11.6-17.2); White Blood Count 11.5 th/mm3 (4.0-11.0)
[2018-01-19 09:40] LABS: Anion Gap 15 meq/L (5-15); Blood Urea Nitrogen 10 mg/dL (7-18); Calcium 8.6 mg/dL (8.5-10.1); Chloride 104 meq/L (98-107); Glomerular Filtration Rate Greater Than 89 mL/min (>89); Glucose,Random 168 mg/dL (74-106); Potassium 3.5 meq/L (3.5-5.1); Sodium 140 meq/L (136-145)
[2018-01-19] MEDS: Metoprolol Tartrate 25 MG Tablet PO SCH ×2 (09:54→20:36)
[2018-01-19] MEDS: Potassium Chloride 10 MEQ ER Capsule NG/OG SCH ×2 (09:54→20:35)
[2018-01-19] MEDS: Lisinopril 10 MG Tablet PO SCH (09:55)
[2018-01-19] MEDS: Aspirin 325 MG Tablet PO SCH (09:55)
[2018-01-19] MEDS: Insulin NovoLOG Aspart Correctional Sugar Inj SQ SCH ×4 (09:56→20:36)
[2018-01-19] MEDS: Lurasidone 80 MG Tablet PO SCH (09:57)
--- NOTE | 2018-01-19 12:52 | P.PNIM ---
Subjective Interval history: This is a 52yF with a completely unknown past medical history who was found by EMS unresponsive in her home. per report, her friends called EMS to check on her. she was intubated in the field with 6.5 ett. she arrives to the ER hypotensive in shock. abg demonstrates pH 6.9/21/275/-26. wbc 30, hct 50, plt 253, 87% neutrophil. sodium 129, potassium 5.3, co2 5.9, AG 34, cr 4.25, glucose 1191. lactate 6.2, ammonia 70. Because nothing was known about the patient and she was in profound shock, we went emergently to CT: CT brain without acute abnormality. CT chest demonstrates patchy infiltrates concerning for infectious etiology. CT abd/pelvis without acute abnormality. she is taken to ICU in critical condition, unresponsive. no additional information is available. ROS unobtainable. 01/05: now on 3 vasopressors. glycemic control improving. remains encephalopathic. remains in shock. now with inferior ST elevations and rising troponins. given that she is unresponsive, unclear if she has any symptoms of ACS. Certainly given clinical course most likely Type II NSTEMI secondary to demand ischemia from shock, but unable to say with certainty that this is not Type I NSTEMI or STEMI given inferior ST elevations (there are diffuse areas of other ST elevations in other leads, which would argue against single vascular territory ischemia). cultures NGTD. Talked with family: she has poorly controlled diabetes and a strong psychiatric history (although family did not know specific diagnoses). 01/06: developed what appeared to be inferior STEMI over the course of yesterday afternoon into evening. troponins coleman and continue to rise. 2d echo, however, without any wall motion abnormalities and ST elevations are somewhat diffuse. taken to laboratory veterinarian overnight and [facility] with clean coronaries. today remains on vasopressors. encephalopathy persists. acidosis persists and becoming quite hyperchloremic. cultures are NGTD. organ dysfunction persists. 01/07: Remains critically ill on Levophed and vasopressin. Remains encephalopathic. EEG rules out seizures but showed severe encephalopathy. Cultures remain negative. Blood sugar in mid 300s despite DKA protocol 01/08: Remains critically ill, remains on vasopressin. Due to poor control of blood sugar algorithm 3 non-DKA protocol was used yesterday but patient became hypoglycemic. Currently on D10 receiving only sliding scale coverage. Right radial pulse was not felt yesterday arterial Doppler was ordered which showed no perceptible arterial pressure in the digits of the right hand consistent with distal occlusive disease. Today weak radial pulses palpable good capillary refill. Discussed with Dr. Florez will attempt weaning process as tolerated. Also wean Versed after starting Precedex 01/09: Currently sedated with Precedex only but patient is tachypneic asynchronous with the vent. Intermittently follows commands on the right side. Had to sedated for vent synchrony. Chest x-ray shows bilateral effusions weight is up by 10 kg. I will start diuresis with 80 mg Lasix IV push 1 and 20 every 8 hours. Continue daily CPAP trials repeat sputum culture. Will DC vancomycin and azithromycin. Also I have increased Seroquel to 50 every 8 hours 01/10: Remains on Precedex. Tachypneic on CPAP. CXR with basilar infiltrate effusion which is small. I am unclear at this time whether her agitation is secondary to a small size ET tube, patient also has extensive psych history. I will proceed with a trial extubation as the ABG shows good oxygenation and essentially minimal metabolic acidosis. However if she requires reintubation will proceed with MRI of the brain and further workup. Urine output more than 9 L since starting Lasix. 01/11: She is hyper-reflexic with ankle clonus. Combined with other cognitive findings we need to consider serotonin syndrome. I am going to stop psych meds, check abg and CK's. Stick with ativan iv and wean off precedex. It's a long- shot but we need to sort out the cause of her profound encephalopathy. Recheck ammonia Subjective: 01/12: Remains on dexmedetomidine drip at 1.2 mcg/kg/hr. not following commands. Currently off hervenlafaxine, lurasidone and alprazolam and lithium. Remains on nasal cannula. Tachycardic and agitated 01/13: reintubated yesterday. remains intubated. becomes quite agitated with any lightening of sedation. 01/14: Remains intubated and sedated. Failed CPAP trial due to apnea, continues to have agitation and does not follow commands while off sedation. 01/15: No events overnight. Patient seems more awake this morning but still does not consistently follow commands. Switching fentanyl to dilaudid prior to attempting PSV. 01/16: Mental status much improved today. Krista now opens her eyes, tracks movements, follows commands, and nods/ shakes her head appropriately to yes/ no questions. 01/17: Patient successfully extubated yesterday afternoon, now awake and alert but confused about the details of her hospitalization thus far. She recalls visiting [facility] from [place] and that she wasn't feeling well but does not remember any details following that. She reports that she uses an insulin pump but is not sure if it was malfunctioning prior to her illness. Patient reportedly fell last night while trying to get out of bed to look for her daughter, did not sustain any injuries, and patient reports "I forgot where I was". - TRANSFERRED TO OUR SERVICE MOVED OUT OF ICU WORKING WITH PT AND OT 9-8 MORE MOBILE MUCH MORE APPROPRIATE DW RN AND PATIENT AND CM NEEDS TO BE MORE MOBILE FOR DC SO SHE CAN GET ON AND OFF A AIRPLANE Physical Exam Vital signs: Vital Signs 01/18/18 16:00 01/18/18 17:38 01/18/18 20:00 Temperature 98.4 F Pulse Rate 74 76 Respiratory Rate 18 Blood Pressure 116/55 L Pulse Oximetry 99 99 01/19/18 00:00 01/19/18 04:00 01/19/18 04:08 Temperature 98.9 F 98.2 F Pulse Rate 71 70 72 Respiratory Rate 16 18 Blood Pressure 116/56 L 117/59 L Pulse Oximetry 96 96 01/19/18 08:00 Temperature 98.3 F Pulse Rate 73 Respiratory Rate 18 Blood Pressure 116/65 Pulse Oximetry 100 Intake & Output 01/18/18 01/19/18 01/19/18 18:59 06:59 18:59 Intake Total 240 / 240 Output Total 300 / 300 Balance -60 / -60 Weight 82.4 kg Intake: Oral 240 / 240 Output: Urine 300 / 300 Other: # Voids 2 Date of Last Bowel Movement 01/13/18 01/18/18 # Bowel Movements 1 Weight On Admission 82.5 kg Narrative: GENERAL: This is a well-nourished, well-developed patient, in no apparent distress. CARDIOVASCULAR: Normal rate and regular rhythm without murmurs, gallops, or rubs. RESPIRATORY: Good respiratory efforts. Breath sounds equal and clear to auscultation bilaterally. GASTROINTESTINAL: Abdomen soft, non-tender, non-distended. Normal active bowel sounds MUSCULOSKELETAL: Extremities without cyanosis, or edema. NEURO: Alert & Oriented x4 to person, place, time, situation. Moves all ext x4. Generalized weakness PSYCH: Appropriate mood and affect. - Urinary Catheter Management Indwelling Urethral Catheter Cath placed during this visit: yes, but has since been removed by the nurse Reason for continuing: Decision to DC catheter Insertion date: 01/04/18 Insertion time: 16:29 Removal date: 01/16/18 Removal time: 17:00 Female External Cath placed during this visit: yes Reason for continuing: Not indwelling catheter Insertion date: 01/16/18 Insertion time: 16:00 Results - Labs CBC & Chem 7: 01/19/18 08:39 01/19/18 08:36 Laboratory Results - last 24 hr 01/18/18 01/18/18 01/18/18 03:12 17:47 21:25 WBC RBC Hgb Hct MCV MCH MCHC RDW Plt Count MPV Hematology Comments Sodium Potassium Chloride Carbon Dioxide Anion Gap BUN Creatinine Estimated GFR POC Glucose 225 H 213 H Random Glucose Hemoglobin A1c 8.9 H Calcium Phosphorus Magnesium 01/19/18 01/19/18 01/19/18 08:27 08:36 08:39 WBC 11.5 H RBC 3.92 L Hgb 11.3 L Hct 34.9 L MCV 89.0 MCH 28.8 MCHC 32.4 RDW 14.4 Plt Count 220 MPV 12.3 H Hematology Comments Sodium 140 Potassium 3.5 Chloride 104 Carbon Dioxide 21.0 Anion Gap 15 BUN 10 Creatinine 0.51 Estimated GFR Greater than 89 POC Glucose 179 H Random Glucose 168 H Hemoglobin A1c Calcium 8.6 Phosphorus 3.0 Magnesium 2.0 - Imaging Abdomen/Pelvis CT 01/04/18 00:00 CONCLUSION: Fatty liver. Chest CT 01/04/18 00:00 CONCLUSION: Bilateral parenchymal infiltrates most likely inflammatory possibly pneumonia. Head CT 01/04/18 16:50 CONCLUSION: Technically degraded exam grossly negative for acute intracranial process. . Chest X-Ray 01/04/18 18:00 CONCLUSION: Left IJ catheter in good position. No evidence of pneumothorax. Head CT 01/07/18 05:43 CONCLUSION: 1. No acute intracranial abnormality. 2. Sinus disease developing. . Extremity Arterial Study 01/07/18 22:13 CONCLUSION: 1. No perceptible arterial pressure in the digits of the right hand consistent with distal occlusive disease. 2. Mildly decreased arterial pressure in the digits of the left hand consistent with nonocclusive distal narrowing. 3. No significant disease at and proximal to either wrist. Chest X-Ray 01/09/18 08:34 CONCLUSION: Bilateral effusions and basilar consolidation. Chest X-Ray 01/10/18 00:00 CONCLUSION: No significant interval change compared to the prior examination. Chest X-Ray 01/12/18 00:00 CONCLUSION: ET tube repositioning. Chest X-Ray 01/12/18 13:30 Diffuse bilateral parenchymal infiltrates are again seen. An endotracheal tube is noted extending into the right mainstem bronchus region. The lung volumes are diminished. Left jugular line is noted and the tip overlies the expected location of the SVC. CONCLUSION: Endotracheal tube is directed to the right mainstem bronchus. Head MRI 01/13/18 00:00 CONCLUSION: 1. Normal appearance of the brain. 2. Mastoid fluid. Chest X-Ray 01/13/18 06:00 CONCLUSION: Unchanged diffuse bilateral pulmonary infiltrates and suspected small effusions. Chest X-Ray 01/14/18 05:00 CONCLUSION: Underinflation with bilateral airspace consolidation and likely atelectasis. However, there is improved aeration compared to yesterday's examination. Chest X-Ray 01/15/18 00:00 CONCLUSION: 1. The ET tube appears to be in good position. 2. No evidence of pneumothorax. - Procedures Date of procedure: 01/04/18 Procedure: Central Line Procedure Note Diagnosis: Circulatory shock, acute hypoxic respiratory failure, DKA, severe acidosis Indications: Pressors, frequent blood draws Consent: Not obtained since the procedure was emergent and there was no family present at bedside Anesthesia: Midazolam Description of the Procedure: The patient was placed in the supine, mild- Trendelenburg position. The area was prepped and draped sterilely. A 19g needle was inserted under negative pressure aspiration and dark venous blood was obtained. A guidewire was inserted easily without resistance. A small incision was made using a #11 blade. Using a modified Seldinger technique, the dilator and the central venous catheter were advanced over the guidewire without resistance. All ports were aspirated and flushed, and had brisk blood return. The line was secured at 17 cm at the skin using 2-0 silk interrupted sutures ( patient was diaphoretic so the line needed to be sutured). A Biopatch and Transparent sterile dressing were applied. There were no immediate complications noted. There was minimal EBL. The patient tolerated the procedure well. Ultrasound Guidance: Ultrasound guidance was used to identify the left internal jugular vein. The vascular anatomy was normal. The vessel was cannulated under direct, real-time ultrasound visualization. After placement of the guidewire, confirmation of the guidewire in the lumen of the vessel was made using ultrasound visualization, before dilation of the tract. A Chest x-ray has been ordered. Central line is in good position, no pneumothorax identified. I personally performed the procedure. Documented By: Walter Dempsey MD 01/04/182023 01/05/2018 PROCEDURE: Left heart catheterization, selective coronary angiography, left ventriculography. PROCEDURE NOTES: The patient was brought to the cardiac catheterization laboratory in a fasting state after informed consent was obtained. The right groin was prepped and draped as per policy and anesthetized with 1% lidocaine. Arterial access was obtained via the right femoral artery and a 6-[place] sheath placed. Coronary arteriography was performed using 6-[place] Alex left 4.0 and right progressive catheters. Left ventriculography was done using a standard 6-[place] pigtail. There were no apparent immediate complications. Manual pressure was applied to achieve good hemostasis after removal of the sheath. HEMODYNAMIC DATA: Left ventricle 87 with an end diastolic pressure of 17, aorta 95/53 with a mean of 71. There was no significant transvalvular aortic gradient on pullback of the pigtail catheter. CORONARY ARTERIOGRAPHY: The left main is normal. The left anterior descending is a medium-sized vessel giving rise to a medium-sized diagonal. No disease is seen in the LAD system. The left circumflex is a medium-sized vessel giving rise to a small obtuse marginal. No disease is seen in the left circumflex system. The right coronary artery is a medium-sized dominant vessel with no disease. LEFT VENTRICULOGRAPHY: Contrast injection of the left ventricle reveals mild global hypokinesis. Ejection fraction is estimated at 45%. CONCLUSIONS: 1. Angiographically normal coronary arteries. 2. Mild left ventricular systolic dysfunction with estimated ejection fraction of 45%. MD ELVIS Singleton/haleigh , 12:11 AM INTUBATION AND VENT MANAGEMENT Assessment and Plan - Plan 52-year-old female with uncontrolled diabetes presented in diabetic ketoacidosis , multiorgan failure, profound shock. Patient required intubation. She has since been extubated and is improved. Care is transferred to the hospitalist service. Uncontrolled diabetes mellitus: -Patient reports she use an insulin pump at home. She took it off and forgot to put it back on. Also states she is unclear if it is working or not. -We will continue with sliding scale insulin with Accu-Cheks. Increase Levemir to 15 units at bedtime. - Diabetic diet. She normally lives in [place]. We will plan to eventually discharge her on long-acting and sliding scale insulin until she can be seen by her mold parter back home Acute metabolic encephalopathy Depression/anxiety/bipolar? -Mental status at baseline. Continue to hold multiple antipsychotic home medications: venlafaxine 150 mg daily, lurasidone 80 mg daily, lithium 450 mg twice daily and alprazolam 0.5 mg twice daily. -Melatonin at night and delirium precautions Acute hypoxic and hypercarbic respiratory failure- recurrent. Community Acquired pneumonia -Now extubated and on room air. Wean off steroids. -Albuterol/ipratropium aerosols every 4 hours with albuterol aerosols every 2 hours as needed for wheezing Septic Shock- resolved Volume overload Acute coronary ischemia Elevated troponin History of hyperlipidemia -Elevated cardiac enzymes. As per cardiology note on 01/05, likely myocarditis as she had no lesions seen on cardiac cath. Viral panel negative. -Continue on aspirin, beta kesha, statin, HERNANDEZ-I -2d echo - left ventricular systolic function is mildly reduced with an estimated ejection fraction in the range of 45- 50%. Mild global hypokinesis though TDS. Wall thickness is normal. Normal left ventricular size. Mitral annular calcification is present. Mild mitral valve regurgitation. Aortic valve sclerosis is present. There is mild tricuspid valve regurgitation. The estimated pulmonary arterial pressure is 27.8 mmHg. The pulmonary valve is not well visualized. Acute kidney injury -resolved -Likely secondary to volume depletion and shock Lactic Acidosis- resolved Severe anion-gap metabolic acidosis-resolved Community Acquired Pneumonia Septic Shock-resolved Normocytic anemia Thrombocytopenia -May discontinue IV antibiotics. DECONDITIONING CONTINUE PT AND OT TOLERATING A DIET Prophylaxis: SQH, SCDs Code Status: FULL CODE Discussed Condition With: RN AND PT AND FAMILY AND CM Discharge Planning: ONCE MORE MOBILE Procedures - Arterial Line Size (Gauge): 20
[2018-01-19] MEDS ORDERED: Acetaminophen 325 MG Tablet PO PRN (15:39)
[2018-01-19] MEDS: Acetaminophen 325 MG Tablet PO PRN (15:52)
[2018-01-19] MEDS: Insulin Detemir Inj 1,000 UNIT/10 ML Vial SQ SCH (20:36)
[2018-01-19] MEDS: Melatonin 5 MG Tablet PO SCH (20:36)
[2018-01-20] MEDS: Melatonin 5 MG Tablet PO SCH (00:10)
[2018-01-20] MEDS: Heparin - SQ 10,000 UNITS/ML Vial SQ SCH (06:08)
[2018-01-20 08:33] LABS: Baso # (Auto) 0.1 th/mm3 (0.0-0.2); Baso % (Auto) 1.3 % (0.0-2.0); Eos # (Auto) 0.4 th/mm3 (0.0-0.4); Eos % (Auto) 3.8 % (0.0-4.0); Hematocrit 33.6 % (35.0-46.0); Hemoglobin 10.9 gm/dL (11.6-15.3); Lymph # (Auto) 1.8 th/mm3 (1.0-4.8); Mean Corpuscular HGB Conc 32.4 % (32.0-36.0); Mean Corpuscular Hemoglobin 28.9 pg (27.0-34.0); Mean Corpuscular Volume 89.1 fL (80.0-100.0); Mean Platelet Volume 12.2 fL (7.0-11.0); Mono # (Auto) 0.6 th/mm3 (0.0-0.9); Mono % (Auto) 6.9 % (0.0-8.0); Neut # (Auto) 6.2 th/mm3 (1.8-7.7); Platelet Count 237 th/mm3 (150-450); Red Blood Count 3.77 mil/mm3 (4.00-5.30); Red Cell Distribution Width 14.7 % (11.6-17.2); White Blood Count 9.2 th/mm3 (4.0-11.0)
[2018-01-20] MEDS: Potassium Chloride 10 MEQ ER Capsule NG/OG SCH (08:37)
[2018-01-20] MEDS: Aspirin 325 MG Tablet PO SCH (08:37)
[2018-01-20] MEDS: Lisinopril 10 MG Tablet PO SCH (08:37)
[2018-01-20] MEDS: Lurasidone 80 MG Tablet PO SCH (08:38)
[2018-01-20] MEDS: Metoprolol Tartrate 25 MG Tablet PO SCH (08:38)
[2018-01-20 08:59] LABS: Albumin 2.8 g/dL (3.4-5.0); Anion Gap 12 meq/L (5-15); Aspartate Aminotransferase 23 U/L (15-37); Blood Urea Nitrogen 11 mg/dL (7-18); Calcium 8.4 mg/dL (8.5-10.1); Carbon Dioxide 23.6 meq/L (21.0-32.0); Chloride 105 meq/L (98-107); Glomerular Filtration Rate Greater Than 89 mL/min (>89); Glucose,Random 141 mg/dL (74-106); Potassium 3.5 meq/L (3.5-5.1); Sodium 141 meq/L (136-145)
[2018-01-20 09:09] LABS: Alanine Aminotransferase 51 U/L (10-53); Alkaline Phosphatase 63 U/L (45-117); Free T4 (Free Thyroxine) 1.16 ng/dL (0.76-1.46); Phosphorus 3.1 mg/dL (2.5-4.9); Total Protein 5.7 g/dL (6.4-8.2)
[2018-01-20] MEDS: Insulin NovoLOG Aspart Correctional Sugar Inj SQ SCH (09:59)
--- NOTE | 2018-01-20 10:31 | P.PNIM ---
Subjective Interval history: This is a 52yF with a completely unknown past medical history who was found by EMS unresponsive in her home. per report, her friends called EMS to check on her. she was intubated in the field with 6.5 ett. she arrives to the ER hypotensive in shock. abg demonstrates pH 6.9/21/275/-26. wbc 30, hct 50, plt 253, 87% neutrophil. sodium 129, potassium 5.3, co2 5.9, AG 34, cr 4.25, glucose 1191. lactate 6.2, ammonia 70. Because nothing was known about the patient and she was in profound shock, we went emergently to CT: CT brain without acute abnormality. CT chest demonstrates patchy infiltrates concerning for infectious etiology. CT abd/pelvis without acute abnormality. she is taken to ICU in critical condition, unresponsive. no additional information is available. ROS unobtainable. 01/05: now on 3 vasopressors. glycemic control improving. remains encephalopathic. remains in shock. now with inferior ST elevations and rising troponins. given that she is unresponsive, unclear if she has any symptoms of ACS. Certainly given clinical course most likely Type II NSTEMI secondary to demand ischemia from shock, but unable to say with certainty that this is not Type I NSTEMI or STEMI given inferior ST elevations (there are diffuse areas of other ST elevations in other leads, which would argue against single vascular territory ischemia). cultures NGTD. Talked with family: she has poorly controlled diabetes and a strong psychiatric history (although family did not know specific diagnoses). 01/06: developed what appeared to be inferior STEMI over the course of yesterday afternoon into evening. troponins coleman and continue to rise. 2d echo, however, without any wall motion abnormalities and ST elevations are somewhat diffuse. taken to [facility] and [facility] with clean coronaries. today remains on vasopressors. encephalopathy persists. acidosis persists and becoming quite hyperchloremic. cultures are NGTD. organ dysfunction persists. 01/07: Remains critically ill on Levophed and vasopressin. Remains encephalopathic. EEG rules out seizures but showed severe encephalopathy. Cultures remain negative. Blood sugar in mid 300s despite DKA protocol 01/08: Remains critically ill, remains on vasopressin. Due to poor control of blood sugar algorithm 3 non-DKA protocol was used yesterday but patient became hypoglycemic. Currently on D10 receiving only sliding scale coverage. Right radial pulse was not felt yesterday arterial Doppler was ordered which showed no perceptible arterial pressure in the digits of the right hand consistent with distal occlusive disease. Today weak radial pulses palpable good capillary refill. Discussed with Dr. Florez will attempt weaning process as tolerated. Also wean Versed after starting Precedex 01/09: Currently sedated with Precedex only but patient is tachypneic asynchronous with the vent. Intermittently follows commands on the right side. Had to sedated for vent synchrony. Chest x-ray shows bilateral effusions weight is up by 10 kg. I will start diuresis with 80 mg Lasix IV push 1 and 20 every 8 hours. Continue daily CPAP trials repeat sputum culture. Will DC vancomycin and azithromycin. Also I have increased Seroquel to 50 every 8 hours 01/10: Remains on Precedex. Tachypneic on CPAP. CXR with basilar infiltrate effusion which is small. I am unclear at this time whether her agitation is secondary to a small size ET tube, patient also has extensive psych history. I will proceed with a trial extubation as the ABG shows good oxygenation and essentially minimal metabolic acidosis. However if she requires reintubation will proceed with MRI of the brain and further workup. Urine output more than 9 L since starting Lasix. 01/11: She is hyper-reflexic with ankle clonus. Combined with other cognitive findings we need to consider serotonin syndrome. I am going to stop psych meds, check abg and CK's. Stick with ativan iv and wean off precedex. It's a long- shot but we need to sort out the cause of her profound encephalopathy. Recheck ammonia Subjective: 01/12: Remains on dexmedetomidine drip at 1.2 mcg/kg/hr. not following commands. Currently off hervenlafaxine, lurasidone and alprazolam and lithium. Remains on nasal cannula. Tachycardic and agitated 01/13: reintubated yesterday. remains intubated. becomes quite agitated with any lightening of sedation. 01/14: Remains intubated and sedated. Failed CPAP trial due to apnea, continues to have agitation and does not follow commands while off sedation. 01/15: No events overnight. Patient seems more awake this morning but still does not consistently follow commands. Switching fentanyl to dilaudid prior to attempting PSV. 01/16: Mental status much improved today. Krista now opens her eyes, tracks movements, follows commands, and nods/ shakes her head appropriately to yes/ no questions. 01/17: Patient successfully extubated yesterday afternoon, now awake and alert but confused about the details of her hospitalization thus far. She recalls visiting [facility] from [place] and that she wasn't feeling well but does not remember any details following that. She reports that she uses an insulin pump but is not sure if it was malfunctioning prior to her illness. Patient reportedly fell last night while trying to get out of bed to look for her daughter, did not sustain any injuries, and patient reports "I forgot where I was". - TRANSFERRED TO OUR SERVICE MOVED OUT OF ICU WORKING WITH PT AND OT - MORE MOBILE MUCH MORE APPROPRIATE DW RN AND PATIENT AND CM NEEDS TO BE MORE MOBILE FOR DC SO SHE CAN GET ON AND OFF A AIRPLANE 01-20 wants to go home DC TO HOME TODAY WILL NEED WALKER AT DC DW RN AND PT AND CM MOVING BETTER WILL FLY HOME OUT OF [facility] Physical Exam Vital signs: Vital Signs 01/19/18 12:00 01/19/18 15:40 01/19/18 16:00 Temperature 98.6 F 98.3 F Pulse Rate 68 70 Respiratory Rate 18 18 Blood Pressure 130/62 130/63 Pulse Oximetry 100 100 100 01/19/18 20:00 01/20/18 00:00 01/20/18 04:00 Temperature 99.0 F 97.9 F 98.4 F Pulse Rate 81 72 72 Respiratory Rate 18 20 18 Blood Pressure 119/56 L 128/61 119/59 L Pulse Oximetry 96 95 96 Intake & Output 01/19/18 01/20/18 01/20/18 18:59 06:59 18:59 Intake Total 720 / 720 360 / 360 Output Total 400 / 400 Balance 720 / 720 -40 / -40 Weight 78.9 kg Intake: Oral 720 / 720 360 / 360 Output: Urine 400 / 400 Other: # Voids 4 Date of Last Bowel Movement 01/18/18 Narrative: GENERAL: This is a well-nourished, well-developed patient, in no apparent distress. CARDIOVASCULAR: Normal rate and regular rhythm without murmurs, gallops, or rubs. RESPIRATORY: Good respiratory efforts. Breath sounds equal and clear to auscultation bilaterally. GASTROINTESTINAL: Abdomen soft, non-tender, non-distended. Normal active bowel sounds MUSCULOSKELETAL: Extremities without cyanosis, or edema. NEURO: Alert & Oriented x4 to person, place, time, situation. Moves all ext x4. Generalized weakness PSYCH: Appropriate mood and affect. - Urinary Catheter Management Indwelling Urethral Catheter Cath placed during this visit: yes, but has since been removed by the nurse Reason for continuing: Decision to DC catheter Insertion date: 01/04/18 Insertion time: 16:29 Removal date: 01/16/18 Removal time: 17:00 Female External Cath placed during this visit: yes Reason for continuing: Not indwelling catheter Insertion date: 01/16/18 Insertion time: 16:00 Results - Labs CBC & Chem 7: 01/20/18 07:03 01/20/18 07:03 Laboratory Results - last 24 hr 01/19/18 01/19/18 01/20/18 17:41 20:26 07:03 WBC RBC Hgb Hct MCV MCH MCHC RDW Plt Count MPV Neut % (Auto) Lymph % (Auto) [place] % (Auto) Eos % (Auto) Baso % (Auto) Neut # (Auto) Lymph # (Auto) [place] # (Auto) Eos # (Auto) Baso # (Auto) WBC Differential Differential Comment Sodium 141 Potassium 3.5 Chloride 105 Carbon Dioxide 23.6 Anion Gap 12 BUN 11 Creatinine 0.44 L Estimated GFR Greater than 89 POC Glucose 334 H 222 H Random Glucose 141 H Calcium 8.4 L Phosphorus 3.1 Magnesium 2.0 Total Bilirubin 0.4 AST 23 ALT 51 Alkaline Phosphatase 63 Total Protein 5.7 L Albumin 2.8 L TSH 4.460 H Free T4 1.16 01/20/18 07:03 WBC 9.2 RBC 3.77 L Hgb 10.9 L Hct 33.6 L MCV 89.1 MCH 28.9 MCHC 32.4 RDW 14.7 Plt Count 237 MPV 12.2 H Neut % (Auto) 68.0 Lymph % (Auto) 20.0 [place] % (Auto) 6.9 Eos % (Auto) 3.8 Baso % (Auto) 1.3 Neut # (Auto) 6.2 Lymph # (Auto) 1.8 [place] # (Auto) 0.6 Eos # (Auto) 0.4 Baso # (Auto) 0.1 WBC Differential . Differential Comment Auto diff final Sodium Potassium Chloride Carbon Dioxide Anion Gap BUN Creatinine Estimated GFR POC Glucose Random Glucose Calcium Phosphorus Magnesium Total Bilirubin AST ALT Alkaline Phosphatase Total Protein Albumin TSH Free T4 - Imaging ITS Impressions Abdomen/Pelvis CT 01/04/18 00:00 CONCLUSION: Fatty liver. Chest CT 01/04/18 00:00 CONCLUSION: Bilateral parenchymal infiltrates most likely inflammatory possibly pneumonia. Head CT 01/07/18 05:43 CONCLUSION: 1. No acute intracranial abnormality. 2. Sinus disease developing. . Extremity Arterial Study 01/07/18 22:13 CONCLUSION: 1. No perceptible arterial pressure in the digits of the right hand consistent with distal occlusive disease. 2. Mildly decreased arterial pressure in the digits of the left hand consistent with nonocclusive distal narrowing. 3. No significant disease at and proximal to either wrist. Head MRI 01/13/18 00:00 CONCLUSION: 1. Normal appearance of the brain. 2. Mastoid fluid. Chest X-Ray 01/15/18 00:00 CONCLUSION: 1. The ET tube appears to be in good position. 2. No evidence of pneumothorax. - Procedures Date of procedure: 01/04/18 Procedure: Central Line Procedure Note Diagnosis: Circulatory shock, acute hypoxic respiratory failure, DKA, severe acidosis Indications: Pressors, frequent blood draws Consent: Not obtained since the procedure was emergent and there was no family present at bedside Anesthesia: Midazolam Description of the Procedure: The patient was placed in the supine, mild- Trendelenburg position. The area was prepped and draped sterilely. A 19g needle was inserted under negative pressure aspiration and dark venous blood was obtained. A guidewire was inserted easily without resistance. A small incision was made using a #11 blade. Using a modified Seldinger technique, the dilator and the central venous catheter were advanced over the guidewire without resistance. All ports were aspirated and flushed, and had brisk blood return. The line was secured at 17 cm at the skin using 2-0 silk interrupted sutures ( patient was diaphoretic so the line needed to be sutured). A Biopatch and Transparent sterile dressing were applied. There were no immediate complications noted. There was minimal EBL. The patient tolerated the procedure well. Ultrasound Guidance: Ultrasound guidance was used to identify the left internal jugular vein. The vascular anatomy was normal. The vessel was cannulated under direct, real-time ultrasound visualization. After placement of the guidewire, confirmation of the guidewire in the lumen of the vessel was made using ultrasound visualization, before dilation of the tract. A Chest x-ray has been ordered. Central line is in good position, no pneumothorax identified. I personally performed the procedure. Documented By: Walter Dempsey MD 01/04/182023 01/05/2018 PROCEDURE: Left heart catheterization, selective coronary angiography, left ventriculography. PROCEDURE NOTES: The patient was brought to the cardiac catheterization laboratory in a fasting state after informed consent was obtained. The right groin was prepped and draped as per policy and anesthetized with 1% lidocaine. Arterial access was obtained via the right femoral artery and a 6-Bruneian sheath placed. Coronary arteriography was performed using 6-Bruneian Alex left 4.0 and right progressive catheters. Left ventriculography was done using a standard 6-Bruneian pigtail. There were no apparent immediate complications. Manual pressure was applied to achieve good hemostasis after removal of the sheath. HEMODYNAMIC DATA: Left ventricle 87 with an end diastolic pressure of 17, aorta 95/53 with a mean of 71. There was no significant transvalvular aortic gradient on pullback of the pigtail catheter. CORONARY ARTERIOGRAPHY: The left main is normal. The left anterior descending is a medium-sized vessel giving rise to a medium-sized diagonal. No disease is seen in the LAD system. The left circumflex is a medium-sized vessel giving rise to a small obtuse marginal. No disease is seen in the left circumflex system. The right coronary artery is a medium-sized dominant vessel with no disease. LEFT VENTRICULOGRAPHY: Contrast injection of the left ventricle reveals mild global hypokinesis. Ejection fraction is estimated at 45%. CONCLUSIONS: 1. Angiographically normal coronary arteries. 2. Mild left ventricular systolic dysfunction with estimated ejection fraction of 45%. MD ELVIS Singleton/haleigh , 12:11 AM INTUBATION AND VENT MANAGEMENT Assessment and Plan - Plan 52-year-old female with uncontrolled diabetes presented in diabetic ketoacidosis , multiorgan failure, profound shock. Patient required intubation. She has since been extubated and is improved. Care is transferred to the hospitalist service. Uncontrolled diabetes mellitus: -Patient reports she use an insulin pump at home. She took it off and forgot to put it back on. Also states she is unclear if it is working or not. -We will continue with sliding scale insulin with Accu-Cheks. Increase Levemir to 15 units at bedtime. - Diabetic diet. She normally lives in [place]. 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 -Mental status at baseline. Continue to hold multiple antipsychotic home medications: venlafaxine 150 mg daily, lurasidone 80 mg daily, lithium 450 mg twice daily and alprazolam 0.5 mg twice daily. -Melatonin at night and delirium precautions Acute hypoxic and hypercarbic respiratory failure- recurrent. Community Acquired pneumonia -Now extubated and on room air. Wean off steroids. -Albuterol/ipratropium aerosols every 4 hours with albuterol aerosols every 2 hours as needed for wheezing Septic Shock- resolved Volume overload Acute coronary ischemia Elevated troponin History of hyperlipidemia -Elevated cardiac enzymes. As per cardiology note on 01/05, likely myocarditis as she had no lesions seen on cardiac cath. Viral panel negative. -Continue on aspirin, beta kesha, statin, HERNANDEZ-I -2d echo - left ventricular systolic function is mildly reduced with an estimated ejection fraction in the range of 45- 50%. Mild global hypokinesis though TDS. Wall thickness is normal. Normal left ventricular size. Mitral annular calcification is present. Mild mitral valve regurgitation. Aortic valve sclerosis is present. There is mild tricuspid valve regurgitation. The estimated pulmonary arterial pressure is 27.8 mmHg. The pulmonary valve is not well visualized. Acute kidney injury -resolved -Likely secondary to volume depletion and shock Lactic Acidosis- resolved Severe anion-gap metabolic acidosis-resolved Community Acquired Pneumonia Septic Shock-resolved Normocytic anemia Thrombocytopenia -May discontinue IV antibiotics. DECONDITIONING CONTINUE PT AND OT TOLERATING A DIET Prophylaxis: SQH, SCDs DC TO HOME TODAY WILL NEED WALKER [facility] RN AND PT AND CM Code Status: FULL CODE Discussed Condition With: RN AND PT AND CM Discharge Planning: DC TO HOME TODAY Procedures - Arterial Line Size (Gauge): 20
[2018-01-20 10:51] LABS: Hemoglobin A1c 8.7 % (4.3-6.0)
--- NOTE | 2018-01-20 10:52 | P.DS ---
Date of admission: 01/04/18 16:56 Primary care physician: UNKNOWN Attending physician on discharge: Tristan Marcus Anticipated date of discharge: 01/20/18 Brief History from admission: This is a 52yF with a completely unknown past medical history who was found by EMS unresponsive in her home. per report, her friends called EMS to check on her. she was intubated in the field with 6.5 ett. she arrives to the ER hypotensive in shock. abg demonstrates pH 6.9/21/275/-26. wbc 30, hct 50, plt 253, 87% neutrophil. sodium 129, potassium 5.3, co2 5.9, AG 34, cr 4.25, glucose 1191. lactate 6.2, ammonia 70. Because nothing was known about the patient and she was in profound shock, we went emergently to CT: CT brain without acute abnormality. CT chest demonstrates patchy infiltrates concerning for infectious etiology. CT abd/pelvis without acute abnormality. she is taken to ICU in critical condition, unresponsive. no additional information is available. ROS unobtainable. Patient update on day of discharge: This is a 52yF with a completely unknown past medical history who was found by EMS unresponsive in her home. per report, her friends called EMS to check on her. she was intubated in the field with 6.5 ett. she arrives to the ER hypotensive in shock. abg demonstrates pH 6.9/21/275/-26. wbc 30, hct 50, plt 253, 87% neutrophil. sodium 129, potassium 5.3, co2 5.9, AG 34, cr 4.25, glucose 1191. lactate 6.2, ammonia 70. Because nothing was known about the patient and she was in profound shock, we went emergently to CT: CT brain without acute abnormality. CT chest demonstrates patchy infiltrates concerning for infectious etiology. CT abd/pelvis without acute abnormality. she is taken to ICU in critical condition, unresponsive. no additional information is available. ROS unobtainable. 01/05: now on 3 vasopressors. glycemic control improving. remains encephalopathic. remains in shock. now with inferior ST elevations and rising troponins. given that she is unresponsive, unclear if she has any symptoms of ACS. Certainly given clinical course most likely Type II NSTEMI secondary to demand ischemia from shock, but unable to say with certainty that this is not Type I NSTEMI or STEMI given inferior ST elevations (there are diffuse areas of other ST elevations in other leads, which would argue against single vascular territory ischemia). cultures NGTD. Talked with family: she has poorly controlled diabetes and a strong psychiatric history (although family did not know specific diagnoses). 01/06: developed what appeared to be inferior STEMI over the course of yesterday afternoon into evening. troponins coleman and continue to rise. 2d echo, however, without any wall motion abnormalities and ST elevations are somewhat diffuse. taken to [facility] overnight and [facility] with clean coronaries. today remains on vasopressors. encephalopathy persists. acidosis persists and becoming quite hyperchloremic. cultures are NGTD. organ dysfunction persists. 01/07: Remains critically ill on Levophed and vasopressin. Remains encephalopathic. EEG rules out seizures but showed severe encephalopathy. Cultures remain negative. Blood sugar in mid 300s despite DKA protocol 01/08: Remains critically ill, remains on vasopressin. Due to poor control of blood sugar algorithm 3 non-DKA protocol was used yesterday but patient became hypoglycemic. Currently on D10 receiving only sliding scale coverage. Right radial pulse was not felt yesterday arterial Doppler was ordered which showed no perceptible arterial pressure in the digits of the right hand consistent with distal occlusive disease. Today weak radial pulses palpable good capillary refill. Discussed with Dr. Florez will attempt weaning process as tolerated. Also wean Versed after starting Precedex 01/09: Currently sedated with Precedex only but patient is tachypneic asynchronous with the vent. Intermittently follows commands on the right side. Had to sedated for vent synchrony. Chest x-ray shows bilateral effusions weight is up by 10 kg. I will start diuresis with 80 mg Lasix IV push 1 and 20 every 8 hours. Continue daily CPAP trials repeat sputum culture. Will DC vancomycin and azithromycin. Also I have increased Seroquel to 50 every 8 hours 01/10: Remains on Precedex. Tachypneic on CPAP. CXR with basilar infiltrate effusion which is small. I am unclear at this time whether her agitation is secondary to a small size ET tube, patient also has extensive psych history. I will proceed with a trial extubation as the ABG shows good oxygenation and essentially minimal metabolic acidosis. However if she requires reintubation will proceed with MRI of the brain and further workup. Urine output more than 9 L since starting Lasix. 01/11: She is hyper-reflexic with ankle clonus. Combined with other cognitive findings we need to consider serotonin syndrome. I am going to stop psych meds, check abg and CK's. Stick with ativan iv and wean off precedex. It's a long- shot but we need to sort out the cause of her profound encephalopathy. Recheck ammonia Subjective: 01/12: Remains on dexmedetomidine drip at 1.2 mcg/kg/hr. not following commands. Currently off hervenlafaxine, lurasidone and alprazolam and lithium. Remains on nasal cannula. Tachycardic and agitated 01/13: reintubated yesterday. remains intubated. becomes quite agitated with any lightening of sedation. 01/14: Remains intubated and sedated. Failed CPAP trial due to apnea, continues to have agitation and does not follow commands while off sedation. 01/15: No events overnight. Patient seems more awake this morning but still does not consistently follow commands. Switching fentanyl to dilaudid prior to attempting PSV. 01/16: Mental status much improved today. Krista now opens her eyes, tracks movements, follows commands, and nods/ shakes her head appropriately to yes/ no questions. 01/17: Patient successfully extubated yesterday afternoon, now awake and alert but confused about the details of her hospitalization thus far. She recalls visiting [facility] from [place] and that she wasn't feeling well but does not remember any details following that. She reports that she uses an insulin pump but is not sure if it was malfunctioning prior to her illness. Patient reportedly fell last night while trying to get out of bed to look for her daughter, did not sustain any injuries, and patient reports "I forgot where I was". 01-18 TRANSFERRED TO OUR SERVICE MOVED OUT OF ICU WORKING WITH PT AND OT 01-19 MORE MOBILE MUCH MORE APPROPRIATE DW RN AND PATIENT AND CM NEEDS TO BE MORE MOBILE FOR DC SO SHE CAN GET ON AND OFF A AIRPLANE 01-20 wants to go home DC TO HOME TODAY WILL NEED WALKER AT DC DW RN AND PT AND CM MOVING BETTER WILL FLY HOME OUT OF [facility] DS: Diagnosis - Discharge Diagnosis (1) Diabetes type 1, uncontrolled Status: Chronic (2) Metabolic encephalopathy Status: Resolved (3) Bipolar 1 disorder Status: Chronic (4) CAP (community acquired pneumonia) Status: Resolved (5) Septic shock Status: Resolved (6) Hyperlipidemia Status: Chronic (7) Renal insufficiency Status: Resolved (8) Normocytic anemia Status: Chronic (9) Thrombocytopenia Status: Resolved DS: Medications - Discharge Medications Prescriptions: albuterol sulfate 2 puff INHALATION Q6H PRN #1 inh PRN Reason: SOB aspirin 325 mg PO DAILY #30 tab furosemide [Lasix] 20 mg PO DAILY PRN #30 tab PRN Reason: SWELLING insulin aspart U-100 [Novolog U-100 Insulin aspart] 0 unit SUB-Q ACHS #7 vial insulin detemir U-100 [Levemir U-100 Insulin] 15 unit SUB-Q HS #3 vial lisinopril 10 mg PO DAILY #30 tab lurasidone [Latuda] 80 mg PO DAILY #30 tab melatonin 5 mg PO HS #30 tab metoprolol tartrate 12.5 mg PO BID #60 tab potassium chloride 20 meq PO BID #120 cap pravastatin 20 mg PO DAILY #30 tab venlafaxine 150 mg PO DAILY #30 cap DS: Summary Hospital Course: This is a 52yF with a completely unknown past medical history who was found by EMS unresponsive in her home. per report, her friends called EMS to check on her. she was intubated in the field with 6.5 ett. she arrives to the ER hypotensive in shock. abg demonstrates pH 6.9/21/275/-26. wbc 30, hct 50, plt 253, 87% neutrophil. sodium 129, potassium 5.3, co2 5.9, AG 34, cr 4.25, glucose 1191. lactate 6.2, ammonia 70. Because nothing was known about the patient and she was in profound shock, we went emergently to CT: CT brain without acute abnormality. CT chest demonstrates patchy infiltrates concerning for infectious etiology. CT abd/pelvis without acute abnormality. she is taken to ICU in critical condition, unresponsive. no additional information is available. ROS unobtainable. 01/05: now on 3 vasopressors. glycemic control improving. remains encephalopathic. remains in shock. now with inferior ST elevations and rising troponins. given that she is unresponsive, unclear if she has any symptoms of ACS. Certainly given clinical course most likely Type II NSTEMI secondary to demand ischemia from shock, but unable to say with certainty that this is not Type I NSTEMI or STEMI given inferior ST elevations (there are diffuse areas of other ST elevations in other leads, which would argue against single vascular territory ischemia). cultures NGTD. Talked with family: she has poorly controlled diabetes and a strong psychiatric history (although family did not know specific diagnoses). 01/06: developed what appeared to be inferior STEMI over the course of yesterday afternoon into evening. troponins coleman and continue to rise. 2d echo, however, without any wall motion abnormalities and ST elevations are somewhat diffuse. taken to [facility]labor overnight and [facility] with clean coronaries. today remains on vasopressors. encephalopathy persists. acidosis persists and becoming quite hyperchloremic. cultures are NGTD. organ dysfunction persists. 01/07: Remains critically ill on Levophed and vasopressin. Remains encephalopathic. EEG rules out seizures but showed severe encephalopathy. Cultures remain negative. Blood sugar in mid 300s despite DKA protocol 01/08: Remains critically ill, remains on vasopressin. Due to poor control of blood sugar algorithm 3 non-DKA protocol was used yesterday but patient became hypoglycemic. Currently on D10 receiving only sliding scale coverage. Right radial pulse was not felt yesterday arterial Doppler was ordered which showed no perceptible arterial pressure in the digits of the right hand consistent with distal occlusive disease. Today weak radial pulses palpable good capillary refill. Discussed with Dr. Florez will attempt weaning process as tolerated. Also wean Versed after starting Precedex 01/09: Currently sedated with Precedex only but patient is tachypneic asynchronous with the vent. Intermittently follows commands on the right side. Had to sedated for vent synchrony. Chest x-ray shows bilateral effusions weight is up by 10 kg. I will start diuresis with 80 mg Lasix IV push 1 and 20 every 8 hours. Continue daily CPAP trials repeat sputum culture. Will DC vancomycin and azithromycin. Also I have increased Seroquel to 50 every 8 hours 01/10: Remains on Precedex. Tachypneic on CPAP. CXR with basilar infiltrate effusion which is small. I am unclear at this time whether her agitation is secondary to a small size ET tube, patient also has extensive psych history. I will proceed with a trial extubation as the ABG shows good oxygenation and essentially minimal metabolic acidosis. However if she requires reintubation will proceed with MRI of the brain and further workup. Urine output more than 9 L since starting Lasix. 01/11: She is hyper-reflexic with ankle clonus. Combined with other cognitive findings we need to consider serotonin syndrome. I am going to stop psych meds, check abg and CK's. Stick with ativan iv and wean off precedex. It's a long- shot but we need to sort out the cause of her profound encephalopathy. Recheck ammonia Subjective: 01/12: Remains on dexmedetomidine drip at 1.2 mcg/kg/hr. not following commands. Currently off hervenlafaxine, lurasidone and alprazolam and lithium. Remains on nasal cannula. Tachycardic and agitated 01/13: reintubated yesterday. remains intubated. becomes quite agitated with any lightening of sedation. 01/14: Remains intubated and sedated. Failed CPAP trial due to apnea, continues to have agitation and does not follow commands while off sedation. 01/15: No events overnight. Patient seems more awake this morning but still does not consistently follow commands. Switching fentanyl to dilaudid prior to attempting PSV. 01/16: Mental status much improved today. Krista now opens her eyes, tracks movements, follows commands, and nods/ shakes her head appropriately to yes/ no questions. 01/17: Patient successfully extubated yesterday afternoon, now awake and alert but confused about the details of her hospitalization thus far. She recalls visiting [facility] from [place] and that she wasn't feeling well but does not remember any details following that. She reports that she uses an insulin pump but is not sure if it was malfunctioning prior to her illness. Patient reportedly fell last night while trying to get out of bed to look for her daughter, did not sustain any injuries, and patient reports "I forgot where I was". 9-7 TRANSFERRED TO OUR SERVICE MOVED OUT OF ICU WORKING WITH PT AND OT 9-8 MORE MOBILE MUCH MORE APPROPRIATE DW RN AND PATIENT AND CM NEEDS TO BE MORE MOBILE FOR DC SO SHE CAN GET ON AND OFF A AIRPLANE 9-9 wants to go home DC TO HOME TODAY WILL NEED WALKER AT DC [facility] RN AND PT AND CM MOVING BETTER WILL FLY HOME OUT OF [facility] - Time Spent with Patient Total time spent providing and/or coordinating discharge services: Greater than 30 minutes Exam Vital signs: Vital Signs 01/19/18 12:00 01/19/18 15:40 01/19/18 16:00 Temperature 98.6 F 98.3 F Pulse Rate 68 70 Respiratory Rate 18 18 Blood Pressure 130/62 130/63 Pulse Oximetry 100 100 100 01/19/18 20:00 01/20/18 00:00 01/20/18 04:00 Temperature 99.0 F 97.9 F 98.4 F Pulse Rate 81 72 72 Respiratory Rate 18 20 18 Blood Pressure 119/56 L 128/61 119/59 L Pulse Oximetry 96 95 96 Intake & Output 01/19/18 01/20/18 01/20/18 18:59 06:59 18:59 Intake Total 720 / 720 360 / 360 Output Total 400 / 400 Balance 720 / 720 -40 / -40 Weight 78.9 kg Intake: Oral 720 / 720 360 / 360 Output: Urine 400 / 400 Other: # Voids 4 Date of Last Bowel Movement 01/18/18 Narrative: GENERAL: This is a well-nourished, well-developed patient, in no apparent distress. CARDIOVASCULAR: Normal rate and regular rhythm without murmurs, gallops, or rubs. RESPIRATORY: Good respiratory efforts. Breath sounds equal and clear to auscultation bilaterally. GASTROINTESTINAL: Abdomen soft, non-tender, non-distended. Normal active bowel sounds MUSCULOSKELETAL: Extremities without cyanosis, or edema. NEURO: Alert & Oriented x4 to person, place, time, situation. Moves all ext x4. Generalized weakness PSYCH: Appropriate mood and affect. Results Procedures completed during hospitalization: Date of procedure: 01/04/18 Procedure: Central Line Procedure Note Diagnosis: Circulatory shock, acute hypoxic respiratory failure, DKA, severe acidosis Indications: Pressors, frequent blood draws Consent: Not obtained since the procedure was emergent and there was no family present at bedside Anesthesia: Midazolam Description of the Procedure: The patient was placed in the supine, mild- Trendelenburg position. The area was prepped and draped sterilely. A 19g needle was inserted under negative pressure aspiration and dark venous blood was obtained. A guidewire was inserted easily without resistance. A small incision was made using a #11 blade. Using a modified Seldinger technique, the dilator and the central venous catheter were advanced over the guidewire without resistance. All ports were aspirated and flushed, and had brisk blood return. The line was secured at 17 cm at the skin using 2-0 silk interrupted sutures ( patient was diaphoretic so the line needed to be sutured). A Biopatch and Transparent sterile dressing were applied. There were no immediate complications noted. There was minimal EBL. The patient tolerated the procedure well. Ultrasound Guidance: Ultrasound guidance was used to identify the left internal jugular vein. The vascular anatomy was normal. The vessel was cannulated under direct, real-time ultrasound visualization. After placement of the guidewire, confirmation of the guidewire in the lumen of the vessel was made using ultrasound visualization, before dilation of the tract. A Chest x-ray has been ordered. Central line is in good position, no pneumothorax identified. I personally performed the procedure. Documented By: Walter Dempsey MD 01/04/182023 01/05/2018 PROCEDURE: Left heart catheterization, selective coronary angiography, left ventriculography. PROCEDURE NOTES: The patient was brought to the cardiac catheterization laboratory in a fasting state after informed consent was obtained. The right groin was prepped and draped as per policy and anesthetized with 1% lidocaine. Arterial access was obtained via the right femoral artery and a 6-Telugu sheath placed. Coronary arteriography was performed using 6-Telugu Alex left 4.0 and right progressive catheters. Left ventriculography was done using a standard 6-Telugu pigtail. There were no apparent immediate complications. Manual pressure was applied to achieve good hemostasis after removal of the sheath. HEMODYNAMIC DATA: Left ventricle 87 with an end diastolic pressure of 17, aorta 95/53 with a mean of 71. There was no significant transvalvular aortic gradient on pullback of the pigtail catheter. CORONARY ARTERIOGRAPHY: The left main is normal. The left anterior descending is a medium-sized vessel giving rise to a medium-sized diagonal. No disease is seen in the LAD system. The left circumflex is a medium-sized vessel giving rise to a small obtuse marginal. No disease is seen in the left circumflex system. The right coronary artery is a medium-sized dominant vessel with no disease. LEFT VENTRICULOGRAPHY: Contrast injection of the left ventricle reveals mild global hypokinesis. Ejection fraction is estimated at 45%. CONCLUSIONS: 1. Angiographically normal coronary arteries. 2. Mild left ventricular systolic dysfunction with estimated ejection fraction of 45%. MD ELVIS Singleton/haleigh , 12:11 AM [facility]NAG[facility] Completed studies during hospitalization: Laboratory Results CBC w Diff Cancelled 01/05/18 16:50 WBC 9.2 th/mm3 (4.0-11.0) 01/20/18 07:03 Corrected WBC Cancelled 01/05/18 16:50 RBC 3.77 mil/mm3 (4.00-5.30) L 01/20/18 07:03 Hgb 10.9 gm/dL (11.6-15.3) L 01/20/18 07:03 POC Hgb (Calc) 10.2 g/dL (11.6-15.3) L 01/05/18 22:30 Hct 33.6 % (35.0-46.0) L 01/20/18 07:03 POC Hct 30.0 % (35-46.0) L 01/05/18 22:30 MCV 89.1 fL (80.0-100.0) 01/20/18 07:03 MCH 28.9 pg (27.0-34.0) 01/20/18 07:03 MCHC 32.4 % (32.0-36.0) 01/20/18 07:03 RDW 14.7 % (11.6-17.2) 01/20/18 07:03 Plt Count 237 th/mm3 (150-450) 01/20/18 07:03 MPV 12.2 fL (7.0-11.0) H 01/20/18 07:03 Prelim Diff (Auto) Slide review pending 01/13/18 04:18 Immature Gran % (Auto) Cancelled 01/05/18 16:50 Neut % (Auto) 68.0 % (16.0-70.0) 01/20/18 07:03 Lymph % (Auto) 20.0 % (9.0-44.0) 01/20/18 07:03 [place] % (Auto) 6.9 % (0.0-8.0) 01/20/18 07:03 Eos % (Auto) 3.8 % (0.0-4.0) 01/20/18 07:03 Baso % (Auto) 1.3 % (0.0-2.0) 01/20/18 07:03 Immature Gran # (Auto) Cancelled 01/05/18 16:50 Neut # (Auto) 6.2 th/mm3 (1.8-7.7) 01/20/18 07:03 Lymph # (Auto) 1.8 th/mm3 (1.0-4.8) 01/20/18 07:03 [place] # (Auto) 0.6 th/mm3 (0.0-0.9) 01/20/18 07:03 Eos # (Auto) 0.4 th/mm3 (0.0-0.4) 01/20/18 07:03 Baso # (Auto) 0.1 th/mm3 (0.0-0.2) 01/20/18 07:03 WBC Differential . 01/20/18 07:03 Diff Scan Auto diff confirmed 01/05/18 22:30 Seg Neuts % (Manual) 84 % (16-70) H 01/13/18 04:18 Band Neuts % (Manual) 3 % (0-6) 01/13/18 04:18 Lymphocytes % (Manual) 7 % (9-44) L 01/13/18 04:18 Atypical Lymphs % (Man) Cancelled 01/05/18 16:50 Monocytes % (Manual) 5 % (0-8) 01/13/18 04:18 Eosinophils % (Manual) 1 % (0-4) 01/04/18 16:20 Basophils % (Manual) Cancelled 01/05/18 16:50 Metamyelocytes % (Man) 1 % (0-1) 01/13/18 04:18 Myelocytes % (Man) Cancelled 01/05/18 16:50 Promyelocytes % (Man) Cancelled 01/05/18 16:50 Blast Cells % (Manual) Cancelled 01/05/18 16:50 Plasma Cell % (Manual) 1 % (0-0) H 01/12/18 05:00 Other Cells % Cancelled 01/05/18 16:50 Abs Neuts (Manual) 11.4 th/mm3 (1.8-7.7) H 01/13/18 04:18 Nucleated RBCs/100 WBC 1 /100 WBC (0-0) H 01/13/18 04:18 Differential Comment Auto diff final 01/20/18 07:03 Hypersegmented Neuts Cancelled 01/05/18 16:50 Smudge Cells Cancelled 01/05/18 16:50 Toxic Granulation 1+ (None) H 01/13/18 04:18 Toxic Vacuolation Cancelled 01/05/18 16:50 Dohle Bodies Cancelled 01/05/18 16:50 Platelet Estimate Normal (Normal) 01/13/18 04:18 Platelet Morphology Enlarged (Normal) H 01/13/18 04:18 RBC Morphology Cancelled 01/05/18 16:50 Dimorphic RBCs Cancelled 01/05/18 16:50 Polychromasia Cancelled 01/05/18 16:50 Basophilic Stippling Cancelled 01/05/18 16:50 Spherocytes Cancelled 01/05/18 16:50 Pappenheimer Bodies Cancelled 01/05/18 16:50 Sickle Cells Cancelled 01/05/18 16:50 Target Cells Cancelled 01/05/18 16:50 Tear Drop Cells Cancelled 01/05/18 16:50 Ovalocytes 1+ (None) H 01/04/18 16:20 Stomatocytes Cancelled 01/05/18 16:50 Helmet Cells Cancelled 01/05/18 16:50 Ocasio-Kingsland Bodies Cancelled 01/05/18 16:50 [place] Cells Cancelled 01/05/18 16:50 Acanthocytes (Spur) Occ (None) H 01/05/18 22:30 Rouleaux Cancelled 01/05/18 16:50 Keratocytes Occ (None) H 01/05/18 22:30 Hematology Comments 01/19/18 08:39 PT 11.3 sec (9.8-11.6) 01/11/18 05:00 INR 1.1 Ratio 01/11/18 05:00 APTT 25.0 sec (24.3-30.1) 01/13/18 04:18 Fibrinogen 432 mg/dL (227-377) H 01/04/18 16:20 Puncture Site Left radial 09/05/18 05:21 Patient Temperature 98.6 09/05/18 05:21 O2 Saturation 97 % (90-100) 01/16/18 05:21 ABG pH 7.54 (7.380-7.420) H* 01/16/18 05:21 ABG pCO2 34 mmHg (38-42) L 01/16/18 05:21 ABG pO2 174 mmHG (61-120) H 01/16/18 05:21 ABG HCO3 28 mmol/L (22-26) H 01/16/18 05:21 ABG O2 Content 12.4 Vol % (12.0-20.0) 01/16/18 05:21 ABG Base Excess 5.5 mmol/L (-2-2) H 01/16/18 05:21 ABG Methemoglobin 1.4 % (0-2) 01/16/18 05:21 Omer Test Present 01/16/18 05:21 VBG pH 7.24 (7.360-7.400) L* 01/05/18 00:20 VBG pCO2 33 mmHG (44-48) L 01/05/18 00:20 VBG pO2 56 mmHG (35-40) H 01/05/18 00:20 VBG HCO3 14 mmol/L (22-26) L* 01/05/18 00:20 VBG O2 Saturation 89 % (70-76) H 01/05/18 00:20 VBG O2 Content 14.6 Vol % (9.0-17.0) 01/05/18 00:20 VBG Base Excess -12.2 mmol/L (-2-2) L 01/05/18 00:20 VBG Carboxyhemoglobin 1.4 % (0-4) 01/05/18 00:20 VBG Methemoglobin 0.6 % (0-2) 01/05/18 00:20 Hemoglobin 8.8 G/DL (12.0-16.0) L 01/16/18 05:21 Hemoglobin 11.6 G/DL (12.0-16.0) L 01/05/18 00:20 Carboxyhemoglobin 0.9 % (0-4) 01/16/18 05:21 O2 Delivery Device Ventilator 01/16/18 05:21 Liter Flow 4.00 L/M 01/11/18 09:24 Vent Setting Prvc/ ac 01/16/18 05:21 Inspired O2 40 % 01/16/18 05:21 Critical Value Yes 01/16/18 05:21 POC Sodium 149 mmol/L (137-144) H 01/05/18 22:30 Sodium 141 meq/L (136-145) 01/20/18 07:03 POC Potassium 3.1 mmol/L (3.6-5.0) L 01/05/18 22:30 Potassium 3.5 meq/L (3.5-5.1) 01/20/18 07:03 POC Chloride 121 mmol/L (102-111) H 01/05/18 22:30 Chloride 105 meq/L (98-107) 01/20/18 07:03 Carbon Dioxide 23.6 meq/L (21.0-32.0) 01/20/18 07:03 Anion Gap 12 meq/L (5-15) 01/20/18 07:03 POC BUN 22 mg/dL (5-21) H 01/05/18 22:30 BUN 11 mg/dL (7-18) 01/20/18 07:03 Creatinine 0.44 mg/dL (0.50-1.00) L 01/20/18 07:03 POC Creatinine 0.9 mg/dL (0.6-1.3) 01/05/18 22:30 Estimated GFR Greater than 89 mL/min (>89) 01/20/18 07:03 POC Glucose 222 mg/dl (68-110) H 01/19/18 20:26 Random Glucose 141 mg/dL (74-106) H 01/20/18 07:03 Hemoglobin A1c 8.9 % (4.3-6.0) H 01/18/18 03:12 Lactic Acid 1.0 mmol/L (0.4-2.0) 01/13/18 04:18 Calcium 8.4 mg/dL (8.5-10.1) L 01/20/18 07:03 Prot Corrected Calcium 8.2 mg/dL (8.5-10.1) L 01/11/18 05:00 Phosphorus 3.1 mg/dL (2.5-4.9) 01/20/18 07:03 Magnesium 2.0 mg/dL (1.5-2.5) 01/20/18 07:03 Total Bilirubin 0.4 mg/dL (0.2-1.0) 01/20/18 07:03 AST 23 U/L (15-37) 01/20/18 07:03 ALT 51 U/L (10-53) 01/20/18 07:03 Alkaline Phosphatase 63 U/L (45-117) 01/20/18 07:03 Ammonia 21 mcmol/L (11-32) 01/13/18 04:18 Total Creatine Kinase 654 U/L (26-192) H 01/11/18 09:40 CK-MB (CK-2) 2.6 ng/mL (0.5-3.6) 01/11/18 09:40 CK-MB (CK-2) % 0.4 % (0.0-4.0) 01/11/18 09:40 Troponin I 5.62 ng/mL (0.02-0.05) H* D 01/06/18 22:24 Total Protein 5.7 g/dL (6.4-8.2) L 01/20/18 07:03 Albumin 2.8 g/dL (3.4-5.0) L 01/20/18 07:03 Prealbumin 11 mg/dL (20-40) L 01/14/18 05:10 Beta-Hydroxybutyric Acd 0.08 mmol/L (0.00-0.39) 01/06/18 03:30 TSH 4.460 uIU/mL (0.358-3.740) H 01/20/18 07:03 Free T4 1.16 ng/dL (0.76-1.46) 01/20/18 07:03 Beta HCG, Qual Less than 1.0 mIU/mL (0-5) 01/12/18 05:00 Urine Color Yellow (Yellw/Straw) 01/04/18 16:26 Urine Clarity Clear (Clear) 01/04/18 16:26 Urine pH 5.0 (5.0-8.5) 01/04/18 16:26 Ur Specific [place] 1.017 (1.002-1.035) 01/04/18 16:26 Urine Protein Negative mg/dL (Neg-Trace) 01/04/18 16:26 Urine Glucose (UA) 500 or greater mg/dL (Negative) 01/04/18 16:26 Urine Ketones 80 or greater mg/dL (Negative) H 01/04/18 16:26 Urine Occult Blood Small (Negative) H 01/04/18 16:26 Urine Nitrate Negative (Negative) 01/04/18 16:26 Urine Bilirubin Negative (Negative) 01/04/18 16:26 Urine Urobilinogen Less than 2 mg/dL (Less than 2) 01/04/18 16:26 Ur Leukocyte Esterase Negative (Negative) 01/04/18 16:26 Urine RBC 1 /hpf (0-3) 01/04/18 16:26 Ur Squamous Epith Cells <1 /hpf (0-5) 01/04/18 16:26 Micro UA Comment Cath-culture not ind 01/04/18 16:26 Ur Microscopic Review Not Reportable 01/04/18 16:26 Urine Culture Comments Cath-cult not ind 01/04/18 16:26 Nasal Screen MRSA (PCR) Not detected (Negative) 01/04/18 18:00 Vancomycin Trough 10.7 mcg/mL (5.0-10.0) H 01/08/18 11:50 Random Vancomycin 7.4 Comment 01/06/18 03:30 Salicylates 4.0 mg/dL (2.8-20.0) 01/04/18 16:20 Urine Opiates Screen Neg (Neg) 01/04/18 16:26 Acetaminophen Less than 2.0 mcg/mL (10.0-30.0) L 01/04/18 16:20 Ur Barbiturates Screen Neg (Neg) 01/04/18 16:26 Ur Amphetamines Screen Neg (Neg) 01/04/18 16:26 U Benzodiazepines Scrn Neg (Neg) 01/04/18 16:26 Urine Cocaine Screen Neg (Neg) 01/04/18 16:26 U Cannabinoids Screen Neg (Neg) 01/04/18 16:26 Serum Alcohol Less than 3 mg/dL (0-5) 01/04/18 16:20 Adenovirus (PCR) ND 01/05/18 22:30 Bordetella holmesii PCR ND 01/05/18 22:30 B. pertussis DNA (PCR) ND 01/05/18 22:30 B. paraper/bronch (PCR) ND 01/05/18 22:30 Hepatitis A IgM Ab Nonreactive (Nonreactive) 01/04/18 18:58 Hep Bs Antigen Nonreactive (Nonreactive) 01/04/18 18:58 Hep B Core IgM Ab Nonreactive (Nonreactive) 01/04/18 18:58 Hep C IgG Ab Nonreactive (Nonreactive) 01/04/18 18:58 Human Metapneumovir PCR ND 01/05/18 22:30 Influenza A (RT-PCR) ND 01/05/18 22:30 Influenza A (H1) PCR ND 01/05/18 22:30 Influenza A (H3) PCR ND 01/05/18 22:30 Influenza B (RT-PCR) ND 01/05/18 22:30 Parainfluenza 1 (PCR) ND 01/05/18 22:30 Parainfluenza 2 (PCR) ND 01/05/18 22:30 Parainfluenza 3 (PCR) ND 01/05/18 22:30 Parainfluenza 4 (PCR) ND 01/05/18 22:30 RSV Type A (PCR) ND 01/05/18 22:30 RSV Type B (PCR) ND 01/05/18 22:30 Rhinovirus (PCR) ND 01/05/18 22:30 Blood Type O Positive 01/05/18 23:00 Blood Type Recheck Required 01/05/18 23:00 Antibody Screen Negative 01/05/18 23:00 Impressions Abdomen/Pelvis CT 01/04/18 00:00 CONCLUSION: Fatty liver. Chest CT 01/04/18 00:00 CONCLUSION: Bilateral parenchymal infiltrates most likely inflammatory possibly pneumonia. Head CT 01/07/18 05:43 CONCLUSION: 1. No acute intracranial abnormality. 2. Sinus disease developing. . Extremity Arterial Study 01/07/18 22:13 CONCLUSION: 1. No perceptible arterial pressure in the digits of the right hand consistent with distal occlusive disease. 2. Mildly decreased arterial pressure in the digits of the left hand consistent with nonocclusive distal narrowing. 3. No significant disease at and proximal to either wrist. Head MRI 01/13/18 00:00 CONCLUSION: 1. Normal appearance of the brain. 2. Mastoid fluid. Chest X-Ray 01/15/18 00:00 CONCLUSION: 1. The ET tube appears to be in good position. 2. No evidence of pneumothorax. Labs on day of discharge: Labs from last 24 hours 01/20/18 01/20/18 01/20/18 07:03 07:03 07:03 WBC 9.2 RBC 3.77 L Hgb 10.9 L Hct 33.6 L MCV 89.1 MCH 28.9 MCHC 32.4 RDW 14.7 Plt Count 237 MPV 12.2 H Neut % (Auto) 68.0 Lymph % (Auto) 20.0 [place] % (Auto) 6.9 Eos % (Auto) 3.8 Baso % (Auto) 1.3 Neut # (Auto) 6.2 Lymph # (Auto) 1.8 [place] # (Auto) 0.6 Eos # (Auto) 0.4 Baso # (Auto) 0.1 WBC Differential . Differential Comment Auto diff final Sodium 141 Potassium 3.5 Chloride 105 Carbon Dioxide 23.6 Anion Gap 12 BUN 11 Creatinine 0.44 L Estimated GFR Greater than 89 POC Glucose Random Glucose 141 H Hemoglobin A1c Pending Calcium 8.4 L Phosphorus 3.1 Magnesium 2.0 Total Bilirubin 0.4 AST 23 ALT 51 Alkaline Phosphatase 63 Total Protein 5.7 L Albumin 2.8 L TSH 4.460 H Free T4 1.16 01/19/18 01/19/18 20:26 17:41 WBC RBC Hgb Hct MCV MCH MCHC RDW Plt Count MPV Neut % (Auto) Lymph % (Auto) [place] % (Auto) Eos % (Auto) Baso % (Auto) Neut # (Auto) Lymph # (Auto) [place] # (Auto) Eos # (Auto) Baso # (Auto) WBC Differential Differential Comment Sodium Potassium Chloride Carbon Dioxide Anion Gap BUN Creatinine Estimated GFR POC Glucose 222 H 334 H Random Glucose Hemoglobin A1c Calcium Phosphorus Magnesium Total Bilirubin AST ALT Alkaline Phosphatase Total Protein Albumin TSH Free T4 - Impressions ITS Impressions Abdomen/Pelvis CT 01/04/18 00:00 CONCLUSION: Fatty liver. Chest CT 01/04/18 00:00 CONCLUSION: Bilateral parenchymal infiltrates most likely inflammatory possibly pneumonia. Head CT 01/07/18 05:43 CONCLUSION: 1. No acute intracranial abnormality. 2. Sinus disease developing. . Extremity Arterial Study 01/07/18 22:13 CONCLUSION: 1. No perceptible arterial pressure in the digits of the right hand consistent with distal occlusive disease. 2. Mildly decreased arterial pressure in the digits of the left hand consistent with nonocclusive distal narrowing. 3. No significant disease at and proximal to either wrist. Head MRI 01/13/18 00:00 CONCLUSION: 1. Normal appearance of the brain. 2. Mastoid fluid. Chest X-Ray 01/15/18 00:00 CONCLUSION: 1. The ET tube appears to be in good position. 2. No evidence of pneumothorax. Discharge Plan - Discharge Disposition Patient Disposition: 01 Discharge Home - Discharge Condition Condition: Good - Discharge Order Discharge Orders: Discharge Order (Routine); Ordered 01/20/18 Ordered By: Tristan Marcus - Discharge Details Anticipated Discharge Date: 01/20/18 Discharge Comment: DC TO HOME TODAY - Physicians Team Primary Care Provider: UNKNOWN, Attending Provider: Tristan Marcus Other Providers: Tobias Vanegas MD
[2018-01-20 11:11] VITALS: O2SAT 98
[2018-01-20 11:15] VITALS: BP 149/68; PULSE 80; RESP 20; TEMP 98.6
== END 2018-01-20 12:23 | disposition home or self-care (01) ==
LOC: NEPE 16:03 → NEDA 16:56 → HIMC 17:35 → N04 01-18 13:21
PROVIDERS: ADMIT Hospitalist; ATTEND Hospitalist